=== PATIENT | female | born 1940 | race Caucasian/White ===

== ENCOUNTER → 2018-10-28 10:53 | Outpatient (CLI) | payer MEDICARE, OTHER, SELFPAY ==
--- NOTE | 2018-10-28 11:00 | DI.MG.S_ITS ---
BILATERAL DIGITAL SCREENING MAMMOGRAM 3D/2D WITH CAD: 10/28/2018 CLINICAL: Routine screening. Family history of breast cancer. Comparison is made to exams dated: 01/14/2017 mammogram, 01/05/2016 mammogram, and 10/28/2014 mammogram - [facility]. The tissue of both breasts is heterogeneously dense. This may lower the sensitivity of mammography. Current study was also evaluated with a Computer Aided Detection (CAD) system. There are benign post operative findings in the right breast. There also are benign calcifications in both breasts. No significant masses, calcifications, or other findings are seen in either breast. There has been no significant interval change. IMPRESSION: There is no mammographic evidence of malignancy. A 1 year screening mammogram is recommended. This exam was interpreted at Station ID: [id number]. NOTE: For mammograms, a report in lay terms will be sent to the patient. Approximately 15% of breast malignancies will not be visualized mammographically. In the management of a palpable breast mass, a negative mammogram must not discourage biopsy of a clinically suspicious lesion. Electronically Signed By: Jalen wallace/luda:10/28/2018 11:48:05 copy to: [place] letter sent: Normal Exam ACR BI-RADS Category 2: Benign Finding(s) 3342F
== END ==
PROVIDERS: PCP Internal Medicine; Visit Provider Internal Medicine
DX: Z12.31 Encounter for screening mammogram for malignant neoplasm of breast (principal); Z80.3 Family history of malignant neoplasm of breast
CPT/HCPCS: 77063; 77067

== ENCOUNTER 2018-11-19 09:22 | Emergency (ER) | payer MEDICARE, OTHER, SELFPAY ==
[2018-11-19 09:25] VITALS: BP 181/89; PULSE 101; RESP 20; TEMP 36.4; O2SAT 97
--- NOTE | 2018-11-19 10:22 | DI.RAD.S_ITS ---
PROCEDURE: XR SACRUM COCCYX MIN 2V INDICATIONS: pain TECHNIQUE: 3 views of the sacrum and coccyx acquired. COMPARISON: None. FINDINGS: Bones: No fractures or dislocations. No suspicious bony lesions. Severe degenerative disc height loss at L5-S1. Soft tissues: Visualized bowel gas pattern is normal. No suspicious soft tissue densities. IMPRESSION: Severe degenerative disc height loss at L5-S1. If there is concern for central canal stenosis, MR imaging of the lumbar spine is recommended. No fractures. Dictated by: Rosalba Su M.D. on 11/19/2018 at 10:58 Approved by: Rosalba Su M.D. on 11/19/2018 at 10:59
--- NOTE | 2018-11-19 10:22 | DI.RAD.S_ITS ---
PROCEDURE: XR LUMBAR SPINE 2-3V INDICATIONS: pain TECHNIQUE: 3 views of the lumbar spine were acquired. COMPARISON: None. FINDINGS: Bones: 5 [id number] vertebrae are present. Trace retrolisthesis L2 on 3, L3 on 4, and grade 1 anterolisthesis L4 on 5. Transverse alignment is normal. Moderate to severe multilevel disc height loss, most extensive at the L5-S1 level. Facet hypertrophy L4-5 and L5-S1. No vertebral body compression fractures. No suspicious bony lesions. Soft tissues: Overlying bowel gas pattern is normal. No suspicious soft tissue calcifications. IMPRESSION: 1. No acute vertebral body fractures. 2. Multilevel spondylosis, most extensive in the lower lumbar spine. Dictated by: Rosalba Su M.D. on 11/19/2018 at 10:56 Approved by: Rosalba Su M.D. on 11/19/2018 at 10:58
--- NOTE | 2018-11-19 11:21 | ED.BACK ---
HPI - Back Pain/Injury <ERICK Tidwell-BC - Last Filed: 11/19/18 15:21> General Chief Complaint: Back Pain/Injury Stated Complaint: Lower back pain Time Seen by Provider: 11/19/18 11:10 Source: patient and family Mode of arrival: ambulatory Limitations: no limitations History of Present Illness HPI Narrative: The patient is a 78-year-old female of arthritis and PTSD who presents with a chief complaint of low back pain for 5-7 days. She denies any falls or trauma. She states that she uses CBD, THC as well as alcohol. She states she drinks ?too much but not every day. She denies any falls or trauma. She states the pain radiates from her low back down both legs. She denies any incontinence of bowel, incontinence of bladder or saddle anesthesia. She denies any fevers shortness of breath or chest pain. She denies any cough. She denies any recent trauma. She denies any history of cancer. Related Data Home Medications Medication Instructions Recorded Confirmed atorvastatin 20 mg PO DAILY 11/19/18 11/19/18 celecoxib 200 mg PO DAILY 11/19/18 11/19/18 lisinopril 40 mg PO DAILY 11/19/18 11/19/18 venlafaxine 150 mg PO DAILY 11/19/18 11/19/18 Previous Rx's Medication Instructions Recorded gabapentin 100 mg PO BID PRN #20 cap 11/19/18 lidocaine 1 patch TOP DAILY #15 each 11/19/18 methocarbamol [Robaxin] 500 mg PO TID PRN #30 tab 11/19/18 Allergies Allergy/AdvReac Type Severity Reaction Status Date / Time Sulfa (Sulfonamide Allergy Unknown Unverified 11/19/18 09:52 Antibiotics) Review of Systems <ERICK Tidwell-BC - Last Filed: 11/19/18 15:21> Review of Systems GENERAL: Denies chills, fatigue, malaise, fever, sweats. HEENT: Denies sinus pain, ear pain, sore throat, difficulty swallowing, dizziness. RESPIRATORY: Denies dyspnea, cough, wheezing, hemoptysis, sputum. CARDIOVASCULAR: Denies chest pain, palpitations, orthopnea, edema, GASTROINTESTINAL: Denies nausea, vomiting, abdominal pain, diarrhea, constipation, melena. : Denies dysuria, frequency, incontinence, hematuria, urinary retention. MUSCULOSKELETAL: See HPI SKIN: Denies rash, skin lesions, or other NEUROLOGIC: Denies weakness, headache, numbness, change in speech, confusion, seizures, incoordination. PSYCHIATRIC: See HPI 12 point review of systems is negative except for those stated above PFSH <ISHAN Tidwell - Last Filed: 11/19/18 15:21> Medical History (Updated 11/19/18 @ 15:17 by ISHAN Tidwell) Alcohol use (Acute) History of hysterectomy (Acute) Social History Smoking Status: Never smoker Social History Smoking Status: Never smoker Exam <ISHAN Tidwell - Last Filed: 11/19/18 15:21> Narrative Exam Narrative: GENERAL: This is a well-nourished, well-developed patient, lying on stretcher HEAD: Atraumatic. Normocephalic. No temporal or scalp tenderness. EYES: Pupils equal round and reactive. Extraocular motions intact. No scleral icterus. No injection or drainage. ENT: Nose without bleeding, purulent drainage or septal hematoma. Throat without erythema, tonsillar hypertrophy or exudate. Uvula midline. Airway patent. NECK: Trachea midline. No JVD or lymphadenopathy. Supple, nontender, no meningeal signs. CARDIOVASCULAR: Regular rate and rhythm RESPIRATORY: Clear to auscultation. Breath sounds equal bilaterally. No wheezes, rales, or rhonchi. No cough. No stridor. No increased respiratory effort. No accessory muscle use. GASTROINTESTINAL: Abdomen soft, non-tender, nondistended. No hepato-splenomegaly, or palpable masses. No guarding. Active bowel sounds all 4 quadrants. EXTREMITIES: No clubbing, cyanosis, or edema. No joint tenderness, effusion, or edema noted. Strength is equal upper and lower extremities bilaterally. BACK: no pain to C-spine palpation, T-spine palpation. Patient has pain to L spine and sacrum palpation. Pain to bilateral paraspinal muscles on L-spine palpation. No flank tenderness. NEURO: AOx3. Strength is equal upper and lower extremities bilaterally. Gross cranial nerve deficit. SKIN: No rash erythema ecchymosis laceration or abrasion noted on lower back. Initial Vital Signs Initial Vital Signs: Vital Signs Temperature 97.5 F L 07/24/19 09:25 Pulse Rate 101 H 07/24/19 09:25 Respiratory Rate 20 11/19/18 09:25 Blood Pressure 181/89 H 11/19/18 09:25 Pulse Oximetry 97 11/19/18 09:25 <Krystal Stone DO - Last Filed: 11/19/18 20:01> Initial Vital Signs Initial Vital Signs: Vital Signs Temperature 97.5 F L 11/19/18 09:25 Pulse Rate 101 H 11/19/18 09:25 Respiratory Rate 20 11/19/18 09:25 Blood Pressure 181/89 H 11/19/18 09:25 Pulse Oximetry 97 11/19/18 09:25 Course <ERICK Tidwell-BC - Last Filed: 11/19/18 15:21> Orders Ordered: Discontinued Medications Gabapentin (Neurontin) 100 mg PO NOW ONE Stop: 11/19/18 11:20 Last Admin: 11/19/18 11:33 Dose: 100 mg Lidocaine (Lidoderm) 1 each TOP NOW ONE Stop: 11/19/18 11:20 Last Admin: 11/19/18 11:33 Dose: 1 each Lorazepam (Ativan) 1 mg PO NOW ONE Stop: 11/19/18 11:45 Last Admin: 11/19/18 11:46 Dose: 1 mg Methocarbamol (Robaxin) 500 mg PO NOW ONE Stop: 11/19/18 11:20 Last Admin: 11/19/18 11:33 Dose: 500 mg Reevaluation(s) Reevaluation #1: I checked with the patient. She states her pain is much improved. I asked if she would like resources for alcoholism at this point, which she declines. She states she was able to go to a detox center before knows how to manage it herself. I did give her Ativan in the emergency department as she had a tremor, which resulted in improvement. Her request resources, so I will give him information so that he has it. Given that she does not want resources at this time, I do not want to give her an Ativan prescription. Time: 12:15 Vital Signs - 8 hr 11/19/18 13:15 Pulse Rate 88 Respiratory Rate 20 Blood Pressure 151/69 H Pulse Oximetry 98 <Krystal Stone DO - Last Filed: 11/19/18 20:01> Orders Ordered: Discontinued Medications Gabapentin (Neurontin) 100 mg PO NOW ONE Stop: 11/19/18 11:20 Last Admin: 11/19/18 11:33 Dose: 100 mg Lidocaine (Lidoderm) 1 each TOP NOW ONE Stop: 11/19/18 11:20 Last Admin: 11/19/18 11:33 Dose: 1 each Lorazepam (Ativan) 1 mg PO NOW ONE Stop: 11/19/18 11:45 Last Admin: 11/19/18 11:46 Dose: 1 mg Methocarbamol (Robaxin) 500 mg PO NOW ONE Stop: 11/19/18 11:20 Last Admin: 11/19/18 11:33 Dose: 500 mg Vital Signs - 8 hr 11/19/18 13:15 Pulse Rate 88 Respiratory Rate 20 Blood Pressure 151/69 H Pulse Oximetry 98 MDM - Back Pain/Injury <CHANDRAKANT Tidwell - Last Filed: 11/19/18 15:21> Imaging Data L spine x-ray: Radiologist's impression: [facility] DATE TYPE STATUS AUTHOR Hx 11/19/18 10:22 Rosalba Su 11/19/18 10:22 Rosalba Su 10/28/18 11:00 Jalen Scott Osiris Woodruff 78, F0 1940 [facility], ED.LOC - Main ED Back Pain/Injury Search Chart No Data to Display ONSET Today 13:15 Osiris Woodruff 78 F 1940 [place] [address] XRay Report Signed Patient: RanjanTonyOsiris PMR#: [id number] : [id number]:[id number] Age/Sex: 78 / FDate of Service: 11/19/18 Loc: ED Accession Number: [id number] Procedure: XR lumbar spine 2-3V Ordering Provider: Krystal Stone D.O. PROCEDURE: XR LUMBAR SPINE 2-3V INDICATIONS: pain TECHNIQUE: 3 views of the lumbar spine were acquired. COMPARISON: None. FINDINGS: Bones: 5 [id number] vertebrae are present. Trace retrolisthesis L2 on 3, L3 on 4, and grade 1 anterolisthesis L4 on 5. Transverse alignment is normal. Moderate to severe multilevel disc height loss, most extensive at the L5-S1 level. Facet hypertrophy L4-5 and L5-S1. No vertebral body compression fractures. No suspicious bony lesions. Soft tissues: Overlying bowel gas pattern is normal. No suspicious soft tissue calcifications. IMPRESSION: 1. No acute vertebral body fractures. 2. Multilevel spondylosis, most extensive in the lower lumbar spine. Dictated by: Rosalba Su M.D. on 11/19/2018 at 10:56 Approved by: Rosalba Su M.D. on 11/19/2018 at 10:58 Sacral or coccyx x-ray: Radiologist's impression: Chart [facility] Diagn[facility] DATE TYPE STATUS AUTHOR Loi 11/19/18 10:22 Rosalba Su 11/19/18 10:22 Rosalba Su 10/28/18 11:00 Jalen Scott Osiris Woodruff 78, 1940 [facility], ED.LOC - Main ED Back Pain/Injury Search Chart No Data to Display ONSET Today 13:15 Osiris Woodruff 78 F 1940 [place] [address] XRay Report Signed Patient: Tony Woodruffil PMR#: [id number] : [id number] Age/Sex: 78 / FDate of Service: 11/19/18 Loc: ED Accession Number: [id number] Procedure: XR sacrum coccyx min 2V Ordering Provider: Krystal Stone D.O. PROCEDURE: XR SACRUM COCCYX MIN 2V INDICATIONS: pain TECHNIQUE: 3 views of the sacrum and coccyx acquired. COMPARISON: None. FINDINGS: Bones: No fractures or dislocations. No suspicious bony lesions. Severe degenerative disc height loss at L5-S1. Soft tissues: Visualized bowel gas pattern is normal. No suspicious soft tissue densities. IMPRESSION: Severe degenerative disc height loss at L5-S1. If there is concern for central canal stenosis, MR imaging of the lumbar spine is recommended. No fractures. Dictated by: Rosalba Su M.D. on 11/19/2018 at 10:58 Approved by: Rosalba Su M.D. on 11/19/2018 at 10:59 [facility] Narrative Medical decision making narrative: The patient is a 78-year-old female with history of alcoholism who presents with a chief complaint of back pain, that is nontraumatic. She has negative x-rays of her lumbar spine, sacrum coccyx other than degenerative disease, which I discussed with the patient. She received lidocaine, Robaxin and gabapentin in the emergency department with good effect. The patient does have a tremor noted in the emergency department, states that she has not had any alcohol to drink it today. She is given Ativan with good effect. As previously discussed, I spoke with the patient and regarding alcohol detox. They eventually elected to leave prior to us hearing back from care management. They were given some resources. However they wanted to leave. I discussed at length following up with her PCP. Discussed coming back to the ER for any acute concerns such as incontinence of bowel, incontinence of bladder or saddle anesthesia. Patient and have no questions or concerns. State understanding of return precautions as well as follow-up. Discharge Plan Departure Patient Disposition: Home Clinical Impression: Alcohol abuse Back pain Qualifiers: Back pain location: low back pain Chronicity: acute Back pain laterality: bilateral Sciatica presence: with sciatica Sciatica laterality: bilateral sciatica Qualified Code(s): M54.42 - Lumbago with sciatica, left side Discharge Date/Time: 11/19/18 13:16 Interventions: ED Discharge Assessment Last Done: 11/19/18 13:15 Instructions: DI for Low Back Pain, DI for Alcohol Abuse, DI for Drug or Alcohol Withdrawal, DI for Back Spasm, DI for Back Strain or Sprain Activity Restrictions/Additional Instructions: I have sent [facility] Please follow up with her primary care provider soon as possible. I have also given you some information regarding alcoholism Please do not combine the gabapentin or Robaxin was sedating agents such as alcohol. Please come back to the emergency department for any acute concerns such as incontinence of bowel, incontinence of bladder or saddle anesthesia. Prescriptions: New methocarbamol [Robaxin] 500 mg tablet 500 mg PO TID PRN (Reason: pain) Qty: 30 RF: 0 lidocaine 5 % adhesive patch,medicated 1 patch TOP DAILY Qty: 15 RF: 0 gabapentin 100 mg capsule 100 mg PO BID PRN (Reason: pain) Qty: 20 RF: 0 No Action celecoxib 200 mg capsule 200 mg PO DAILY RF: 0 atorvastatin 20 mg tablet 20 mg PO DAILY RF: 0 venlafaxine 150 mg capsule,extended release 24hr 150 mg PO DAILY RF: 0 lisinopril 40 mg tablet 40 mg PO DAILY RF: 0 Referrals: [facility] MD [Primary Care Provider] - <Krystal Stone DO - Last Filed: 11/19/18 20:01> Cosign ED Attending Cosignature Attestation: I was immediately available in the department for consultation. This documentation has been reviewed and I agree with assessment and plan. Supervised by Krystal Stone DO
[2018-11-19] MEDS: METHOCARBAMOL 500 MG TABLET PO (11:33)
[2018-11-19] MEDS: LIDOCAINE PATCH 1 EACH ADH..PATCH TOP (11:33)
[2018-11-19] MEDS: GABAPENTIN 100 MG CAPSULE PO (11:33)
[2018-11-19] MEDS: LORazepam 0.5 MG TABLET 1 MG PO (11:46)
--- NOTE | 2018-11-19 11:52 | PC.NURSE ---
Pt admits to drinking too much a lot. Here pt appears to have DT tremors. States last drank day before last. Meds after discussion with provider.
[2018-11-19 13:15] VITALS: BP 151/69; PULSE 88; RESP 20; O2SAT 98
--- NOTE | 2018-11-19 14:16 | PC.NURSE ---
spoke with Katlyn at [facility], Rx not received, Rx called in provider Ehsan
== END 2018-11-19 13:16 | disposition home or self-care (01) ==
PROVIDERS: Emergency Provider Nurse Practitioner Family; PCP Internal Medicine
DX: M54.42 Lumbago with sciatica, left side (principal); F10.10 Alcohol abuse, uncomplicated
CPT/HCPCS: 72100; 72220; 99282; 99283

== ENCOUNTER 2019-02-03 10:30 | Outpatient (RCR) | payer MEDICARE, OTHER, SELFPAY ==
--- NOTE | 2018-12-10 15:07 | PT.OIE ---
Current Diagnoses Sciatica, left side (12/10/18) Low back pain (12/10/18) Past Medical History (Last Updated 11/19/18 @ 15:17 [facility] Alcohol use (Acute) History of hysterectomy (Acute) Provider Visit Care Team Role Provider Type [place] MD Attending Provider Physician Primary Care Provider Specialty: Internal Medicine Address: [address] [place] [address], [facility] Email: Physical Therapy Initial Evaluation PT-OP-A Visit Information Start: 12/10/18 14:31 Freq: Status: Active Protocol: Document 12/10/18 13:00 (Rec: 12/10/18 15:06 [email or web address]) Out-Patient Physical Therapy Visit Information Visit Information Visit Type Initial Evaluation Visit Start Time 13:00 Visit Stop Time 13:45 Total Visit Minutes 45 Visit Number 1 Number of COMPUTER PERIPHERAL EQUIPMENT OPERATOR Visits 0 Evaluation Information Evaluation Date 12/10/18 PT-OP-B Current Condition Start: 12/10/18 14:31 Freq: Status: Active Protocol: Document 12/10/18 13:00 HH (Rec: 12/10/18 15:06 [email or web address]) Current Condition History of Current Condition Onset Date a month ago Current Complaints B LBP L>R, radiating pain to LE, difficulty in walking History of Current Condition Pt presents to clinic with c/o acute LBP since a month ago with unknown reason. She explained her pain started at the center of the lower back and progressively getting worse with radiating pain down to buttocks and back of her thighs L>R. She described her symptoms as shooting pain with pinching sensation. 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 She is now having difficulty in walking, especially WB on her L LE. Movements from trunk and extremities seems to aggravate her symptoms. She basically has to everything slower. Ice and heat did help temporarily. Pt was very active prior to sx who workout 3 times a week with cardio and strengthening exercises. 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 To be pain free during functional activities (bending over, walking) 2. return to her workout routine 3x/ week (cardio and general strengthening) Prior Functional Status Baseline Function- ADL's Independent Baseline Function- Mobility Independent Baseline Function- Recreation/Hobbies workout 3 times a week with cardio and strengthening exercises. Current Functional Impairments (Reported) Functional Limitations- ADL's Unable to sit >10 mins unable to bend over to pick pulling machine tender objects from floor Functional Limitations- Mobility/Gait antalgic gait with limitation on WB on LLE Functional Limitations- Recreation/ Unable to workout at the gym Hobbies PT-OP-C Subjective Start: 12/10/18 14:31 Freq: Status: Active Protocol: Document 12/10/18 13:00 HH (Rec: 12/10/18 15:06 [email or web address]) OP-PT Subjective Patient Comments Patient Comments movements tend to cause pain. Patient Questionnaires Oswestry Low Back Index Oswestry Score 32 Oswestry Impairment 20 to 39% Impaired (Score 20- 39) OP-PT Pain Assessment Location Bilateral Back Pain Location Details lumbar, buttocks, posterior thigh L>R Intensity 6 Scale Used Numeric (1 - 10) Description Pinching Pressure Radiating With Movement Frequency Frequent Pain Aggravating Factors Position ADL's Activity Exercise Standing Sitting Walking Bending Lifting Pain Alleviating Factors Inactivity Lying Supine PT-OP-D Balance Start: 12/10/18 14:31 Freq: Status: Active Protocol: Document 12/10/18 13:00 HH (Rec: 12/10/18 15:06 [email or web address]) Balance Tests Single Limb Standing Single Limb- Right 5 Single Limb- Left 0 (unable) PT-OP-G Mobility & Gait Start: 12/10/18 14:31 Freq: Status: Active Protocol: Document 12/10/18 13:00 HH (Rec: 12/10/18 15:06 [email or web address]) OP Mobility Evaluation Transfers Sit to Stand Abberant movement (uses both UE to support on knees ) OP Gait Assessment Gait Deviations General Gait Pattern Antalgic Decreased Stride Length Decreased Feet Clearance Factors Limiting Gait Function Factors Limiting Gait Function Decreased Activity Tolerance Decreased Strength Limited Range of Motion Pain Poor Balance Comments Gait Comments L antaglic gait with lack of heel strike. Early heel rise noticed as well. PT-OP-K Range of Motion Start: 12/10/18 14:31 Freq: Status: Active Protocol: Document 12/10/18 13:00 HH (Rec: 12/10/18 15:06 [email or web address]) Lumbar Spine Range of Motion Lumbar Spine Degrees Testing Position Standing Flexion 35 Extension 10 Lateral Flexion Left 30 Lateral Flexion Right 20 ROM Limitations Pain Comments Pain with ext > flexion > lateral flexion PT-OP-L Special Tests Start: 12/10/18 14:31 Freq: Status: Active Protocol: Document 12/10/18 13:00 (Rec: 12/10/18 15:06 [email or web address]) Special Tests Lumbar Spine Special Tests facet syndrome Test Results +VE B Comments pain with lateral flexion/ ext + lateral flexion A-P Shearing Test Results +VE Manual Traction Test Results +VE Comments hooklying traction reduces symptoms Straight Leg Raise Test Results +ve BLE (radiating pain) Comments RLE= 80 degrees, LLE = 70 degrees PT-OP-Q Treatments Start: 12/10/18 14:31 Freq: Status: Active Protocol: Document 12/10/18 13:00 (Rec: 12/10/18 15:06 [email or web address]) Therapeutic Exercises Supine Exercises supine knee ext Supine Exercise Name nerve glide Side bilateral Reps/Minutes 10 x 2 Comments hips at 60 degrees Sitting Exercises seated pelvic tilt Side bilateral Reps/Minutes 10 x2 Comments cues on lumbar ROM Manual Therapy Treatment Manual Traction hip distraction Body Position Supine Reps/Duration 30 secs hold x 5 lumbar traction Details with belt posterior to knee joints Body Position Hooklying Reps/Duration 30 secs hold x 10 PT-OP-T Assessment and Plan Start: 12/10/18 14:31 Freq: Status: Active Protocol: Document 12/10/18 13:00 (Rec: 12/10/18 15:06 [email or web address]) Physical Therapy Assessment Rehab Potential Rehabilitation Potential Excellent Evaluation Complexity Number of Personal Factors/Comorbidities 1-2 Number of Body Systems Impaired 1-2 Clinical Presentation at Evaluation Stable Impairments Impairments Activity Tolerance Balance Functional Activities Functional Mobility Gait Pain Posture ROM Sensation Soft Tissue Mobility Strength Transfers Goals activity tolerance Impairment unable to return to workout routine, stand/ sit > 10 mins Short Term Goal (STG) Pt will be able to participate her workout routine 2x/ week for 30 mins session with minimal pain in order to optimize her functional strength and mobility. STG Duration 5 weeks Demurrage Clerk Goal (LTG) Pt will be able to participate her workout routine 3-4x/ week for 45 mins session in pain free in order to optimize her functional strength and mobility. LTG Duration 10 weeks balance Impairment RLE = 5s, LLE = 0 s Short Term Goal (STG) Pt will improve her single leg balance to 10 s on each LE to facilitate even step length during gait. STG Duration 5 weeks Demurrage Clerk Goal (LTG) Pt will improve her single leg balance to 15 s on each LE in order to use step over pattern for stair negotiation LTG Duration 10 weeks Oswestry LBP Impairment Pt scores 32 (20-39% impairment) for Oswestry LBP questionnaire Short Term Goal (STG) Pt will score <20 (1-19% impairment) to improve her overall functional mobility and quality of life STG Duration 5 weeks Senior Care Goal (LTG) Pt will score 0 (0% impairment ) to improve her overall functional mobility and quality of life LTG Duration 10 weeks Assessment Summary Assessment Pt is a mod complexity for her subacute LBP with radiating pain to her B posterior thighs (L>R). Upon assessment, pt is currently extremely sensitive to movements and tactile stimulus at her lumbar region which makes assessment difficult. Pt's back pain and radicular symptoms reproduced during SLR and appeared to be worse with extension > lateral flexion > flexion. She also showed compensatory signs during STS (used UEs to support on knees) and L antalgic gait (limited WB on LLE). However, pt reports relief of symptoms and improved in gait after lumbar distraction, supine knee extension and seated pelvic tilt at the end of session. Pt will benefit from skilled with manual therapy, movement reeducation, neuromuscular reeducation and overall strengthening to assist her to return to her PLOF in pain free Physical Therapy Plan Frequency and Duration Frequency of Treatment 2x/Week Duration of Treatment 10 weeks Plan of Care Start Date 12/10/18 Plan of Care End Date 02/25/19 Therapeutic Interventions Therapeutic Interventions Balance Training Gait Training Home Exercise Program Joint Mobilizations Manual Therapy Neuromuscular Re-education Patient/Caregiver Education Self-Care/Home Management Soft Tissue Mobilization Taping Therapeutic Activities Therapeutic Exercises Next Visit Focus/Plan Next Note Type Treatment Note Next Visit Plan provide HEP with images gentle lumbar ROM as luan ( supine/ prone position) traction as luan nerve glide
--- NOTE | 2018-12-11 12:58 | PT.OTN ---
Current Diagnoses Sciatica, left side (12/11/18) Low back pain (12/11/18) Physical Therapy Treatment Note PT-OP-A Visit Information Start: 12/10/18 14:31 Freq: Status: Active Protocol: Document 12/11/18 09:00 HH (Rec: 12/11/18 12:57 HH [email or web address]) Out-Patient Physical Therapy Visit Information Visit Information Visit Type Treatment Note Visit Start Time 09:00 Visit Stop Time 09:43 Total Visit Minutes 43 Visit Number 2 Number of DESIZING PAD OPERATOR Visits 0 PT-OP-B Current Condition Start: 12/10/18 14:31 Freq: Status: Active Protocol: Document 12/10/18 13:00 HH (Rec: 12/10/18 15:06 HH [email or web address]) Current Condition History of Current Condition Onset Date a month ago Current Complaints B LBP L>R, radiating pain to LE, difficulty in walking History of Current Condition Pt presents to clinic with c/o acute LBP since a month ago with unknown reason. She explained her pain started at the center of the lower back and progressively getting worse with radiating pain down to buttocks and back of her thighs L>R. She described her symptoms as shooting pain with pinching sensation. 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 She is now having difficulty in walking, especially WB on her L LE. Movements from trunk and extremities seems to aggravate her symptoms. She basically has to everything slower. Ice and heat did help temporarily. Pt was very active prior to sx who workout 3 times a week with cardio and strengthening exercises. 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 To be pain free during functional activities (bending over, walking) 2. return to her workout routine 3x/ week (cardio and general strengthening) Prior Functional Status Baseline Function- ADL's Independent Baseline Function- Mobility Independent Baseline Function- Recreation/Hobbies workout 3 times a week with cardio and strengthening exercises. Current Functional Impairments (Reported) Functional Limitations- ADL's Unable to sit >10 mins unable to bend over to supervisor extruding department objects from floor Functional Limitations- Mobility/Gait antalgic gait with limitation on WB on LLE Functional Limitations- Recreation/ Unable to workout at the gym Hobbies PT-OP-C Subjective Start: 12/10/18 14:31 Freq: Status: Active Protocol: Document 12/11/18 09:00 HH (Rec: 12/11/18 12:57 [email or web address]) OP-PT Subjective Patient Comments Patient Comments I feel better after yesterday session. Im limbing less while walking. PT-OP-D Balance Start: 12/10/18 14:31 Freq: Status: Active Protocol: Document 12/10/18 13:00 HH (Rec: 12/10/18 15:06 [email or web address]) Balance Tests Single Limb Standing Single Limb- Right 5 Single Limb- Left 0 (unable) PT-OP-G Mobility & Gait Start: 12/10/18 14:31 Freq: Status: Active Protocol: Document 12/10/18 13:00 HH (Rec: 12/10/18 15:06 [email or web address]) OP Mobility Evaluation Transfers Sit to Stand Abberant movement (uses both UE to support on knees ) OP Gait Assessment Gait Deviations General Gait Pattern Antalgic Decreased Stride Length Decreased Feet Clearance Factors Limiting Gait Function Factors Limiting Gait Function Decreased Activity Tolerance Decreased Strength Limited Range of Motion Pain Poor Balance Comments Gait Comments L antaglic gait with lack of heel strike. Early heel rise noticed as well. PT-OP-K Range of Motion Start: 12/10/18 14:31 Freq: Status: Active Protocol: Document 12/10/18 13:00 HH (Rec: 12/10/18 15:06 [email or web address]) Lumbar Spine Range of Motion Lumbar Spine Degrees Testing Position Standing Flexion 35 Extension 10 Lateral Flexion Left 30 Lateral Flexion Right 20 ROM Limitations Pain Comments Pain with ext > flexion > lateral flexion PT-OP-L Special Tests Start: 12/10/18 14:31 Freq: Status: Active Protocol: Document 12/10/18 13:00 HH (Rec: 12/10/18 15:06 [email or web address]) Special Tests Lumbar Spine Special Tests facet syndrome Test Results +VE B Comments pain with lateral flexion/ ext + lateral flexion A-P Shearing Test Results +VE Manual Traction Test Results +VE Comments hooklying traction reduces symptoms Straight Leg Raise Test Results +ve BLE (radiating pain) Comments RLE= 80 degrees, LLE = 70 degrees PT-OP-Q Treatments Start: 12/10/18 14:31 Freq: Status: Active Protocol: Document 12/11/18 09:00 (Rec: 12/11/18 12:57 [email or web address]) Cardio Equipment Recumbent Stepper (Sci-Fit) Duration (Minutes) 5 Resistance 0 Other RPM = 40 Therapeutic Exercises Supine Exercises supine pelvic tilt Supine Exercise Name hooklying Side bilateral Comments cues on abdominal (PPT) and gluteal (APT) engagement supine knee ext Supine Exercise Name nerve glide Side bilateral Reps/Minutes 10 x 2 Comments hips at 60 degrees, HEP education Prone Exercises cat camel Side bilateral Reps/Minutes 10 x 2 Comments with cervical ext and flex Sitting Exercises seated pelvic tilt Side bilateral Reps/Minutes 8 x1 Comments cues on lumbar ROM Manual Therapy Treatment Soft Tissue Mobilization piriformis Mobilization Type Cross-Friction Sustained Pressure Trigger Point Release Intensity/Depth Moderate Body Position Prone B paraspinals Mobilization Type Cross-Friction Sustained Pressure Trigger Point Release Intensity/Depth Moderate Body Position Prone Manual Traction hip distraction Body Position Supine Reps/Duration 30 secs hold x 5 lumbar traction Details with belt posterior to knee joints Body Position Hooklying Reps/Duration 30 secs hold x 10 Comments with slight hip whiper PT-OP-T Assessment and Plan Start: 12/10/18 14:31 Freq: Status: Active Protocol: Document 12/11/18 09:00 (Rec: 12/11/18 12:57 [email or web address]) Physical Therapy Assessment Goals activity tolerance Impairment unable to return to workout routine, stand/ sit > 10 mins Short Term Goal (STG) Pt will be able to participate her workout routine 2x/ week for 30 mins session with minimal pain in order to optimize her functional strength and mobility. STG Duration 5 weeks Assisted Goal (LTG) Pt will be able to participate her workout routine 3-4x/ week for 45 mins session in pain free in order to optimize her functional strength and mobility. LTG Duration 10 weeks balance Impairment RLE = 5s, LLE = 0 s Short Term Goal (STG) Pt will improve her single leg balance to 10 s on each LE to facilitate even step length during gait. STG Duration 5 weeks Instrument And Controls Technician Goal (LTG) Pt will improve her single leg balance to 15 s on each LE in order to use step over pattern for stair negotiation LTG Duration 10 weeks Oswestry LBP Impairment Pt scores 32 (20-39% impairment) for Oswestry LBP questionnaire Short Term Goal (STG) Pt will score <20 (1-19% impairment) to improve her overall functional mobility and quality of life STG Duration 5 weeks Instrument And Controls Technician Goal (LTG) Pt will score 0 (0% impairment ) to improve her overall functional mobility and quality of life LTG Duration 10 weeks Assessment Summary Assessment Pt progress with less back pain and antalgic gait today. She is able to mobilize his lumbar region with less pain. However, pain increased with seated pelvic tilt but she denies discomfort at supine and prone position. HEP given with supine pelvic tilt, cat camel and supine knee extension glide. Physical Therapy Plan Next Visit Focus/Plan Next Note Type Treatment Note Next Visit Plan gentle lumbar ROM as luan ( supine/ prone position) child pose, seated stretch. gentle LE strengthening traction as luan nerve glide
--- NOTE | 2018-12-16 12:17 | PT.OTN ---
Current Diagnoses Sciatica, left side (12/16/18) Low back pain (12/16/18) Physical Therapy Treatment Note PT-OP-A Visit Information Start: 12/10/18 14:31 Freq: Status: Active Protocol: Document 12/16/18 12:10 HH (Rec: 12/16/18 12:17 HH [email or web address]) Out-Patient Physical Therapy Visit Information Visit Information Visit Type Treatment Note Visit Start Time 09:05 Visit Stop Time 09:47 Total Visit Minutes 42 Visit Number 3 Number of PLATING DEPARTMENT HELPER Visits 0 PT-OP-B Current Condition Start: 12/10/18 14:31 Freq: Status: Active Protocol: Document 12/10/18 13:00 HH (Rec: 12/10/18 15:06 HH [email or web address]) Current Condition History of Current Condition Onset Date a month ago Current Complaints B LBP L>R, radiating pain to LE, difficulty in walking History of Current Condition Pt presents to clinic with c/o acute LBP since a month ago with unknown reason. She explained her pain started at the center of the lower back and progressively getting worse with radiating pain down to buttocks and back of her thighs L>R. She described her symptoms as shooting pain with pinching sensation. 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 She is now having difficulty in walking, especially WB on her L LE. Movements from trunk and extremities seems to aggravate her symptoms. She basically has to everything slower. Ice and heat did help temporarily. Pt was very active prior to sx who workout 3 times a week with cardio and strengthening exercises. 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 To be pain free during functional activities (bending over, walking) 2. return to her workout routine 3x/ week (cardio and general strengthening) Prior Functional Status Baseline Function- ADL's Independent Baseline Function- Mobility Independent Baseline Function- Recreation/Hobbies workout 3 times a week with cardio and strengthening exercises. Current Functional Impairments (Reported) Functional Limitations- ADL's Unable to sit >10 mins unable to bend over to peanut picker objects from floor Functional Limitations- Mobility/Gait antalgic gait with limitation on WB on LLE Functional Limitations- Recreation/ Unable to workout at the gym Hobbies PT-OP-C Subjective Start: 12/10/18 14:31 Freq: Status: Active Protocol: Document 12/16/18 12:10 HH (Rec: 12/16/18 12:17 HH [email or web address]) OP-PT Subjective Patient Comments Patient Comments my back feels better and i limb less for the past few days. But aching my back hurts alot and gives me shooting pain down to my thighs. PT-OP-D Balance Start: 12/10/18 14:31 Freq: Status: Active Protocol: Document 12/10/18 13:00 HH (Rec: 12/10/18 15:06 [email or web address]) Balance Tests Single Limb Standing Single Limb- Right 5 Single Limb- Left 0 (unable) PT-OP-G Mobility & Gait Start: 12/10/18 14:31 Freq: Status: Active Protocol: Document 12/10/18 13:00 HH (Rec: 12/10/18 15:06 [email or web address]) OP Mobility Evaluation Transfers Sit to Stand Abberant movement (uses both UE to support on knees ) OP Gait Assessment Gait Deviations General Gait Pattern Antalgic Decreased Stride Length Decreased Feet Clearance Factors Limiting Gait Function Factors Limiting Gait Function Decreased Activity Tolerance Decreased Strength Limited Range of Motion Pain Poor Balance Comments Gait Comments L antaglic gait with lack of heel strike. Early heel rise noticed as well. PT-OP-K Range of Motion Start: 12/10/18 14:31 Freq: Status: Active Protocol: Document 12/10/18 13:00 HH (Rec: 12/10/18 15:06 [email or web address]) Lumbar Spine Range of Motion Lumbar Spine Degrees Testing Position Standing Flexion 35 Extension 10 Lateral Flexion Left 30 Lateral Flexion Right 20 ROM Limitations Pain Comments Pain with ext > flexion > lateral flexion PT-OP-L Special Tests Start: 12/10/18 14:31 Freq: Status: Active Protocol: Document 12/10/18 13:00 HH (Rec: 12/10/18 15:06 [email or web address]) Special Tests Lumbar Spine Special Tests facet syndrome Test Results +VE B Comments pain with lateral flexion/ ext + lateral flexion A-P Shearing Test Results +VE Manual Traction Test Results +VE Comments hooklying traction reduces symptoms Straight Leg Raise Test Results +ve BLE (radiating pain) Comments RLE= 80 degrees, LLE = 70 degrees PT-OP-Q Treatments Start: 12/10/18 14:31 Freq: Status: Active Protocol: Document 12/16/18 12:10 (Rec: 12/16/18 12:17 [email or web address]) Cardio Equipment Recumbent Bicycle Duration (Minutes) 5 Resistance 5 Therapeutic Exercises Supine Exercises knee to chest Side bilateral Reps/Minutes 5 x 3 bridging Side bilateral Equipment Used ball Reps/Minutes 6 x 3 Comments bridging with ball squeeze, up to pain threshold. supine pelvic tilt Supine Exercise Name hooklying Side bilateral Comments cues on abdominal (PPT) and gluteal (APT) engagement Prone Exercises hip IR and ER Prone Exercise Name PROM Side bilateral Reps/Minutes 5 mins child pose Side bilateral Reps/Minutes 10 x2 Comments up to neutral spine cat camel Side bilateral Reps/Minutes 10 x 2 Comments with cervical ext and flex Sitting Exercises seated pelvic tilt Side bilateral Reps/Minutes 8 x1 Comments cues on lumbar ROM Manual Therapy Treatment Soft Tissue Mobilization piriformis Mobilization Type Cross-Friction Sustained Pressure Trigger Point Release Intensity/Depth Moderate Body Position Prone Manual Traction hip distraction Body Position Supine Reps/Duration 30 secs hold x 5 lumbar traction Details with belt posterior to knee joints Body Position Hooklying Reps/Duration 30 secs hold x 10 Comments with slight hip whiper PT-OP-T Assessment and Plan Start: 12/10/18 14:31 Freq: Status: Active Protocol: Document 12/16/18 12:10 (Rec: 12/16/18 12:17 [email or web address]) Physical Therapy Assessment Goals activity tolerance Impairment unable to return to workout routine, stand/ sit > 10 mins Short Term Goal (STG) Pt will be able to participate her workout routine 2x/ week for 30 mins session with minimal pain in order to optimize her functional strength and mobility. STG Duration 5 weeks Skilled Nursing Goal (LTG) Pt will be able to participate her workout routine 3-4x/ week for 45 mins session in pain free in order to optimize her functional strength and mobility. LTG Duration 10 weeks balance Impairment RLE = 5s, LLE = 0 s Short Term Goal (STG) Pt will improve her single leg balance to 10 s on each LE to facilitate even step length during gait. STG Duration 5 weeks Skilled Nursing Goal (LTG) Pt will improve her single leg balance to 15 s on each LE in order to use step over pattern for stair negotiation LTG Duration 10 weeks Oswestry LBP Impairment Pt scores 32 (20-39% impairment) for Oswestry LBP questionnaire Short Term Goal (STG) Pt will score <20 (1-19% impairment) to improve her overall functional mobility and quality of life STG Duration 5 weeks Skilled Nursing Goal (LTG) Pt will score 0 (0% impairment ) to improve her overall functional mobility and quality of life LTG Duration 10 weeks Assessment Summary Assessment Pt cont to report relief in pain with lumbar and hip distraction and trunk flexion. But radiating pain to thighs with trunk extension. cont therex in supine and prone position. Physical Therapy Plan Next Visit Focus/Plan Next Note Type Treatment Note Next Visit Plan gentle lumbar ROM as luan ( supine/ prone position) child pose, seated stretch. gentle LE strengthening traction as luan nerve glide
--- NOTE | 2018-12-18 12:17 | PT.OTN ---
Current Diagnoses Sciatica, left side (12/18/18) Low back pain (12/18/18) Physical Therapy Treatment Note PT-OP-A Visit Information Start: 12/10/18 14:31 Freq: Status: Active Protocol: Document 12/18/18 10:35 HH (Rec: 12/18/18 12:17 HH [email or web address]) Out-Patient Physical Therapy Visit Information Visit Information Visit Type Treatment Note Visit Start Time 10:35 Visit Stop Time 11:18 Total Visit Minutes 43 Visit Number 4 Number of BOILER TUBE BLOWER Visits 0 PT-OP-B Current Condition Start: 12/10/18 14:31 Freq: Status: Active Protocol: Document 12/10/18 13:00 HH (Rec: 12/10/18 15:06 HH [email or web address]) Current Condition History of Current Condition Onset Date a month ago Current Complaints B LBP L>R, radiating pain to LE, difficulty in walking History of Current Condition Pt presents to clinic with c/o acute LBP since a month ago with unknown reason. She explained her pain started at the center of the lower back and progressively getting worse with radiating pain down to buttocks and back of her thighs L>R. She described her symptoms as shooting pain with pinching sensation. 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 She is now having difficulty in walking, especially WB on her L LE. Movements from trunk and extremities seems to aggravate her symptoms. She basically has to everything slower. Ice and heat did help temporarily. Pt was very active prior to sx who workout 3 times a week with cardio and strengthening exercises. 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 To be pain free during functional activities (bending over, walking) 2. return to her workout routine 3x/ week (cardio and general strengthening) Prior Functional Status Baseline Function- ADL's Independent Baseline Function- Mobility Independent Baseline Function- Recreation/Hobbies workout 3 times a week with cardio and strengthening exercises. Current Functional Impairments (Reported) Functional Limitations- ADL's Unable to sit >10 mins unable to bend over to seed cone picker objects from floor Functional Limitations- Mobility/Gait antalgic gait with limitation on WB on LLE Functional Limitations- Recreation/ Unable to workout at the gym Hobbies PT-OP-C Subjective Start: 12/10/18 14:31 Freq: Status: Active Protocol: Document 12/18/18 10:35 HH (Rec: 12/18/18 12:17 HH [email or web address]) OP-PT Subjective Patient Comments Patient Comments My back is feeling better and i still ahve soreness down to my back of both thighs. Patient Reported Progress Improving PT-OP-D Balance Start: 12/10/18 14:31 Freq: Status: Active Protocol: Document 12/10/18 13:00 HH (Rec: 12/10/18 15:06 [email or web address]) Balance Tests Single Limb Standing Single Limb- Right 5 Single Limb- Left 0 (unable) PT-OP-G Mobility & Gait Start: 12/10/18 14:31 Freq: Status: Active Protocol: Document 12/10/18 13:00 HH (Rec: 12/10/18 15:06 [email or web address]) OP Mobility Evaluation Transfers Sit to Stand Abberant movement (uses both UE to support on knees ) OP Gait Assessment Gait Deviations General Gait Pattern Antalgic Decreased Stride Length Decreased Feet Clearance Factors Limiting Gait Function Factors Limiting Gait Function Decreased Activity Tolerance Decreased Strength Limited Range of Motion Pain Poor Balance Comments Gait Comments L antaglic gait with lack of heel strike. Early heel rise noticed as well. PT-OP-K Range of Motion Start: 12/10/18 14:31 Freq: Status: Active Protocol: Document 12/10/18 13:00 HH (Rec: 12/10/18 15:06 [email or web address]) Lumbar Spine Range of Motion Lumbar Spine Degrees Testing Position Standing Flexion 35 Extension 10 Lateral Flexion Left 30 Lateral Flexion Right 20 ROM Limitations Pain Comments Pain with ext > flexion > lateral flexion PT-OP-L Special Tests Start: 12/10/18 14:31 Freq: Status: Active Protocol: Document 12/10/18 13:00 HH (Rec: 12/10/18 15:06 [email or web address]) Special Tests Lumbar Spine Special Tests facet syndrome Test Results +VE B Comments pain with lateral flexion/ ext + lateral flexion A-P Shearing Test Results +VE Manual Traction Test Results +VE Comments hooklying traction reduces symptoms Straight Leg Raise Test Results +ve BLE (radiating pain) Comments RLE= 80 degrees, LLE = 70 degrees PT-OP-Q Treatments Start: 12/10/18 14:31 Freq: Status: Active Protocol: Document 12/18/18 10:35 (Rec: 12/18/18 12:17 [email or web address]) Therapeutic Exercises Prone Exercises kneeling hip hinge Side bilateral Equipment Used level 3 band at hip Reps/Minutes 10 x2 Comments cues on glute engagement child pose Side bilateral Reps/Minutes 10 x2 Comments up to neutral spine cat camel Side bilateral Reps/Minutes 10 x 2 Comments with cervical ext and flex Sidelying Exercises SL rotation stretch Sidelying Exercise Name lumbar and SIJ mob Side bilateral Reps/Minutes 30 secs hold x 5 Sitting Exercises seated pelvic tilt Side bilateral Reps/Minutes 8 x1 Comments cues on lumbar ROM Standing Exercises standing hip hinge Side bilateral Reps/Minutes 6 x 2 Comments against wall, neutral spine Manual Therapy Treatment Soft Tissue Mobilization piriformis Mobilization Type Cross-Friction Sustained Pressure Trigger Point Release Intensity/Depth Moderate Body Position Prone B paraspinals Mobilization Type Cross-Friction Sustained Pressure Trigger Point Release Intensity/Depth Moderate Body Position Prone Manual Traction hip distraction Body Position Supine Reps/Duration 30 secs hold x 5 lumbar traction Details with belt posterior to knee joints Body Position Hooklying Reps/Duration 30 secs hold x 10 Comments with slight hip whiper PT-OP-T Assessment and Plan Start: 12/10/18 14:31 Freq: Status: Active Protocol: Document 12/18/18 10:35 (Rec: 12/18/18 12:17 [email or web address]) Physical Therapy Assessment Goals activity tolerance Impairment unable to return to workout routine, stand/ sit > 10 mins STG Duration 5 weeks LTG Duration 10 weeks balance Impairment RLE = 5s, LLE = 0 s Short Term Goal (STG) Pt will improve her single leg balance to 10 s on each LE to facilitate even step length during gait. STG Duration 5 weeks Kiln Placer Goal (LTG) Pt will improve her single leg balance to 15 s on each LE in order to use step over pattern for stair negotiation LTG Duration 10 weeks Oswestry LBP Impairment Pt scores 32 (20-39% impairment) for Oswestry LBP questionnaire Short Term Goal (STG) Pt will score <20 (1-19% impairment) to improve her overall functional mobility and quality of life STG Duration 5 weeks Kiln Placer Goal (LTG) Pt will score 0 (0% impairment ) to improve her overall functional mobility and quality of life LTG Duration 10 weeks Assessment Summary Assessment Pt progressed well. Less antalgic gait noted and able to reach trunk extension to 5- 10 degrees today. Added hip hinge in kneeling and standing positions. Physical Therapy Plan Next Visit Focus/Plan Next Note Type Treatment Note Next Visit Plan gentle lumbar ROM as luan ( supine/ prone position/ sitting ) child pose, seated stretch. gentle LE strengthening hip hinge, leg press traction as luna nerve glide
--- NOTE | 2018-12-23 17:52 | PT.OTN ---
Current Diagnoses Sciatica, left side (12/18/18) Low back pain (12/18/18) Physical Therapy Treatment Note PT-OP-A Visit Information Start: 12/10/18 14:31 Freq: Status: Active Protocol: Document 12/23/18 13:49 HH (Rec: 12/23/18 17:51 HH [email or web address]) Out-Patient Physical Therapy Visit Information Visit Information Visit Type Treatment Note Visit Start Time 13:49 Visit Stop Time 14:35 Total Visit Minutes 46 PT-OP-B Current Condition Start: 12/10/18 14:31 Freq: Status: Active Protocol: Document 12/10/18 13:00 HH (Rec: 12/10/18 15:06 HH [email or web address]) Current Condition History of Current Condition Onset Date a month ago Current Complaints B LBP L>R, radiating pain to LE, difficulty in walking History of Current Condition Pt presents to clinic with c/o acute LBP since a month ago with unknown reason. She explained her pain started at the center of the lower back and progressively getting worse with radiating pain down to buttocks and back of her thighs L>R. She described her symptoms as shooting pain with pinching sensation. 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 She is now having difficulty in walking, especially WB on her L LE. Movements from trunk and extremities seems to aggravate her symptoms. She basically has to everything slower. Ice and heat did help temporarily. Pt was very active prior to sx who workout 3 times a week with cardio and strengthening exercises. 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 To be pain free during functional activities (bending over, walking) 2. return to her workout routine 3x/ week (cardio and general strengthening) Prior Functional Status Baseline Function- ADL's Independent Baseline Function- Mobility Independent Baseline Function- Recreation/Hobbies workout 3 times a week with cardio and strengthening exercises. Current Functional Impairments (Reported) Functional Limitations- ADL's Unable to sit >10 mins unable to bend over to filler picker objects from floor Functional Limitations- Mobility/Gait antalgic gait with limitation on WB on LLE Functional Limitations- Recreation/ Unable to workout at the gym Hobbies PT-OP-C Subjective Start: 12/10/18 14:31 Freq: Status: Active Protocol: Document 12/23/18 13:49 HH (Rec: 12/23/18 17:51 [email or web address]) OP-PT Subjective Patient Comments Patient Comments I feel a lot better since last time.I could walk normally now. Patient Reported Progress Improving PT-OP-D Balance Start: 12/10/18 14:31 Freq: Status: Active Protocol: Document 12/10/18 13:00 HH (Rec: 12/10/18 15:06 [email or web address]) Balance Tests Single Limb Standing Single Limb- Right 5 Single Limb- Left 0 (unable) PT-OP-G Mobility & Gait Start: 12/10/18 14:31 Freq: Status: Active Protocol: Document 12/10/18 13:00 HH (Rec: 12/10/18 15:06 [email or web address]) OP Mobility Evaluation Transfers Sit to Stand Abberant movement (uses both UE to support on knees ) OP Gait Assessment Gait Deviations General Gait Pattern Antalgic Decreased Stride Length Decreased Feet Clearance Factors Limiting Gait Function Factors Limiting Gait Function Decreased Activity Tolerance Decreased Strength Limited Range of Motion Pain Poor Balance Comments Gait Comments L antaglic gait with lack of heel strike. Early heel rise noticed as well. PT-OP-K Range of Motion Start: 12/10/18 14:31 Freq: Status: Active Protocol: Document 12/10/18 13:00 HH (Rec: 12/10/18 15:06 [email or web address]) Lumbar Spine Range of Motion Lumbar Spine Degrees Testing Position Standing Flexion 35 Extension 10 Lateral Flexion Left 30 Lateral Flexion Right 20 ROM Limitations Pain Comments Pain with ext > flexion > lateral flexion PT-OP-L Special Tests Start: 12/10/18 14:31 Freq: Status: Active Protocol: Document 12/10/18 13:00 HH (Rec: 12/10/18 15:06 [email or web address]) Special Tests Lumbar Spine Special Tests facet syndrome Test Results +VE B Comments pain with lateral flexion/ ext + lateral flexion A-P Shearing Test Results +VE Manual Traction Test Results +VE Comments hooklying traction reduces symptoms Straight Leg Raise Test Results +ve BLE (radiating pain) Comments RLE= 80 degrees, LLE = 70 degrees PT-OP-Q Treatments Start: 12/10/18 14:31 Freq: Status: Active Protocol: Document 12/23/18 13:49 (Rec: 12/23/18 17:51 [email or web address]) Cardio Equipment Bicycle (Upright) Duration (Minutes) 5 Resistance 5 Gym Equipment Shuttle Recovery unilateral squat Details heel push off Resistance #50 Shuttle Recovery Platform Stable Reps/Time 12 x 2 Therapeutic Exercises Prone Exercises kneeling hip hinge Side bilateral Equipment Used level 3 band at hip Reps/Minutes 10 x2 Comments cues on glute engagement child pose Side bilateral Reps/Minutes 10 x2 Comments up to neutral spine cat camel Side bilateral Reps/Minutes 10 x 2 Comments with cervical ext and flex Sidelying Exercises SL rotation stretch Sidelying Exercise Name lumbar and SIJ mob Side bilateral Reps/Minutes 30 secs hold x 5 Standing Exercises standing hip hinge Side bilateral Reps/Minutes 20 x2 Comments against wall, neutral spine Manual Therapy Treatment Manual Traction hip distraction Body Position Supine Reps/Duration 30 secs hold x 5 lumbar traction Details with belt posterior to knee joints Body Position Hooklying Reps/Duration 30 secs hold x 10 Comments with slight hip whiper Neuro Re-Education Treatment Balance Activities single leg stance Reps/Duration 5 mins Comments cues to limit hip drop hurdles Details step over Equipment hurdles in flattened position Reps/Duration 5 mins Comments cues to limit hip drop PT-OP-T Assessment and Plan Start: 12/10/18 14:31 Freq: Status: Active Protocol: Document 12/23/18 13:49 (Rec: 12/23/18 17:51 [email or web address]) Physical Therapy Assessment Goals activity tolerance Impairment unable to return to workout routine, stand/ sit > 10 mins Short Term Goal (STG) Pt will be able to participate her workout routine 2x/ week for 30 mins session with minimal pain in order to optimize her functional strength and mobility. STG Duration 5 weeks Irrigation District Manager Goal (LTG) Pt will be able to participate her workout routine 3-4x/ week for 45 mins session in pain free in order to optimize her functional strength and mobility. LTG Duration 10 weeks balance Impairment RLE = 5s, LLE = 0 s Short Term Goal (STG) Pt will improve her single leg balance to 10 s on each LE to facilitate even step length during gait. STG Duration 5 weeks Fpc Goal (LTG) Pt will improve her single leg balance to 15 s on each LE in order to use step over pattern for stair negotiation LTG Duration 10 weeks Oswestry LBP Impairment Pt scores 32 (20-39% impairment) for Oswestry LBP questionnaire Short Term Goal (STG) Pt will score <20 (1-19% impairment) to improve her overall functional mobility and quality of life STG Duration 5 weeks Fpc Goal (LTG) Pt will score 0 (0% impairment ) to improve her overall functional mobility and quality of life LTG Duration 10 weeks Assessment Summary Assessment Pt reports reduced in pain and improved in gait. She is able to reach full prone press extension, hip hinge x 20 x 2. There;s noticeable L hip stabilizer weakness during single leg stance and SL strengthening. Physical Therapy Plan Next Visit Focus/Plan Next Note Type Treatment Note Next Visit Plan gentle lumbar ROM as luan ( supine/ prone position/ sitting ) child pose, seated stretch. gentle LE strengthening hip hinge, leg press traction as luan nerve glide
--- NOTE | 2018-12-25 16:34 | PT.OTN ---
Current Diagnoses Sciatica, left side (12/25/18) Low back pain (12/25/18) Physical Therapy Treatment Note PT-OP-A Visit Information Start: 12/10/18 14:31 Freq: Status: Active Protocol: Document 12/25/18 14:32 HH (Rec: 12/25/18 16:34 HH [email or web address]) Out-Patient Physical Therapy Visit Information Visit Information Visit Type Treatment Note Visit Start Time 14:32 Visit Stop Time 15:20 Total Visit Minutes 48 Visit Number 5 Number of SENIOR ARCHITECT/DESIGN MANAGER Visits 0 PT-OP-B Current Condition Start: 12/10/18 14:31 Freq: Status: Active Protocol: Document 12/10/18 13:00 HH (Rec: 12/10/18 15:06 HH [email or web address]) Current Condition History of Current Condition Onset Date a month ago Current Complaints B LBP L>R, radiating pain to LE, difficulty in walking History of Current Condition Pt presents to clinic with c/o acute LBP since a month ago with unknown reason. She explained her pain started at the center of the lower back and progressively getting worse with radiating pain down to buttocks and back of her thighs L>R. She described her symptoms as shooting pain with pinching sensation. 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 She is now having difficulty in walking, especially WB on her L LE. Movements from trunk and extremities seems to aggravate her symptoms. She basically has to everything slower. Ice and heat did help temporarily. Pt was very active prior to sx who workout 3 times a week with cardio and strengthening exercises. 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 To be pain free during functional activities (bending over, walking) 2. return to her workout routine 3x/ week (cardio and general strengthening) Prior Functional Status Baseline Function- ADL's Independent Baseline Function- Mobility Independent Baseline Function- Recreation/Hobbies workout 3 times a week with cardio and strengthening exercises. Current Functional Impairments (Reported) Functional Limitations- ADL's Unable to sit >10 mins unable to bend over to corn picker objects from floor Functional Limitations- Mobility/Gait antalgic gait with limitation on WB on LLE Functional Limitations- Recreation/ Unable to workout at the gym Hobbies PT-OP-C Subjective Start: 12/10/18 14:31 Freq: Status: Active Protocol: Document 12/25/18 14:32 HH (Rec: 12/25/18 16:34 HH [email or web address]) OP-PT Subjective Patient Comments Patient Comments I dont ahve any back pain now but mostly soreness at my butt. Patient Reported Progress Improving PT-OP-D Balance Start: 12/10/18 14:31 Freq: Status: Active Protocol: Document 12/10/18 13:00 HH (Rec: 12/10/18 15:06 [email or web address]) Balance Tests Single Limb Standing Single Limb- Right 5 Single Limb- Left 0 (unable) PT-OP-G Mobility & Gait Start: 12/10/18 14:31 Freq: Status: Active Protocol: Document 12/10/18 13:00 HH (Rec: 12/10/18 15:06 [email or web address]) OP Mobility Evaluation Transfers Sit to Stand Abberant movement (uses both UE to support on knees ) OP Gait Assessment Gait Deviations General Gait Pattern Antalgic,Decreased Stride Length,Decreased Feet Clearance Factors Limiting Gait Function Factors Limiting Gait Function Decreased Activity Tolerance, Decreased Strength,Limited Range of Motion,Pain,Poor Balance Comments Gait Comments L antaglic gait with lack of heel strike. Early heel rise noticed as well. PT-OP-K Range of Motion Start: 12/10/18 14:31 Freq: Status: Active Protocol: Document 12/10/18 13:00 HH (Rec: 12/10/18 15:06 [email or web address]) Lumbar Spine Range of Motion Lumbar Spine Degrees Testing Position Standing Flexion 35 Extension 10 Lateral Flexion Left 30 Lateral Flexion Right 20 ROM Limitations Pain Comments Pain with ext > flexion > lateral flexion PT-OP-L Special Tests Start: 12/10/18 14:31 Freq: Status: Active Protocol: Document 12/10/18 13:00 HH (Rec: 12/10/18 15:06 [email or web address]) Special Tests Lumbar Spine Special Tests facet syndrome Test Results +VE B Comments pain with lateral flexion/ ext + lateral flexion A-P Shearing Test Results +VE Manual Traction Test Results +VE Comments hooklying traction reduces symptoms Straight Leg Raise Test Results +ve BLE (radiating pain) Comments RLE= 80 degrees, LLE = 70 degrees PT-OP-Q Treatments Start: 12/10/18 14:31 Freq: Status: Active Protocol: Document 12/25/18 14:32 (Rec: 12/25/18 16:34 [email or web address]) Cardio Equipment Bicycle (Upright) Duration (Minutes) 5 Resistance 5 Gym Equipment Shuttle Recovery unilateral squat Details heel push off Resistance #50 Shuttle Recovery Platform Stable Reps/Time 12 x 2 Therapeutic Exercises Prone Exercises prone trunk extension Side bilateral Reps/Minutes 10 x 2 Comments elbows on bench child pose Side bilateral Reps/Minutes 10 x2 Comments elbows on bench Standing Exercises standing hip hinge Side bilateral Reps/Minutes 20 x2 Comments against wall, neutral spine Manual Therapy Treatment Soft Tissue Mobilization piriformis Mobilization Type Cross-Friction,Sustained Pressure,Trigger Point Release Intensity/Depth Moderate Body Position Prone Manual Traction hip distraction Body Position Supine Reps/Duration 30 secs hold x 5 lumbar traction Details with belt posterior to knee joints Body Position Hooklying Reps/Duration 30 secs hold x 10 Comments with slight hip whiper Neuro Re-Education Treatment Balance Activities high knee walk Details within //bar Surface ground level Reps/Duration 5 rounds Comments hands on hips for stability single leg stance Reps/Duration 5 mins Comments cues to limit hip drop hurdles Details step over Equipment hurdles in flattened position Reps/Duration 5 mins Comments cues to limit hip drop PT-OP-T Assessment and Plan Start: 12/10/18 14:31 Freq: Status: Active Protocol: Document 12/25/18 14:32 (Rec: 12/25/18 16:34 [email or web address]) Physical Therapy Assessment Goals activity tolerance Impairment unable to return to workout routine, stand/ sit > 10 mins Short Term Goal (STG) Pt will be able to participate her workout routine 2x/ week for 30 mins session with minimal pain in order to optimize her functional strength and mobility. STG Duration 5 weeks Insight Leader Goal (LTG) Pt will be able to participate her workout routine 3-4x/ week for 45 mins session in pain free in order to optimize her functional strength and mobility. LTG Duration 10 weeks balance Impairment RLE = 5s, LLE = 0 s Short Term Goal (STG) Pt will improve her single leg balance to 10 s on each LE to facilitate even step length during gait. STG Duration 5 weeks Insight Leader Goal (LTG) Pt will improve her single leg balance to 15 s on each LE in order to use step over pattern for stair negotiation LTG Duration 10 weeks Oswestry LBP Impairment Pt scores 32 (20-39% impairment) for Oswestry LBP questionnaire Short Term Goal (STG) Pt will score <20 (1-19% impairment) to improve her overall functional mobility and quality of life STG Duration 5 weeks Insight Leader Goal (LTG) Pt will score 0 (0% impairment ) to improve her overall functional mobility and quality of life LTG Duration 10 weeks Assessment Summary Assessment Pt cont to improve. Reduced hip drop noticed but single leg balance and strength on LLE is still significant. SLS R= 10s , L= 3 s Physical Therapy Plan Next Visit Focus/Plan Next Note Type Treatment Note Next Visit Plan leg press gentle lumbar ROM as luan ( supine/ prone position/ sitting ) child pose, seated stretch. gentle LE strengthening hip hinge, leg press traction as luan nerve glide
--- NOTE | 2019-01-01 19:07 | PT.OTN ---
Current Diagnoses Sciatica, left side (01/01/19) Low back pain (01/01/19) Physical Therapy Treatment Note PT-OP-A Visit Information Start: 12/10/18 14:31 Freq: Status: Active Protocol: Document 01/01/19 09:47 HH (Rec: 01/01/19 19:07 HH [email or web address]) Out-Patient Physical Therapy Visit Information Visit Information Visit Type Treatment Note Visit Start Time 09:47 Visit Stop Time 10:30 Total Visit Minutes 43 Visit Number 6 Number of REGISTERED DENTAL ASSISTANT Visits 0 PT-OP-B Current Condition Start: 12/10/18 14:31 Freq: Status: Active Protocol: Document 12/10/18 13:00 HH (Rec: 12/10/18 15:06 HH [email or web address]) Current Condition History of Current Condition Onset Date a month ago Current Complaints B LBP L>R, radiating pain to LE, difficulty in walking History of Current Condition Pt presents to clinic with c/o acute LBP since a month ago with unknown reason. She explained her pain started at the center of the lower back and progressively getting worse with radiating pain down to buttocks and back of her thighs L>R. She described her symptoms as shooting pain with pinching sensation. 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 She is now having difficulty in walking, especially WB on her L LE. Movements from trunk and extremities seems to aggravate her symptoms. She basically has to everything slower. Ice and heat did help temporarily. Pt was very active prior to sx who workout 3 times a week with cardio and strengthening exercises. 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 To be pain free during functional activities (bending over, walking) 2. return to her workout routine 3x/ week (cardio and general strengthening) Prior Functional Status Baseline Function- ADL's Independent Baseline Function- Mobility Independent Baseline Function- Recreation/Hobbies workout 3 times a week with cardio and strengthening exercises. Current Functional Impairments (Reported) Functional Limitations- ADL's Unable to sit >10 mins unable to bend over to pickle cutter objects from floor Functional Limitations- Mobility/Gait antalgic gait with limitation on WB on LLE Functional Limitations- Recreation/ Unable to workout at the gym Hobbies PT-OP-C Subjective Start: 12/10/18 14:31 Freq: Status: Active Protocol: Document 01/01/19 09:47 HH (Rec: 01/01/19 19:07 [email or web address]) OP-PT Subjective Patient Comments Patient Comments my leg still feel sore often. Back is doing pretty good. Patient Reported Progress Improving PT-OP-D Balance Start: 12/10/18 14:31 Freq: Status: Active Protocol: Document 12/10/18 13:00 HH (Rec: 12/10/18 15:06 [email or web address]) Balance Tests Single Limb Standing Single Limb- Right 5 Single Limb- Left 0 (unable) PT-OP-G Mobility & Gait Start: 12/10/18 14:31 Freq: Status: Active Protocol: Document 12/10/18 13:00 HH (Rec: 12/10/18 15:06 [email or web address]) OP Mobility Evaluation Transfers Sit to Stand Abberant movement (uses both UE to support on knees ) OP Gait Assessment Gait Deviations General Gait Pattern Antalgic,Decreased Stride Length,Decreased Feet Clearance Factors Limiting Gait Function Factors Limiting Gait Function Decreased Activity Tolerance, Decreased Strength,Limited Range of Motion,Pain,Poor Balance Comments Gait Comments L antaglic gait with lack of heel strike. Early heel rise noticed as well. PT-OP-K Range of Motion Start: 12/10/18 14:31 Freq: Status: Active Protocol: Document 12/10/18 13:00 HH (Rec: 12/10/18 15:06 [email or web address]) Lumbar Spine Range of Motion Lumbar Spine Degrees Testing Position Standing Flexion 35 Extension 10 Lateral Flexion Left 30 Lateral Flexion Right 20 ROM Limitations Pain Comments Pain with ext > flexion > lateral flexion PT-OP-L Special Tests Start: 12/10/18 14:31 Freq: Status: Active Protocol: Document 12/10/18 13:00 HH (Rec: 12/10/18 15:06 [email or web address]) Special Tests Lumbar Spine Special Tests facet syndrome Test Results +VE B Comments pain with lateral flexion/ ext + lateral flexion A-P Shearing Test Results +VE Manual Traction Test Results +VE Comments hooklying traction reduces symptoms Straight Leg Raise Test Results +ve BLE (radiating pain) Comments RLE= 80 degrees, LLE = 70 degrees PT-OP-Q Treatments Start: 12/10/18 14:31 Freq: Status: Active Protocol: Document 01/01/19 09:47 (Rec: 01/01/19 19:07 [email or web address]) Cardio Equipment Bicycle (Upright) Duration (Minutes) 5 Resistance 5 Therapeutic Exercises Prone Exercises prone trunk extension Side bilateral Reps/Minutes 10 x 2 Comments elbows on bench child pose Side bilateral Reps/Minutes 10 x2 Comments elbows on bench Sidelying Exercises SL rotation stretch Sidelying Exercise Name lumbar and SIJ mob Side bilateral Reps/Minutes 30 secs hold x 5 Standing Exercises hurdles Standing Exercise Name step over Side bilateral Comments cues on avoiding lateral weight shift resisted walk Standing Exercise Name facilitate LLE push off Side bilateral Resistance manual resistance Reps/Minutes 10 x3 standing hip hinge Side bilateral Reps/Minutes 20 x2 Comments against wall, neutral spine Manual Therapy Treatment Soft Tissue Mobilization piriformis Mobilization Type Cross-Friction,Sustained Pressure,Trigger Point Release Intensity/Depth Moderate Body Position Prone Manual Traction hip distraction Body Position Supine Reps/Duration 30 secs hold x 5 lumbar traction Details with belt posterior to knee joints Body Position Hooklying Reps/Duration 30 secs hold x 10 Comments with slight hip whiper PT-OP-T Assessment and Plan Start: 12/10/18 14:31 Freq: Status: Active Protocol: Document 01/01/19 09:47 (Rec: 01/01/19 19:07 [email or web address]) Physical Therapy Assessment Goals activity tolerance Impairment unable to return to workout routine, stand/ sit > 10 mins Short Term Goal (STG) Pt will be able to participate her workout routine 2x/ week for 30 mins session with minimal pain in order to optimize her functional strength and mobility. STG Duration 5 weeks Senior Care Goal (LTG) Pt will be able to participate her workout routine 3-4x/ week for 45 mins session in pain free in order to optimize her functional strength and mobility. LTG Duration 10 weeks balance Impairment RLE = 5s, LLE = 0 s Short Term Goal (STG) Pt will improve her single leg balance to 10 s on each LE to facilitate even step length during gait. STG Duration 5 weeks Senior Care Goal (LTG) Pt will improve her single leg balance to 15 s on each LE in order to use step over pattern for stair negotiation LTG Duration 10 weeks Oswestry LBP Impairment Pt scores 32 (20-39% impairment) for Oswestry LBP questionnaire Short Term Goal (STG) Pt will score <20 (1-19% impairment) to improve her overall functional mobility and quality of life STG Duration 5 weeks Railroad Watchman Goal (LTG) Pt will score 0 (0% impairment ) to improve her overall functional mobility and quality of life LTG Duration 10 weeks Assessment Summary Assessment Pt cont to c/o soreness at buttocks. Added resisted walking and hurdles today to facilitate L gluteal engagement during gait and avoid lateral weight shift. Physical Therapy Plan Next Visit Focus/Plan Next Note Type Treatment Note Next Visit Plan leg press gentle lumbar ROM as luan ( supine/ prone position/ sitting ) child pose, seated stretch. gentle LE strengthening hip hinge, leg press traction as luan nerve glide gait training
--- NOTE | 2019-01-06 09:02 | PT.OTN ---
Current Diagnoses Sciatica, left side (01/06/19) Low back pain (01/06/19) Physical Therapy Treatment Note PT-OP-A Visit Information Start: 12/10/18 14:31 Freq: Status: Active Protocol: Document 01/06/19 08:13 SAK (Rec: 01/06/19 09:01 SAK [id number]) Out-Patient Physical Therapy Visit Information Visit Information Visit Type Treatment Note Visit Start Time 09:15 Visit Stop Time 09:00 Total Visit Minutes 60 Visit Number 7 Number of SERVICE ENGINEER Visits 0 PT-OP-B Current Condition Start: 12/10/18 14:31 Freq: Status: Active Protocol: Document 12/10/18 13:00 HH (Rec: 12/10/18 15:06 HH [email or web address]) Current Condition History of Current Condition Onset Date a month ago Current Complaints B LBP L>R, radiating pain to LE, difficulty in walking History of Current Condition Pt presents to clinic with c/o acute LBP since a month ago with unknown reason. She explained her pain started at the center of the lower back and progressively getting worse with radiating pain down to buttocks and back of her thighs L>R. She described her symptoms as shooting pain with pinching sensation. 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 She is now having difficulty in walking, especially WB on her L LE. Movements from trunk and extremities seems to aggravate her symptoms. She basically has to everything slower. Ice and heat did help temporarily. Pt was very active prior to sx who workout 3 times a week with cardio and strengthening exercises. 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 To be pain free during functional activities (bending over, walking) 2. return to her workout routine 3x/ week (cardio and general strengthening) Prior Functional Status Baseline Function- ADL's Independent Baseline Function- Mobility Independent Baseline Function- Recreation/Hobbies workout 3 times a week with cardio and strengthening exercises. Current Functional Impairments (Reported) Functional Limitations- ADL's Unable to sit >10 mins unable to bend over to fruit or nut picker objects from floor Functional Limitations- Mobility/Gait antalgic gait with limitation on WB on LLE Functional Limitations- Recreation/ Unable to workout at the gym Hobbies PT-OP-C Subjective Start: 12/10/18 14:31 Freq: Status: Active Protocol: Document 01/06/19 08:13 SAK (Rec: 01/06/19 09:01 SAK [id number]) OP-PT Subjective Patient Comments Patient Comments Reports muscle soreness and pain after last session in typical areas of pain. Didn't go out shopping yesterday due to pain. PT-OP-D Balance Start: 12/10/18 14:31 Freq: Status: Active Protocol: Document 12/10/18 13:00 HH (Rec: 12/10/18 15:06 [email or web address]) Balance Tests Single Limb Standing Single Limb- Right 5 Single Limb- Left 0 (unable) PT-OP-G Mobility & Gait Start: 12/10/18 14:31 Freq: Status: Active Protocol: Document 12/10/18 13:00 HH (Rec: 12/10/18 15:06 [email or web address]) OP Mobility Evaluation Transfers Sit to Stand Abberant movement (uses both UE to support on knees ) OP Gait Assessment Gait Deviations General Gait Pattern Antalgic,Decreased Stride Length,Decreased Feet Clearance Factors Limiting Gait Function Factors Limiting Gait Function Decreased Activity Tolerance, Decreased Strength,Limited Range of Motion,Pain,Poor Balance Comments Gait Comments L antaglic gait with lack of heel strike. Early heel rise noticed as well. PT-OP-K Range of Motion Start: 12/10/18 14:31 Freq: Status: Active Protocol: Document 12/10/18 13:00 HH (Rec: 12/10/18 15:06 [email or web address]) Lumbar Spine Range of Motion Lumbar Spine Degrees Testing Position Standing Flexion 35 Extension 10 Lateral Flexion Left 30 Lateral Flexion Right 20 ROM Limitations Pain Comments Pain with ext > flexion > lateral flexion PT-OP-L Special Tests Start: 12/10/18 14:31 Freq: Status: Active Protocol: Document 12/10/18 13:00 HH (Rec: 12/10/18 15:06 [email or web address]) Special Tests Lumbar Spine Special Tests facet syndrome Test Results +VE B Comments pain with lateral flexion/ ext + lateral flexion A-P Shearing Test Results +VE Manual Traction Test Results +VE Comments hooklying traction reduces symptoms Straight Leg Raise Test Results +ve BLE (radiating pain) Comments RLE= 80 degrees, LLE = 70 degrees PT-OP-Q Treatments Start: 12/10/18 14:31 Freq: Status: Active Protocol: Document 01/06/19 08:13 SAK (Rec: 01/06/19 09:01 SAK [id number]) Cardio Equipment Bicycle (Upright) Duration (Minutes) 5 Resistance 5 Gym Equipment Shuttle Recovery Bilateral Squats Resistance 75 Shuttle Recovery Platform Stable Reps/Time 10x2 unilateral squat Details heel push off Resistance #50 Shuttle Recovery Platform Stable Reps/Time 12 x 2 Therapeutic Exercises Prone Exercises prone trunk extension Side bilateral Reps/Minutes 10 x 2 Comments elbows on bench child pose Side bilateral Reps/Minutes 10 x2 Comments elbows on bench Sidelying Exercises SL rotation stretch Sidelying Exercise Name lumbar and SIJ mob Side bilateral Reps/Minutes 30 secs hold x 5 Standing Exercises squats Equipment Used mirror for visual feedback Reps/Minutes 10x2 hurdles Standing Exercise Name step over Side bilateral Comments cues on avoiding lateral weight shift resisted walk Standing Exercise Name facilitate LLE push off Side bilateral Resistance manual resistance Reps/Minutes 10 x3 standing hip hinge Side bilateral Reps/Minutes 20 x2 Comments against wall, neutral spine Manual Therapy Treatment Soft Tissue Mobilization piriformis Mobilization Type Cross-Friction,Sustained Pressure,Trigger Point Release Intensity/Depth Moderate Body Position Prone Manual Traction hip distraction Body Position Supine Reps/Duration 30 secs hold x 5 lumbar traction Details with belt posterior to knee joints Body Position Hooklying Reps/Duration 30 secs hold x 10 Comments with slight hip whiper Neuro Re-Education Treatment Balance Activities high knee walk Details within //bar Surface ground level Reps/Duration 5 rounds Comments hands on hips for stability single leg stance Details mirror for visual feedback Reps/Duration 5 mins Comments cues to limit hip drop hurdles Details step over Equipment hurdles in flattened position Reps/Duration 5 mins Comments cues to limit hip drop PT-OP-R Modalities Start: 12/10/18 14:31 Freq: Status: Active Protocol: Document 01/06/19 08:13 SAK (Rec: 01/06/19 09:02 SAK [id number]) Hot Pack/Cold Pack Treatment Hot Pack Location l/s, ronni buttocks Patient Position Hooklying Treatment Duration (minutes) 15 Patient Tolerance Good PT-OP-T Assessment and Plan Start: 12/10/18 14:31 Freq: Status: Active Protocol: Document 01/06/19 08:13 [facility] (Rec: 01/06/19 09:01 [facility] [id number]) Physical Therapy Assessment Goals activity tolerance Impairment unable to return to workout routine, stand/ sit > 10 mins Short Term Goal (STG) Pt will be able to participate her workout routine 2x/ week for 30 mins session with minimal pain in order to optimize her functional strength and mobility. STG Duration 5 weeks Forest Products Teacher Goal (LTG) Pt will be able to participate her workout routine 3-4x/ week for 45 mins session in pain free in order to optimize her functional strength and mobility. LTG Duration 10 weeks balance Impairment RLE = 5s, LLE = 0 s Short Term Goal (STG) Pt will improve her single leg balance to 10 s on each LE to facilitate even step length during gait. STG Duration 5 weeks Care Home Goal (LTG) Pt will improve her single leg balance to 15 s on each LE in order to use step over pattern for stair negotiation LTG Duration 10 weeks Oswestry LBP Impairment Pt scores 32 (20-39% impairment) for Oswestry LBP questionnaire Short Term Goal (STG) Pt will score <20 (1-19% impairment) to improve her overall functional mobility and quality of life STG Duration 5 weeks Care Home Goal (LTG) Pt will score 0 (0% impairment ) to improve her overall functional mobility and quality of life LTG Duration 10 weeks Assessment Summary Assessment Continue to emphasize hip stability, neutral LE alignment with functional activities including sit to stand. Patient needs moderate verbal and manual cues. Physical Therapy Plan Frequency and Duration Frequency of Treatment 2x/Week Duration of Treatment 10 weeks Plan of Care Start Date 12/10/18 Plan of Care End Date 02/25/19 Next Visit Focus/Plan Next Note Type Treatment Note Next Visit Plan Patient will be gone 01/13/19 to 01/21/19.
--- NOTE | 2019-01-08 12:23 | PT.OTN ---
Current Diagnoses Sciatica, left side (01/08/19) Low back pain (01/08/19) Physical Therapy Treatment Note PT-OP-A Visit Information Start: 12/10/18 14:31 Freq: Status: Active Protocol: Document 01/08/19 09:48 HH (Rec: 01/08/19 12:23 HH [email or web address]) Out-Patient Physical Therapy Visit Information Visit Information Visit Type Treatment Note Visit Start Time 09:48 Visit Stop Time 10:30 Total Visit Minutes 42 Visit Number 8 Number of SAFETY AND HEALTH CONSULTANT Visits 0 PT-OP-B Current Condition Start: 12/10/18 14:31 Freq: Status: Active Protocol: Document 12/10/18 13:00 HH (Rec: 12/10/18 15:06 HH [email or web address]) Current Condition History of Current Condition Onset Date a month ago Current Complaints B LBP L>R, radiating pain to LE, difficulty in walking History of Current Condition Pt presents to clinic with c/o acute LBP since a month ago with unknown reason. She explained her pain started at the center of the lower back and progressively getting worse with radiating pain down to buttocks and back of her thighs L>R. She described her symptoms as shooting pain with pinching sensation. 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 She is now having difficulty in walking, especially WB on her L LE. Movements from trunk and extremities seems to aggravate her symptoms. She basically has to everything slower. Ice and heat did help temporarily. Pt was very active prior to sx who workout 3 times a week with cardio and strengthening exercises. 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 To be pain free during functional activities (bending over, walking) 2. return to her workout routine 3x/ week (cardio and general strengthening) Prior Functional Status Baseline Function- ADL's Independent Baseline Function- Mobility Independent Baseline Function- Recreation/Hobbies workout 3 times a week with cardio and strengthening exercises. Current Functional Impairments (Reported) Functional Limitations- ADL's Unable to sit >10 mins unable to bend over to picker packer objects from floor Functional Limitations- Mobility/Gait antalgic gait with limitation on WB on LLE Functional Limitations- Recreation/ Unable to workout at the gym Hobbies PT-OP-C Subjective Start: 12/10/18 14:31 Freq: Status: Active Protocol: Document 01/08/19 09:48 HH (Rec: 01/08/19 12:23 HH [email or web address]) OP-PT Subjective Patient Comments Patient Comments I still have muscle soreness on L butt. But pain is a lot more localized then before. Patient Reported Progress Improving PT-OP-D Balance Start: 12/10/18 14:31 Freq: Status: Active Protocol: Document 12/10/18 13:00 HH (Rec: 12/10/18 15:06 HH [email or web address]) Balance Tests Single Limb Standing Single Limb- Right 5 Single Limb- Left 0 (unable) PT-OP-G Mobility & Gait Start: 12/10/18 14:31 Freq: Status: Active Protocol: Document 12/10/18 13:00 HH (Rec: 12/10/18 15:06 [email or web address]) OP Mobility Evaluation Transfers Sit to Stand Abberant movement (uses both UE to support on knees ) OP Gait Assessment Gait Deviations General Gait Pattern Antalgic,Decreased Stride Length,Decreased Feet Clearance Factors Limiting Gait Function Factors Limiting Gait Function Decreased Activity Tolerance, Decreased Strength,Limited Range of Motion,Pain,Poor Balance Comments Gait Comments L antaglic gait with lack of heel strike. Early heel rise noticed as well. PT-OP-K Range of Motion Start: 12/10/18 14:31 Freq: Status: Active Protocol: Document 01/08/19 09:48 HH (Rec: 01/08/19 12:23 [email or web address]) Lumbar Spine Range of Motion Lumbar Spine Degrees Comments WFL without pain except SB and L rotation. PT-OP-L Special Tests Start: 12/10/18 14:31 Freq: Status: Active Protocol: Document 01/08/19 09:48 HH (Rec: 01/08/19 12:23 HH [email or web address]) Special Tests Lumbar Spine Special Tests facet syndrome Test Results +ve on L Comments SB and L rotation Manual Traction Test Results +ve on L Straight Leg Raise Test Results -ve PT-OP-Q Treatments Start: 12/10/18 14:31 Freq: Status: Active Protocol: Document 01/08/19 09:48 HH (Rec: 01/08/19 12:23 HH [email or web address]) Manual Therapy Treatment Soft Tissue Mobilization gluteal muscles Body Location on L Mobilization Type Cross-Friction,Strumming, Sustained Pressure,Trigger Point Release Intensity/Depth Moderate Body Position Sidelying piriformis Mobilization Type Cross-Friction,Sustained Pressure,Trigger Point Release Intensity/Depth Moderate Body Position Prone Comments with figure 4 stretch after Manual Traction SIJ distraction Body Position Sidelying Reps/Duration 10 secs x5 hip distraction Body Position Supine Reps/Duration 30 secs hold x 5 lumbar traction Details with belt posterior to knee joints Body Position Hooklying Reps/Duration 30 secs hold x 10 Comments with slight hip whiper Nerve Glides sciatic nerve glide Body Position Supine Reps/Duration 10 x 5 Comments with DF PT-OP-R Modalities Start: 12/10/18 14:31 Freq: Status: Active Protocol: Document 01/06/19 08:13 SAK (Rec: 01/06/19 09:02 SAK [id number]) Hot Pack/Cold Pack Treatment Hot Pack Location l/s, ronni buttocks Patient Position Hooklying Treatment Duration (minutes) 15 Patient Tolerance Good PT-OP-T Assessment and Plan Start: 12/10/18 14:31 Freq: Status: Active Protocol: Document 01/08/19 09:48 HH (Rec: 01/08/19 12:23 HH [email or web address]) Physical Therapy Assessment Impairments Impairments Activity Tolerance,Balance, Functional Activities, Functional Mobility,Pain, Posture,ROM,Soft Tissue Mobility,Strength,Tone, Transfers Goals activity tolerance Short Term Goal (STG) cont in progress 01/08 Pt will possibly return to workout routine in 2weeks. Prison Goal (LTG) Pt will be able to participate her workout routine 3-4x/ week for 45 mins session in pain free in order to optimize her functional strength and mobility. LTG Duration 4 weeks balance Short Term Goal (STG) cont in progress 01/08: SLS = >5 s on each Prison Goal (LTG) Pt will improve her single leg balance to 15 s on each LE in order to use step over pattern for stair negotiation LTG Duration 4 weeks Progress Towards Goals Progress Towards Goals Progressing Toward Goals Assessment Summary Assessment Pt's back pain cont to improve with localized soreness/ pain at L buttock only. Pt's lumbar ROM is fully restored except pain at end range during L SB and L rotation. Tx focused on manual therapy on L gluteal muscules and SIJ. Pt feels relieved afterwards. Will cont balance training and LLE strengthening next week. Physical Therapy Plan Next Visit Focus/Plan Next Note Type Treatment Note Next Visit Plan Cont strengthening on LLE as luan single leg balance graded exposure for trunk movements during fucntional acitvities.
--- NOTE | 2019-01-23 16:30 | PT.OTN ---
Current Diagnoses Sciatica, left side (01/23/19) Low back pain (01/23/19) Physical Therapy Treatment Note PT-OP-A Visit Information Start: 12/10/18 14:31 Freq: Status: Active Protocol: Document 01/23/19 13:47 HH (Rec: 01/23/19 16:30 HH [email or web address]) Out-Patient Physical Therapy Visit Information Visit Information Visit Type Treatment Note Visit Note Last visit was 9.12 due to vacation Visit Start Time 13:47 Visit Stop Time 14:35 Total Visit Minutes 48 Visit Number 9 Number of MANAGEMENT AND BUDGET ANALYST Visits 0 PT-OP-B Current Condition Start: 12/10/18 14:31 Freq: Status: Active Protocol: Document 12/10/18 13:00 HH (Rec: 12/10/18 15:06 HH [email or web address]) Current Condition History of Current Condition Onset Date a month ago Current Complaints B LBP L>R, radiating pain to LE, difficulty in walking History of Current Condition Pt presents to clinic with c/o acute LBP since a month ago with unknown reason. She explained her pain started at the center of the lower back and progressively getting worse with radiating pain down to buttocks and back of her thighs L>R. She described her symptoms as shooting pain with pinching sensation. 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 She is now having difficulty in walking, especially WB on her L LE. Movements from trunk and extremities seems to aggravate her symptoms. She basically has to everything slower. Ice and heat did help temporarily. Pt was very active prior to sx who workout 3 times a week with cardio and strengthening exercises. 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 To be pain free during functional activities (bending over, walking) 2. return to her workout routine 3x/ week (cardio and general strengthening) Prior Functional Status Baseline Function- ADL's Independent Baseline Function- Mobility Independent Baseline Function- Recreation/Hobbies workout 3 times a week with cardio and strengthening exercises. Current Functional Impairments (Reported) Functional Limitations- ADL's Unable to sit >10 mins unable to bend over to continuous pickling line pickler objects from floor Functional Limitations- Mobility/Gait antalgic gait with limitation on WB on LLE Functional Limitations- Recreation/ Unable to workout at the gym Hobbies PT-OP-C Subjective Start: 12/10/18 14:31 Freq: Status: Active Protocol: Document 01/23/19 13:47 HH (Rec: 01/23/19 16:30 HH [email or web address]) OP-PT Subjective Patient Comments Patient Comments I went on a trip to [place] for a week and did a lot of walking and stairs climbing. My L hip still feel sore but i was surprised that i did all that. My back doesnt hurt anymore. My balance is still not as good Patient Reported Progress Improving PT-OP-D Balance Start: 12/10/18 14:31 Freq: Status: Active Protocol: Document 12/10/18 13:00 HH (Rec: 12/10/18 15:06 HH [email or web address]) Balance Tests Single Limb Standing Single Limb- Right 5 Single Limb- Left 0 (unable) PT-OP-G Mobility & Gait Start: 12/10/18 14:31 Freq: Status: Active Protocol: Document 12/10/18 13:00 HH (Rec: 12/10/18 15:06 HH [email or web address]) OP Mobility Evaluation Transfers Sit to Stand Abberant movement (uses both UE to support on knees ) OP Gait Assessment Gait Deviations General Gait Pattern Antalgic,Decreased Stride Length,Decreased Feet Clearance Factors Limiting Gait Function Factors Limiting Gait Function Decreased Activity Tolerance, Decreased Strength,Limited Range of Motion,Pain,Poor Balance Comments Gait Comments L antaglic gait with lack of heel strike. Early heel rise noticed as well. PT-OP-K Range of Motion Start: 12/10/18 14:31 Freq: Status: Active Protocol: Document 01/08/19 09:48 HH (Rec: 01/08/19 12:23 HH [email or web address]) Lumbar Spine Range of Motion Lumbar Spine Degrees Comments WFL without pain except SB and L rotation. PT-OP-L Special Tests Start: 12/10/18 14:31 Freq: Status: Active Protocol: Document 01/08/19 09:48 HH (Rec: 01/08/19 12:23 HH [email or web address]) Special Tests Lumbar Spine Special Tests facet syndrome Test Results +ve on L Comments SB and L rotation Manual Traction Test Results +ve on L Straight Leg Raise Test Results -ve PT-OP-Q Treatments Start: 12/10/18 14:31 Freq: Status: Active Protocol: Document 01/23/19 13:47 HH (Rec: 01/23/19 16:30 [email or web address]) Cardio Equipment Bicycle (Upright) Duration (Minutes) 5 Resistance 5 Therapeutic Exercises Prone Exercises child pose Side bilateral Reps/Minutes 15 x2 Comments elbows on bench cat camel Side bilateral Reps/Minutes 10 x2 Standing Exercises bend over row Equipment Used 5 lb DB x2 Comments cues on neutral spine and hip hinge hurdles Standing Exercise Name step over Side bilateral Reps/Minutes 5 rounds standing hip hinge Side bilateral Equipment Used PVC pipe Reps/Minutes 20 x2 Manual Therapy Treatment Soft Tissue Mobilization gluteal muscles Body Location on L Mobilization Type Cross-Friction,Strumming, Sustained Pressure,Trigger Point Release Intensity/Depth Moderate Body Position Sidelying Manual Traction SIJ distraction Body Position Sidelying Reps/Duration 10 secs x5 hip distraction Body Position Supine Reps/Duration 30 secs hold x 5 lumbar traction Details with belt posterior to knee joints Body Position Hooklying Reps/Duration 30 secs hold x 10 Comments with slight hip whiper Neuro Re-Education Treatment Balance Activities star excursion Details with slider Surface ground level Reps/Duration 4 mins Comments cues on hip hinge single leg stance Details reaching across midline Equipment cones on table Reps/Duration 6 mins Comments hand tap on cones PT-OP-R Modalities Start: 12/10/18 14:31 Freq: Status: Active Protocol: Document 01/23/19 13:47 HH (Rec: 01/23/19 16:30 [email or web address]) Hot Pack/Cold Pack Treatment Hot Pack Location l/s, ronni buttocks Patient Position Hooklying Treatment Duration (minutes) 8 Patient Tolerance Good PT-OP-T Assessment and Plan Start: 12/10/18 14:31 Freq: Status: Active Protocol: Document 01/23/19 13:47 (Rec: 01/23/19 16:30 [email or web address]) Physical Therapy Assessment Goals stair climbing Impairment unable to do stairs without UE support Multimedia Developer Goal (LTG) pt will be able climb stairs with step over pattern but without UE support LTG Duration 4 weeks activity tolerance Short Term Goal (STG) cont in progress 01/23 but pt has increased her activity tolerance by increasing amb distance daily Pt will possibly return to workout routine in 2weeks. STG Duration not met 01/23 Multimedia Developer Goal (LTG) Pt will be able to participate her workout routine 3-4x/ week for 45 mins session in pain free in order to optimize her functional strength and mobility. LTG Duration 4 weeks balance Short Term Goal (STG) goal met : SLS for B LE > 10 s Multimedia Developer Goal (LTG) cont in progress 01/21 Pt will improve her single leg balance to 15 s on each LE in order to use step over pattern for stair negotiation LTG Duration 4 weeks Oswestry LBP Short Term Goal (STG) 01/23 did not assess Prison Goal (LTG) Pt will score 0 (0% impairment ) to improve her overall functional mobility and quality of life LTG Duration 4 weeks Assessment Summary Assessment Pt's back pain cont to improve with localized soreness/ pain at L buttock only. Pt's balance and activity tolerance have both improved as well . SLS for both L and R >10 s. But she has difficulty doing SLS and reaching across midline. She will cont benefit from skilled therapy to improve her hip strength, single leg strength and overall balance so she could climb stair easily. Physical Therapy Plan Next Visit Focus/Plan Next Note Type Treatment Note Next Visit Plan Cont strengthening on LLE as luan single leg balance graded exposure for trunk movements during fucntional acitvities.
--- NOTE | 2019-01-27 11:17 | PT.OTN ---
Current Diagnoses Sciatica, left side (01/27/19) Low back pain (01/27/19) Physical Therapy Treatment Note PT-OP-A Visit Information Start: 12/10/18 14:31 Freq: Status: Active Protocol: Document 01/27/19 10:35 HH (Rec: 01/27/19 11:17 HH [email or web address]) Out-Patient Physical Therapy Visit Information Visit Information Visit Type Treatment Note Visit Start Time 10:35 Visit Stop Time 11:24 Total Visit Minutes 49 Visit Number 10 Number of ENERGY EFFICIENT SITE MANAGER Visits 0 PT-OP-B Current Condition Start: 12/10/18 14:31 Freq: Status: Active Protocol: Document 12/10/18 13:00 HH (Rec: 12/10/18 15:06 HH [email or web address]) Current Condition History of Current Condition Onset Date a month ago Current Complaints B LBP L>R, radiating pain to LE, difficulty in walking History of Current Condition Pt presents to clinic with c/o acute LBP since a month ago with unknown reason. She explained her pain started at the center of the lower back and progressively getting worse with radiating pain down to buttocks and back of her thighs L>R. She described her symptoms as shooting pain with pinching sensation. 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 She is now having difficulty in walking, especially WB on her L LE. Movements from trunk and extremities seems to aggravate her symptoms. She basically has to everything slower. Ice and heat did help temporarily. Pt was very active prior to sx who workout 3 times a week with cardio and strengthening exercises. 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 To be pain free during functional activities (bending over, walking) 2. return to her workout routine 3x/ week (cardio and general strengthening) Prior Functional Status Baseline Function- ADL's Independent Baseline Function- Mobility Independent Baseline Function- Recreation/Hobbies workout 3 times a week with cardio and strengthening exercises. 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 My L hip still feel sore but i was surprised that i did all that. My back doesnt hurt anymore. My balance is still not as good Patient Reported Progress Improving PT-OP-D Balance Start: 12/10/18 14:31 Freq: Status: Active Protocol: Document 12/10/18 13:00 HH (Rec: 12/10/18 15:06 HH [email or web address]) Balance Tests Single Limb Standing Single Limb- Right 5 Single Limb- Left 0 (unable) PT-OP-G Mobility & Gait Start: 12/10/18 14:31 Freq: Status: Active Protocol: Document 12/10/18 13:00 HH (Rec: 12/10/18 15:06 HH [email or web address]) OP Mobility Evaluation Transfers Sit to Stand Abberant movement (uses both UE to support on knees ) OP Gait Assessment Gait Deviations General Gait Pattern Antalgic,Decreased Stride Length,Decreased Feet Clearance Factors Limiting Gait Function Factors Limiting Gait Function Decreased Activity Tolerance, Decreased Strength,Limited Range of Motion,Pain,Poor Balance Comments Gait Comments L antaglic gait with lack of heel strike. Early heel rise noticed as well. PT-OP-K Range of Motion Start: 12/10/18 14:31 Freq: Status: Active Protocol: Document 01/08/19 09:48 HH (Rec: 01/08/19 12:23 HH [email or web address]) Lumbar Spine Range of Motion Lumbar Spine Degrees Comments WFL without pain except SB and L rotation. PT-OP-L Special Tests Start: 12/10/18 14:31 Freq: Status: Active Protocol: Document 01/08/19 09:48 HH (Rec: 01/08/19 12:23 HH [email or web address]) Special Tests Lumbar Spine Special Tests facet syndrome Test Results +ve on L Comments SB and L rotation Manual Traction Test Results +ve on L Straight Leg Raise Test Results -ve PT-OP-Q Treatments Start: 12/10/18 14:31 Freq: Status: Active Protocol: Document 10/01/19 10:35 HH (Rec: 01/27/19 11:17 [email or web address]) Cardio Equipment Elliptical Duration (Minutes) 5 Resistance 4 Therapeutic Exercises Standing Exercises step up Standing Exercise Name single leg step up with opposite knee to hip level Side bilateral Equipment Used 6 inch step Reps/Minutes 10 x 4 Comments without UE support deadlift with ball Side bilateral Resistance 10lbs weighted ball Reps/Minutes 8 x4 Comments balled placed from5 inches above ground standing pelvic tilt Side bilateral Reps/Minutes 20 x 2 standing hip hinge Side bilateral Equipment Used PVC pipe Reps/Minutes 12 x 4 Comments cues on neutral spine PT-OP-R Modalities Start: 12/10/18 14:31 Freq: Status: Active Protocol: Document 01/27/19 10:35 HH (Rec: 01/27/19 11:17 HH [email or web address]) Hot Pack/Cold Pack Treatment Hot Pack Location l/s, ronni buttocks Patient Position Hooklying Treatment Duration (minutes) 10 Patient Tolerance Good PT-OP-T Assessment and Plan Start: 12/10/18 14:31 Freq: Status: Active Protocol: Document 01/27/19 10:35 HH (Rec: 01/27/19 11:17 [email or web address]) Physical Therapy Assessment Goals stair climbing Impairment unable to do stairs without UE support Detention Goal (LTG) pt will be able climb stairs with step over pattern but without UE support LTG Duration 4 weeks activity tolerance Short Term Goal (STG) cont in progress 01/23 but pt has increased her activity tolerance by increasing amb distance daily Pt will possibly return to workout routine in 2weeks. STG Duration not met 01/23 Detention Goal (LTG) Pt will be able to participate her workout routine 3-4x/ week for 45 mins session in pain free in order to optimize her functional strength and mobility. LTG Duration 4 weeks balance Short Term Goal (STG) cont in progress 01/08: SLS = >5 s on each Detention Goal (LTG) Pt will improve her single leg balance to 15 s on each LE in order to use step over pattern for stair negotiation LTG Duration 4 weeks Oswestry LBP Short Term Goal (STG) 01/23 did not assess Client Experience Consultant Goal (LTG) Pt will score 0 (0% impairment ) to improve her overall functional mobility and quality of life LTG Duration 4 weeks Assessment Summary Assessment pt cont to improve activity tolerance. Pt started to take long walks and negotiated stairs with step over pattern with UE touch on rails for support. Spent time today educated pt on using B LEs and neutral spine for lifting and sit to stand. Pt will bring her phone for recording next visit. Pt is planning to return to her workout rountine at the gym. Physical Therapy Plan Next Visit Focus/Plan Next Note Type Treatment Note Next Visit Plan video recording for deadlift Cont strengthening on LLE as luan single leg balance graded exposure for trunk movements during fucntional acitvities.
--- NOTE | 2019-01-29 10:34 | PT.OTN ---
Current Diagnoses Sciatica, left side (01/29/19) Low back pain (01/29/19) Physical Therapy Treatment Note PT-OP-A Visit Information Start: 12/10/18 14:31 Freq: Status: Active Protocol: Document 01/29/19 09:46 HH (Rec: 01/29/19 10:33 HH [email or web address]) Out-Patient Physical Therapy Visit Information Visit Information Visit Type Treatment Note Visit Start Time 09:46 Visit Stop Time 10:30 Total Visit Minutes 44 Visit Number 11 Number of CAST IRON DRAIN PIPE LAYER Visits 0 PT-OP-B Current Condition Start: 12/10/18 14:31 Freq: Status: Active Protocol: Document 12/10/18 13:00 HH (Rec: 12/10/18 15:06 HH [email or web address]) Current Condition History of Current Condition Onset Date a month ago Current Complaints B LBP L>R, radiating pain to LE, difficulty in walking History of Current Condition Pt presents to clinic with c/o acute LBP since a month ago with unknown reason. She explained her pain started at the center of the lower back and progressively getting worse with radiating pain down to buttocks and back of her thighs L>R. She described her symptoms as shooting pain with pinching sensation. 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 She is now having difficulty in walking, especially WB on her L LE. Movements from trunk and extremities seems to aggravate her symptoms. She basically has to everything slower. Ice and heat did help temporarily. Pt was very active prior to sx who workout 3 times a week with cardio and strengthening exercises. 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 To be pain free during functional activities (bending over, walking) 2. return to her workout routine 3x/ week (cardio and general strengthening) Prior Functional Status Baseline Function- ADL's Independent Baseline Function- Mobility Independent Baseline Function- Recreation/Hobbies workout 3 times a week with cardio and strengthening exercises. 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 Patient Reported Progress Improving PT-OP-D Balance Start: 12/10/18 14:31 Freq: Status: Active Protocol: Document 12/10/18 13:00 HH (Rec: 12/10/18 15:06 HH [email or web address]) Balance Tests Single Limb Standing Single Limb- Right 5 Single Limb- Left 0 (unable) PT-OP-G Mobility & Gait Start: 12/10/18 14:31 Freq: Status: Active Protocol: Document 12/10/18 13:00 HH (Rec: 12/10/18 15:06 HH [email or web address]) OP Mobility Evaluation Transfers Sit to Stand Abberant movement (uses both UE to support on knees ) OP Gait Assessment Gait Deviations General Gait Pattern Antalgic,Decreased Stride Length,Decreased Feet Clearance Factors Limiting Gait Function Factors Limiting Gait Function Decreased Activity Tolerance, Decreased Strength,Limited Range of Motion,Pain,Poor Balance Comments Gait Comments L antaglic gait with lack of heel strike. Early heel rise noticed as well. PT-OP-K Range of Motion Start: 12/10/18 14:31 Freq: Status: Active Protocol: Document 01/08/19 09:48 HH (Rec: 01/08/19 12:23 HH [email or web address]) Lumbar Spine Range of Motion Lumbar Spine Degrees Comments WFL without pain except SB and L rotation. PT-OP-L Special Tests Start: 12/10/18 14:31 Freq: Status: Active Protocol: Document 01/08/19 09:48 HH (Rec: 01/08/19 12:23 HH [email or web address]) Special Tests Lumbar Spine Special Tests facet syndrome Test Results +ve on L Comments SB and L rotation Manual Traction Test Results +ve on L Straight Leg Raise Test Results -ve PT-OP-Q Treatments Start: 12/10/18 14:31 Freq: Status: Active Protocol: Document 01/29/19 09:46 HH (Rec: 01/29/19 10:33 HH [email or web address]) Cardio Equipment Elliptical Duration (Minutes) 5 Resistance 4 Recumbent Bicycle Duration (Minutes) 4 Resistance 2 Therapeutic Exercises Prone Exercises child pose Side bilateral Reps/Minutes 15 x2 Comments elbows on bench cat camel Side bilateral Reps/Minutes 15 x2 Standing Exercises deadlift with ball Side bilateral Resistance 10lbs weighted ball Reps/Minutes 5 x2 Comments with video record Neuro Re-Education Treatment Balance Activities single leg stance Details reaching across midline Equipment cones on table Reps/Duration 6 mins Comments hand tap on cones PT-OP-R Modalities Start: 12/10/18 14:31 Freq: Status: Active Protocol: Document 01/29/19 09:46 HH (Rec: 01/29/19 10:34 HH [email or web address]) Hot Pack/Cold Pack Treatment Hot Pack Location l/s, ronni buttocks Patient Position Hooklying Treatment Duration (minutes) 8 Patient Tolerance Good PT-OP-T Assessment and Plan Start: 12/10/18 14:31 Freq: Status: Active Protocol: Document 01/29/19 09:46 HH (Rec: 01/29/19 10:33 [email or web address]) Physical Therapy Assessment Goals stair climbing Impairment unable to do stairs without UE support Retirement Goal (LTG) pt will be able climb stairs with step over pattern but without UE support LTG Duration 4 weeks activity tolerance Short Term Goal (STG) cont in progress 01/23 but pt has increased her activity tolerance by increasing amb distance daily Pt will possibly return to workout routine in 2weeks. STG Duration not met 01/23 Retirement Goal (LTG) Pt will be able to participate her workout routine 3-4x/ week for 45 mins session in pain free in order to optimize her functional strength and mobility. LTG Duration 4 weeks balance Short Term Goal (STG) goal met : SLS for B LE > 10 s Vortex Operator Goal (LTG) cont in progress 01/21 Pt will improve her single leg balance to 15 s on each LE in order to use step over pattern for stair negotiation LTG Duration 4 weeks Oswestry LBP Short Term Goal (STG) 01/23 did not assess Retirement Goal (LTG) Pt will score 0 (0% impairment ) to improve her overall functional mobility and quality of life LTG Duration 4 weeks Assessment Summary Assessment Pt is very sore and stiff today after workout from yesterday. Focused more on lumbar active movements and balance today and she felt better after. Pt has decreased activity tolerance and balance as well. Noticed pt's has very poor short term memory recently and needs constant reminders for sequencing. Will cont assess and monitor. Used her cellphone for postural education doing sit to stand and deadlift. Physical Therapy Plan Next Visit Focus/Plan Next Note Type Treatment Note Next Visit Plan stair training low back and core strengthening Cont strengthening on LLE as luan single leg balance graded exposure for trunk movements during fucntional acitvities.
--- NOTE | 2019-02-03 11:21 | PT.OTN ---
Current Diagnoses Sciatica, left side (02/03/19) Low back pain (02/03/19) Physical Therapy Treatment Note PT-OP-A Visit Information Start: 12/10/18 14:31 Freq: Status: Active Protocol: Document 02/03/19 10:35 HH (Rec: 02/03/19 11:20 HH [email or web address]) Out-Patient Physical Therapy Visit Information Visit Information Visit Type Treatment Note Visit Start Time 10:35 Visit Stop Time 11:15 Total Visit Minutes 40 Visit Number 12 Number of SIGN INSTALLER Visits 0 PT-OP-B Current Condition Start: 12/10/18 14:31 Freq: Status: Active Protocol: Document 12/10/18 13:00 HH (Rec: 12/10/18 15:06 HH [email or web address]) Current Condition History of Current Condition Onset Date a month ago Current Complaints B LBP L>R, radiating pain to LE, difficulty in walking History of Current Condition Pt presents to clinic with c/o acute LBP since a month ago with unknown reason. She explained her pain started at the center of the lower back and progressively getting worse with radiating pain down to buttocks and back of her thighs L>R. She described her symptoms as shooting pain with pinching sensation. 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 She is now having difficulty in walking, especially WB on her L LE. Movements from trunk and extremities seems to aggravate her symptoms. She basically has to everything slower. Ice and heat did help temporarily. Pt was very active prior to sx who workout 3 times a week with cardio and strengthening exercises. 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 To be pain free during functional activities (bending over, walking) 2. return to her workout routine 3x/ week (cardio and general strengthening) Prior Functional Status Baseline Function- ADL's Independent Baseline Function- Mobility Independent Baseline Function- Recreation/Hobbies workout 3 times a week with cardio and strengthening exercises. 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 : Patient Reported Progress Improving PT-OP-D Balance Start: 12/10/18 14:31 Freq: Status: Active Protocol: Document 12/10/18 13:00 HH (Rec: 12/10/18 15:06 HH [email or web address]) Balance Tests Single Limb Standing Single Limb- Right 5 Single Limb- Left 0 (unable) PT-OP-G Mobility & Gait Start: 12/10/18 14:31 Freq: Status: Active Protocol: Document 12/10/18 13:00 HH (Rec: 12/10/18 15:06 HH [email or web address]) OP Mobility Evaluation Transfers Sit to Stand Abberant movement (uses both UE to support on knees ) OP Gait Assessment Gait Deviations General Gait Pattern Antalgic,Decreased Stride Length,Decreased Feet Clearance Factors Limiting Gait Function Factors Limiting Gait Function Decreased Activity Tolerance, Decreased Strength,Limited Range of Motion,Pain,Poor Balance Comments Gait Comments L antaglic gait with lack of heel strike. Early heel rise noticed as well. PT-OP-K Range of Motion Start: 12/10/18 14:31 Freq: Status: Active Protocol: Document 01/08/19 09:48 HH (Rec: 01/08/19 12:23 HH [email or web address]) Lumbar Spine Range of Motion Lumbar Spine Degrees Comments WFL without pain except SB and L rotation. PT-OP-L Special Tests Start: 12/10/18 14:31 Freq: Status: Active Protocol: Document 01/08/19 09:48 HH (Rec: 01/08/19 12:23 HH [email or web address]) Special Tests Lumbar Spine Special Tests facet syndrome Test Results +ve on L Comments SB and L rotation Manual Traction Test Results +ve on L Straight Leg Raise Test Results -ve PT-OP-Q Treatments Start: 12/10/18 14:31 Freq: Status: Active Protocol: Document 02/03/19 10:35 HH (Rec: 02/03/19 11:20 HH [email or web address]) Cardio Equipment Elliptical Duration (Minutes) 5 Resistance 4 Gym Equipment Shuttle Recovery Bilateral Squats Resistance #100 Shuttle Recovery Platform Stable Reps/Time 8 x3 Therapeutic Exercises Standing Exercises single leg stand Side bilateral Equipment Used use mirror Reps/Minutes 10 secs each x 8 Comments cues on limiting lateral weight shift deadlift with ball Side bilateral Resistance 10lbs weighted ball Reps/Minutes 10 x3 Comments with video record squats Side bilateral Resistance with grab bar Reps/Minutes 8 x3 Comments cues on hip hinge standing hip hinge Side bilateral Equipment Used PVC pipe Reps/Minutes 15 x3 Comments cues on neutral spine Therapeutic Activity Therapeutic Activity stair climbing Reps/Minutes 5 rounds Comments cues on reducing lateral weight shift without rails PT-OP-R Modalities Start: 12/10/18 14:31 Freq: Status: Active Protocol: Document 01/29/19 09:46 HH (Rec: 01/29/19 10:34 HH [email or web address]) Hot Pack/Cold Pack Treatment Hot Pack Location l/s, ronni buttocks Patient Position Hooklying Treatment Duration (minutes) 8 Patient Tolerance Good PT-OP-T Assessment and Plan Start: 12/10/18 14:31 Freq: Status: Active Protocol: Document 02/03/19 10:35 HH (Rec: 02/03/19 11:20 HH [email or web address]) Physical Therapy Assessment Goals stair climbing Impairment unable to do stairs without UE support Sheeter Machine Operator Goal (LTG) pt will be able climb stairs with step over pattern but without UE support LTG Duration 4 weeks activity tolerance Short Term Goal (STG) cont in progress 01/23 but pt has increased her activity tolerance by increasing amb distance daily Pt will possibly return to workout routine in 2weeks. STG Duration not met 01/23 Alf Goal (LTG) Pt will be able to participate her workout routine 3-4x/ week for 45 mins session in pain free in order to optimize her functional strength and mobility. LTG Duration 4 weeks balance Short Term Goal (STG) cont in progress 01/08: SLS = >5 s on each Alf Goal (LTG) Pt will improve her single leg balance to 15 s on each LE in order to use step over pattern for stair negotiation LTG Duration 4 weeks Oswestry LBP Short Term Goal (STG) 01/23 did not assess Sheeter Machine Operator Goal (LTG) Pt will score 0 (0% impairment ) to improve her overall functional mobility and quality of life LTG Duration 4 weeks Assessment Summary Assessment Pt cont to improve. Able to climb stair with step over pattern without UE support and LOB. Her SLS increased to 10- 20s for either R/L LE. Pt also stated she noticed her short term memory has decreased recently but dont know why, but she feels good today. Educated pt to cooperate with to use notepad/ reminder everyday. Pt will have 3 more visits before her trip to [place] 02/16. Expect to d/c in 2 weeks. Physical Therapy Plan Next Visit Focus/Plan Next Note Type Treatment Note Next Visit Plan stair training low back and core strengthening Cont strengthening on LLE as laun single leg balance graded exposure for trunk movements during fucntional acitvities.
--- NOTE | 2019-04-28 10:25 | PT.OPDS ---
Current Diagnoses Sciatica, left side (02/03/19) Low back pain (02/03/19) Visit Care Team Role Provider Type [place] MD Attending Provider Physician Primary Care Provider Specialty: Internal Medicine Address: [address] [place] [address], [id number] Email: [email or web address] Visit Number Visit Number 12 Discharge Summary PT-OP-B Current Condition Start: 12/10/18 14:31 Freq: Status: Active Protocol: Document 12/10/18 13:00 (Rec: 12/10/18 15:06 [email or web address]) Current Condition History of Current Condition Onset Date a month ago Current Complaints B LBP L>R, radiating pain to LE, difficulty in walking History of Current Condition Pt presents to clinic with c/o acute LBP since a month ago with unknown reason. She explained her pain started at the center of the lower back and progressively getting worse with radiating pain down to buttocks and back of her thighs L>R. She described her symptoms as shooting pain with pinching sensation. 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 She is now having difficulty in walking, especially WB on her L LE. Movements from trunk and extremities seems to aggravate her symptoms. She basically has to everything slower. Ice and heat did help temporarily. Pt was very active prior to sx who workout 3 times a week with cardio and strengthening exercises. 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 To be pain free during functional activities (bending over, walking) 2. return to her workout routine 3x/ week (cardio and general strengthening) Prior Functional Status Baseline Function- ADL's Independent Baseline Function- Mobility Independent Baseline Function- Recreation/Hobbies workout 3 times a week with cardio and strengthening exercises. Current Functional Impairments (Reported) Functional Limitations- ADL's Unable to sit >10 mins unable to bend over to fern picker objects from floor Functional Limitations- Mobility/Gait antalgic gait with limitation on WB on LLE Functional Limitations- Recreation/ Unable to workout at the gym Hobbies PT-OP-C Subjective Start: 12/10/18 14:31 Freq: Status: Active Protocol: Document 02/03/19 10:35 HH (Rec: 02/03/19 11:20 HH [email or web address]) OP-PT Subjective Patient Comments Patient Comments My back is feeling fine and i dont feel my hip as much. : Patient Reported Progress Improving PT-OP-D Balance Start: 12/10/18 14:31 Freq: Status: Active Protocol: Document 12/10/18 13:00 HH (Rec: 12/10/18 15:06 HH [email or web address]) Balance Tests Single Limb Standing Single Limb- Right 5 Single Limb- Left 0 (unable) PT-OP-G Mobility & Gait Start: 12/10/18 14:31 Freq: Status: Active Protocol: Document 12/10/18 13:00 HH (Rec: 12/10/18 15:06 HH [email or web address]) OP Mobility Evaluation Transfers Sit to Stand Abberant movement (uses both UE to support on knees ) OP Gait Assessment Gait Deviations General Gait Pattern Antalgic,Decreased Stride Length,Decreased Feet Clearance Factors Limiting Gait Function Factors Limiting Gait Function Decreased Activity Tolerance, Decreased Strength,Limited Range of Motion,Pain,Poor Balance Comments Gait Comments L antaglic gait with lack of heel strike. Early heel rise noticed as well. PT-OP-K Range of Motion Start: 12/10/18 14:31 Freq: Status: Active Protocol: Document 01/08/19 09:48 HH (Rec: 01/08/19 12:23 HH [email or web address]) Lumbar Spine Range of Motion Lumbar Spine Degrees Comments WFL without pain except SB and L rotation. PT-OP-L Special Tests Start: 12/10/18 14:31 Freq: Status: Active Protocol: Document 01/08/19 09:48 HH (Rec: 01/08/19 12:23 HH [email or web address]) Special Tests Lumbar Spine Special Tests facet syndrome Test Results +ve on L Comments SB and L rotation Manual Traction Test Results +ve on L Straight Leg Raise Test Results -ve PT-OP-T Assessment and Plan Start: 12/10/18 14:31 Freq: Status: Active Protocol: Document 04/28/19 10:24 HH (Rec: 04/28/19 10:25 HH [email or web address]) Physical Therapy Plan Discharge Physical Therapy Discharge Reasons Goals Met Discharge Comments pt requested to be d/c from PT d/t rehab goals have met.
== END 2019-02-04 12:51 ==
LOC: PHYS 10:30
PROVIDERS: PCP Internal Medicine; Visit Provider Internal Medicine
DX: M54.5 Low back pain (principal); M54.32 Sciatica, left side
CPT/HCPCS: 97010; 97110; 97112; 97140; 97162; 97530

== ENCOUNTER → 2020-02-01 15:51 | Outpatient (CLI) | payer MEDICARE, OTHER, SELFPAY ==
--- NOTE | 2020-02-01 15:52 | DI.RAD.S_ITS ---
PROCEDURE: XR CHEST 2V INDICATIONS: cough, fever, SOB, r/o pneumonia TECHNIQUE: 2 views of the chest were acquired. COMPARISON: [facility], , CHEST 1 VIEW, 12/04/2014, 15:38. FINDINGS: Surgical changes and devices: None. Lungs and pleura: Linear atelectasis in left mid to lower lung field is seen. No definite focal infiltrate. Increased bronchovascular markings in bilateral hilar region are seen with mild bronchial wall thickening. No pleural effusions or pneumothorax. Mediastinum: Mediastinal contours are normal. Heart size is normal. Bones and chest wall: No suspicious bony abnormalities. Soft tissues appear unremarkable. IMPRESSION: Suggestion of reactive airway disease such as bronchitis or viral pneumonia. No definite focal infiltrate. Left lower lobe linear atelectasis. No pleural effusion or pneumothorax. Dictated by: Davian Davis M.D. on 02/01/2020 at 16:14 Approved by: Davian Davis M.D. on 02/01/2020 at 16:15
== END ==
PROVIDERS: PCP Internal Medicine; Referring Provider Physician Assistant; Visit Provider Physician Assistant
DX: R05 Cough (principal); R06.02 Shortness of breath; R50.9 Fever, unspecified; J98.11 Atelectasis
CPT/HCPCS: 71046; 87635

== ENCOUNTER → 2020-02-01 16:42 | Outpatient (CLI) | payer MEDICARE, OTHER, SELFPAY ==
[2020-02-02 07:40] LABS: COVID19 Sendout Not Detected (Not Detect)
== END ==
PROVIDERS: PCP Internal Medicine; Visit Provider Physician Assistant
DX: R05 Cough (principal); R06.02 Shortness of breath; R50.9 Fever, unspecified
CPT/HCPCS: 87635

== ENCOUNTER → 2020-07-06 12:31 | Outpatient (CLI) | payer MEDICARE, OTHER, SELFPAY ==
[2020-07-06] MEDS: COVID-19 VACC, Ad26(JANSSEN)/PF 0.5 ML IM (12:56)
== END ==
PROVIDERS: PCP Internal Medicine; Visit Provider Internal Medicine
DX: Z23 Encounter for immunization (principal)
CPT/HCPCS: 0031A; 91303

== ENCOUNTER → 2020-07-30 11:11 | Outpatient (CLI) | payer MEDICARE, OTHER, SELFPAY ==
[2020-07-30 12:24] LABS: Alanine Aminotransferase 24 IU/L (<35); Albumin 4.3 g/dL (3.5-5.0); Albumin Globulin Ratio 1.4 (1.0-2.8); Alkaline Phosphatase 108 U/L (38-126); Aspartate Aminotransferase 51 IU/L (14-36); BUN Creatinine Ratio 20.5 (6-22); Bilirubin Total 0.3 mg/dL (0.2-1.3); Blood Urea Nitrogen 17 mg/dL (7-17); Calcium 9.1 mg/dL (8.4-10.2); Carbon Dioxide 20 mmol/L (22-32); Chloride 101 mmol/L (98-107); Cholesterol 249 mg/dL (140-199); Estimated Glomerular Filt Rate > 60.0 mL/min (>60); Glucose 93 mg/dL (80-110); HEMOLYSIS < 15 (0-50); Sodium 132 mmol/L (137-145); Total Protein 7.3 g/dL (6.3-8.2); Triglycerides 72 mg/dL (35-150)
[2020-07-30 12:50] LABS: HDL Cholesterol 113 mg/dL (40-60); LDL Cholesterol Calculated 122 mg/dL (<100)
== END ==
PROVIDERS: PCP Internal Medicine; Referring Provider Internal Medicine; Visit Provider Internal Medicine
DX: E78.5 Hyperlipidemia, unspecified (principal); I10 Essential (primary) hypertension
CPT/HCPCS: 36415; 80053; 80061

== ENCOUNTER → 2020-08-24 10:46 | Outpatient (CLI) | payer MEDICARE, OTHER, SELFPAY ==
--- NOTE | 2020-08-24 | DI.MG.S_ITS ---
BILATERAL DIGITAL SCREENING MAMMOGRAM 3D/2D WITH CAD: 08/24/2020 CLINICAL: Routine screening. Family history of breast cancer. Comparison is made to exams dated: 10/28/2018 mammogram, 01/14/2017 mammogram, and 01/05/2016 mammogram - [facility]. The tissue of both breasts is heterogeneously dense. This may lower the sensitivity of mammography. Current study was also evaluated with a Computer Aided Detection (CAD) system. There are benign calcifications in both breasts. There also are benign post operative findings in the right breast. No significant masses, calcifications, or other findings are seen in either breast. There has been no significant interval change. IMPRESSION: BENIGN There is no mammographic evidence of malignancy. A 1 year screening mammogram is recommended. This exam was interpreted at Station ID: [id number]. NOTE: For mammograms, a report in lay terms will be sent to the patient. Approximately 15% of breast malignancies will not be visualized mammographically. In the management of a palpable breast mass, a negative mammogram must not discourage biopsy of a clinically suspicious lesion. Electronically Signed By: Jalen wallace/luda:08/24/2020 16:44:35 letter sent: Normal Exam ACR BI-RADS Category 2: Benign Finding(s) 3342F
== END ==
PROVIDERS: PCP Internal Medicine; Referring Provider Internal Medicine; Visit Provider Internal Medicine
DX: Z12.31 Encounter for screening mammogram for malignant neoplasm of breast (principal)
CPT/HCPCS: 77063; 77067

== ENCOUNTER → 2020-09-13 14:51 | Outpatient (ROUT) | payer MEDICARE, OTHER, SELFPAY ==
[2020-09-13 15:43] LABS: Alanine Aminotransferase 23 IU/L (<35); Albumin 4.4 g/dL (3.5-5.0); Albumin Globulin Ratio 1.6 (1.0-2.8); Alkaline Phosphatase 87 U/L (38-126); Aspartate Aminotransferase 33 IU/L (14-36); BUN Creatinine Ratio 16.3 (6-22); Bilirubin Total 0.4 mg/dL (0.2-1.3); Blood Urea Nitrogen 14 mg/dL (7-17); Carbon Dioxide 25 mmol/L (22-32); Chloride 102 mmol/L (98-107); Cholesterol 167 mg/dL (140-199); Estimated Glomerular Filt Rate > 60.0 mL/min (>60); Globulin 2.7 g/dL (1.7-4.1); Glucose 98 mg/dL (80-110); HDL Cholesterol 99 mg/dL (40-60); HEMOLYSIS < 15 (0-50); LDL Cholesterol Calculated 55 mg/dL (<100); Sodium 133 mmol/L (137-145); Total Protein 7.1 g/dL (6.3-8.2); Triglycerides 65 mg/dL (35-150)
== END ==
PROVIDERS: PCP Internal Medicine; Visit Provider Internal Medicine
DX: I10 Essential (primary) hypertension (principal); E78.5 Hyperlipidemia, unspecified
CPT/HCPCS: 80053; 80061

== ENCOUNTER → 2020-11-09 08:48 | Outpatient (CLI) | payer MEDICARE, OTHER, SELFPAY ==
[2020-11-09 09:31] LABS: COVID19 -Nasal RAPID Negative (Negative)
== END ==
PROVIDERS: PCP Internal Medicine; Referring Provider Internal Medicine; Visit Provider Internal Medicine
DX: Z20.822 Contact with and (suspected) exposure to COVID-19 (principal)
CPT/HCPCS: 87635; C9803

== ENCOUNTER → 2020-11-10 08:49 | Outpatient (CLI) | payer MEDICARE, OTHER, SELFPAY ==
--- NOTE | 2020-11-16 11:36 | PM.PFT.1 ---
Pulmonary Function Test Referral & Results Date Patient Seen: 11/10/20 Requesting provider: Kristi Prince Results: The spirometry demonstrates an FVC of 2.61 L which is 98% of predicted. The FEV1 was measured at 1.89 L which is 95% of predicted. The FEV1/FVC ratio was 72 which is 97% of predicted. Following the administration of bronchodilator there was no significant change. Lung volumes show an SVC of 2.94 L which is 109% of predicted. The diffusing capacity was measured at 16.67 which is 68% of predicted. No hemoglobin value was provided, so no correction for potential anemia could be made, if appropriate. The maximum voluntary ventilation was reduced Interpretation: This study demonstrates normal spirometry. There is a moderate reduction diffusing capacity suggesting element of disease at the capillary alveolar level There is also reduction in maximum voluntary ventilation which in the absence of other abnormalities of spirometry suggest neuromuscular disease Clinical correlation suggested
== END ==
PROVIDERS: PCP Internal Medicine; Referring Provider Internal Medicine; Visit Provider Internal Medicine
DX: R06.02 Shortness of breath (principal); J98.8 Other specified respiratory disorders; J45.909 Unspecified asthma, uncomplicated
CPT/HCPCS: 94060; 94726; 94729

== ENCOUNTER → 2020-11-24 12:31 | Outpatient (CLI) | payer MEDICARE, OTHER, SELFPAY ==
--- NOTE | 2020-11-24 | DI.RAD.S_ITS ---
PROCEDURE: XR CHEST 2V INDICATIONS: COUGH TECHNIQUE: 2 views of the chest were acquired. COMPARISON: [facility], CR, XR CHEST 2V, 02/01/2020, 14:54. FINDINGS: Surgical changes and devices: None. Lungs and pleura: Scattered subsegmental scarring and/or atelectasis. No acute consolidation. No pleural effusions or pneumothorax. Mediastinum: Mediastinal contours are normal. Heart size is normal. Bones and chest wall: No suspicious bony abnormalities. Soft tissues appear unremarkable. IMPRESSION: No acute disease. Dictated by: Erasto Norman M.D. on 11/24/2020 at 14:22 Approved by: Erasto Norman M.D. on 11/24/2020 at 14:23
== END ==
PROVIDERS: PCP Internal Medicine; Referring Provider Internal Medicine; Visit Provider Internal Medicine
DX: R05 Cough (principal)
CPT/HCPCS: 71046

== ENCOUNTER 2021-02-03 09:00 | Emergency (ER) | payer MEDICARE, OTHER, SELFPAY ==
[2021-02-03 09:13] VITALS: PULSE 72; O2SAT 98
[2021-02-03 09:14] VITALS: BP 198/90; PULSE 71; O2SAT 98
--- NOTE | 2021-02-03 09:15 | DI.RAD.S_ITS ---
PROCEDURE: XR ANKLE RT MIN 3V INDICATIONS: pain after 'rolling' 2 days ago TECHNIQUE: 3 views of the ankle were acquired. COMPARISON: None. FINDINGS: Bones: There is a small radiodensity at the anterior aspect of the distal tibia, which could indicate a small fracture fragment. Ankle mortise is normally aligned. No suspicious bony lesions. Soft tissues: No tibiotalar joint effusion. Achilles tendon appears normal. IMPRESSION: Small radiodensity adjacent to the distal tibia, which could represent a small fracture fragment of uncertain acuity. Clinical correlation recommended. Dictated by: Gareth Mas M.D. on 02/03/2021 at 9:18 Approved by: Gareth Mas M.D. on 02/03/2021 at 9:23
--- NOTE | 2021-02-03 09:18 | ED_ITS ---
HPI - Extremity Problem General Chief complaint: Extremity Injury, Lower Stated complaint: sprained rt ankle x2 days Time Seen by Provider: 02/03/21 09:16 Source: patient Mode of arrival: Family Vehicle Limitations: no limitations History of Present Illness HPI Narrative: This is a 80-year-old female who comes emergency department with complaint of right ankle pain. She states she was walking in crossing the stre et with her while they were out for a walk when she rolled her ankle. Since then she has had significant pain over the lateral malleoli dorsum of her foot. She has not been able to weightbear. She has had bruising and swelling. Patient denies any numbness, tingling or weakness. She denies any other traumatic injuries. She does have history of hypertension and dyslipidemia but does not take medications. She denies tobacco, she does drink several glasses of wine daily, denies illicit. She is accompanied by her today. Related Data Home Medications Medication Instructions Recorded Confirmed atorvastatin 20 mg tablet 20 mg PO DAILY 11/19/18 02/01/20 celecoxib 200 mg capsule 200 mg PO DAILY 11/19/18 02/01/20 lisinopril 40 mg tablet 40 mg PO DAILY 11/19/18 02/01/20 venlafaxine 150 mg 150 mg PO DAILY 11/19/18 02/01/20 capsule,extended release 24 hr Previous Rx's Medication Instructions Recorded gabapentin 100 mg capsule 100 mg PO BID PRN #20 cap 11/19/18 lidocaine 5 % topical patch 1 patch TOP DAILY #15 each 11/19/18 methocarbamol 500 mg tablet 500 mg PO TID PRN #30 tab 11/19/18 (Robaxin) benzonatate 100 mg capsule 100 mg PO BID PRN #30 cap 02/01/20 (Tessalon Perles) Allergies Allergy/AdvReac Type Severity Reaction Status Date / Time Sulfa (Sulfonamide Allergy Unknown Unverified 02/01/20 15:20 Antibiotics) Review of Systems Review of Systems ROS Unobtainable: All systems reviewed & are unremarkable except as noted in HPI and below Patient History Medical History Alcohol use Pneumonia Surgical History History of hysterectomy Social History Smoking Status: Never smoker Smoking Status: Never smoker alcohol intake frequency: 0-2 drinks per day Substance Use Type: does not use Exam Narrative Exam Narrative: GENERAL: Alert and oriented x three, female in mild distress. HEENT: Head normocephalic, atraumatic, EOMI, pupils reactive, face symmetric, moist mucous membranes NECK: Supple, full range of motion CARDIOVASCULAR: Regular rate and rhythm without murmurs, rubs or gallops. RESPIRATORY: Breath sounds equal bilaterally, no wheezes rales or rhonchi. ABDOMEN: Soft, nontender. Normoactive bowel sounds all 4 quadrants. No guarding or rebound, rigidity, no mass EXTREMITIES: Decreased range of motion at the right ankle, patient has significant tenderness over the lateral malleolus but also over 4th and 5th metatarsals, patient has bruising extending below the lateral malleolus over the lateral foot the dorsum. No obvious deformity. Patient has swelling as well. She is neurovascularly intact. Cap refill less than 2 seconds in all 5 toes. Normal sensation throughout. Neurovascularly intact NEUROLOGICAL: Cranial nerves II through XII grossly intact. Moving all extremities SKIN: Warm, dry, no petechiae, no rashes or lesions other than noted above. Initial Vital Signs Initial Vital Signs: Vital Signs Pulse Rate 72 02/03/21 09:13 Pulse Oximetry 98 02/03/21 09:13 Course Orders Ordered: ED Orders 02/03/21 09:15 XR ankle RT min 3V Stat 02/03/21 09:24 XR foot RT min 3V Stat Vital Signs Vital signs: Vital Signs - 8 hr 02/03/21 09:28 Temperature 97.9 F Pulse Rate 80 Respiratory Rate 18 Blood Pressure 219/99 H Pulse Oximetry 98 MDM - Extremity (Nontraumatic) Imaging Data Extremity x-ray #1: Radiologist's Impression: [address] [address] XRay Report Signed Patient: Osiris Woodruff MR#: [id number] : 1940 Acct:[id number] Age/Sex: 80 / F Date of Service: 02/03/21 Loc: ED Accession Number: [id number] ?? Procedure: XR ankle RT min 3V Ordering Provider: Krystal Stone D.O. PROCEDURE:? XR ANKLE RT MIN 3V ? INDICATIONS:? pain after 'rolling' 2 days ago ? TECHNIQUE:? 3 views of the ankle were acquired.? ? COMPARISON:? None. ? FINDINGS:? ? Bones:? There is a small radiodensity at the anterior aspect of the distal tibia, which could indicate a small fracture fragment.? Ankle mortise is normally aligned.? No suspicious bony lesions.? ? Soft tissues:? No tibiotalar joint effusion.? Achilles tendon appears normal.? ? ? IMPRESSION:? Small radiodensity adjacent to the distal tibia, which could represent a small fracture fragment of uncertain acuity.? Clinical correlation recommended. ? ? ? Dictated by: Gareth Mas M.D. on 02/03/2021 at 9:18 ? ? Approved by: Gareth Mas M.D. on 02/03/2021 at 9:23?? Extremity x-ray #2: Radiologist's Impression: Osiris Woodruff??80??F??1940 ? Allergy/Adv: Sulfa (Sulfonamide Antibiotics) (More??) Close Foot X-Ray (Signed) Gareth Mas - 02/03/21 Ankle X-Ray (Signed) Gareth Mas - 02/03/21 Chest X-Ray (Signed) Erasto Norman - 11/24/20 Mammogram Screening (Signed) Jalen Scott - 08/24/20 Chest X-Ray (Signed) Davian Davis - 02/01/20 Sacrum and Coccyx X-Ray (Signed) Rosalba Su - 11/19/18 Lumbar Spine X-Ray (Signed) Rsoalba Su - 11/19/18 Mammogram Screening (Signed) Jalen Scott - 10/28/18 Launch?[address] [address] XRay Report Signed Patient: Osiris Woodruff MR#: [id number] : 1940 Acct:[id number] Age/Sex: 80 / F Date of Service: 02/03/21 Loc: ED Accession Number: [id number] ?? Procedure: XR foot RT min 3V Ordering Provider: Mank,Krystal C D.O. PROCEDURE:? XR FOOT RT MIN 3V ? INDICATIONS:? right lat malleoli and 4/5th metatarsal pain ? TECHNIQUE:? 3 views of the foot were acquired.? ? COMPARISON:? [facility], , FOOT 3V RIGHT, 01/17/2016, 13:43. ? FINDINGS:? ? Bones:? No fractures or dislocations.? Joint space narrowing and periarticular osteophyte formation at the 1st metatarsophalangeal joint.? No suspicious bony lesions.? ? Soft tissues:? No tibiotalar joint effusion.? Achilles tendon appears normal.? ? ? IMPRESSION:? No acute fracture. No osseous lesion. If symptoms and/or clinical suspicion for pathology persist, further assessment with repeat, or advanced imaging (e.g., CT, MRI, or bone scan) may be helpful for further assessment. ? ? Dictated by: Gareth Mas M.D. on 02/03/2021 at 9:45 ? ? Approved by: Gareth Mas M.D. on 02/03/2021 at 9:46?? MDM Narrative Medical decision making narrative: This is a 80-year-old female who comes to the emergency department for right ankle sprain. Patient has fracture of the lateral malleoli. She is quite tender over the 4th and 5th metatarsals and the foot so x-rays of the foot were included and are negative. Patient was placed in walking boot. She was given walker. Referral to Orthopedic surgery for follow-up. Patient is hypertensive in the department. She does not take her atorvastatin and lisinopril on a regular basis and we discussed that she does need to be on these medications she is high risk for stroke and heart attack. Patient states she will go home medications today. No other questions or concerns. All questions answered. Discharge Plan Departure Patient Disposition: Home Clinical Impression: Ankle fracture Instructions: DI for Ankle Fracture Activity Restrictions/Additional Instructions: Follow-up in the next week with orthopedic surgery for recheck. Call for an appointment. You have a fracture of the fibula on your imaging which appears well aligned. You may take Tylenol up to a 1000 mg every 8 hours as needed for pain and/or ibuprofen up to 600 mg every 6 hours. You may toe-touch weightbear I recommend using crutches and otherwise no full weight on her foot. Splint Care: Keep splint clean and dry. Elevated affected body part to decrease swelling. OK to use ice pack on the affected body part. Use for 15-20 minutes each time, for 5-6x per day. If you develop worsening pain, numbness, tingling, discoloration of the affected body part, loosen the splint by loosening the WILLIE wrap, and either see your doctor for an urgent re-assessment, or return to the Emergency Department. Return to the Emergency Department for any new or worsening symptoms. Prescriptions: No Action benzonatate [Tessalon Perles] 100 mg capsule 100 mg PO BID PRN (Reason: cough) Qty: 30 RF: 0 celecoxib 200 mg capsule 200 mg PO DAILY RF: 0 atorvastatin 20 mg tablet 20 mg PO DAILY RF: 0 venlafaxine 150 mg capsule,extended release 24hr 150 mg PO DAILY RF: 0 lisinopril 40 mg tablet 40 mg PO DAILY RF: 0 methocarbamol [Robaxin] 500 mg tablet 500 mg PO TID PRN (Reason: pain) Qty: 30 RF: 0 lidocaine 5 % adhesive patch,medicated 1 patch TOP DAILY Qty: 15 RF: 0 gabapentin 100 mg capsule 100 mg PO BID PRN (Reason: pain) Qty: 20 RF: 0 Referrals: Silva Panchal MD [Physician] - Kristi Prince MD [Primary Care Provider] -
--- NOTE | 2021-02-03 09:24 | DI.RAD.S_ITS ---
PROCEDURE: XR FOOT RT MIN 3V INDICATIONS: right lat malleoli and 4/5th metatarsal pain TECHNIQUE: 3 views of the foot were acquired. COMPARISON: [facility], , FOOT 3V RIGHT, 01/17/2016, 13:43. FINDINGS: Bones: No fractures or dislocations. Joint space narrowing and periarticular osteophyte formation at the 1st metatarsophalangeal joint. No suspicious bony lesions. Soft tissues: No tibiotalar joint effusion. Achilles tendon appears normal. IMPRESSION: No acute fracture. No osseous lesion. If symptoms and/or clinical suspicion for pathology persist, further assessment with repeat, or advanced imaging (e.g., CT, MRI, or bone scan) may be helpful for further assessment. Dictated by: Gareth Mas M.D. on 02/03/2021 at 9:45 Approved by: Gareth Mas M.D. on 02/03/2021 at 9:46
[2021-02-03 09:28] VITALS: BP 219/99; PULSE 80; RESP 18; TEMP 36.6; O2SAT 98; BMI 22.6
[2021-02-03 09:30] VITALS: BP 212/102; PULSE 67; O2SAT 100
[2021-02-03 10:00] VITALS: BP 203/91; PULSE 68; O2SAT 98
== END 2021-02-03 10:43 | disposition home or self-care (01) ==
PROVIDERS: Emergency Provider Emergency Medicine; PCP Internal Medicine
DX: S82.891A Other fracture of right lower leg, initial encounter for closed fracture (principal); X50.1XXA Overexertion from prolonged static or awkward postures, initial encounter
CPT/HCPCS: 29580; 73610; 73630; 99281; 99283

== ENCOUNTER → 2021-08-30 10:32 | Outpatient (CLI) | payer MEDICARE, OTHER, SELFPAY ==
--- NOTE | 2021-08-30 | DI.MG.S_ITS ---
BILATERAL DIGITAL SCREENING MAMMOGRAM 3D/2D WITH CAD: 08/30/2021 CLINICAL: Routine screening. Family history of breast cancer. Comparison is made to exams dated: 08/24/2020 mammogram, 10/28/2018 mammogram, and 01/14/2017 mammogram - [facility]. The tissue of both breasts is heterogeneously dense. This may lower the sensitivity of mammography. Current study was also evaluated with a Computer Aided Detection (CAD) system. There are benign calcifications in both breasts. There also are benign post operative findings in the right breast. No significant masses, calcifications, or other findings are seen in either breast. There has been no significant interval change. IMPRESSION: BENIGN There is no mammographic evidence of malignancy. A 1 year screening mammogram is recommended. This exam was interpreted at Station ID: [id number]. NOTE: For mammograms, a report in lay terms will be sent to the patient. Approximately 15% of breast malignancies will not be visualized mammographically. In the management of a palpable breast mass, a negative mammogram must not discourage biopsy of a clinically suspicious lesion. Electronically Signed By: Deejay Stover M.D., jr/luda:08/30/2021 11:44:50 letter sent: Normal Exam ACR BI-RADS Category 2: Benign Finding(s) 3342F
== END ==
PROVIDERS: PCP Internal Medicine; Referring Provider Internal Medicine; Visit Provider Internal Medicine
DX: Z12.31 Encounter for screening mammogram for malignant neoplasm of breast (principal); Z80.3 Family history of malignant neoplasm of breast
CPT/HCPCS: 77063; 77067

== ENCOUNTER → 2021-10-23 10:33 | Outpatient (CLI) | payer MEDICARE, OTHER, SELFPAY ==
[2021-10-23 12:58] LABS: Add Manual Diff / Slide Review NO; Basophils Absolute Auto 100 /uL (0-100); Eosinophils Absolute Auto 300 /uL (0-450); Eosinophils Percent Auto 6.6 % (2-4); Hematocrit 34.6 % (36-46); Hemoglobin 11.7 g/dL (12.0-16.0); Lymphocytes Absolute Auto 900 /uL (1100-4500); Lymphocytes Percent Auto 18.3 % (25-40); Mean Corpuscular HGB Conc 33.8 % (30-36); Mean Corpuscular Hemoglobin 29.5 PG (26-34); Mean Corpuscular Volume 87.2 fL (80-100); Monocytes Absolute Auto 800 /uL (0-900); Monocytes Percent Auto 15.4 % (3-14); Neutrophils Absolute Auto 2900 /uL (1500-7000); Neutrophils Percent Auto 57.7 % (50-75); Platelet Count 230 X10^3/uL (150-400); Red Blood Cell Count 3.96 X10^6/uL (4.0-5.2); Red Cell Distribution Width 14.3 % (11.6-14.8)
[2021-10-23 13:32] LABS: Alanine Aminotransferase 22 IU/L (<35); Albumin 4.6 g/dL (3.5-5.0); Albumin Globulin Ratio 1.6 (1.0-2.8); Alkaline Phosphatase 103 U/L (38-126); Aspartate Aminotransferase 35 IU/L (14-36); Bilirubin Total 0.6 mg/dL (0.2-1.3); Blood Urea Nitrogen 15 mg/dL (7-17); Calcium 9.4 mg/dL (8.4-10.2); Carbon Dioxide 25 mmol/L (22-32); Chloride 100 mmol/L (98-107); Estimated Glomerular Filt Rate > 60 mL/min (>60); Globulin 2.9 g/dL (1.7-4.1); Glucose 93 mg/dL (80-110); HEMOLYSIS < 15 (0-50); Potassium 4.2 mmol/L (3.4-5.1); Sodium 134 mmol/L (137-145); Total Protein 7.5 g/dL (6.3-8.2)
[2021-10-23 14:04] LABS: TSH w/ Reflex to FT4 2.56 uIU/mL (0.47-4.68)
[2021-10-23 14:31] LABS: Folate 13.1 ng/mL (2.76-20.0); Vitamin B12 443 pg/mL (239-931)
[2021-10-24 05:36] LABS: RPR Screen Non Reactive (Non Reactive)
== END ==
PROVIDERS: PCP Pediatrics; Referring Provider Pediatrics; Visit Provider Pediatrics
DX: R41.3 Other amnesia (principal); Z86.2 Personal history of diseases of the blood and blood-forming organs and certain disorders involving the immune mechanism
CPT/HCPCS: 36415; 80053; 82607; 82746; 84443; 85025; 86592

== ENCOUNTER → 2021-11-23 11:59 | Outpatient (CLI) | payer MEDICARE, OTHER, SELFPAY ==
--- NOTE | 2021-11-23 12:01 | DI.MRI.S_ITS ---
PROCEDURE: MR HEAD/BRAIN WO CON INDICATIONS: memory impairment TECHNIQUE: Non-contrast axial T1 spin echo, axial T2 fast spin echo, sagittal and axial FLAIR, coronal T2 fast spin echo, axial gradient echo, axial diffusion and ADC through the brain. No IV access could be obtained. Therefore, no IV contrast was given. COMPARISON: None. FINDINGS: Image quality: Excellent. CSF spaces: Ventricles appear symmetric in size and shape. Basal cisterns are patent. No extra-axial fluid collections. Brain: No intracranial bleeds or mass effects. There is cerebral volume loss for age. There are periventricular and deep white matter chronic small vessel ischemic changes. Brainstem appears normal. Diffusion-weighted images show no acute ischemic insults. No chronic ischemic insults. Normal intravascular flow voids are present. Skull and face: Calvarial bone marrow is normal in signal. Orbits are normal. Note is made of bilateral lens replacements. Sinuses: Moderate mucosal thickening is seen within the paranasal sinuses. No abnormal fluid is seen within the mastoid air cells. IMPRESSION: Noncontrast brain MRI within normal limits for age. No findings of acute or subacute infarction can be seen. (No IV contrast was given, as no IV access could be obtained.) Dictated by: Alex Woo M.D. on 11/23/2021 at 14:15 Approved by: Alex Woo M.D. on 11/23/2021 at 14:16
== END ==
PROVIDERS: PCP Pediatrics; Referring Provider Pediatrics; Visit Provider Pediatrics
DX: M85.851 Other specified disorders of bone density and structure, right thigh (principal); R41.3 Other amnesia; Z13.820 Encounter for screening for osteoporosis; Z78.0 Asymptomatic menopausal state; Z92.23 Personal history of estrogen therapy
CPT/HCPCS: 70551; 77080

== ENCOUNTER → 2021-11-30 13:46 | Outpatient (CLI) | payer MEDICARE, OTHER, SELFPAY | PROVIDERS: PCP Pediatrics; Visit Provider Nurse Practitioner Family | DX: N39.0 Urinary tract infection, site not specified (principal) | CPT/HCPCS: 87077; 87086; 87186 ==

== ENCOUNTER → 2021-12-11 07:33 | Outpatient (CLI) | payer MEDICARE, OTHER, SELFPAY | PROVIDERS: Visit Provider Student in an Organized Health Care Education/Training Program | DX: R30.0 Dysuria (principal) | CPT/HCPCS: 87086 ==

== ENCOUNTER 2022-01-19 18:15 | Emergency (ER) | payer MEDICARE, OTHER, SELFPAY ==
[2022-01-19 18:21] VITALS: BP 137/77; PULSE 98; RESP 22; O2SAT 96; BMI 22.3
--- NOTE | 2022-01-19 18:33 | DI.RAD.S_ITS ---
PROCEDURE: XR RIBS LT MIN 3V W CXR1V INDICATIONS: pain TECHNIQUE: 3 views of the left ribs were acquired, along with a single view chest. COMPARISON: None. FINDINGS: Surgical changes and devices: None. Bones and chest wall: The might be a nondisplaced fracture of the left 5th rib. No definite displaced injury identified. No definite pneumothorax. Lungs and pleura: Bibasilar opacities are present. No pneumothorax or pleural effusion. Mediastinum: Mediastinal contours appear normal. Heart size is normal. IMPRESSION: Possible nondisplaced deformity of the left 5th rib, correlate with point tenderness. Bibasilar pulmonary opacities could represent infectious or inflammatory airspace disease or atelectasis. Dictated by: Festus Campa M.D. on 01/19/2022 at 19:16 Approved by: Festus Campa M.D. on 01/19/2022 at 19:20
[2022-01-19 18:54] LABS: Add Manual Diff / Slide Review NO; Basophils Absolute Auto 100 /uL (0-100); Basophils Percent Auto 1.1 % (0-2); Eosinophils Absolute Auto 100 /uL (0-450); Eosinophils Percent Auto 1.2 % (2-4); Hematocrit 32.4 % (36-46); Hemoglobin 10.8 g/dL (12.0-16.0); Lymphocytes Absolute Auto 1700 /uL (1100-4500); Mean Corpuscular HGB Conc 33.5 % (30-36); Mean Corpuscular Hemoglobin 28.1 PG (26-34); Monocytes Absolute Auto 1900 /uL (0-900); Monocytes Percent Auto 16.7 % (3-14); Neutrophils Absolute Auto 7400 /uL (1500-7000); Platelet Count 406 X10^3/uL (150-400); Red Blood Cell Count 3.85 X10^6/uL (4.0-5.2); Red Cell Distribution Width 16.4 % (11.6-14.8); White Blood Cell Count 11.2 X10^3/uL (4.5-11.0)
[2022-01-19 19:11] LABS: Alanine Aminotransferase 27 IU/L (<35); Albumin 3.9 g/dL (3.5-5.0); Albumin Globulin Ratio 1.2 (1.0-2.8); Alkaline Phosphatase 119 U/L (38-126); Aspartate Aminotransferase 40 IU/L (14-36); BUN Creatinine Ratio 14.8 (6-22); Bilirubin Total 0.4 mg/dL (0.2-1.3); Blood Urea Nitrogen 16 mg/dL (7-17); Calcium 8.9 mg/dL (8.4-10.2); Carbon Dioxide 21 mmol/L (22-32); Chloride 98 mmol/L (98-107); Creatine Kinase 29 U/L (30-135); Estimated Glomerular Filt Rate 52 mL/min (>60); Globulin 3.3 g/dL (1.7-4.1); Glucose 111 mg/dL (80-110); HEMOLYSIS 33 (0-50); Lipase 221 U/L (23-300); Magnesium 1.4 mg/dL (1.6-2.3); Potassium 3.8 mmol/L (3.4-5.1); Sodium 130 mmol/L (137-145); Total Protein 7.2 g/dL (6.3-8.2)
[2022-01-19 19:22] LABS: Troponin I < 0.012 ng/mL (0.01-0.034)
--- NOTE | 2022-01-19 19:22 | ED.BACK ---
HPI - Back Pain/Injury General Chief Complaint: Back Pain/Injury Stated Complaint: LT. rib pain and lt. arm pain/headache Time Seen by Provider: 01/19/22 18:31 History of Present Illness HPI Narrative: Patient is a farnaz 81-year-old female history of hypertension hyperlipidemia with a recent hospitalization at [facility] for colitis and sepsis. states she passed out in the restroom on [place] she was flown to [facility] where she was found to be septic. He says her abdomen is feeling sign. She has been out for about 2 days. However the last couple of days she has noticed some left-sided rib pain. Hurts when she moves and breathes. It is tender to palpation. She sometimes has left arm pain. No nausea or vomiting. She does not remember falling there are no reports of recent injury. Related Data Home Medications Medication Instructions Recorded Confirmed atorvastatin 20 mg tablet 20 mg PO DAILY 11/19/18 01/19/22 lisinopril 40 mg tablet 40 mg PO DAILY 11/19/18 01/19/22 venlafaxine 150 mg 150 mg PO DAILY 11/19/18 01/19/22 capsule,extended release 24 hr hydroxyzine pamoate 25 mg capsule 25 mg PO DAILY 10/11/21 01/19/22 triamcinolone acetonide 0.1 % 1 applic topical BID PRN 10/11/21 01/19/22 topical cream amlodipine 5 mg tablet 7.5 mg PO DAILY 10/23/21 01/19/22 thiamine HCl (vitamin B1) 100 mg 100 mg PO DAILY 01/19/22 01/19/22 tablet Previous Rx's Medication Instructions Recorded acyclovir 400 mg tablet 400 mg PO DAILY PRN cold sores #20 10/23/21 tabs trazodone 100 mg tablet 100 mg PO BEDTIME PRN insomnia #90 10/23/21 tabs hydrocodone 5 mg-acetaminophen 325 1 tab PO Q6H PRN pain #10 tabs 01/19/22 mg tablet Allergies Allergy/AdvReac Type Severity Reaction Status Date / Time Sulfa (Sulfonamide Allergy Unknown Verified 01/19/22 09:47 Antibiotics) Review of Systems Review of Systems Narrative: GENERAL: Denies chills, fatigue, malaise, fever, sweats, travel HEENT: Denies sinus pain, ear pain, sore throat, difficulty swallowing, neck pain RESPIRATORY: Denies dyspnea, cough, wheezing, hemoptysis, sputum. CARDIOVASCULAR: See HPI GASTROINTESTINAL: Denies nausea, vomiting, abdominal pain, diarrhea, constipation, melena. : Denies dysuria, frequency, incontinence, hematuria, urinary retention, flank pain. MUSCULOSKELETAL: Denies weakness, joint pain, or bony pain SKIN: No rash, no erythema, no pruritus NEUROLOGIC: Denies weakness, dizziness, headache, numbness, change in speech, confusion PSYCHIATRIC: No concerning psychosocial issues. 12 point review of systems is negative except for those stated above and HPI Patient History Medical History Alcohol use Allergies Anxiety Chicken pox Chronic back pain Colitis Decline in verbal memory Disease of spine Fecal incontinence Fibroids Fractures (~2021) Headache Hearing loss History of anemia History of urinary incontinence Hypertension, essential Hyponatremia Irritable bowel syndrome Memory impairment Mumps Normocytic anemia Oral herpes Painful menstrual periods Physical deconditioning Pneumonia Post-menopausal Pruritic rash Pulmonary edema Recurrent sinusitis Rheumatic fever (~1953) Rheumatoid arthritis Rosacea Rubella Screening for osteoporosis Sleep apnea Substance abuse (~2011) Surgical History History of hysterectomy Social History Smoking Status: Never smoker alcohol intake: current (5-6 drinks per week ) substance use type: does not use Smoking Status: Never smoker alcohol intake frequency: holidays/special occasions only Substance Use Type: does not use Exam Initial Vital Signs Initial Vital Signs: Vital Signs Pulse Rate 98 H 01/19/22 18:21 Respiratory Rate 22 01/19/22 18:21 Blood Pressure 137/77 01/19/22 18:21 Pulse Oximetry 96 01/19/22 18:21 Oxygen Delivery Method 01/19/22 18:21 GENERAL: Alert pleasant 81-year-old female HEENT: Head atraumatic,EOMI, pupils reactive, face symmetric, moist mucous membranes CARDIOVASCULAR: Regular rate and rhythm without murmurs, rubs or gallops. Painful to touch no contusion no sign of trauma no paradoxical movement RESPIRATORY: Breath sounds equal bilaterally, no wheezes rales or rhonchi. ABDOMEN: Soft, nontender. Normoactive bowel sounds all 4 quadrants. No guarding or rebound. EXTREMITIES: Normal range of motion, no clubbing or edema. Neurovascularly intact NEUROLOGICAL: Alert and oriented x4.Normal gait and speech. SKIN: Warm, dry, no laceration, no petechiae, no rashes or lesions. Course Orders Ordered: ED Orders 01/19/22 18:33 XR ribs LT min 3V w CXR1V Stat EKG-12 Lead Stat 01/19/22 18:48 Complete Blood Count AUTO DIFF Stat Comprehensive Metabolic Panel Stat Lipase Stat Magnesium Stat Troponin & CK Cardiac Panel Stat Discontinued Medications Hydrocodone Bitart/Acetaminophen (Hydrocodone/Acet 5/325 Tablet) 1 tab PO NOW ONE Stop: 01/19/22 19:44 Last Admin: 01/19/22 19:57 Dose: 1 tab Documented By: SHAHEEN Hydrocodone Bitart/Acetaminophen (Hydrocodone/Acet 5/325 Prepack) 1 bottle MISC SEEINSTR ONE Stop: 01/19/22 19:44 Last Admin: 01/19/22 19:57 Dose: 1 bottle Documented By: SHAHEEN Vital Signs Vital signs: Vital Signs - 8 hr 01/19/22 18:21 Pulse Rate 98 H Respiratory Rate 22 Blood Pressure 137/77 Pulse Oximetry 96 Oxygen Delivery Method Room Air MDM - Back Pain/Injury Lab Data Result diagrams: 01/19/22 18:48 01/19/22 18:48 Labs: Lab Results 01/19/22 01/19/22 Range/Units 18:48 18:48 WBC 11.2 H (4.5-11.0) X10^3/uL RBC 3.85 L (4.0-5.2) X10^6/uL Hgb 10.8 L (12.0-16.0) g/dL Hct 32.4 L (36-46) % MCV 84.0 (80-100) fL MCH 28.1 (26-34) PG MCHC 33.5 (30-36) % RDW 16.4 H (11.6-14.8) % Plt Count 406 H (150-400) X10^3/uL Neut % (Auto) 66.0 (50-75) % Lymph % (Auto) 15.0 L (25-40) % Harrison % (Auto) 16.7 H (3-14) % Eos % (Auto) 1.2 L (2-4) % Baso % (Auto) 1.1 (0-2) % Neut # (Auto) 7400 H (7422-9809) /uL Lymph # (Auto) 1700 (1839-8493) /uL Harrison # (Auto) 1900 H (0-900) /uL Eos # (Auto) 100 (0-450) /uL Baso # (Auto) 100 (0-100) /uL Sodium 130 L (137-145) mmol/L Potassium 3.8 (3.4-5.1) mmol/L Chloride 98 (98-107) mmol/L Carbon Dioxide 21 L (22-32) mmol/L BUN 16 (7-17) mg/dL Creatinine 1.08 H (0.52-1.04) mg/dL Estimated GFR 52 L (>60) mL/min BUN/Creatinine Ratio 14.8 (6-22) Glucose 111 H (80-110) mg/dL Calcium 8.9 (8.4-10.2) mg/dL Magnesium 1.4 L (1.6-2.3) mg/dL Total Bilirubin 0.4 (0.2-1.3) mg/dL AST 40 H (14-36) IU/L ALT 27 (<35) IU/L Alkaline Phosphatase 119 (38-126) U/L Total Creatine Kinase 29 L (30-135) U/L CK-MB (CK-2) TNP CK-MB (CK-2) Rel Index TNP Troponin I < 0.012 (0.01-0.034) ng/mL Total Protein 7.2 (6.3-8.2) g/dL Albumin 3.9 (3.5-5.0) g/dL Globulin 3.3 (1.7-4.1) g/dL Albumin/Globulin Ratio 1.2 (1.0-2.8) Lipase 221 (23-300) U/L Imaging Data Chest x-ray: Radiologist's Impression: XRay Report Signed Patient: Osiris Woodruff MR#: [id number] : 1940 Acct:[id number] Age/Sex: 81 / F Date of Service: 01/19/22 Loc: ED Accession Number: [id number] ?? Procedure: XR ribs LT min 3V w CXR1V Ordering Provider: Radha Noyola D.O. PROCEDURE:? XR RIBS LT MIN 3V W CXR1V ? INDICATIONS:? pain ? TECHNIQUE:? 3 views of the left ribs were acquired, along with a single view chest.? ? COMPARISON:? None. ? FINDINGS:? ? Surgical changes and devices:? None.? ? Bones and chest wall:? The might be a nondisplaced fracture of the left 5th rib.? No definite displaced injury identified.? No definite pneumothorax. ? Lungs and pleura:? Bibasilar opacities are present.? No pneumothorax or pleural effusion. ? Mediastinum:? Mediastinal contours appear normal.? Heart size is normal.? ? IMPRESSION:? Possible nondisplaced deformity of the left 5th rib, correlate with point tenderness. ? Bibasilar pulmonary opacities could represent infectious or inflammatory airspace disease or atelectasis. ? ? Dictated by: Festus Campa M.D. on 01/19/2022 at 19:16 ? ? ECG Data Interpretation: Normal sinus rhythm rate 80 p.r. interval 138 QRS [address] changes or T-wave inversions MDM Narrative Medical decision making narrative: Patient does not remember any recent injury started having pain on left side a few days ago. X-ray does confirm a probable nondisplaced 5th rib fracture with expect which would explain her pain. It definitely worse with movement and palpation. Blood work is overall reassuring. I suspect maybe she broke it when she passed out in the bathroom a couple weeks ago and now seems to be noticing it. Respiratory talked her out to do incentive spirometer. She is given pain pills and discharged home. Discharge Plan Departure Patient Disposition: Home Clinical Impression: Left rib fracture Instructions: DI for Rib Fracture Activity Restrictions/Additional Instructions: *You have been diagnosed with rib fracture *What to do: At this time increase activity as tolerated. May use pillow to help splint with pain. Use incentive spirometer 5-10 times an hour while awake as directed by respiratory therapy *Continue to take medications as directed --> SENT TO [facility] 1-2 tablets every 6 hours if needed for severe pain *Follow up with your primary care provider in 2-3 days or call [phone] *Return to ER if you should have increasing pain shortness of breath fever confusion or any new, worsening or concerning symptoms CONTROLLED SUBSTANCE DISCHARGE (Narcotoic/benzodiazepine/Flexeril/Phenergan) 1. You have been prescribed narcotic medications, it does have acetaminophen/Tylenol/paracetamol in it, DO NOT TAKE MORE THAN 4,00mg in 24 hours of Tylenol. TRAMADOL DOES NOT CONTAIN TYLENOL 2. Please understand that we cannot provide further refills of narcotics, benzodiazepines or controlled substances through the ED and her pain management will need to be through your provider. 3. While on these medications you cannot drive or operate heavy machinery. 4. You cannot sign legal documents or perform any duties such as this. 5. As long as you're taking opiate pain medications he should also be taking a stool softener such as Colace, Dulcolax, MiraLAX or prune juice, to help avoid constipation. Prescriptions: New hydrocodone-acetaminophen 5-325 mg tablet 1 tab PO Q6H PRN (Reason: pain) Qty: 10 0RF No Action hydroxyzine pamoate 25 mg capsule 25 mg PO DAILY triamcinolone acetonide 0.1 % cream 1 applic topical BID PRN Label Comments: APPLY TOPICALLY TO ECZEMA TWICE DAILY FOR UP TO 2 WEEKS NEEDED amlodipine 5 mg tablet 7.5 mg PO DAILY trazodone 100 mg tablet 100 mg PO BEDTIME PRN (Reason: insomnia) Qty: 90 1RF acyclovir 400 mg tablet 400 mg PO DAILY PRN (Reason: cold sores) Qty: 20 1RF Rx Instructions: USE DURING OUTBREAK; NO LONGER THAN 5 DAYS thiamine HCl (vitamin B1) 100 mg tablet 100 mg PO DAILY atorvastatin 20 mg tablet 20 mg PO DAILY Hold Instructions: Holiday Label Comments: TK 1 T PO QD venlafaxine 150 mg capsule,extended release 24hr 150 mg PO DAILY Label Comments: TK 1 C PO QD lisinopril 40 mg tablet 40 mg PO DAILY Label Comments: TK 1 T PO D Referrals: Mari Varghese DO [Primary Care Provider] - Visit Report Forms: Patient Portal/API
[2022-01-19] MEDS: HYDROCODONE/ACET 5/325 PREPACK 1 BOTTLE MISC (19:57)
[2022-01-19] MEDS: HYDROCODONE/ACET 5/325 TABLET 1 TAB PO (19:57)
== END 2022-01-19 20:25 | disposition home or self-care (01) ==
PROVIDERS: Emergency Provider Emergency Medicine; PCP Family Medicine
DX: S22.32XA Fracture of one rib, left side, initial encounter for closed fracture (principal); R55 Syncope and collapse; R07.9 Chest pain, unspecified; R51.9 Headache, unspecified
CPT/HCPCS: 36415; 71101; 80053; 82550; 83690; 83735; 84484; 85025; 93005; 99284

== ENCOUNTER → 2022-03-20 17:04 | Outpatient (CLI) | payer MEDICARE, OTHER, SELFPAY ==
[2022-03-20 17:57] LABS: Alanine Aminotransferase 30 IU/L (<35); Albumin Globulin Ratio 1.4 (1.0-2.8); Alkaline Phosphatase 101 U/L (38-126); Aspartate Aminotransferase 48 IU/L (14-36); BUN Creatinine Ratio 16.7 (6-22); Bilirubin Total 0.7 mg/dL (0.2-1.3); Blood Urea Nitrogen 19 mg/dL (7-17); Carbon Dioxide 23 mmol/L (22-32); Chloride 93 mmol/L (98-107); Cholesterol 257 mg/dL (140-199); Estimated Glomerular Filt Rate 49 mL/min (>60); Globulin 2.9 g/dL (1.7-4.1); Glucose 110 mg/dL (80-110); HDL Cholesterol 101 mg/dL (40-60); HEMOLYSIS 17 (0-50); LDL Cholesterol Calculated 133 mg/dL (<100); Potassium 3.7 mmol/L (3.4-5.1); Sodium 128 mmol/L (137-145); Total Protein 6.9 g/dL (6.3-8.2); Triglycerides 117 mg/dL (35-150)
== END ==
PROVIDERS: PCP Family Medicine; Referring Provider Family Medicine; Visit Provider Family Medicine
DX: E78.00 Pure hypercholesterolemia, unspecified (principal); D64.9 Anemia, unspecified; E87.1 Hypo-osmolality and hyponatremia; Z79.899 Other long term (current) drug therapy
CPT/HCPCS: 36415; 80053; 80061

== ENCOUNTER → 2022-04-03 10:08 | Outpatient (CLI) | payer MEDICARE, BC, SELFPAY ==
[2022-04-03 11:15] LABS: COVID19 -Nasal RAPID Negative (Negative)
== END ==
PROVIDERS: PCP Family Medicine; Visit Provider Surgery
DX: Z20.822 Contact with and (suspected) exposure to COVID-19 (principal); Z01.812 Encounter for preprocedural laboratory examination
CPT/HCPCS: 87635; C9803

== ENCOUNTER 2022-04-04 10:08 | Day surgery (SDC) | payer MEDICARE, BC, SELFPAY ==
--- NOTE | 2022-04-04 | PATH_ITS ---
[facility] Accession Number: [id number] . 01 Material submitted: . colon - PROXIMAL DESCENDING/SPLENIC FLEXURE STRICTURE BIOPSY . 01 Diagnosis: Colon, Proximal Descending/Splenic Flexure, Biopsy: Colonic mucosa without significant pathologic abnormality. Negative for colitis, dysplasia, neoplasia and malignancy. . MRV 04/09/2022 1441 Local . 01 Comment: Initial and deeper sections are obtained and reviewed. . 01 Electronically signed: . Isabel Bliss MD, Pathologist NPI- [id number] . 01 Gross description: . PROXIMAL DESCENDING/SPLENIC FLEXURE STRICTURE BIOPSY: Received in formalin are 2 fragment(s) of flores, soft tissue measuring 0.2 x 0.1 x 0.1 cm to 0.2 x 0.1 x 0.1 cm submitted entirely in 1 cassette(s) /CPE 04/05/2022 0924 Local . 01 Pathologist provided ICD-10: K92.9 . 01 CPT . 691760 Specimen Comment: A courtesy copy of this report has been sent to [phone] Performed at: 01 [facility] [address] [place] [address], [place], [place] [id number] MD Ryan Pearson MD Phone: [phone]
[2022-04-04 10:26] VITALS: BP 136/76; PULSE 88; RESP 16; TEMP 36.6; O2SAT 100; BMI 20.7
[2022-04-04] MEDS: LACTATED RINGERS 1,000 ML 84 ML IV (10:37)
--- NOTE | 2022-04-04 10:44 | PM.HP.1 ---
History of Present Illness History of Present Illness Date Patient Seen: 04/04/22 Time Patient Seen: 10:44 Chief complaint: DX COLONOSCOPY Narrative: Patient is a very pleasant 81-year-old female who presented colonoscopy. In December she hospitalization for acute colitis of the splenic flexure. This was located in the watershed area. This is likely ischemic colitis. She is here today to evaluate if this area has healed. Overall she is feeling quite. Patient History Medical History (Updated 03/26/22 @ 09:38 by Mari Varghese DO) Alcohol use Allergies Anxiety Chicken pox Chronic back pain Colitis Decline in verbal memory Disease of spine Fecal incontinence Fibroids Fractures (~2021) Headache Hearing loss History of anemia History of urinary incontinence Hypertension, essential Hyponatremia Irritable bowel syndrome Memory impairment Mumps Normocytic anemia Oral herpes Painful menstrual periods Physical deconditioning Post-menopausal Recurrent sinusitis Rheumatic fever (~1953) Rheumatoid arthritis Rosacea Rubella Screening for osteoporosis Sleep apnea Substance abuse (~2011) Surgical History History of hysterectomy Family & Social History Social History: household members spouse Tobacco & Substance use: Smoking Status Never smoker alcohol intake current alcohol intake frequency a few times a month Substance Use Type does not use Meds Home Medications and Allergies Home Medications Medication Instructions Recorded Confirmed Type atorvastatin 20 mg tablet 20 mg PO DAILY 11/19/18 03/26/22 History lisinopril 40 mg tablet 40 mg PO DAILY 11/19/18 03/26/22 History venlafaxine 150 mg 150 mg PO DAILY 11/19/18 03/26/22 History capsule,extended release 24 hr hydroxyzine pamoate 25 mg capsule 25 mg PO DAILY 10/11/21 03/26/22 History triamcinolone acetonide 0.1 % 1 applic topical BID PRN 10/11/21 03/26/22 History topical cream acyclovir 400 mg tablet 400 mg PO DAILY PRN cold sores #20 10/23/21 03/26/22 Rx tabs trazodone 100 mg tablet 100 mg PO BEDTIME PRN insomnia #90 10/23/21 03/26/22 Rx tabs hydrocodone 5 mg-acetaminophen 325 1 tab PO Q6H PRN pain #10 tabs 01/19/22 03/26/22 Rx mg tablet thiamine HCl (vitamin B1) 100 mg 100 mg PO DAILY 01/19/22 03/26/22 History tablet Bellyflush 1 cap PO BID 03/26/22 History Total restore 1 cap PO TID 03/26/22 History amlodipine 10 mg tablet 10 mg PO DAILY #30 tabs 03/28/22 Rx Allergies Allergy/AdvReac Type Severity Reaction Status Date / Time Sulfa (Sulfonamide Allergy Unknown Verified 04/04/22 10:41 Antibiotics) Review of Systems Review of Systems ROS: Yes All systems reviewed with the patient and are negative except as otherwise documented Exam Vital Signs (past 8 hours): - 04/04/22 10:26 Temperature 98 F Pulse Rate 88 Respiratory Rate 16 Blood Pressure 136/76 Pulse Oximetry 100 Oxygen Delivery Method Room Air Oxygen Delivery Method Room Air Const General: cooperative, comfortable and No acute distress HENMT Head: normocephalic and atraumatic Resp Effort & Inspection: normal respiratory effort, able to speak in complete sentences and no audible wheezes Auscultation: clear to auscultation bilaterally Cardio Rate: regular rate Rhythm: regular rhythm GI Palpation: soft Assessment & Plan Assessment & Plan narrative: 1. History of acute colitis Colonoscopy today, further recommendations to follow Time Spent With Patient Critical Care time: I spent a total of [] minutes of critical care time on this patient's care today; this time is exclusive of procedural time.
--- NOTE | 2022-04-04 11:08 | PM.OP.COLON ---
Operative Date/Time/Diagnoses Date of procedure: 04/04/22 Time of procedure: 10:57 Procedure Notes Procedure in detail: Surgeon: Candelaria Henderson DO Procedure: Colonoscopy to splenic flexure with biopsy Preoperative diagnosis: 1. History of colitis Postoperative diagnosis: 1. Significant stricture in the descending colon/splenic flexure, unable to traverse, biopsied 2. Diverticulosis in the sigmoid and descending colon 3. Internal hemorrhoids Medications: Monitored anesthesia care Preanesthesia Assessment An H and P was performed/updated and the Px?s ASA class is 3. The procedure was discussed in detail with the patient. The potential risks and complications including infection, bleeding, missed lesions, perforation, need for surgery in case of perforation, prolonged hospital stay, and were explained. A brief question and answer period was allotted and once all questions were answered, informed consent was obtained. The patient was brought back to the procedure room and placed on standard monitoring. The patient?s vital signs were monitored continuously throughout the entire procedure. Prior to starting, a timeout was performed to confirm the patient?s identity, allergies, medications, and procedure. Procedure in detail The patient was placed in left lateral decubitus position and once adequate sedation was obtained a ANABELLE was performed. The digital rectal examination did not reveal any palpable lesions. The tip of the colonoscope was placed in the anal canal and advanced without difficulty to the proximal descending/splenic flexure at this point we encountered a significant colonic stricture with ulceration. The stricture is near obstructing. We were unable to traverse this area due to the significant stricture. Biopsies were obtained. Moderate diverticulosis were noted in the descending and sigmoid colon. Grade 2 internal hemorrhoids were noted on retroflexion. The patient tolerated the procedure well and will be brought back to the recovery area to be discharged once criteria are met. The prep was judged to be good adequate to identify polyps less than 5 mm in the portion of the colon was able to be visualized. Complications There were no complications and estimated blood loss was minimal. Recommendations: Resume previous diet Continue outPx medications Follow up pathology results Recommend CT abdomen and pelvis with contrast for further evaluation, this will be arranged through our office Office follow up to be scheduled An emergency contact number was given to the patient for any complications related to the procedure
[2022-04-04 11:11] VITALS: BP 105/57; PULSE 82; RESP 14; TEMP 36.7; O2SAT 99
[2022-04-04 11:15] VITALS: BP 107/58; PULSE 79; RESP 17; O2SAT 99
[2022-04-04 11:20] VITALS: BP 110/57; PULSE 83; RESP 20; TEMP 36.8; O2SAT 97
[2022-04-04 11:25] VITALS: BP 115/64; PULSE 81; RESP 20; O2SAT 99
== END 2022-04-04 11:50 | disposition home or self-care (01) ==
PROVIDERS: PCP Family Medicine; Referring Provider Student in an Organized Health Care Education/Training Program; Visit Provider Student in an Organized Health Care Education/Training Program
PROC: 0DJD8ZZ Inspection of Lower Intestinal Tract, Via Natural or Artificial Opening Endoscopic (ICD-10-PCS; CPT 45378; principal; 2022-04-04 11:00)
DX: Z09 Encounter for follow-up examination after completed treatment for conditions other than malignant neoplasm (principal); Z87.19 Personal history of other diseases of the digestive system; K56.699 Other intestinal obstruction unspecified as to partial versus complete obstruction; K57.30 Diverticulosis of large intestine without perforation or abscess without bleeding; K64.1 Second degree hemorrhoids
CPT/HCPCS: 45380; J2704

== ENCOUNTER → 2022-05-01 11:51 | Outpatient (CLI) | payer MEDICARE, BC, SELFPAY ==
[2022-05-01 13:47] LABS: BUN Creatinine Ratio 17.8 (6-22); Blood Urea Nitrogen 13 mg/dL (7-17); Estimated Glomerular Filt Rate > 60 mL/min (>60)
== END ==
PROVIDERS: PCP Family Medicine; Referring Provider Internal Medicine Gastroenterology; Visit Provider Internal Medicine Gastroenterology
DX: K56.609 Unspecified intestinal obstruction, unspecified as to partial versus complete obstruction (principal); K59.00 Constipation, unspecified; K52.9 Noninfective gastroenteritis and colitis, unspecified
CPT/HCPCS: 36415; 82565; 84520

== ENCOUNTER → 2022-05-03 09:00 | Outpatient (CLI) | payer MEDICARE, BC, SELFPAY ==
--- NOTE | 2022-05-03 09:02 | DI.CT.S_ITS ---
PROCEDURE: CT ABDOMEN PELVIS W CON INDICATIONS: STRICTURE OF COLON/CONSTIPATION/COLITIS TECHNIQUE: After the administration of oral and IV contrast, axial sections were acquired from the lung bases to the pubic symphysis. Coronal and sagittal reformats were performed. For radiation dose reduction, the following was used: automated exposure control, adjustment of mA and/or kV according to patient size. COMPARISON: None. FINDINGS: Image quality: Excellent. Lung bases: Bibasilar scarring/atelectasis is seen. Heart: No significant findings. ABDOMEN: Liver: Well-circumscribed 1.3 x 1.6 cm hypodensity in right hepatic dome is seen and measures 14.5 Hounsfield unit in density likely represent Paddock cyst series 2, image 10. Similar hypodensity involving left hepatic lobe lateral segment is also seen measures 1 x 1 cm in size and 23 Hounsfield unit in density series 2, image 16. 1.1 x 0.9 cm oval hypodensity in inferior left hepatic lobe medial segment is seen measures 15 Hounsfield unit in density series 2, image 21. 1.5 x 1 cm hypodensity involving most inferior right hepatic lobe series 2, image 26 and measures 7.8 Hounsfield unit in density. Gallbladder: Gallbladder is within normal limits. Biliary ducts: Unremarkable. Pancreas: Unremarkable. Spleen: Unremarkable. Adrenal Glands: Mild diffuse thickening of bilateral adrenal glands is seen, no discrete adrenal nodule is noted. Kidneys and Ureters: Bilateral kidneys are normal in size. No gross enhancing renal lesion is noted. Small bilateral renal cortical cysts are seen. Thinning of posterior lateral renal cortices are seen bilaterally which may represent remote injury or infection. No hydronephrosis or hydroureter. Stomach and Bowel: There is no bowel obstruction. No gross gastric or small bowel wall thickening. Appendix is visualized and is within normal limits. There is significant fecal stasis in the colon. Oral contrast is seen reaching splenic flexure. Descending colon and sigmoid colon is decompressed. Mild sigmoid diverticulosis is seen, no definite sigmoid colon wall thickening or mesenteric fat stranding is seen. No high-grade stricture is noted in small bowel or colon loops. No abscess collection. Peritoneum: No abnormal intraperitoneal fluid. No free air. Ventral Wall: No hernia. Abdominal Nodes: No retroperitoneal or mesenteric adenopathy by size criteria. Vessels: Aorta and inferior vena cava are normal in size. PELVIS: Pelvic Organs: Unremarkable. Bladder: Unremarkable. Pelvic Nodes: No enlarged lymph nodes. Miscellaneous: No inguinal hernias are seen. Bones: No suspicious bony lesions. No acute vertebral body compression fracture. Grade 1 anterolisthesis of L4 on L5 is seen measures 7 mm in distance. Degenerative endplate changes throughout visualized lower thoracic and lumbar spine is seen. IMPRESSION: 1. Significant fecal stasis in ascending colon and transverse colon. Decompressed descending colon and sigmoid colon. Sigmoid diverticulosis without evidence of acute diverticulitis. No focal high-grade stricture is seen. No bowel obstruction. No gross abnormal bowel wall thickening. No free fluid or free air. 2. Well-circumscribed hypodensities scattered in liver parenchyma as described above likely represent benign process such as hepatic cysts. 3. Small bilateral renal cortical cysts. No hydronephrosis or hydroureter. Thinning of posterior lateral cortices of bilateral kidneys concerning for prior injury/infection. 4. Mildly thickened bilateral adrenal glands without discrete adrenal nodules. 5. Degenerative disc disease throughout lower thoracic and lumbar spine. Grade 1 anterolisthesis of L4 on L5. No suspicious bony lesions. No acute vertebral body compression fracture. Dictated by: Davian Davis M.D. on 05/03/2022 at 12:48 Approved by: Davian Davis M.D. on 05/03/2022 at 13:08
== END ==
PROVIDERS: PCP Family Medicine; Referring Provider Student in an Organized Health Care Education/Training Program; Visit Provider Student in an Organized Health Care Education/Training Program
DX: K56.609 Unspecified intestinal obstruction, unspecified as to partial versus complete obstruction (principal); K59.00 Constipation, unspecified; K52.9 Noninfective gastroenteritis and colitis, unspecified; K57.30 Diverticulosis of large intestine without perforation or abscess without bleeding; E27.9 Disorder of adrenal gland, unspecified; M51.34 Other intervertebral disc degeneration, thoracic region; M51.36 Other intervertebral disc degeneration, lumbar region; M43.16 Spondylolisthesis, lumbar region
CPT/HCPCS: 74177; Q9967

== ENCOUNTER → 2022-05-11 09:57 | Outpatient (CLI) | payer MEDICARE, BC, SELFPAY ==
[2022-05-11 10:36] LABS: Add Manual Diff / Slide Review NO; Basophils Absolute Auto 100 /uL (0-100); Basophils Percent Auto 1.2 % (0-2); Eosinophils Absolute Auto 400 /uL (0-450); Eosinophils Percent Auto 5.4 % (2-4); Hematocrit 38.3 % (36-46); Hemoglobin 12.7 g/dL (12.0-16.0); Lymphocytes Absolute Auto 1900 /uL (1100-4500); Lymphocytes Percent Auto 26.7 % (25-40); Mean Corpuscular HGB Conc 33.1 % (30-36); Mean Corpuscular Hemoglobin 27.5 PG (26-34); Mean Corpuscular Volume 83.1 fL (80-100); Monocytes Absolute Auto 1200 /uL (0-900); Monocytes Percent Auto 16.8 % (3-14); Neutrophils Absolute Auto 3600 /uL (1500-7000); Neutrophils Percent Auto 49.9 % (50-75); Platelet Count 262 X10^3/uL (150-400); Red Blood Cell Count 4.61 X10^6/uL (4.0-5.2); Red Cell Distribution Width 15.4 % (11.6-14.8); White Blood Cell Count 7.3 X10^3/uL (4.5-11.0)
[2022-05-11 11:00] LABS: Alanine Aminotransferase 25 IU/L (<35); Albumin 4.3 g/dL (3.5-5.0); Albumin Globulin Ratio 1.4 (1.0-2.8); Alkaline Phosphatase 94 U/L (38-126); Aspartate Aminotransferase 37 IU/L (14-36); BUN Creatinine Ratio 14.5 (6-22); Bilirubin Total 0.8 mg/dL (0.2-1.3); Blood Urea Nitrogen 16 mg/dL (7-17); Carbon Dioxide 30 mmol/L (22-32); Chloride 88 mmol/L (98-107); Estimated Glomerular Filt Rate 51 mL/min (>60); Glucose 90 mg/dL (80-110); HEMOLYSIS < 15 (0-50); Sodium 130 mmol/L (137-145); Total Protein 7.3 g/dL (6.3-8.2)
[2022-05-11 11:08] LABS: Prealbumin 21.2 mg/dL (17.6-36.0)
== END ==
PROVIDERS: PCP Family Medicine; Referring Provider Surgery; Visit Provider Surgery
DX: K56.699 Other intestinal obstruction unspecified as to partial versus complete obstruction (principal)
CPT/HCPCS: 36415; 80053; 84134; 85025

== ENCOUNTER → 2022-05-11 09:58 | Outpatient (CLI) | payer MEDICARE, BC, SELFPAY ==
[2022-05-11 11:27] LABS: COVID19 -Nasal RAPID Negative (Negative)
== END ==
PROVIDERS: PCP Family Medicine; Visit Provider Surgery
DX: Z01.812 Encounter for preprocedural laboratory examination (principal); Z20.822 Contact with and (suspected) exposure to COVID-19; K56.699 Other intestinal obstruction unspecified as to partial versus complete obstruction
CPT/HCPCS: 36415; 80053; 84134; 85025; 87635

== ENCOUNTER 2022-05-14 10:55 | Inpatient (IN) | payer MEDICARE, BC, SELFPAY ==
[2022-05-10 11:03] VITALS: BMI 20.3
[2022-05-14] VITALS (19 sets, daily range): BP systolic 103–130; BP diastolic 54–81; PULSE 63–76; RESP 9–19; TEMP 35.7–36.7; O2SAT 90–99; BMI 20.3
--- NOTE | 2022-05-14 | PATH_ITS ---
[facility] Accession Number: [id number] No. of containers..01 Tissue . 01 Material submitted: . colon - SPLENIC FLEXURE . 01 Diagnosis: Splenic Flexure, Segmental Resection: Colon with segmental ischemia-type changes including mucosal edema, ulcer and granulation tissue with chronic submucosal inflammation. Adjacent colonic mucosa with areas of chronic injury, including crypt architectural distortion. Please see comment. Serosal adhesions. Negative for granulomas, dysplasia or malignancy. MRV 05/18/2022 0850 Local . 01 Comment: There is no evidence of microscopic colitis. No viral cytopathic effects or parasitic organisms are identified. There is no evidence of a vasculitis or thrombosis. The morphologic features are compatible with the reported clinical history of prior presumed ischemic injury. There is no evidence of dysplasia or malignancy. . 01 Electronically signed: . Mony Bojorquez MD, Pathologist NPI- [id number] . 01 Gross description: . The specimen is received in formalin labeled with the patient's name, , and splenic flexure, and consists of a partially open, unoriented segment of bowel measuring 16.8 cm in length by 2.3 cm in average diameter. The two surgical margins are connected by a staple line extending from one margin to the other, and the adjacent serosa is adherent. Mucosa is identified adjacent to the staple line suggestive of possible fistula or adhesion. The serosa is flores and diffusely covered by yellow adipose extending out to 2.3 cm. One margin is inked blue, the opposite margin is inked black, and the presumed radial margin is inked green. The mucosa is significant for a firm, erythematous, roughened area with attenuated mucosal folds measuring 4.0 x 3.7 cm. The serosa adjacent to this area is inked orange. Sectioning reveals a diffusely thickened wall and erythematous mucosa with no grossly identifiable lesion. The margin nearest this area is the blue margin that measures 2.4 cm, and is widely free from all remaining margins. The remaining mucosa is flores and velvety with normal-appearing folds with the stuart ranging from 0.3-0.6 cm thick. No polyps, lesions, or diverticulae are identified. Palpation reveals 12 flores lymph node candidates ranging from 0.2 to 1.2 cm in greatest dimension. Helpdesk Administrator sections are submitted as follows: A1-A2: Blue margin en face. A3-A4: Black margin en face and senior sales representative green margin en face. A5-A7: Thickened erythematous lesion with normal. A8: Normal. A9: Single bisected lymph node candidate. A10: Three intact lymph node candidates. A11: Two intact lymph node candidates. A12: Four intact lymph node candidates. A13: Two intact lypmh node candidates. ([id number]) Additional sections of the thickened area are submitted in cassettes A14-A17. ([id number]) /FANTASMA 05/18/2022 08 Local . 01 Pathologist provided ICD-10: K55.9 . 01 CPT . 453346 Performed at: 01 [facility] [address] [place] [address] [address] [facility], [place], [place] [id number] MD Ryan Pearson MD Phone: [phone]
[2022-05-14] MEDS: LACTATED RINGERS 1,000 ML 100 ML IV ×3 (11:44→16:41)
--- NOTE | 2022-05-14 14:07 | PM.PREOP ---
Pre-operative Note COVID-19 COVID-19 status: Negative Result date/Date tested (Pos, Neg/Pending): 05/14/22 Interval Note History & Physical reviewed/Exam performed by Physician: Yes Changes to H&P: No ASA Class (for procedural sedation): II
[2022-05-14] MEDS: AMPICILLIN/SULBACTAM 1.5 GM 1.5 GM in SODIUM CHLORIDE 0.9% 100 ML IV (14:45)
[2022-05-14] MEDS: BUPIVACAINE 0.5% W/ EPI (PF) 30 ML VIAL INJ (14:59)
--- NOTE | 2022-05-14 15:06 | SUR.OPER ---
Lithotomy on padded OR bed. [place] Pad Positioner under torso. Head on pillow, arms padded and tucked at sides. Legs secured in padded yellow fins stirrups. Pt positioned per direction and supervision of Dr Moulton.
--- NOTE | 2022-05-14 17:06 | PM.OP.1 ---
Operative Date/Time/Diagnoses Date of procedure: 05/14/22 Time of procedure: 17:06 Pre-op diagnosis: Splenic flexure stricture Post-op diagnosis: same Procedure & Clinicians Procedure: Laparoscopic-assisted left colectomy Same procedure as scheduled: Yes Surgeon: Anil Boo Locksmith Apprentice: Oly Pierce Operative Notes Procedure in detail: The patient was given Unasyn. Patient was brought to the operating room and placed on the table in the supine position with the arms tucked. All pressure points were padded. General endotracheal anesthesia was induced. A Silva catheter was placed. The patient was then placed in lithotomy in stirrups. The abdomen was prepped and draped in the usual fashion and a time-out was performed. We started with a 1 cm supraumbilical incision and a Manuel port was placed via cutdown. The abdomen was insufflated to 15 mm Hg. A camera was inserted and there was no evidence of an injury from the entry. Next we placed 5 mm ports in the subxiphoid position, left mid abdomen, left lower quadrant and right midabdomen under direct vision. The patient was positioned in reverse Trendelenburg and tilted so that her left shoulder was up. We then started taking down the left colon along the white line of Toldt. We detached the omentum from the distal half of the transverse colon. We took down the splenic flexure and allowed to drop into the mid abdomen. We then desufflated the abdomen and increased the supraumbilical incision to about 5 cm. A small Geo wound retractor was placed and the colon was brought out of the abdomen. There were adhesions between the mesentery of the distal transverse colon and descending colon which were taken down sharply under direct vision. We also detached more of the omentum from the proximal side. We could palpate the stricture in the distal transverse colon. We then performed a [id number] functional end-to-end anastomosis using a linear cutting stapler with a blue 75 mm load. We used 2 firings of the same stapler to close the enterotomies. We used the LigaSure to take down the mesentery. We then imbricated the staple line using multiple interrupted 3-0 silk seromuscular stitches. Both ends of the anastomosis appeared to be very well perfused. We then dropped the anastomosis back into the abdomen and closed the supraumbilical incision using a running 0 PDS suture. We re-insufflated the abdomen and inserted the camera through 1 of the 5 mm ports to make sure that the anastomosis was lying appropriately in the left upper quadrant which it was. The omentum was placed over all the bowel. 5 mm ports removed under direct vision. The abdomen was then desufflated. The skin incisions were closed with 4-0 Monocryl and Steri-Strips. EBL: 30 mL Specimen: Splenic flexure Post-operative Condition: stable Disposition: PACU
[2022-05-14] MEDS: HYDROMORPHONE 1 MG INJ 0.25 MG IV (19:06)
[2022-05-14] MEDS: KETOROLAC 30 MG/ML VIAL 15 MG IV (21:09)
[2022-05-15] MEDS: HYDROCODONE/ACET 5/325 TABLET 1 TAB PO ×3 (01:55→21:21)
[2022-05-15] MEDS: LACTATED RINGERS 1,000 ML 90 ML IV ×3 (01:56→23:25)
[2022-05-15 05:00] VITALS: BP 111/57; PULSE 74; RESP 18; TEMP 36.2; O2SAT 96
[2022-05-15 06:25] LABS: Add Manual Diff / Slide Review NO; Basophils Absolute Auto 0 /uL (0-100); Basophils Percent Auto 0.1 % (0-2); Eosinophils Absolute Auto 0 /uL (0-450); Eosinophils Percent Auto 0.2 % (2-4); Hematocrit 30.6 % (36-46); Hemoglobin 10.2 g/dL (12.0-16.0); Lymphocytes Absolute Auto 1000 /uL (1100-4500); Lymphocytes Percent Auto 7.7 % (25-40); Mean Corpuscular HGB Conc 33.4 % (30-36); Mean Corpuscular Hemoglobin 27.6 PG (26-34); Mean Corpuscular Volume 82.9 fL (80-100); Monocytes Absolute Auto 1100 /uL (0-900); Monocytes Percent Auto 8.5 % (3-14); Neutrophils Absolute Auto 10800 /uL (1500-7000); Neutrophils Percent Auto 83.5 % (50-75); Platelet Count 125 X10^3/uL (150-400); Red Blood Cell Count 3.69 X10^6/uL (4.0-5.2); Red Cell Distribution Width 15.3 % (11.6-14.8)
[2022-05-15 06:35] LABS: BUN Creatinine Ratio 21.2 (6-22); Blood Urea Nitrogen 14 mg/dL (7-17); Calcium 7.7 mg/dL (8.4-10.2); Carbon Dioxide 31 mmol/L (22-32); Chloride 92 mmol/L (98-107); Estimated Glomerular Filt Rate > 60 mL/min (>60); Glucose 96 mg/dL (80-110); HEMOLYSIS < 15 (0-50); Sodium 132 mmol/L (137-145)
[2022-05-15 06:56] LABS: Potassium 2.4 mmol/L (3.4-5.1)
[2022-05-15] MEDS: POTASSIUM CHLORIDE 20 MEQ/15 ML UDC 40 MEQ PO ×2 (09:03→21:20)
--- NOTE | 2022-05-15 09:49 | P.PN_ITS ---
Subjective Subjective Date Patient Seen: 05/15/22 Time Patient Seen: 09:49 Interval history: No complaints. Tolerated clear liquid diet this morning. Silva catheter was removed this morning. Exam Vital Signs (past 8 hours): - 05/15/22 05:00 Temperature 97.1 F L Pulse Rate 74 Respiratory Rate 18 Blood Pressure 111/57 L Pulse Oximetry 96 Oxygen Flow Rate 2 Fraction of Inspired Oxygen 28 SaO2/FiO2 Ratio 342 Oxygen Delivery Method Nasal Cannula Oxygen Flow Rate 2 Narrative Exam Narrative: Abdomen is soft, moderately distended Objective Labs Result Diagrams: 05/15/22 05:16 05/15/22 05:16 Labs: Laboratory Results - last 24 hr 05/15/22 05/15/22 05:16 05:16 WBC 13.0 H RBC 3.69 L Hgb 10.2 L Hct 30.6 L MCV 82.9 MCH 27.6 MCHC 33.4 RDW 15.3 H Plt Count 125 L Neut % (Auto) 83.5 H Lymph % (Auto) 7.7 L [place] % (Auto) 8.5 Eos % (Auto) 0.2 L Baso % (Auto) 0.1 Neut # (Auto) 74088 H Lymph # (Auto) 1000 L [place] # (Auto) 1100 H Eos # (Auto) 0 Baso # (Auto) 0 Sodium 132 L Potassium 2.4 L* Chloride 92 L Carbon Dioxide 31 BUN 14 Creatinine 0.66 Estimated GFR > 60 BUN/Creatinine Ratio 21.2 Glucose 96 Calcium 7.7 L PFSH Medical History (Updated 05/10/22 @ 11:29 by Elenita Faith RN) Alcohol use Allergies Anxiety Chicken pox Chronic back pain Colitis COVID-19 virus infection (~04/16/22) Decline in verbal memory Disease of spine Fecal incontinence Fibroids Fractures (~2021) Headache Hearing loss History of anemia History of urinary incontinence Hypertension, essential Hyponatremia Irritable bowel syndrome Memory impairment Mumps Normocytic anemia Oral herpes Painful menstrual periods Physical deconditioning Post-menopausal Recurrent sinusitis Rheumatic fever (~1953) Rheumatoid arthritis Rosacea Rubella Screening for osteoporosis Sepsis (12/2021) Sleep apnea Substance abuse (~2011) Surgical History (Updated 05/10/22 @ 11:12 by Elenita Faith RN) History of hysterectomy Hx of removal of cyst Social History household members: spouse Smoking Status: Never smoker alcohol intake: current substance use type: does not use Assessment & Plan Assessment and plan (1) Stricture of descending colon: Status: Acute Plan Doing well on postop day 1 following laparoscopic left colectomy for a stricture at the splenic flexure Await bowel function Mobilize Advanced to general diet but she is encouraged to only consume small amounts at first Time Spent With Patient Critical Care time: I spent a total of [] minutes of critical care time on this patient's care today; this time is exclusive of procedural time.
[2022-05-15 12:42] VITALS: BP 103/61; PULSE 71; RESP 17; TEMP 36.5; O2SAT 91
--- NOTE | 2022-05-15 13:27 | CM.DANOTE ---
Patient is an 81 yo female who was admitted on 05/14/22 for Colectomy. Pt has MCR and [employer] for insurance and her PCP is Mari Varghese. EMR was reviewed. Per Surgeon, pt tolerated procedure well and advancing from clear liquids to general diet to see how she tolerates and to ambulate towards possible d/c home tomorrow. SW met bedside with pt and spouse and explained role and they confirm they live in [place] at home and both active and independent at baseline and pt ambulates without DME and is steady and denies any hx of SNF but used [facility] in the past after being at [facility] for a few days. They deny much local family but have supportive friends and neighbors. Pt and spouse feel HH RN, and maybe PT, would be needed due to colectomy and reviewed Choice List via Ipad and preference is HH agency that RN can start in a timely manner after discharge. SW called [facility] and left msg. SW called [facility] and left msg. SW called [facility] and they can open with RN in [place] within 24-48 hours. SW made [facility] referral and [facility] kindly faxed clinicals. F2F completed but not faxed yet. Plan: SW to follow closely for advancing diet and ambulation towards possible d/c home tomorrow if medically stable. SW to fax d/c summ, F2F, and HH orders to [facility] at discharge. FELIPE Silverman Discharge Planning/Care Management Advanced directive, confirm from FAMILY Start: 05/14/22 22:20 Freq: Q24H Status: Active Protocol: Document 05/14/22 22:20 MW (Rec: 05/14/22 22:21 MW [id number]) Advance Directive, confirm on record Time 22:21 Person contacted pt Copy received No CM Discharge Assessment Start: 05/15/22 13:14 Freq: Status: Active Protocol: Document 05/15/22 13:16 BF (Rec: 05/15/22 13:27 BF [id number]) Discharge Planning Assessment Assigned Nailing Machine Operator Automatic FELIPE Osorio DPOA/Assigned Designee Name Spouse Mandeep Contact Information [phone] Advance Directives? Yes Advance Directives on File No History Provided By Patient,Significant Other, Medical Record Has Patient been admitted in last 30 No days? Prior Living Arrangements House Household Members spouse Type of transporation used prior to Drives own vehicle admit Independent with ADL's Yes Is patient alert and oriented? Yes Caregiver for Another No Patient/Family Preference Home with Home Health Barriers to Discharge No Discharge Plan Home with Home Health Community Services Physical Therapy,Home Health Nurse Transportation Arrangement spouse bedside and plans to transport Referrals Initiated Home Health If patient plan is home with home health Yes : Has signed face to face form been completed? Medicare Choice List Provided Yes Medicare choice list reviewed on patient electronic tablet with SNF/HH Preference Any that can open soonest for RN Whiteboard Updated in Patient Room with Yes name and ext. # of Nailing Machine Operator Automatic Review Status In Process Please Provide Date Initial DC 05/15/22 Assessment Was Performed Next Review Type Continued Stay Review Pre-Anesthesia Assessment Start: 05/10/22 11:03 Freq: Status: Complete Protocol: Document 05/10/22 11:03 CAB (Rec: 05/10/22 11:47 CAB [id number]) Pre-Anesthesia Assessment Patient Information Reviewed Via Phone Assessment Assessment Completed With Spouse Comment COVID screen @ 05/11/22 Primary Care Provider Mari Varghese Seen Specialist in Last 12 Months Yes Specialist Seen General surgeon,Other Comment Neurology, GI Primary Language Danish Vehicle Upholsterer Required No Height 160.02 cm Weight 52.163 kg Body Mass Index (BMI) 20.3 Hearing Ability Normal Visual Impairment No Limitations Visual Assist None Dentition Type Teeth, Natural Present Barriers to Learning Memory Hx Anesthesia Reactions No Hx Family Anesthesia Reaction No Hx Malignant Hyperthermia No Hx Blood Transfusions No Hx Blood Transfusion Reaction No Anesthesia Review Requested Yes: PAC courtesy re: Pt COVID + 04/16/22 alcohol intake current alcohol intake frequency a few times a month Smoking Status Never smoker Substance Use Type does not use Pain Present Pain Reported Musculoskeletal Symptoms Joint Pain History of Falling (Recent or History of No ) Patient is completely paralyzed or No completely immobile Mental Status Oriented to own ability Is patient on oxygen? No Does patient have FERNANDO/SOB No Hx Sleep Apnea Pt denies sleep apnea CPAP/BIPAP use not prescribed Currently Taking a Beta Irina No Can You Climb a Flight of Stairs Without Yes SOB Hx Chest Pain No Hx SOB No Hx Syncope or Dizziness No Anti-Coagulant Therapy No Has a Data Center Operator No Cardiac Testing No Hx Pacemaker/ICD No Pacemaker Rep Required? No Cardiac Clearance Received Not Applicable Diet Type At Home Regular Dysphagia Soft, liquid diet Gastrointestinal Symptoms Abdominal Pain,Constipation, Loose Stools Chronic UTI No Urinary Catheter Present No Hx Urinary Self Catheterization No Diabetes No Patient No Lactating No Hx Drug Resistant Organism No Presence of External or Internal Medical No Devices Have you had any close contact with Yes: Pt COVID + 04/16/22 someone diagnosed with COVID-19? Are you experiencing any of these No symptoms symptoms? Received a COVID vaccine? Yes Received all doses? Yes Marital Status Lives With spouse Support System Spouse Does the Patient Have Assistance After Yes Surgery Patient Discharge Plan Description Return Home Comment Pt advised 1-2 day length of stay per surgeon Feels Safe in Current Environment Yes Been Physically Hurt or Threatened By a No Person in Current Environment Do you have thoughts of harming yourself None or others? Are you currently considering suicide? No Do you have a plan to hurt yourself or No Plan others? Do You Have Any Spiritual Beliefs That No May Affect Your HC Choices? Do You Have Any Cultural Practices That No May Affect Your HC Choices? Comment [facility] Who Can We Speak to About Patient's Care Family, friends Identifying Code for Release of Patient Declines to issue Information Health Care Proxy/Next of Kin Mandeep () Health Care Proxy or cell: [phone] Emergency Contact Name Mandeep () Emergency Contact or cell: Advance Directives? Yes Advance Directives on File No Requested Patient Bring Advanced Yes Directives DOS Power of Ornamental Iron Worker Apprentice Yes Power of Ornamental Iron Worker Apprentice Name Mandeep () Power of Ornamental Iron Worker Apprentice or cell: PAC Instructions Durable medical equipment, Medications to take/avoid,No ETOH/petroleum product on skin DOS,NPO,Pre-surgical wash, Sensory aids,Sturdy shoes/ comfortable clothes,Do not bring valuables and remove jewelry
[2022-05-15] MEDS: KETOROLAC 30 MG/ML VIAL 15 MG IV (16:30)
[2022-05-15 17:00] VITALS: BP 123/72; PULSE 86; RESP 17; TEMP 36.8; O2SAT 88
[2022-05-15] MEDS: ENOXAPARIN 40 MG/0.4 ML SYRINGE SUBCUT (18:04)
[2022-05-15] MEDS: ONDANSETRON 4 MG/2 ML INJ IV (18:05)
[2022-05-15 21:00] VITALS: BP 116/66; PULSE 84; RESP 18; TEMP 36.6; O2SAT 95
[2022-05-15 23:49] VITALS: O2SAT 95
[2022-05-16] VITALS: BP 129/66; PULSE 77; RESP 18; TEMP 36.6; O2SAT 95
[2022-05-16 04:46] VITALS: BP 130/67; PULSE 85; RESP 18; TEMP 36.6; O2SAT 95
[2022-05-16] MEDS: KETOROLAC 30 MG/ML VIAL 15 MG IV (05:18)
--- NOTE | 2022-05-16 08:54 | PM.PN.1 ---
Subjective Subjective Date Patient Seen: 05/16/22 Time Patient Seen: 08:54 Interval history: Tolerating diet and passing gas. Pain is minimal. She states that she has not been walking much. Exam Vital Signs (past 8 hours): - 05/16/22 04:46 Temperature 97.9 F Pulse Rate 85 Respiratory Rate 18 Blood Pressure 130/67 Pulse Oximetry 95 Oxygen Flow Rate 1 Fraction of Inspired Oxygen 28 SaO2/FiO2 Ratio 342 Oxygen Delivery Method Nasal Cannula Oxygen Flow Rate 1 Const General: No acute distress GI Palpation: soft Objective Labs Result Diagrams: 05/15/22 05:16 05/15/22 05:16 [facility] Medical History (Updated 05/10/22 @ 11:29 by Elenita Faith RN) Alcohol use Allergies Anxiety Chicken pox Chronic back pain Colitis COVID-19 virus infection (~04/16/22) Decline in verbal memory Disease of spine Fecal incontinence Fibroids Fractures (~2021) Headache Hearing loss History of anemia History of urinary incontinence Hypertension, essential Hyponatremia Irritable bowel syndrome Memory impairment Mumps Normocytic anemia Oral herpes Painful menstrual periods Physical deconditioning Post-menopausal Recurrent sinusitis Rheumatic fever (~1953) Rheumatoid arthritis Rosacea Rubella Screening for osteoporosis Sepsis (12/2021) Sleep apnea Substance abuse (~2011) Surgical History (Updated 05/10/22 @ 11:12 by Elenita Faith RN) History of hysterectomy Hx of removal of cyst Social History household members: spouse Smoking Status: Never smoker alcohol intake: current substance use type: does not use Assessment & Plan Assessment and plan (1) Stricture of descending colon: Status: Acute Plan Hep-Lock IV Will recheck potassium this morning Ambulate Possible home this afternoon if feeling well Time Spent With Patient Critical Care time: I spent a total of [] minutes of critical care time on this patient's care today; this time is exclusive of procedural time.
[2022-05-16 09:00] VITALS: BP 137/68; PULSE 78; RESP 17; TEMP 36.1; O2SAT 90
[2022-05-16] MEDS: ENOXAPARIN 40 MG/0.4 ML SYRINGE SUBCUT (09:15)
[2022-05-16] MEDS: POTASSIUM CHLORIDE 20 MEQ/15 ML UDC 40 MEQ PO (09:15)
[2022-05-16 09:32] VITALS: O2SAT 91
--- NOTE | 2022-05-16 10:54 | DI.RAD.S_ITS ---
PROCEDURE: XR CHEST 1V INDICATIONS: Dyspnea TECHNIQUE: One view of the chest was acquired. COMPARISON: [facility], CR, XR CHEST 2V, 11/24/2020, 12:52. FINDINGS: Surgical changes and devices: None. Lungs and pleura: Linear infrahilar opacities bilaterally including fairly dense retrocardiac opacity. Small left pleural effusion. No pneumothorax. Mediastinum: Mediastinal contours appear normal. Heart size is normal. Bones and chest wall: No suspicious bony lesions. Overlying soft tissues appear unremarkable. IMPRESSION: 1. Bilateral lower lobe alveolar opacities and small left effusion suspicious for multifocal infection versus atelectasis. Dictated by: Rosalba Su M.D. on 05/16/2022 at 13:50 Approved by: Rosalba Su M.D. on 05/16/2022 at 13:53
[2022-05-16 12:38] LABS: BUN Creatinine Ratio 19.7 (6-22); Blood Urea Nitrogen 14 mg/dL (7-17); Calcium 7.8 mg/dL (8.4-10.2); Carbon Dioxide 30 mmol/L (22-32); Chloride 97 mmol/L (98-107); Estimated Glomerular Filt Rate > 60 mL/min (>60); Glucose 85 mg/dL (80-110); HEMOLYSIS < 15 (0-50); Magnesium 1.4 mg/dL (1.6-2.3); Potassium 3.8 mmol/L (3.4-5.1); Sodium 133 mmol/L (137-145)
--- NOTE | 2022-05-16 14:24 | RT ---
Home oxygen evaluation done. Patient walked down the cantor with no SOB noted. Her Spo2 stayed around 90-91%. She was at 93% when she sat back down on her bed.
--- NOTE | 2022-05-16 14:45 | P.CONS_ITS ---
History of Present Illness Consult details Date Patient Seen: 05/16/22 Time Patient Seen: 14:45 Chief complaint: Possible hypoxia Requesting provider: Anil Boo Narrative: Patient was admitted for abdominal pain and a splenic flexure stricture. The patient has been in hospital for several days and underwent surgery on May 14. She underwent a scopic assisted left colectomy. In the post procedure. The patient has been on oxygen. Today she is felt to be stable for discharge by General surgery area was noted that she may require oxygen and a consultation is requested. The patient denied any cough, or sensation of dyspnea. No chronic pulmonary disease. She denies a history of having to use. Meds Home Medications and Allergies Home Medications Medication Instructions Recorded Confirmed Type venlafaxine 150 mg 150 mg PO DAILY 11/19/18 05/14/22 History capsule,extended release 24 hr hydroxyzine pamoate 25 mg capsule 25 mg PO DAILY 10/11/21 05/14/22 History triamcinolone acetonide 0.1 % 1 applic topical BID PRN Rash 10/11/21 05/10/22 History topical cream acyclovir 400 mg tablet 400 mg PO DAILY PRN cold sores #20 10/23/21 05/10/22 Rx tabs trazodone 100 mg tablet 100 mg PO BEDTIME PRN insomnia #90 10/23/21 05/10/22 Rx tabs thiamine HCl (vitamin B1) 100 mg 100 mg PO DAILY 01/19/22 05/14/22 History tablet Total restore 1 cap PO TID 03/26/22 05/10/22 History amlodipine 10 mg tablet 10 mg PO DAILY #90 tabs 05/01/22 05/14/22 Rx hydrochlorothiazide 12.5 mg tablet 12.5 mg PO DAILY PRN leg swelling 05/01/22 05/14/22 Rx #30 tabs Allergies Allergy/AdvReac Type Severity Reaction Status Date / Time Sulfa (Sulfonamide Allergy Unknown Rash Verified 05/14/22 10:27 Antibiotics) Review of Systems Review of Systems Narrative: Denies dyspnea, or cough ROS: Yes All systems reviewed with the patient and are negative except as otherwise documented Constitutional Constitutional: Reports system reviewed and no additional complaints, except as documented Cardiovascular Cardiovascular: Reports system reviewed and no additional complaints, except as documented, Denies chest pain, Denies dyspnea, Denies dyspnea on exertion and Denies orthopnea Respiratory Respiratory: Reports system reviewed and no additional complaints, except as documented, Denies chest congestion, Denies dyspnea and Denies dyspnea on exertion Gastrointestinal Gastrointestinal: Reports change in bowel habits Musculoskeletal Musculoskeletal: Reports system reviewed and no additional complaints, except as documented and Denies abnormal gait Neurologic Neurologic: Reports system reviewed and no additional complaints, except as documented, Denies abnormal speech and Denies abnormal gait Exam Vital Signs (past 8 hours): - 05/16/22 09:32 05/16/22 09:00 05/16/22 07:00 Temperature 97.0 F L Pulse Rate 78 Respiratory Rate 17 Blood Pressure 137/68 Pulse Oximetry 91 90 L Oxygen Delivery Method Nasal Cannula Nasal Cannula Oxygen Flow Rate 5 4.5 Fraction of Inspired Oxygen 28 SaO2/FiO2 Ratio 342 Oxygen Delivery Method Nasal Cannula Oxygen Flow Rate 5 Const General: cooperative, comfortable and No acute distress Nutritional Appearance: malnourished Orientation: alert, awake and oriented x3 HENMT Head: normal to inspection and normocephalic Ears: hearing grossly normal bilaterally Nose: external nose normal Face and sinus: normal facial exam Eyes General: appearance normal, both eyes and all related structures Conjunctivae: conjunctivae normal Sclera: sclerae normal Pupils: pupils equal Neck Neck: normal visual inspection, full ROM, trachea midline, No anterior neck swelling, No midline deformity and No JVD Thyroid: thyroid normal Chest Chest: normal inspection of the chest Resp Effort & Inspection: normal respiratory effort, able to speak in complete se ntences, no audible wheezes, no cough and no respiratory distress Auscultation: clear to auscultation bilaterally, no rales, no rhonchi and no wheezes Cardio Rate: regular rate Rhythm: regular rhythm Heart Sounds: S1 normal and S2 normal GI Inspection: normal to inspection and no visible herniation Palpation: soft and no hepatosplenomegaly Auscultation: normal bowel sounds Back/Spine/Pelvis Back: normal to inspection Skin General: no rashes or lesions noted Neuro General: patient alert and moves all extremities Cranial Nerves: CN's II-XI intact bilaterally Cognition: normal cognition Speech: speech normal Gait: normal gait Extrem General: normal to inspection, no pedal edema and No muscle atrophy Psych Speech and Movement: pressured speech Mood: anxious mood Thought Process: normal Objective Labs Result Diagrams: 05/15/22 05:16 05/16/22 11:17 Labs: Laboratory Results - last 24 hr 05/16/22 11:17 Sodium 133 L Potassium 3.8 D Chloride 97 L Carbon Dioxide 30 BUN 14 Creatinine 0.71 Estimated GFR > 60 BUN/Creatinine Ratio 19.7 Glucose 85 Calcium 7.8 L Magnesium 1.4 L PFSH Medical History Alcohol use Allergies Anxiety Chicken pox Chronic back pain Colitis COVID-19 virus infection (~04/16/22) Decline in verbal memory Disease of spine Fecal incontinence Fibroids Fractures (~2021) Headache Hearing loss History of anemia History of urinary incontinence Hypertension, essential Hyponatremia Irritable bowel syndrome Memory impairment Mumps Normocytic anemia Oral herpes Painful menstrual periods Physical deconditioning Post-menopausal Recurrent sinusitis Rheumatic fever (~1953) Rheumatoid arthritis Rosacea Rubella Screening for osteoporosis Sepsis (12/2021) Sleep apnea Substance abuse (~2011) Surgical History History of hysterectomy Hx of removal of cyst Comment: Negative for bowel obstruction. Social History household members: spouse Tobacco & Substance Use Smoking Status: Never smoker alcohol intake: current substance use type: does not use Additional Social History additional social history: The patient lives locally with her . Assessment & Plan Assessment & Plan narrative: 1. Possible hypoxia, not present on admission are active. We did a re-evaluation respiratory therapy. Has ambulated using an ear probe pl aced on the ear other than a probe placed on the finger which was having signal difficulties. This appeared to indicate that saturations remained above 90% at rest and with ambulation. The patient was comfortable, denied any sensation of dyspnea. A two-view chest x-ray was also obtained which was unremarkable with clear lung arcos. At this point stable for discharge without oxygen or further close follow-up. Time Spent With Patient Time with patient: 30 to 49 minutes with 50% spent counseling/coordinating care
--- NOTE | 2022-05-16 14:58 | CM.DPC ---
DCP Cont: Patient is discharging home today, [facility] referral has been sent. Jalen from [facility] had called this morning wanting update. At the time, there were not yet discharge orders, let him know that they would be called upon discharge. Patient now has discharge orders. Called Charo at [facility] and gave her update. Faxed over orders for RN, P.T, face to face, today's progress note, no DC summary available. P: Patient is to be going home today with [facility], who have been notified. Blanca Barker, MYA/Java Security Architect
[2022-05-16] MEDS: MAGNESIUM CHLORIDE 64 MG TABLET 128 MG PO (15:12)
[2022-05-16] MEDS: HYDROCODONE/ACET 5/325 TABLET 1 TAB PO (15:13)
--- NOTE | 2022-05-16 15:55 | PC.NURSE ---
Pt is A&OX3, slightly forgetful. Really wanting to get up today for her appointments. She is on 4 L NC this a .m. VSS, afebrile. She has a good appetite, denies n/v. MD at bedside this a.m. clearing her for discharge home if she is able to ambulate without difficulty. Notified MD Boo that on RA her 02 saturation is in the 80's. Hospitalist consultation ordered, and MD Newell notified. Pt is encouraged to Use IS, and RT eval and treat at bedside is completed this afternoon along with Chest xray. Pt is cleared for discharge home this afternoon with home health. at bedside is knowledgeable of patient's medications, and both verbalize understanding of surgical site care, activity, and s/sx of infection. Pt is escorted out of the hospital to private vehicle via w/ch with all of her belongings at 1545 this afternoon.
--- NOTE | 2022-05-25 08:57 | P.DS_ITS ---
History of Present Illness History of Present Illness Chief complaint: Possible hypoxia Discharge Providers Provider Date of admission: 05/14/22 10:55 Discharge Date: 05/16/22 Primary care physician: Mari Varghese DO Consults: 05/14/22 18:46 Consult to Discharge Planning Routine Comment: 05/16/22 10:41 Consult to Hospitalist Service Routine Comment: Consulting Provider: Sami Newell Reason for consultation: requiring oxygen Has provider been notified: Yes 05/16/22 14:51 Consult to Home Health Routine Comment: Reason For Exam: Home Health RN, and P.T. Discharge provider: Anil Boo MD Summary Hospital Course Discharge Diagnosis: Colon stricture Hospital Course: The patient underwent a laparoscopic-assisted left colectomy for a stricture near the splenic flexure on May 14, 2022. She did well after surgery and was tolerating a diet by postoperative day 2. Her pain was minimal and she was discharged home on May 16, 2022. She had hyponatremia which was clinically insignificant. Status at Discharge Cognitive/behavioral status at discharge: at baseline, oriented Exam Vital Signs (past 8 hours): Fraction of Inspired Oxygen 28 SaO2/FiO2 Ratio 342 Oxygen Delivery Method Nasal Cannula Oxygen Flow Rate 5 Const General: No acute distress Resp Effort & Inspection: normal respiratory effort GI Palpation: soft Objective Labs 05/15/22 05:16 05/16/22 11:17 [facility] Medical History Alcohol use Allergies Anxiety Chicken pox Chronic back pain Colitis COVID-19 virus infection (~04/16/22) Decline in verbal memory Disease of spine Fecal incontinence Fibroids Fractures (~2021) Headache Hearing loss History of anemia History of urinary incontinence Hypertension, essential Hyponatremia Irritable bowel syndrome Memory impairment Mumps Normocytic anemia Oral herpes Painful menstrual periods Physical deconditioning Post-menopausal Recurrent sinusitis Rheumatic fever (~1953) Rheumatoid arthritis Rosacea Rubella Screening for osteoporosis Sepsis (12/2021) Sleep apnea Substance abuse (~2011) Surgical History History of hysterectomy Hx of removal of cyst Social History household members: spouse Smoking Status: Never smoker alcohol intake: current substance use type: does not use additional social history: The patient lives locally with her . Discharge Plan Discharge Plan Patient Disposition: Home Health Service Provider Discharge Comment: No lifting greater than 20 lb for 2 weeks. Okay to remove the outer dressing and shower after 24 hours. Leave the Steri-Strips on until they start to peel off in 1-2 weeks. Discharge orders & Medications Prescriptions: New hydrocodone-acetaminophen 5-325 mg tablet 1 tab PO Q8H PRN (Reason: pain) Qty: 14 0RF Continued hydroxyzine pamoate 25 mg capsule 25 mg PO DAILY triamcinolone acetonide 0.1 % cream 1 applic topical BID PRN (Reason: Rash) Label Comments: APPLY TOPICALLY TO ECZEMA TWICE DAILY FOR UP TO 2 WEEKS NEEDED trazodone 100 mg tablet 100 mg PO BEDTIME PRN (Reason: insomnia) Qty: 90 1RF Hold Instructions: Home Medication placed on hold at Doctor's office acyclovir 400 mg tablet 400 mg PO DAILY PRN (Reason: cold sores) Qty: 20 1RF Hold Instructions: Home Medication placed on hold at Doctor's office Rx Instructions: USE DURING OUTBREAK; NO LONGER THAN 5 DAYS thiamine HCl (vitamin B1) 100 mg tablet 100 mg PO DAILY Total restore 1 cap PO TID Label Comments: Magnesium and zinc gut health supplement amlodipine 10 mg tablet 10 mg PO DAILY Qty: 90 1RF venlafaxine 150 mg capsule,extended release 24hr 150 mg PO DAILY Label Comments: TK 1 C PO QD No Action furosemide 20 mg tablet 20 mg PO BID 30 Days Qty: 60 0RF magnesium chloride 64 mg tablet,delayed release (DR/EC) 64 mg PO BID 30 Days Qty: 60 0RF potassium chloride 20 mEq tablet extended release 20 meq PO DAILY 30 Days Qty: 30 0RF Follow up/Referrals: Mari Varghese DO [Primary Care Provider] - Visit Report/Discharge Packet Stand Alone Forms: Patient Portal/API, Stroke Signs & Symptoms Discharge Data Primary Care Provider: Mari Varghese
== END 2022-05-16 15:45 | disposition home or self-care (01) | DRG 330 ==
PROVIDERS: Admitting Provider Surgery; PCP Family Medicine; Referring Provider Surgery; Visit Provider Surgery
PROC: 0DTE0ZZ Resection of Large Intestine, Open Approach (ICD-10-PCS; principal; 2022-05-14 12:15)
DX: K59.89 Other specified functional intestinal disorders (principal); E87.1 Hypo-osmolality and hyponatremia; K56.699 Other intestinal obstruction unspecified as to partial versus complete obstruction; I10 Essential (primary) hypertension; F41.9 Anxiety disorder, unspecified; Z20.822 Contact with and (suspected) exposure to COVID-19
CPT/HCPCS: 36415; 44204; 71045; 80048; 80053; 83735; 84134; 85025; 87635; 94760; C9803; J0295; J1170; J1650; J1885; J2250; J2405; J2704; J3010

== ENCOUNTER 2022-05-17 11:55 | Inpatient (IN) | payer MEDICARE, BC, SELFPAY ==
[2022-05-14 21:46] VITALS: BMI 20.3
[2022-05-17 12:01] VITALS: BP 150/69; PULSE 87; RESP 18; TEMP 36.6; O2SAT 90; BMI 20.3
[2022-05-17 13:57] VITALS: PULSE 80; O2SAT 93
--- NOTE | 2022-05-17 14:34 | ED.SOB ---
HPI - SOB/Dyspnea General Chief Complaint: Shortness of Breath/Dyspnea Stated Complaint: Blood oxygen @ 70% Time Seen by Provider: 05/17/22 14:25 Source: patient Mode of arrival: Ambulatory Limitations: no limitations History of Present Illness HPI Narrative: Patient is 81-year-old female who presents with hypoxia. She had colectomy 05/14/2022 for splenic flexure stricture she was admitted to the hospital and released yesterday. It was noted that upon discharge she was slightly hypoxic and requiring oxygen. Hospitalist was consulted. The patient denied any dyspnea. She continues to deny any chest pain or shortness of breath. She maybe has a little bit more swelling in her legs. No prior history of congestive heart failure. Denies fever or chills. Still having quite a bit of pain in her abdomen. No bowel movement yet. No nausea or vomiting. Related Data Home Medications Medication Instructions Recorded Confirmed venlafaxine 150 mg 150 mg PO DAILY 11/19/18 05/14/22 capsule,extended release 24 hr hydroxyzine pamoate 25 mg capsule 25 mg PO DAILY 10/11/21 05/14/22 triamcinolone acetonide 0.1 % 1 applic topical BID PRN Rash 10/11/21 05/10/22 topical cream thiamine HCl (vitamin B1) 100 mg 100 mg PO DAILY 01/19/22 05/14/22 tablet Total restore 1 cap PO TID 03/26/22 05/10/22 Previous Rx's Medication Instructions Recorded acyclovir 400 mg tablet 400 mg PO DAILY PRN cold sores #20 10/23/21 tabs trazodone 100 mg tablet 100 mg PO BEDTIME PRN insomnia #90 10/23/21 tabs amlodipine 10 mg tablet 10 mg PO DAILY #90 tabs 05/01/22 hydrochlorothiazide 12.5 mg tablet 12.5 mg PO DAILY PRN leg swelling 05/01/22 #30 tabs hydrocodone 5 mg-acetaminophen 325 1 tab PO Q8H PRN pain #14 tabs 05/16/22 mg tablet Allergies Allergy/AdvReac Type Severity Reaction Status Date / Time Sulfa (Sulfonamide Allergy Unknown Rash Verified 05/17/22 12:01 Antibiotics) Review of Systems Review of Systems ROS Unobtainable: All systems reviewed & are unremarkable except as noted in HPI and below Patient History Medical History Alcohol use Allergies Anxiety Chicken pox Chronic back pain Colitis COVID-19 virus infection (~04/16/22) Decline in verbal memory Disease of spine Fecal incontinence Fibroids Fractures (~2021) Headache Hearing loss History of anemia History of urinary incontinence Hypertension, essential Hyponatremia Irritable bowel syndrome Memory impairment Mumps Normocytic anemia Oral herpes Painful menstrual periods Physical deconditioning Post-menopausal Recurrent sinusitis Rheumatic fever (~1953) Rheumatoid arthritis Rosacea Rubella Screening for osteoporosis Sepsis (12/2021) Sleep apnea Substance abuse (~2011) Surgical History History of hysterectomy Hx of removal of cyst Social History household members: spouse Smoking Status: Never smoker alcohol intake: current substance use type: does not use additional social history: The patient lives locally with her . Smoking Status: Never smoker alcohol intake frequency: a few times a month Substance Use Type: marijuana Exam Initial Vital Signs Initial Vital Signs: Vital Signs Temperature 97.8 F 05/17/22 12:01 Pulse Rate 87 05/17/22 12:01 Respiratory Rate 18 05/17/22 12:01 Blood Pressure 150/69 H 05/17/22 12:01 Pulse Oximetry 90 L 05/17/22 12:01 Oxygen Delivery Method 05/17/22 12:01 GENERAL: Alert well-appearing 81-year-old female HEENT: Head atraumatic,EOMI, pupils reactive, face symmetric, moist mucous membranes CARDIOVASCULAR: Regular rate and rhythm without murmurs, rubs or gallops. RESPIRATORY: Breath sounds equal bilaterally, no wheezes rales or rhonchi. ABDOMEN: Soft nontender bandages in place EXTREMITIES: Normal range of motion, no clubbing or edema. Neurovascularly intact NEUROLOGICAL: Alert and oriented x4. SKIN: Warm, dry, no laceration, no petechiae, no rashes or lesions. Course Orders Ordered: ED Orders 05/17/22 13:30 Consult to CEMENT FINISHING SUPERVISOR - It Application Development Manager Stat 05/17/22 15:04 CT angio chest PE protocol Stat 05/17/22 16:15 BNP [NT-proBNP (BNP-Adult 18+)] Stat CBC Auto Diff [Complete Blood Count AUTO DIFF] Stat CMP [Comprehensive Metabolic Panel] Stat Troponin & CK Cardiac Panel Stat 05/17/22 16:34 EKG-12 Lead Stat 05/17/22 18:27 ABG [Arterial Blood Gas] Stat 05/17/22 20:17 COVID19 -Nasal RAPID/Pre-Proc Stat Discontinued Medications Furosemide (Furosemide 40 Mg/4 Ml Vial) 20 mg IV NOW ONE Stop: 05/17/22 17:27 Last Admin: 05/17/22 18:37 Dose: 20 mg Documented By: AT Vital Signs Vital signs: Vital Signs - 8 hr 05/17/22 13:57 05/17/22 16:17 05/17/22 16:30 Pulse Rate 80 83 78 Respiratory Rate 22 18 Blood Pressure 147/92 H 181/86 H Pulse Oximetry 93 88 L 96 Oxygen Delivery Method Room Air Room Air Nasal Cannula Oxygen Flow Rate 2 2 MDM - SOB/Dyspnea Lab Data Result diagrams: 05/17/22 16:15 05/17/22 16:15 Labs: Lab Results 05/17/22 05/17/22 Range/Units 16:15 16:15 WBC 10.4 (4.5-11.0) X10^3/uL RBC 4.20 (4.0-5.2) X10^6/uL Hgb 11.5 L (12.0-16.0) g/dL Hct 35.5 L (36-46) % MCV 84.5 (80-100) fL MCH 27.4 (26-34) PG MCHC 32.4 (30-36) % RDW 15.5 H (11.6-14.8) % Plt Count 151 (150-400) X10^3/uL Neut % (Auto) 65.3 (50-75) % Lymph % (Auto) 15.7 L (25-40) % [place] % (Auto) 12.4 (3-14) % Eos % (Auto) 5.6 H (2-4) % Baso % (Auto) 1.0 (0-2) % Neut # (Auto) 6800 (5242-4580) /uL Lymph # (Auto) 1600 (1106-6290) /uL [place] # (Auto) 1300 H (0-900) /uL Eos # (Auto) 600 H (0-450) /uL Baso # (Auto) 100 (0-100) /uL Sodium 133 L (137-145) mmol/L Potassium 3.4 (3.4-5.1) mmol/L Chloride 99 (98-107) mmol/L Carbon Dioxide 24 (22-32) mmol/L BUN 12 (7-17) mg/dL Creatinine 0.71 (0.52-1.04) mg/dL Estimated GFR > 60 (>60) mL/min BUN/Creatinine Ratio 16.9 (6-22) Glucose 82 (80-110) mg/dL Calcium 8.4 (8.4-10.2) mg/dL Total Bilirubin 0.7 (0.2-1.3) mg/dL AST 27 (14-36) IU/L ALT 22 (<35) IU/L Alkaline Phosphatase 95 (38-126) U/L Total Creatine Kinase 33 (30-135) U/L CK-MB (CK-2) TNP CK-MB (CK-2) Rel Index TNP Troponin I < 0.012 (0.01-0.034) ng/mL NT-Pro-B Natriuret Pep 2100 H (<450) pg/mL Total Protein 6.1 L (6.3-8.2) g/dL Imaging Data CT scan - chest: Radiologist's Impression: CT Scan Report Signed Patient: Osiris Woodruff MR#: [id number] : 1940 Acct:[id number] Age/Sex: 81 / F Date of Service: 05/17/22 Loc: ED Accession Number: [id number] ?? Procedure: CT angio chest PE protocol Ordering Provider: Radha Noyola D.O. PROCEDURE:? CT ANGIO CHEST PE PROTOCOL ? INDICATIONS:? hypoxia recent hospitalization ? TECHNIQUE:? After the administration of intravenous contrast, 2 mm thick sections acquired from the pulmonary apices to the posterior costophrenic angles.? 3-dimensional maximum intensity projection (MIP) coronal and sagittal reformats were then acquired through the thorax.? For radiation dose reduction, the following was used:? automated exposure control, adjustment of mA and/or kV according to patient size.? ? COMPARISON:? [facility], CT, CT ABDOMEN PELVIS W CON, 05/03/2022, 10:32. ? FINDINGS:? Image quality:? Excellent.? ? Pulmonary arteries:? Pulmonary arteries are normal in size, and demonstrate no intraluminal filling defects to suggest central pulmonary embolism.? ? Lungs and pleura:? Small to moderate bilateral pleural effusion are seen with adjacent compressive atelectasis in posterior aspect of bilateral lung arcos.? Moderate size airspace opacities are noted in bilateral lower lobes extending to bilateral infrahilar region.? Smaller airspace opacities also seen in anterior medial aspect of right middle lobe and left lingular segment extending to left infrahilar region.? No pneumothorax.? Central and peripheral airways are patent.? ? Mediastinum:? Heart size is enlarged, without pericardial effusion.? Mildly enlarged mediastinal lymph nodes are seen measures up to 1.1 cm in size in subcarinal space.? Thoracic aorta is normal in caliber and enhancement.? Esophagus is normal in caliber, without hiatal hernia.? ? Bones and chest wall:? No suspicious bony lesions.? Ribs and thoracic spine appear intact throughout.? Thyroid gland is within normal limits.? No axillary or supraclavicular adenopathy.? ? Abdomen:? Visualized upper abdominal solid organs appear normal in the early arterial phase of enhancement.? Well-circumscribed hypodense areas are again noted scattered in liver parenchyma consistent with hepatic cysts. ? IMPRESSION:? 1. No evidence of pulmonary emboli.? No thoracic aortic aneurysm or gross dissection. ? 2.? Small to moderate bilateral pleural effusion with adjacent compressive atelectasis in posterior aspect of bilateral lung arcos.? Moderate size airspace opacities in bilateral lower lobes and small airspace opacities in right middle lobe and left lingular segment as above concerning for bilateral pulmonary infiltrates.? No pneumothorax.? Airway is patent. ? 3. Mildly enlarged mediastinal and hilar lymph nodes concerning for reactive inflammatory nodes.? Cardiomegaly, no pericardial effusion. ? 4. Suggestion of multiple hepatic cysts unchanged from previous CT of abdomen and pelvis study. ? Dictated by: Davian Davis M.D. on 05/17/2022 at 16:21 ? ? ECG Data Interpretation: Normal sinus rhythm rate 78 VT interval 142 QRS [address] changes no T-wave inversions MDM Narrative Medical decision making narrative: Patient is an 81-year-old female who presents today with possible hypoxia. She was discharged home yesterday after a colectomy upon discharge she was noted to be hypoxic. Hospitalist evaluated patient and was released. CT angio was done for pulmonary embolism she does not have a pulmonary embolism but does have [id number] pleural effusions. BNP is also noted to be elevated at 2100. She is no prior history of congestive heart failure. EKG and troponin are negative. Likely she is fluid overloaded for her most recent surgery and hospitalization. Her pulse oximeter is not a good reading. Poor waveform fluctuates often. However there are occasional good readings some in the high 80s and low 90s. She is given 1 dose of Lasix 20 mg IV. I discussed case briefly with Dr. Newell who evaluated her yesterday. He reports fluctuating waveform and pulse ox at discharge. Recommends a room air ABG. Respiratory therapy attempted 1 time for room air ABG and then refused to allow her to try again. Multiple conversations with patient and . Needing a reliable oxygen level. This helps determine if she needs oxygen and admission. She is not in any acute respiratory distress she has mild crackles at her bases. However they adamantly refused to have repeat ABG. Patient has been up to the restroom multiple times after Lasix and actually has a good plus with 3 stars at 91% at rest. I did talk with Namrata Norman who agrees to observation. MDM * differential diagnosis includes but not limited to: Pulmonary embolism, congestive heart failure, acute coronary syndrome, pneumonia * Prior records reviewed: As above * My lab interpretation: As above * My imaging interpretation: As above * Clinical Decision Rules/Scores evaluated: No * Independent discussions with: , hospitalist Dr. Newell, Namrata Norman hospitalist * Social Considerations: * Shared Decision Making: and patient *Disposition: see below, along with detailed discharge instructions that have been reviewed with patient as well as indications for ED re-evaluation and additional outpatient follow up Discharge Plan Departure Patient Disposition: Admitted as Observation Clinical Impression: Congestive heart failure Prescriptions: No Action hydroxyzine pamoate 25 mg capsule 25 mg PO DAILY triamcinolone acetonide 0.1 % cream 1 applic topical BID PRN (Reason: Rash) Label Comments: APPLY TOPICALLY TO ECZEMA TWICE DAILY FOR UP TO 2 WEEKS NEEDED trazodone 100 mg tablet 100 mg PO BEDTIME PRN (Reason: insomnia) Qty: 90 1RF Hold Instructions: Home Medication placed on hold at Doctor's office acyclovir 400 mg tablet 400 mg PO DAILY PRN (Reason: cold sores) Qty: 20 1RF Hold Instructions: Home Medication placed on hold at Doctor's office Rx Instructions: USE DURING OUTBREAK; NO LONGER THAN 5 DAYS thiamine HCl (vitamin B1) 100 mg tablet 100 mg PO DAILY Total restore 1 cap PO TID Label Comments: Magnesium and zinc gut health supplement amlodipine 10 mg tablet 10 mg PO DAILY Qty: 90 1RF hydrochlorothiazide 12.5 mg tablet 12.5 mg PO DAILY PRN (Reason: leg swelling) Qty: 30 0RF Rx Instructions: take one in the morning as needed for leg swelling venlafaxine 150 mg capsule,extended release 24hr 150 mg PO DAILY Label Comments: TK 1 C PO QD hydrocodone-acetaminophen 5-325 mg tablet 1 tab PO Q8H PRN (Reason: pain) Qty: 14 0RF Referrals: Mari Varghese DO [Primary Care Provider] -
--- NOTE | 2022-05-17 15:04 | DI.CT.S_ITS ---
PROCEDURE: CT ANGIO CHEST PE PROTOCOL INDICATIONS: hypoxia recent hospitalization TECHNIQUE: After the administration of intravenous contrast, 2 mm thick sections acquired from the pulmonary apices to the posterior costophrenic angles. 3-dimensional maximum intensity projection (MIP) coronal and sagittal reformats were then acquired through the thorax. For radiation dose reduction, the following was used: automated exposure control, adjustment of mA and/or kV according to patient size. COMPARISON: [facility], CT, CT ABDOMEN PELVIS W CON, 05/03/2022, 10:32. FINDINGS: Image quality: Excellent. Pulmonary arteries: Pulmonary arteries are normal in size, and demonstrate no intraluminal filling defects to suggest central pulmonary embolism. Lungs and pleura: Small to moderate bilateral pleural effusion are seen with adjacent compressive atelectasis in posterior aspect of bilateral lung arcos. Moderate size airspace opacities are noted in bilateral lower lobes extending to bilateral infrahilar region. Smaller airspace opacities also seen in anterior medial aspect of right middle lobe and left lingular segment extending to left infrahilar region. No pneumothorax. Central and peripheral airways are patent. Mediastinum: Heart size is enlarged, without pericardial effusion. Mildly enlarged mediastinal lymph nodes are seen measures up to 1.1 cm in size in subcarinal space. Thoracic aorta is normal in caliber and enhancement. Esophagus is normal in caliber, without hiatal hernia. Bones and chest wall: No suspicious bony lesions. Ribs and thoracic spine appear intact throughout. Thyroid gland is within normal limits. No axillary or supraclavicular adenopathy. Abdomen: Visualized upper abdominal solid organs appear normal in the early arterial phase of enhancement. Well-circumscribed hypodense areas are again noted scattered in liver parenchyma consistent with hepatic cysts. IMPRESSION: 1. No evidence of pulmonary emboli. No thoracic aortic aneurysm or gross dissection. 2. Small to moderate bilateral pleural effusion with adjacent compressive atelectasis in posterior aspect of bilateral lung arcos. Moderate size airspace opacities in bilateral lower lobes and small airspace opacities in right middle lobe and left lingular segment as above concerning for bilateral pulmonary infiltrates. No pneumothorax. Airway is patent. 3. Mildly enlarged mediastinal and hilar lymph nodes concerning for reactive inflammatory nodes. Cardiomegaly, no pericardial effusion. 4. Suggestion of multiple hepatic cysts unchanged from previous CT of abdomen and pelvis study. Dictated by: Davian Davis M.D. on 05/17/2022 at 16:21 Approved by: Davian Davis M.D. on 05/17/2022 at 16:32
[2022-05-17 16:17] VITALS: BP 147/92; PULSE 83; RESP 22; O2SAT 88
[2022-05-17 16:30] VITALS: BP 181/86; PULSE 78; RESP 18; O2SAT 96
[2022-05-17 16:31] LABS: Add Manual Diff / Slide Review NO; Basophils Absolute Auto 100 /uL (0-100); Eosinophils Absolute Auto 600 /uL (0-450); Eosinophils Percent Auto 5.6 % (2-4); Hematocrit 35.5 % (36-46); Hemoglobin 11.5 g/dL (12.0-16.0); Lymphocytes Absolute Auto 1600 /uL (1100-4500); Lymphocytes Percent Auto 15.7 % (25-40); Mean Corpuscular HGB Conc 32.4 % (30-36); Mean Corpuscular Hemoglobin 27.4 PG (26-34); Mean Corpuscular Volume 84.5 fL (80-100); Monocytes Absolute Auto 1300 /uL (0-900); Monocytes Percent Auto 12.4 % (3-14); Neutrophils Absolute Auto 6800 /uL (1500-7000); Neutrophils Percent Auto 65.3 % (50-75); Platelet Count 151 X10^3/uL (150-400); Red Cell Distribution Width 15.5 % (11.6-14.8); White Blood Cell Count 10.4 X10^3/uL (4.5-11.0)
[2022-05-17 17:04] LABS: Alanine Aminotransferase 22 IU/L (<35); Alkaline Phosphatase 95 U/L (38-126); Aspartate Aminotransferase 27 IU/L (14-36); BUN Creatinine Ratio 16.9 (6-22); Bilirubin Total 0.7 mg/dL (0.2-1.3); Blood Urea Nitrogen 12 mg/dL (7-17); Calcium 8.4 mg/dL (8.4-10.2); Carbon Dioxide 24 mmol/L (22-32); Chloride 99 mmol/L (98-107); Creatine Kinase 33 U/L (30-135); Estimated Glomerular Filt Rate > 60 mL/min (>60); Glucose 82 mg/dL (80-110); Potassium 3.4 mmol/L (3.4-5.1); Sodium 133 mmol/L (137-145); Total Protein 6.1 g/dL (6.3-8.2)
[2022-05-17 17:16] LABS: NT-proBNP (BNP-Adult 18+) 2100 pg/mL (<450); Troponin I < 0.012 ng/mL (0.01-0.034)
[2022-05-17] MEDS: FUROSEMIDE 40 MG/4 ML VIAL 20 MG IV (18:37)
--- NOTE | 2022-05-17 19:31 | RT ---
At 1920, attempted ABG, missed radial artery. Pt refused additional attempts. Dr. Noyola notified.
--- NOTE | 2022-05-17 19:46 | PC.NURSE ---
Patient turned to room air for ABG, per RT attempted x1 unsuccessfully then pt refused re-try, providers notified. Pt 88% on RA, placed back on 2L NC.
--- NOTE | 2022-05-17 19:47 | PC.NURSE ---
Some vital signs per paper charting.
--- NOTE | 2022-05-17 20:40 | PC.NURSE ---
Extensively re-educated pt and spouse on use of call button. 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 Pt asking about how to unplug monitors, educated pt monitors are to remain in place and staff will assist. Offered pt carlene, education provided, pt declines at this time.
[2022-05-17 21:01] VITALS: BMI 20.3
[2022-05-17 21:06] LABS: COVID19 -Nasal RAPID POSITIVE (Negative)
--- NOTE | 2022-05-17 22:00 | P.HP_ITS ---
History of Present Illness History of Present Illness Date Patient Seen: 05/17/22 Time Patient Seen: 22:01 Chief complaint: Blood oxygen @ 70% Narrative: Osiris Woodruff is an 81-year-old female was admitted for abdominal pain and a operative correction of a splenic flexure stricture admitted on May 14 and discharged on May 16.? The patient has been in hospital for several days and underwent surgery on May 14.? She underwent a laparoscopic assisted left colectomy. On May 16, she was felt to be stable for discharge by General surgery area was noted that she may require oxygen and a consultation was done on the day of discharge and deemed to be safe for discharge. She presents today May 17 with continued hypoxia. took her oxygen saturation and it read 70% after noting that she was swollen in her face and hands. She denies cough, shortness of breath, chest pain, nausea vomiting, she does endorse postoperative abdominal pain, denies diarrhea or constipation. She had an incontinence episode in the room while I was seeing her and had just been administered IV Lasix. in the room apparently is on the board and is concerned with her care. He states that they have COVID-19 in March of 2020, March of 2022 and apparently now. It is unknown whether he is positive for COVID. The patient underwent CT scanning for pulmonary embolism which was negative however noted trace bilateral pleural effusions. She is afebrile, blood pressure 187 over 87 heart rate 81 respiratory rate 18 oxygen saturation of 96% on 2 L she weighs 52.1 kg with a BMI of 20.3 Her BNP was elevated at 2100 and she denies a personal history of CHF but states her parents both had it. She has tested positive for COVID-19. Labs are otherwise unremarkable. FH: Patient stated a family history of congestive heart failure on both sides. Patient History Medical History Alcohol use Allergies Anxiety Chicken pox Chronic back pain Colitis COVID-19 virus infection (~04/16/22) Decline in verbal memory Disease of spine Fecal incontinence Fibroids Fractures (~2021) Headache Hearing loss History of anemia History of urinary incontinence Hypertension, essential Hyponatremia Irritable bowel syndrome Memory impairment Mumps Normocytic anemia Oral herpes Painful menstrual periods Physical deconditioning Post-menopausal Recurrent sinusitis Rheumatic fever (~1953) Rheumatoid arthritis Rosacea Rubella Screening for osteoporosis Sepsis (12/2021) Sleep apnea Substance abuse (~2011) Surgical History History of hysterectomy Hx of removal of cyst Family & Social History Social History: household members spouse Safety & Behavioral: Feels Safe in Current Yes Environment Been Physically Hurt or No Threatened By a Person Tobacco & Substance use: Smoking Status Never smoker alcohol intake current alcohol intake frequency a few times a month Substance Use Type marijuana Meds Home Medications and Allergies Home Medications Medication Instructions Recorded Confirmed Type venlafaxine 150 mg 150 mg PO DAILY 11/19/18 05/14/22 History capsule,extended release 24 hr hydroxyzine pamoate 25 mg capsule 25 mg PO DAILY 10/11/21 05/14/22 History triamcinolone acetonide 0.1 % 1 applic topical BID PRN Rash 10/11/21 05/10/22 History topical cream acyclovir 400 mg tablet 400 mg PO DAILY PRN cold sores #20 10/23/21 05/10/22 Rx tabs trazodone 100 mg tablet 100 mg PO BEDTIME PRN insomnia #90 10/23/21 05/10/22 Rx tabs thiamine HCl (vitamin B1) 100 mg 100 mg PO DAILY 01/19/22 05/14/22 History tablet Total restore 1 cap PO TID 03/26/22 05/10/22 History amlodipine 10 mg tablet 10 mg PO DAILY #90 tabs 05/01/22 05/14/22 Rx hydrochlorothiazide 12.5 mg tablet 12.5 mg PO DAILY PRN leg swelling 05/01/22 05/14/22 Rx #30 tabs hydrocodone 5 mg-acetaminophen 325 1 tab PO Q8H PRN pain #14 tabs 05/16/22 Rx mg tablet Allergies Allergy/AdvReac Type Severity Reaction Status Date / Time Sulfa (Sulfonamide Allergy Unknown Rash Verified 05/17/22 12:01 Antibiotics) Review of Systems Review of Systems ROS: Yes All systems reviewed with the patient and are negative except as otherwise documented Exam Vital Signs (past 8 hours): - 05/17/22 16:17 05/17/22 16:30 Pulse Rate 83 78 Respiratory Rate 22 18 Blood Pressure 147/92 H 181/86 H Pulse Oximetry 88 L 96 Oxygen Delivery Method Room Air Nasal Cannula Oxygen Flow Rate 2 2 Oxygen Delivery Method Nasal Cannula Oxygen Flow Rate 2 Narrative Exam Narrative: Gen: Alert, oriented, frail appearing 81 y.o. female, anxious HEENT: normocephalic, atraumatic, conjunctiva clear, sclera non-icteric, oral mucosa pink and moist Neck: supple, full ROM, no JVD, trachea is midline Resp: Bilateral faint wheezes and rales, non-labored breathing CV: RRR, no murmur or rubs Abd: soft, non-tender, normoactive BTs Skin: Trace edema bilateral lower extremities, no lesions or rashes, dry and intact Neuro: Alert and oriented X 4 w/no focal deficits. Speech clear and coherent. Extremities: moves all 4 extremities, is ambulatory, negative Florian?s sign Psyche: normal mood and affect. Objective Labs Result Diagrams: 05/17/22 16:15 05/17/22 16:15 Labs: Laboratory Results - last 24 hr 05/17/22 05/17/22 05/17/22 16:15 16:15 20:39 WBC 10.4 RBC 4.20 Hgb 11.5 L Hct 35.5 L MCV 84.5 MCH 27.4 MCHC 32.4 RDW 15.5 H Plt Count 151 Neut % (Auto) 65.3 Lymph % (Auto) 15.7 L [place] % (Auto) 12.4 Eos % (Auto) 5.6 H Baso % (Auto) 1.0 Neut # (Auto) 6800 Lymph # (Auto) 1600 [place] # (Auto) 1300 H Eos # (Auto) 600 H Baso # (Auto) 100 Sodium 133 L Potassium 3.4 Chloride 99 Carbon Dioxide 24 BUN 12 Creatinine 0.71 Estimated GFR > 60 BUN/Creatinine Ratio 16.9 Glucose 82 Calcium 8.4 Total Bilirubin 0.7 AST 27 ALT 22 Alkaline Phosphatase 95 Total Creatine Kinase 33 CK-MB (CK-2) TNP CK-MB (CK-2) Rel Index TNP Troponin I < 0.012 NT-Pro-B Natriuret Pep 2100 H Total Protein 6.1 L SARS-CoV-2 (PCR) Positive H Assessment & Plan Assessment & Plan narrative: Osiris Woodruff is admitted as an inpatient found to be COVID-19 positive, hypoxic with an elevated proBNP suspicious for congestive heart failure unknown if related to COVID-19. COVID-19 Pneumonia, acute, present on admission * Patient was administered loading dose of IV Remdesevir 200 mg and dexamethasone 6 mg tonight * Continue IV Remdesevir 100 mg and dexamethasone 6 mg the following day * Patient is initiated on Baricitinib 4 mg po daily due to high risk of accelerating oxygen support requirements. * Supplemental O2 by nasal cannula 2 liters * Patient has has vaccinated and boosted Elevated proBNP suspicious for new onset congestive heart failure CHADS VASC 2 score of 6 * She was diuresed with IV Lasix in the emergency department * Echocardiogram scheduled for the morning * Blood pressure is currently 187/87 and she will be initiated on oral losartan 12.5 mg p.o. tonight and will continue 25 mg daily Essential hypertension, chronic * She normally takes amlodipine 5 mg daily and this will be continued Status post laparoscopic colectomy on 05/16/2022 * She was discharged on oral hydrocodone and this will be continued for moderate to severe pain * Tylenol 650 mg q.6 hours as needed as needed for fever or mild pain Chronic insomnia * She is written for her normal dose of trazodone 100 mg at bedtime as needed Other independent historians: , Mandeep Woodruff Discussion of results, plan of care with independent HCP/other ED provider Reviewed outside records: Operative notes VTE Prophylaxis: Wells risk score Enoxaparin 40 mg subQ once daily Bilateral SCDs Patient is admitted to the inpatient service due to the severity of disease, risks of further disease progression and this stay is expected to exceed 2 midnights. FEN: IV fluids: saline lock, diet: no-added salt cardiac diet, labs: CBC, C/BMP, liver enzymes, Mag, PT/INR Consultants None, Dispo: Eventual d/c to home. Consider home d/c on paxlovid and supplemental O2 Code status: Full code as discussed with the patient who identifies her yuni and Mandeep as her surrogate and POA. [X] I have utilized all available immediate resources to obtain, update, or review of the patient's current medications VTE Deep Vein Thrombosis/Pulmonary Embolism Present on Admission: No MIPS - Admit I confirm the patient?s Advance Care Plan is present, Code status is documented, Surrogate decision maker is in patient?s record: Yes MIPS - DC The patient has current or prior documentation of left ventricular ejection fraction (LVEF) less than 40%, or moderate or severely depressed left ventricular systolic function.: No COVID-19 COVID-19 status: Positive Result date/Date tested (Pos, Neg/Pending): 05/17/22 Time Spent With Patient Critical Care time: I spent a total of [] minutes of critical care time on this patient's care today; this time is exclusive of procedural time. Scores CHADS-VASc Congestive heart failure: yes Hypertension: yes Age 75 years or older: yes Diabetes mellitus: no Stroke, TIA, or TE: no Vascular disease: yes Age 65 to 74 years: no Sex category (female): Female CHADS-VASc Score: 6
[2022-05-17 22:10] VITALS: BP 187/87; PULSE 81
[2022-05-17] MEDS: LOSARTAN 25 MG TABLET PO (22:10)
[2022-05-17] MEDS: REMDESIVIR 200 MG in SODIUM CHLORIDE 0.9% 210 ML 250 MG IV (22:12)
[2022-05-17] MEDS: BARICITINIB 2 MG TABLET 4 MG PO (22:47)
[2022-05-18] VITALS (7 sets, daily range): BP systolic 137–159; BP diastolic 73–99; PULSE 73–84; RESP 14–22; TEMP 36.5–36.9; O2SAT 93–98
--- NOTE | 2022-05-18 | DI.ECHO.S_ITS ---
[place] +---------+ [facility] +---------+ : : [address] : : : : [id number] : : : : Phone: [phone] Echocardiogram Report + + :Name: MICH MONTEJO Study Date: 05/18/2022 Height: 25 in : :[facility] ReadingLocation: Weight: 115 lb : : Gender: Female BSA: 0.78 m2 : :: 1940 Age: 81 yrs BP: 142/85 mmHg: :Reason For Study: Hypoxia, elevated BNP : :Ordering Physician: GEORGE, : :NATY Performed By: Mylene Guy : :Referring: NATY VAZQUEZ : + + Interpretation Summary The ejection fraction is estimated to be 65-70%. Grade I diastolic dysfunction. The right ventricle is normal in size and function. The left atrium is moderately dilated. There is mild aortic stenosis. Pulmonary artery pressures cannot be estimated because of the lack of a measurable TR jet velocity. There is a small left-sided pleural effusion. Procedure: A two-dimensional transthoracic echocardiogram with color flow and Doppler was performed. The patient was in sinus rhythm with heart rates between 69-74 bpm during the exam. The patient had frequent PVCs during the exam. Left Ventricle: The left ventricle is normal in size and wall thickness. The ejection fraction is estimated to be 65-70%. Diastolic parameters suggest a relaxation abnormality of the left ventricle, consistent with probable normal filling pressures. Right Ventricle: The right ventricle is normal in size and function. Atria: The left atrium is moderately dilated. The right atrium is normal in size. There is no Doppler evidence for an interatrial shunt. Mitral Valve: The mitral valve is normal in structure and function. There is trace mitral regurgitation. Aortic Valve: The aortic valve is trileaflet. The aortic valve is mildly calcified. There is mild aortic stenosis. The aortic valve mean gradient is 12 mmHg. The peak aortic velocity is 2.3 m/sec. No aortic regurgitation is present. Tricuspid Valve: The tricuspid valve is normal in structure and function. There is a trace or physiologic amount of tricuspid regurgitation. Pulmonary artery pressures cannot be estimated because of the lack of a measurable TR jet velocity. Pulmonic Valve: The pulmonic valve leaflets are thin and pliable; valve motion is normal. There is no pulmonic valvular regurgitation. Great Vessels: The aortic root is normal size. The ascending aorta is normal in size. The IVC is of normal diameter and collapses greater than 50% with a sniff. This suggests a low right atrial pressure of 3 mm Hg. Pericardium/ Pleura There is no pericardial effusion. There is a small left- sided pleural effusion. MMode/2D Measurements & Calculations LVIDd: 4.3 cm LVOT diam: 1.8 cm LVIDs: 2.4 cm Ao root diam: 2.5 cm FS: 43.9 % asc Aorta Diam: 3.1 cm EPSS: 0.30 cm IVSd: 0.58 cm LVPWd: 0.61 cm LV brown. diameter/BSA (cm/m^2): 5.5 LV sys. diameter/BSA (cm/m^2): 3.1 LA A2 area: 14.9 cm2 RA long axis: 4.1 cm LA A4 area: 14.6 cm2 RA area: 11.7 cm2 LA length (vol): 4.6 cm RA vol: 28.7 ml LA vol: 40.5 ml RA : 36.9 ml/m2 LA vol index: 52.0 ml/m2 RVD1 (basal): 3.0 cm TAPSE: 2.5 cm Doppler Measurements & Calculations Ao V2 max: 231.5 cm/sec LVOT Max [place]: 120.8 cm/sec Ao V2 mean: 164.3 cm/sec LV V1 max P.8 mmHg Ao max P.4 mmHg LV V1 VTI: 26.2 cm Ao mean P.0 mmHg GIUSEPPE(I,D): 1.3 cm2 Ao V2 VTI: 50.2 cm GIUSEPPE(V,D): 1.3 cm2 sev ratio: 0.52 GIUSEPPE indexed to BSA (cm^2/m^2): 1.7 MV E max amador: 96.2 cm/sec TR max amador: 204.1 cm/sec MV A max amador: 144.4 cm/sec TR max P.8 mmHg MV E/A: 0.67 PA V2 max: 99.8 cm/sec Med Peak E' Amador: 4.8 cm/sec PA V2 mean: 75.3 cm/sec E/E' med: 20.0 PA mean P.4 mmHg Lat Peak E' [place]ador: 7.2 cm/sec E/E' lat: 13.3 E/e' average: 16.6 MV dec time: 0.36 sec MVA(VTI): 1.6 cm2 MV V2 mean: 80.2 cm/sec SV(LVOT): 64.4 ml MV mean P.1 mmHg MV V2 VTI: 41.5 cm Reading Physician:11:26 AM
[2022-05-18 06:10] LABS: Add Manual Diff / Slide Review NO; Basophils Absolute Auto 100 /uL (0-100); Basophils Percent Auto 0.8 % (0-2); Eosinophils Absolute Auto 400 /uL (0-450); Eosinophils Percent Auto 4.4 % (2-4); Hematocrit 32.4 % (36-46); Hemoglobin 10.5 g/dL (12.0-16.0); Lymphocytes Absolute Auto 2800 /uL (1100-4500); Lymphocytes Percent Auto 32.3 % (25-40); Mean Corpuscular HGB Conc 32.4 % (30-36); Mean Corpuscular Hemoglobin 27.1 PG (26-34); Mean Corpuscular Volume 83.6 fL (80-100); Monocytes Absolute Auto 1300 /uL (0-900); Monocytes Percent Auto 14.4 % (3-14); Neutrophils Absolute Auto 4200 /uL (1500-7000); Neutrophils Percent Auto 48.1 % (50-75); Platelet Count 189 X10^3/uL (150-400); Red Blood Cell Count 3.88 X10^6/uL (4.0-5.2); Red Cell Distribution Width 15.1 % (11.6-14.8); White Blood Cell Count 8.8 X10^3/uL (4.5-11.0)
[2022-05-18 06:29] LABS: Alanine Aminotransferase 18 IU/L (<35); Alkaline Phosphatase 82 U/L (38-126); Aspartate Aminotransferase 21 IU/L (14-36); Bilirubin Total 0.5 mg/dL (0.2-1.3); Blood Urea Nitrogen 9 mg/dL (7-17); Calcium 8.1 mg/dL (8.4-10.2); Carbon Dioxide 29 mmol/L (22-32); Chloride 96 mmol/L (98-107); Estimated Glomerular Filt Rate > 60 mL/min (>60); Glucose 74 mg/dL (80-110); HEMOLYSIS < 15 (0-50); Magnesium 1.4 mg/dL (1.6-2.3); Potassium 3.5 mmol/L (3.4-5.1); Sodium 135 mmol/L (137-145); Total Protein 5.7 g/dL (6.3-8.2)
[2022-05-18] MEDS: ASPIRIN EC 81 MG TABLET PO (09:16)
[2022-05-18] MEDS: AMLODIPINE 5 MG TABLET PO (09:16)
[2022-05-18] MEDS: METOPROLOL ER 25 MG TABLET 12.5 MG PO (09:16)
[2022-05-18] MEDS: VENLAFAXINE ER 75 MG CAP 150 MG PO (09:16)
[2022-05-18] MEDS: ENOXAPARIN 40 MG/0.4 ML SYRINGE SUBCUT (09:16)
[2022-05-18] MEDS: LOSARTAN 25 MG TABLET PO (09:19)
[2022-05-18] MEDS: DEXAMETHASONE 10 MG/ML VIAL 6 MG IV (09:19)
[2022-05-18] MEDS: POTASSIUM CHLORIDE 20 MEQ TAB PO (09:24)
[2022-05-18] MEDS: MAGNESIUM CHLORIDE 64 MG TABLET 128 MG PO (09:32)
[2022-05-18] MEDS: REMDESIVIR 100 MG in SODIUM CHLORIDE 0.9% 230 ML 250 MG IV (09:33)
--- NOTE | 2022-05-18 13:07 | CM.DANOTE ---
DCP: Case received, EMR reviewed. Pt is currently in Isolation with Covid +. Was able to complete assessment with recent dcp notes since pt had just been recently discharged. Attempted to reach out to spouse for further information. This CM left a VM and is awaiting call back. Pt is an 81yo female who arrived via POV with hypoxia requiring oxygen. She was discharged on 05/16 s/p colectomy on 05/14. She holds diagnosis of Covid 19, Elevated proBNP consistent with CHF, and essential hypertension. PCP: Mari Varghese Payor: Medicare; Out of State [employer] This CM is unable to reach spouse at this time. Per prior notes, pt lives with her spouse in [place] and she is independent at baseline. She ambulates independently without DME and is steady on her feet. This CM notified Nora, salina at [facility], letting her know that pt has been readmitted as they were to open care yesterday. P: Follow closely for needs attempt to contact with any concerns. Heena Skinner RN Case Manager Discharge Planning/Care Management Advanced directive, confirm from FAMILY Start: 05/18/22 01:31 Freq: Q24H Status: Active Protocol: Document 05/18/22 01:36 MS (Rec: 05/18/22 01:49 MS [id number]) Advance Directive, confirm on record Time 01:37 Person contacted Pt Copy received No CM Discharge Assessment Start: 05/18/22 13:02 Freq: Status: Active Protocol: Document 05/18/22 13:02 FER (Rec: 05/18/22 13:07 [id number]) Discharge Planning Assessment Assigned Freight Loading Supervisor Heena Skinner RN Case Manager Advance Directives? Yes Advance Directives on File No History Provided By Patient,Significant Other, Medical Record Has Patient been admitted in last 30 Yes days? Prior Living Arrangements House Household Members spouse Type of transporation used prior to Relies on Others admit Independent with ADL's Yes Is patient alert and oriented? Yes Needs Assistance With Home Chores / Shopping Caregiver for Another No Patient/Family Preference Home with Home Health Comment Signature is currently ordered from recent visit Barriers to Discharge No Discharge Plan Home with Home Health Transportation Arrangement Spouse Referrals Initiated Home Health If patient plan is home with home health Yes : Has signed face to face form been completed? Whiteboard Updated in Patient Room with No name and ext. # of Freight Loading Supervisor Comment Pt is in isolation Review Status In Process Next Review Type Continued Stay Review
--- NOTE | 2022-05-18 15:10 | P.PN_ITS ---
Subjective Subjective Date Patient Seen: 05/18/22 Interval history: Feels mildly short of breath, was able to be weaned off O2 today, discontinued steroids and remdesevir. TTE with normal EF, grade I diastolic dysfunction, and mild aortic stenosis. No chest pain, nausea, vomiting. Exam Vital Signs (past 8 hours): - 05/18/22 07:20 05/18/22 09:51 05/18/22 10:38 Temperature Pulse Rate 73 Respiratory Rate Blood Pressure 146/76 H Pulse Oximetry 96 Oxygen Delivery Method Nasal Cannula Room Air Oxygen Flow Rate 2 05/18/22 10:33 Temperature 98.1 F Pulse Rate 73 Respiratory Rate 18 Blood Pressure 146/73 H Pulse Oximetry 94 Oxygen Delivery Method Oxygen Flow Rate 0 Fraction of Inspired Oxygen 28 SaO2/FiO2 Ratio 339 Oxygen Delivery Method Room Air Oxygen Flow Rate 0 Narrative Exam Narrative: Gen: Alert, oriented, frail appearing 81 y.o. female, no acute distress. HEENT: normocephalic, atraumatic, conjunctiva clear, sclera non-icteric, oral mucosa pink and moist Neck: supple, full ROM, no JVD, trachea is midline Resp: Bilateral faint wheezes and rales, non-labored breathing CV: RRR, no murmur or rubs Abd: soft, non-tender, normoactive BTs Skin: Trace edema bilateral lower extremities, no lesions or rashes, dry and intact Neuro: Alert and oriented X 4 w/no focal deficits. Speech clear and coherent. Extremities: trace edema, no joint effusions Psyche: normal mood and affect. Objective Labs Result Diagrams: 05/18/22 05:50 05/18/22 05:50 Labs: Laboratory Results - last 24 hr 05/17/22 05/17/22 05/17/22 16:15 16:15 20:39 WBC 10.4 RBC 4.20 Hgb 11.5 L Hct 35.5 L MCV 84.5 MCH 27.4 MCHC 32.4 RDW 15.5 H Plt Count 151 Neut % (Auto) 65.3 Lymph % (Auto) 15.7 L [place] % (Auto) 12.4 Eos % (Auto) 5.6 H Baso % (Auto) 1.0 Neut # (Auto) 6800 Lymph # (Auto) 1600 [place] # (Auto) 1300 H Eos # (Auto) 600 H Baso # (Auto) 100 Sodium 133 L Potassium 3.4 Chloride 99 Carbon Dioxide 24 BUN 12 Creatinine 0.71 Estimated GFR > 60 BUN/Creatinine Ratio 16.9 Glucose 82 Calcium 8.4 Magnesium Total Bilirubin 0.7 AST 27 ALT 22 Alkaline Phosphatase 95 Total Creatine Kinase 33 CK-MB (CK-2) TNP CK-MB (CK-2) Rel Index TNP Troponin I < 0.012 NT-Pro-B Natriuret Pep 2100 H Total Protein 6.1 L SARS-CoV-2 (PCR) Positive H 05/18/22 05/18/22 05:50 05:50 WBC 8.8 RBC 3.88 L Hgb 10.5 L Hct 32.4 L MCV 83.6 MCH 27.1 MCHC 32.4 RDW 15.1 H Plt Count 189 Neut % (Auto) 48.1 L Lymph % (Auto) 32.3 [place] % (Auto) 14.4 H Eos % (Auto) 4.4 H Baso % (Auto) 0.8 Neut # (Auto) 4200 Lymph # (Auto) 2800 [place] # (Auto) 1300 H Eos # (Auto) 400 Baso # (Auto) 100 Sodium 135 L Potassium 3.5 Chloride 96 L Carbon Dioxide 29 BUN 9 Creatinine 0.69 Estimated GFR > 60 BUN/Creatinine Ratio 13.0 Glucose 74 L Calcium 8.1 L Magnesium 1.4 L Total Bilirubin 0.5 AST 21 ALT 18 Alkaline Phosphatase 82 Total Creatine Kinase CK-MB (CK-2) CK-MB (CK-2) Rel Index Troponin I NT-Pro-B Natriuret Pep Total Protein 5.7 L SARS-CoV-2 (PCR) [facility] Medical History Alcohol use Allergies Anxiety Chicken pox Chronic back pain Colitis COVID-19 virus infection (~04/16/22) Decline in verbal memory Disease of spine Fecal incontinence Fibroids Fractures (~2021) Headache Hearing loss History of anemia History of urinary incontinence Hypertension, essential Hyponatremia Irritable bowel syndrome Memory impairment Mumps Normocytic anemia Oral herpes Painful menstrual periods Physical deconditioning Post-menopausal Recurrent sinusitis Rheumatic fever (~1953) Rheumatoid arthritis Rosacea Rubella Screening for osteoporosis Sepsis (12/2021) Sleep apnea Substance abuse (~2011) Surgical History History of hysterectomy Hx of removal of cyst Social History household members: spouse Smoking Status: Never smoker alcohol intake: current substance use type: does not use additional social history: The patient lives locally with her . Assessment & Plan Assessment & Plan narrative: Osiris Woodruff is admitted as an inpatient for acute respiratory failure with hypoxia in the setting of COVID-19 infection and diastolic heart failure, improved today with diuresis. #COVID-19 Pneumonia, acute, present on admission with acute respiratory failure with hypoxia. * Patient was administered loading dose of IV Remdesevir 200 mg and dex amethasone 6 mg. Can stop doses as she is no longer hypoxic. * Supplemental O2 by nasal cannula to maintain O2 >90%. * If hypoxia returns, repeat CXR, on my evaluation there was minimal fluid, possible R pleural effusion but much more fluid noted on CT. She diuresed well with IV lasix, continue oral furosemide for now. #Acute diastolic heart failure * She was diuresed with IV Lasix in the emergency department, continue furosemide oral 20 mg BID, assess response to see if return of hypoxia overnig ht with oral diuretic. * Echocardiogram shows normal EF, grade I diastolic dysfunction, mild aortic stenosis * switch from home HCTZ to oral lasix, continue to assess response to fluids. * troponins negative, EKG without acute ischemia #Essential hypertension, chronic * She normally takes amlodipine 5 mg daily and this will be continued, hold hctz as noted above. #Status post laparoscopic essie-colectomy on 05/16/2022 * She was discharged on oral hydrocodone and this will be continued for moderate to severe pain * Tylenol 650 mg q.6 hours as needed as needed for fever or mild pain #Chronic insomnia * She is written for her normal dose of trazodone 100 mg at bedtime as needed Hypomagnesemia - Mg 1.4, replete today, likely in setting of diuresis and recent surgery. Other independent historians: , Mandeep Woodruff Reviewed outside records: Operative notes VTE Prophylaxis: Lovenox Dispo: remains inpatient, possible discharge home tomorrow. FEN: IV fluids: saline lock, diet: no-added salt cardiac diet, labs: CBC, C/BMP, liver enzymes, Mag, PT/INR Consultants None, Code status: Full code as discussed with the patient who identifies her , Mandeep as her surrogate and POA. [X] I have utilized all available immediate resources to obtain, update, or review of the patient's current medications VTE Deep Vein Thrombosis/Pulmonary Embolism Present on Admission: No MIPS - Admit I confirm the patient?s Advance Care Plan is present, Code status is documented, Surrogate decision maker is in patient?s record: Yes MIPS - DC The patient has current or prior documentation of left ventricular ejection fraction (LVEF) less than 40%, or moderate or severely depressed left v entricular systolic function.: No COVID-19 COVID-19 status: Positive Result date/Date tested (Pos, Neg/Pending): 05/17/22 Time Spent With Patient Critical Care time: I spent a total of [] minutes of critical care time on this patient's care today; this time is exclusive of procedural time.
[2022-05-18 16:36] LABS: Albumin 2.9 g/dL (3.5-5.0); Globulin 2.8 g/dL (1.7-4.1)
[2022-05-18 16:54] LABS: Globulin 3.1 g/dL (1.7-4.1); HEMOLYSIS 15 (0-50)
[2022-05-18] MEDS: FUROSEMIDE 20 MG TABLET PO (18:13)
[2022-05-18] MEDS: SODIUM CHLORIDE 0.9% FLUSH 10 ML IV (20:34)
--- NOTE | 2022-05-18 21:30 | PC.NURSE ---
Addendum entered by Madeleine Aguirre R.N. 05/19/22 02:36: Patient continues to be awake. Is busy packing her belongings to go home. When RN entered room she had all of bedding off bed, white board wiped clean, garbage bagged up and by the door. Rambling in conversation. Is oriented to self, BD, age, and year. Thought this was a B&B and does not remember why she is in the hospital. Attempted to reorient. Patient assisted RN to remake the bed. Discussed with her the importance of trying to get some sleep; medicated with Trazadone after which she insisted on putting on her makeup and then agreeable to sitting in recliner with feet elevated (refused to lie down on the bed) with the lights turned off. Original Note: Patient is alert and oriented. Slightly ALGAACIQ bilaterally. Breath sounds CTA with RA sat of 93% and denies SOB either at rest or with activity. HRR. Denied nausea. BT hypoactive but abdomen is soft and states she is passing flatus. Denied dysuria, frequency or urgency with urination. Is independent with mobility and is steady on her feet. Aquacel dressing to midline of abdomen + 4 bandaid dressings are all CDI. Denied pain. Refused SCD's as is walking around in room. On covid isolation precautions. Fall risk score is moderate; bed alarm is not in use at this time.
[2022-05-19] MEDS: TRAZODONE 100 MG TABLET PO (02:29)
[2022-05-19 05:22] VITALS: BP 149/79; PULSE 79; RESP 20; TEMP 36.4; O2SAT 96
[2022-05-19 07:37] LABS: Add Manual Diff / Slide Review NO; Basophils Absolute Auto 0 /uL (0-100); Basophils Percent Auto 0.2 % (0-2); Eosinophils Absolute Auto 0 /uL (0-450); Eosinophils Percent Auto 0.1 % (2-4); Hematocrit 31.8 % (36-46); Hemoglobin 10.3 g/dL (12.0-16.0); Lymphocytes Absolute Auto 1300 /uL (1100-4500); Lymphocytes Percent Auto 15.5 % (25-40); Mean Corpuscular HGB Conc 32.5 % (30-36); Mean Corpuscular Volume 83.2 fL (80-100); Monocytes Absolute Auto 1200 /uL (0-900); Monocytes Percent Auto 14.3 % (3-14); Neutrophils Absolute Auto 6000 /uL (1500-7000); Neutrophils Percent Auto 69.9 % (50-75); Platelet Count 236 X10^3/uL (150-400); Red Blood Cell Count 3.82 X10^6/uL (4.0-5.2); White Blood Cell Count 8.6 X10^3/uL (4.5-11.0)
[2022-05-19 07:46] LABS: Alanine Aminotransferase 19 IU/L (<35); Alkaline Phosphatase 78 U/L (38-126); Aspartate Aminotransferase 21 IU/L (14-36); BUN Creatinine Ratio 23.4 (6-22); Bilirubin Total 0.4 mg/dL (0.2-1.3); Blood Urea Nitrogen 18 mg/dL (7-17); Calcium 8.4 mg/dL (8.4-10.2); Carbon Dioxide 25 mmol/L (22-32); Chloride 99 mmol/L (98-107); Estimated Glomerular Filt Rate > 60 mL/min (>60); Glucose 132 mg/dL (80-110); HEMOLYSIS < 15 (0-50); Magnesium 1.5 mg/dL (1.6-2.3); Potassium 3.3 mmol/L (3.4-5.1); Sodium 135 mmol/L (137-145)
--- NOTE | 2022-05-19 09:00 | PM.DS.1 ---
History of Present Illness History of Present Illness Date Patient Seen: 05/19/22 Time Patient Seen: 09:00 Chief complaint: Blood oxygen @ 70% Narrative: Per admitting provider, Osiris Woodruff is an 81-year-old female was admitted for abdominal pain and a operative correction of a splenic flexure stricture admitted on May 14 and discharged on May 16.? The patient has been in hospital for several days and underwent surgery on May 14.? She underwent a laparoscopic assisted left colectomy. On May 16, she was felt to be stable for discharge by General surgery area was noted that she may require oxygen and a consultation was done on the day of discharge and deemed to be safe for discharge. She presents today May 17 with continued hypoxia. took her oxygen saturation and it read 70% after noting that she was swollen in her face and hands. She denies cough, shortness of breath, chest pain, nausea vomiting, she does endorse postoperative abdominal pain, denies diarrhea or constipation. She had an incontinence episode in the room while I was seeing her and had just been administered IV Lasix. in the room apparently is on the board and is concerned with her care. He states that they have COVID-19 in March of 2020, March of 2022 and apparently now. It is unknown whether he is positive for COVID. The patient underwent CT scanning for pulmonary embolism which was negative however noted trace bilateral pleural effusions. She is afebrile, blood pressure 187 over 87 heart rate 81 respiratory rate 18 oxygen saturation of 96% on 2 L she weighs 52.1 kg with a BMI of 20.3 Her BNP was elevated at 2100 and she denies a personal history of CHF but states her parents both had it. She has tested positive for COVID-19. Labs are otherwise unremarkable. FH: Patient stated a family history of congestive heart failure on both sides. Discharge Providers Provider Date of admission: 05/17/22 20:36 Discharge Date: 05/19/22 Primary care physician: Mari Varghese DO Consults: 05/17/22 13:[address] [facility] [place] - Ab Init[employer] Etl Developer Stat Comment: Discharge provider: Lefty Christian DO Summary Hospital Course Discharge Diagnosis: #COVID-19 Pneumonia, acute, present on admission with acute respiratory failure with hypoxia. #Acute diastolic heart failure #Essential hypertension, chronic #Status post laparoscopic essie-colectomy on 05/16/2022 #Chronic insomnia #Hypomagnesemia, hypokalemia, acute. Hospital Course: Osiris Woodruff is an 81 year old female with PMH of HTN and recent laparoscopic essie-colectomy on 05/16 who was admitted as an inpatient for acute respiratory failure with hypoxia in the setting of COVID-19 infection and diastolic heart failure. Echocardiogram was performed that showed grade 1 diastolic dysfunction and mild aortic stenosis with a normal ejection fraction. She improved quickly with Lasix therapy and was no longer requiring supplemental oxygen at the time of discharge. She was saturating 99% after taking a shower. His initially continued on remdesivir, and dexamethasone for possible COVID-19 infection but these were stopped after resolution of her hypoxia. It is felt more likely that her respiratory failure was due to acute diastolic heart failure at the time of discharge. With diuresis, her potassium and magnesium were quite low, and she was repleted multiple times over the course of her admission. She will continue on oral Lasix, 20 mg daily, orally as an outpatient to maintain euvolemic her home HCTZ was stopped. While on furosemide, I recommend that she continue potassium and magnesium supplementation which was prescribed as well. I recommend that she follow up primary care provider as an outpatient for further medication management. Time Spent with Patient Time spent: Greater than 30 minutes Exam Vital Signs (past 8 hours): - 05/19/22 05:22 Temperature 97.6 F Pulse Rate 79 Respiratory Rate 20 Blood Pressure 149/79 H Pulse Oximetry 96 Oxygen Flow Rate 0 Fraction of Inspired Oxygen 28 SaO2/FiO2 Ratio 339 Oxygen Delivery Method Room Air Oxygen Flow Rate 0 Narrative Exam Narrative: Gen: Alert, oriented, frail appearing 81 y.o. female, no acute distress. HEENT: normocephalic, atraumatic, conjunctiva clear, sclera non-icteric, oral mucosa pink and moist Neck: supple, full ROM, no JVD, trachea is midline Resp: Bilateral faint wheezes and rales, non-labored breathing CV: RRR, no murmur or rubs Abd: soft, non-tender, normoactive BTs Skin: Trace edema bilateral lower extremities, no lesions or rashes, dry and intact Neuro: Alert and oriented X 4 w/no focal deficits. Speech clear and coherent. Extremities: trace edema, no joint effusions Psyche: normal mood and affect. Objective Labs Result Diagrams: 05/19/22 07:19 05/19/22 07:19 Labs: Laboratory Results - last 24 hr 05/17/22 05/18/22 05/19/22 16:15 05:50 07:19 WBC 8.6 RBC 3.82 L Hgb 10.3 L Hct 31.8 L MCV 83.2 MCH 27.0 MCHC 32.5 RDW 15.0 H Plt Count 236 Neut % (Auto) 69.9 D Lymph % (Auto) 15.5 L [place] % (Auto) 14.3 H Eos % (Auto) 0.1 L Baso % (Auto) 0.2 Neut # (Auto) 6000 Lymph # (Auto) 1300 [place] # (Auto) 1200 H Eos # (Auto) 0 Baso # (Auto) 0 Sodium Potassium Chloride Carbon Dioxide BUN Creatinine Estimated GFR BUN/Creatinine Ratio Glucose Calcium Magnesium Total Bilirubin AST ALT Alkaline Phosphatase Total Protein Albumin 3.0 L 2.9 L Globulin 3.1 2.8 Albumin/Globulin Ratio 1.0 1.0 05/19/22 07:19 WBC RBC Hgb Hct MCV MCH MCHC RDW Plt Count Neut % (Auto) Lymph % (Auto) [place] % (Auto) Eos % (Auto) Baso % (Auto) Neut # (Auto) Lymph # (Auto) [place] # (Auto) Eos # (Auto) Baso # (Auto) Sodium 135 L Potassium 3.3 L Chloride 99 Carbon Dioxide 25 BUN 18 H Creatinine 0.77 Estimated GFR > 60 BUN/Creatinine Ratio 23.4 H Glucose 132 H Calcium 8.4 Magnesium 1.5 L Total Bilirubin 0.4 AST 21 ALT 19 Alkaline Phosphatase 78 Total Protein 6.0 L Albumin 3.0 L Globulin 3.0 Albumin/Globulin Ratio 1.0 [facility] Medical History Alcohol use Allergies Anxiety Chicken pox Chronic back pain Colitis COVID-19 virus infection (~04/16/22) Decline in verbal memory Disease of spine Fecal incontinence Fibroids Fractures (~2021) Headache Hearing loss History of anemia History of urinary incontinence Hypertension, essential Hyponatremia Irritable bowel syndrome Memory impairment Mumps Normocytic anemia Oral herpes Painful menstrual periods Physical deconditioning Post-menopausal Recurrent sinusitis Rheumatic fever (~1953) Rheumatoid arthritis Rosacea Rubella Screening for osteoporosis Sepsis (12/2021) Sleep apnea Substance abuse (~2011) Surgical History History of hysterectomy Hx of removal of cyst Social History household members: spouse Smoking Status: Never smoker alcohol intake: current substance use type: does not use additional social history: The patient lives locally with her . Discharge Plan Discharge Plan Patient Disposition: Home Provider Discharge Comment: You were admitted to the hospital with low oxygen. You improved quickly, may have been due to mild fluid overload, COVID infection. Home HCTZ changed to furosemide, discontinue HCTZ. Continue supplementation of potassium and magnesium as prescribed below. Discharge orders & Medications Prescriptions: New furosemide 20 mg tablet 20 mg PO DAILY 30 Days Qty: 30 0RF magnesium chloride 64 mg tablet,delayed release (DR/EC) 64 mg PO BID 30 Days Qty: 60 0RF potassium chloride 20 mEq tablet extended release 20 meq PO DAILY 30 Days Qty: 30 0RF Continued hydroxyzine pamoate 25 mg capsule 25 mg PO DAILY triamcinolone acetonide 0.1 % cream 1 applic topical BID PRN (Reason: Rash) Label Comments: APPLY TOPICALLY TO ECZEMA TWICE DAILY FOR UP TO 2 WEEKS NEEDED trazodone 100 mg tablet 100 mg PO BEDTIME PRN (Reason: insomnia) Qty: 90 1RF Hold Instructions: Home Medication placed on hold at Doctor's office acyclovir 400 mg tablet 400 mg PO DAILY PRN (Reason: cold sores) Qty: 20 1RF Hold Instructions: Home Medication placed on hold at Doctor's office Rx Instructions: USE DURING OUTBREAK; NO LONGER THAN 5 DAYS thiamine HCl (vitamin B1) 100 mg tablet 100 mg PO DAILY Total restore 1 cap PO TID Label Comments: Magnesium and zinc gut health supplement amlodipine 10 mg tablet 10 mg PO DAILY Qty: 90 1RF venlafaxine 150 mg capsule,extended release 24hr 150 mg PO DAILY Label Comments: TK 1 C PO QD hydrocodone-acetaminophen 5-325 mg tablet 1 tab PO Q8H PRN (Reason: pain) Qty: 14 0RF Discontinued hydrochlorothiazide 12.5 mg tablet 12.5 mg PO DAILY PRN (Reason: leg swelling) Qty: 30 0RF Rx Instructions: take one in the morning as needed for leg swelling Follow up/Referrals: Mari Varghese DO [Primary Care Provider] - Diet/Activity/Treatments Diet: Diet as Tolerated Activity: As tolerated Visit Report/Discharge Packet Instructions: [address]: What You Need to Eat, DI for Heart Failure, DI for COVID-19 (Suspected or Confirmed ), COVID-19: Can I Get It Again? Stand Alone Forms: Patient Portal/API, Stroke Signs & Symptoms Discharge Data Primary Care Provider: Mari Varghese
[2022-05-19 09:30] VITALS: BP 125/71; PULSE 77; RESP 16; TEMP 36.7; O2SAT 99
[2022-05-19] MEDS: MAGNESIUM CHLORIDE 64 MG TABLET 128 MG PO (10:04)
[2022-05-19] MEDS: POTASSIUM CHLORIDE 20 MEQ TAB 40 MEQ PO (10:04)
[2022-05-19] MEDS: FUROSEMIDE 20 MG TABLET PO (10:05)
[2022-05-19] MEDS: METOPROLOL ER 25 MG TABLET 12.5 MG PO (10:05)
[2022-05-19] MEDS: VENLAFAXINE ER 75 MG CAP 150 MG PO (10:05)
[2022-05-19] MEDS: AMLODIPINE 5 MG TABLET PO (10:05)
[2022-05-19] MEDS: LOSARTAN 25 MG TABLET PO (10:05)
[2022-05-19] MEDS: ASPIRIN EC 81 MG TABLET PO (10:08)
--- NOTE | 2022-05-19 15:24 | CM.DPC ---
Addendum entered by Heena Skinner R.N. 05/19/22 15:30: Heena Skinner, bridge opener Original Note: DCP: This CM Sent Discharge Summary, Medication list, Resumption of care order to [facility] Via Fax and called and confirmed sent fax. This CM spoke with answering service, Karin at [phone] who was to confirm fax was sent with environmental inspector nurse.
--- NOTE | 2022-05-19 16:21 | PC.NURSE ---
Discharge: Pt feels ready to d/c to home. Spouse here at time of teaching. Pt denies any sob and RA sats are mid 90's. Pt is up in the room, often thinks she is home. Spouse reports she is more disoriented than usual. This could be the stay at the hospital. Spouse feels comfortable bringing her home as well. Reviewed d/c packet. Spouse is wondering how they keep getting covid, given instruction information Covid- can I get it again? He verb understanding. Rest of questions answered. Pt d/c to home with spouse via their auto.
== END 2022-05-19 11:30 | disposition home or self-care (01) | DRG 177 ==
LOC: ED 20:29 → AC 05-18 07:59
PROVIDERS: Admitting Provider Nurse Practitioner Family; Emergency Provider Emergency Medicine; PCP Family Medicine; Visit Provider Nurse Practitioner Family
DX: U07.1 COVID-19 (principal); I50.31 Acute diastolic (congestive) heart failure; J12.82 Pneumonia due to coronavirus disease 2019; J96.01 Acute respiratory failure with hypoxia; I11.0 Hypertensive heart disease with heart failure; G47.00 Insomnia, unspecified; E83.42 Hypomagnesemia; E87.6 Hypokalemia; F41.9 Anxiety disorder, unspecified; Z98.0 Intestinal bypass and anastomosis status
CPT/HCPCS: 36415; 71275; 80053; 82550; 83735; 83880; 84484; 85025; 87635; 93005; 93306; 94760; 94762; 96365; 96375; 99285; C9803; J1100; J1650; J1940; Q9967

== ENCOUNTER → 2022-06-19 09:18 | Outpatient (CLI) | payer MEDICARE, BC, SELFPAY ==
[2022-06-19 11:18] LABS: BUN Creatinine Ratio 13.8 (6-22); Blood Urea Nitrogen 13 mg/dL (7-17); Calcium 9.5 mg/dL (8.4-10.2); Carbon Dioxide 27 mmol/L (22-32); Chloride 94 mmol/L (98-107); Estimated Glomerular Filt Rate > 60 mL/min (>60); Glucose 94 mg/dL (80-110); HEMOLYSIS < 15 (0-50); Potassium 3.1 mmol/L (3.4-5.1); Sodium 134 mmol/L (137-145)
[2022-06-19 11:26] LABS: NT-proBNP (BNP-Adult 18+) 351 pg/mL (<450)
== END ==
PROVIDERS: PCP Family Medicine; Referring Provider Family Medicine; Visit Provider Family Medicine
DX: I50.9 Heart failure, unspecified (principal)
CPT/HCPCS: 80048; 83880

== ENCOUNTER → 2022-08-23 11:11 | Outpatient (CLI) | payer MEDICARE, BC, SELFPAY ==
[2022-08-23 13:11] LABS: Blood Urea Nitrogen 16 mg/dL (7-17); Calcium 9.4 mg/dL (8.4-10.2); Carbon Dioxide 24 mmol/L (22-32); Chloride 99 mmol/L (98-107); Estimated Glomerular Filt Rate > 60 mL/min (>60); Glucose 78 mg/dL (80-110); HEMOLYSIS < 15 (0-50); Potassium 3.7 mmol/L (3.4-5.1); Sodium 137 mmol/L (137-145)
== END ==
PROVIDERS: PCP Family Medicine; Referring Provider Family Medicine; Visit Provider Family Medicine
DX: E87.6 Hypokalemia (principal)
CPT/HCPCS: 36415; 80048

== ENCOUNTER → 2022-09-07 09:10 | Outpatient (CLI) | payer MEDICARE, BC, SELFPAY ==
--- NOTE | 2022-09-07 | DI.MG.S_ITS ---
BILATERAL DIGITAL SCREENING MAMMOGRAM 3D/2D WITH CAD: 09/07/2022 CLINICAL: Routine screening. Family history of breast cancer. Comparison is made to exams dated: 08/30/2021 mammogram, 08/24/2020 mammogram, and 10/28/2018 mammogram - [facility]. Both breasts are extremely dense, which lowers the sensitivity of mammography (category d />75% glandular tissue). Current study was also evaluated with a Computer Aided Detection (CAD) system. There are benign calcifications in both breasts. There also are benign post operative findings in the right breast. No significant masses, calcifications, or other findings are seen in either breast. There has been no significant interval change. IMPRESSION: BENIGN There is no mammographic evidence of malignancy. A 1 year screening mammogram is recommended. Based on the Tyrer Cuzick model (a risk assessment model) the patient's lifetime risk is 4.8% and her 10 year risk is 0.0%. According to the ACR, ACS, and NCCN guidelines, an annual breast MRI exam along with mammogram is recommended if the patient's lifetime risk is 20% or greater. This exam was interpreted at Station ID: [id number]. NOTE: For mammograms, a report in lay terms will be sent to the patient. Approximately 15% of breast malignancies will not be visualized mammographically. In the management of a palpable breast mass, a negative mammogram must not discourage biopsy of a clinically suspicious lesion. Electronically Signed By: Rosalba donald/luda:09/07/2022 13:04:35 letter sent: Normal Exam ACR BI-RADS Category 2: Benign Finding(s) 3342F
== END ==
PROVIDERS: PCP Family Medicine; Referring Provider Family Medicine; Visit Provider Family Medicine
DX: Z12.31 Encounter for screening mammogram for malignant neoplasm of breast (principal); Z80.3 Family history of malignant neoplasm of breast
CPT/HCPCS: 77063; 77067

== ENCOUNTER → 2023-01-15 11:52 | Outpatient (CLI) | payer MEDICARE, BC, SELFPAY ==
--- NOTE | 2023-01-15 11:57 | DI.CT.S_ITS ---
PROCEDURE: CT UE LT WO CON INDICATIONS: Other fractures of lower end of left radius TECHNIQUE: Noncontrast 1 mm axial sections acquired through the carpal bones, with coronal and sagittal reformats. COMPARISON: [facility], CR, XR WRIST 3+ VIEWS [facility]+ [facility], 01/02/2023, 15:45. FINDINGS: Image quality: Excellent. Bones: Displaced intra-articular fracture at the distal radius is seen. The fracture appears to be chronic with corticated margins. There is up to 6 mm volar displacement and 8 mm proximal displacement of the dominant volar fracture fragment with overriding of fracture fragments. Additional smaller comminuted fracture fragments are seen along the dorsal and radial aspect of the fracture. There is mild proximal and volar subluxation of the proximal carpal row. Severe degenerative changes are seen at the 1st carpometacarpal joint with joint space narrowing and marginal osteophyte formation. Degenerative changes also seen at the triscaphe joint and throughout the included metacarpophalangeal joints. There is generalized osteopenia. Soft tissues: Joint effusions are seen throughout the wrist. There is surrounding nonspecific soft tissue edema. The articular cartilages, ligaments, and tendons are not well evaluated with standard CT. The musculature surrounding the wrist is normal in bulk. IMPRESSION: 1. Displaced comminuted intra-articular fracture of the distal radius as described above with developing corticated margins along the fracture line and no osseous bridging identified. There is proximal volar subluxation of the proximal carpal row along with the dominant volar fracture fragment. 2. 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 Approved by: Liam Ponce M.D. on 01/15/2023 at 15:27
== END ==
PROVIDERS: PCP Family Medicine; Referring Provider Orthopaedic Surgery; Visit Provider Orthopaedic Surgery
DX: S52.572A Other intraarticular fracture of lower end of left radius, initial encounter for closed fracture (principal); M18.12 Unilateral primary osteoarthritis of first carpometacarpal joint, left hand; X58.XXXA Exposure to other specified factors, initial encounter
CPT/HCPCS: 73200

== ENCOUNTER → 2023-03-05 12:45 | Outpatient (CLI) | payer MEDICARE, BC, SELFPAY ==
[2023-03-05 14:37] LABS: BUN Creatinine Ratio 22.9 (6-22); Blood Urea Nitrogen 22 mg/dL (7-17); Calcium 9.4 mg/dL (8.4-10.2); Carbon Dioxide 27 mmol/L (22-32); Chloride 97 mmol/L (98-107); Estimated Glomerular Filt Rate 59 mL/min (>60); Glucose 104 mg/dL (80-110); HEMOLYSIS < 15 (0-50); Potassium 3.4 mmol/L (3.4-5.1); Sodium 136 mmol/L (137-145)
[2023-03-05 16:11] LABS: Creatinine Urine Random 79.2 mg/dL
[2023-03-05 16:13] LABS: Microalbumi Creatinin Ratio Ur 21.4 ug/mg CR (<30); Microalbumin Urine Random 1.7 mg/dL (0-1.6)
== END ==
PROVIDERS: PCP Family Medicine; Referring Provider Family Medicine; Visit Provider Family Medicine
DX: E87.6 Hypokalemia (principal); I50.9 Heart failure, unspecified; I10 Essential (primary) hypertension
CPT/HCPCS: 36415; 80048; 82043; 82570

== ENCOUNTER → 2023-05-14 09:54 | Outpatient (CLI) | payer MEDICARE, BC, SELFPAY | PROVIDERS: PCP Family Medicine; Referring Provider Psychiatry & Neurology Neurology; Visit Provider Psychiatry & Neurology Neurology | DX: R41.89 Other symptoms and signs involving cognitive functions and awareness (principal) | CPT/HCPCS: 36415 ==

== ENCOUNTER → 2023-11-29 09:51 | Outpatient (CLI) | payer MEDICARE, BC, SELFPAY ==
--- NOTE | 2023-11-29 09:53 | DI.MG.S_ITS ---
BILATERAL DIGITAL SCREENING MAMMOGRAM 3D/2D WITH CAD: 11/29/2023 CLINICAL: Routine screening. Family history of breast cancer. Comparison is made to exams dated: 09/07/2022 mammogram, 08/30/2021 mammogram, 08/24/2020 mammogram, 10/28/2018 mammogram, and 01/14/2017 mammogram - [facility]. Both breasts are extremely dense, which lowers the sensitivity of mammography (category d />75% glandular tissue). Current study was also evaluated with a Computer Aided Detection (CAD) system. There are benign calcifications in both breasts. There also are benign post operative findings in the right breast. No significant masses, calcifications, or other findings are seen in either breast. There has been no significant interval change. IMPRESSION: BENIGN There is no mammographic evidence of malignancy. A 1 year screening mammogram is recommended. Based on the Tyrer Cuzick model (a risk assessment model) the patient's lifetime risk is 1.8% and her 10 year risk is 0.0%. According to the ACR, ACS, and NCCN guidelines, an annual breast MRI exam along with mammogram is recommended if the patient's lifetime risk is 20% or greater. This exam was interpreted at Station ID: [id number]. NOTE: For mammograms, a report in lay terms will be sent to the patient. Approximately 15% of breast malignancies will not be visualized mammographically. In the management of a palpable breast mass, a negative mammogram must not discourage biopsy of a clinically suspicious lesion. Electronically Signed By: Jason hollis/luda:11/29/2023 14:09:39 letter sent: Normal Exam ACR BI-RADS Category 2: Benign Finding(s) 3342F
== END ==
PROVIDERS: PCP Family Medicine; Referring Provider Family Medicine; Visit Provider Family Medicine
DX: Z12.31 Encounter for screening mammogram for malignant neoplasm of breast (principal); Z80.3 Family history of malignant neoplasm of breast; R92.343 Mammographic extreme density, bilateral breasts
CPT/HCPCS: 77063; 77067

== ENCOUNTER 2024-03-03 20:12 | Inpatient (IN) | payer MEDICARE, BC, SELFPAY ==
[2024-02-24 14:19] VITALS: BMI 20.3
[2024-03-03] VITALS (17 sets, daily range): BP systolic 110–143; BP diastolic 58–71; PULSE 67–86; RESP 15–31; TEMP 36.3; O2SAT 94–99; BMI 20.9
--- NOTE | 2024-03-03 20:50 | PC.NURSE ---
Labs drawn from existing IV line
--- NOTE | 2024-03-03 20:51 | EKG_ITS ---
[place] [id number] [place] [id number] Test Date: 2024-03-03 Pat Name: Osiris Woodruff Department: [facility] Room: Gender: Female Casing Soaker: LATASHA : 1940 Requested By: Order Number: [id number] Reading MD: Balwinder Garner MD Measurements Intervals [place] Rate: 70 P: 70 ND: 170 QRS: 27 QRSD: 84 T: 50 QT: 466 QTc: 503 Interpretive Statements Sinus rhythm with premature supraventricular complexes Septal infarct , age undetermined Electronically Signed On 03-04-2024 8:03:35 PST by Balwinder Garner MD
[2024-03-03 21:13] LABS: Add Manual Diff / Slide Review NO; Basophils Absolute Auto 100 /uL (0-100); Basophils Percent Auto 1.1 % (0-2); Eosinophils Absolute Auto 0 /uL (0-450); Eosinophils Percent Auto 0.4 % (2-4); Lymphocytes Absolute Auto 3200 /uL (1100-4500); Lymphocytes Percent Auto 43.5 % (25-40); Mean Corpuscular HGB Conc 30.2 % (30-36); Mean Corpuscular Hemoglobin 16.6 PG (26-34); Monocytes Absolute Auto 800 /uL (0-900); Neutrophils Absolute Auto 3200 /uL (1500-7000); Platelet Count 196 X10^3/uL (150-400); Red Blood Cell Count 3.33 X10^6/uL (4.0-5.2); Red Cell Distribution Width 20.9 % (11.6-14.8); White Blood Cell Count 7.3 X10^3/uL (4.5-11.0)
[2024-03-03 21:16] LABS: Hematocrit 18.3 % (36-46); Hemoglobin 5.5 g/dL (12.0-16.0)
--- NOTE | 2024-03-03 21:17 | ED.NEUROSD ---
HPI - Neuro Symptoms/Deficit General Chief Complaint: Neuro Symptoms/Deficit Stated Complaint: Low BP Time Seen by Provider: 03/03/24 20:55 Source: patient, family and EMS Mode of arrival: EMS Limitations: no limitations History of Present Illness HPI Narrative: Patient is an 83-year-old female. Not on anticoagulation. Does have a history of alcohol use/abuse that her describes as ?binge drinking? is here for evaluation of low blood pressure and a presyncopal/syncopal episode that occurred this evening. Patient and state that for the past several months she has had decline in health and weakness. Has been sleeping quite a bit at home. Over the past couple weeks she has had dark-colored stools. No nausea vomiting. She denies anticoagulation. Does not take anti-inflammatories on a regular basis. No blood in her urine. This evening she went to go use the restroom and had a very difficult time getting up off the toilet. Potentially had a syncopal episode. Did not hit her head. Reports no extremity injuries. No neck pain. EMS was called. She was found to be hypotensive with standing. Here in the emergency department she denies chest pain, shortness of breath, abdominal pain, nausea vomiting or diarrhea. On Anticoagulants: No Related Data Home Medications Medication Instructions Recorded Confirmed triamcinolone acetonide 0.1 % 1 applic topical BID PRN Rash 10/11/21 02/24/24 topical cream thiamine HCl (vitamin B1) 100 mg 100 mg PO DAILY 01/19/22 02/24/24 tablet Total restore 1 cap PO TID 03/26/22 02/24/24 donepezil 5 mg tablet 5 mg PO BEDTIME 10/02/23 02/24/24 Previous Rx's Medication Instructions Recorded furosemide 20 mg tablet See Rx Instructions .Route 10/29/23 .COMPLEX #180 tabs magnesium chloride 64 mg 64 mg PO DAILY #90 tabs 10/29/23 (magnesium chloride) tablet,delayed release (Mag 64) potassium chloride 20 mEq 20 meq PO DAILY #90 tabs 12/06/23 tablet,extended release venlafaxine 150 mg 150 mg PO DAILY #90 caps 02/20/24 capsule,extended release 24 hr amlodipine 10 mg tablet 10 mg PO DAILY #90 tabs 02/24/24 azelastine 137 mcg (0.1 %) nasal 1 spray intranasal BID #30 mL 10/28/24 spray quetiapine 100 mg tablet 100 mg PO BEDTIME #90 tabs 02/24/24 Allergies Allergy/AdvReac Type Severity Reaction Status Date / Time Sulfa (Sulfonamide Allergy Unknown Rash Verified 02/24/24 16:39 Antibiotics) Review of Systems Review of Systems ROS Unobtainable: All systems reviewed & are unremarkable except as noted in HPI and below Hematologic/Lymphatic On Anticoagulants: No Patient History Medical History History of sepsis (~12/2021) History of anemia Postoperative wound abscess COVID-19 virus infection (~04/16/22) Physical deconditioning Hypertension, essential Post-menopausal Screening for osteoporosis Hyponatremia Normocytic anemia Decline in verbal memory Rosacea Sleep apnea Allergies Anxiety Headache Disease of spine Fractures (~2021) Chronic back pain Rubella Rheumatic fever (~1953) Mumps Oral herpes Chicken pox Recurrent sinusitis Hearing loss Painful menstrual periods Fibroids History of urinary incontinence Fecal incontinence Irritable bowel syndrome Colitis Alcohol use Surgical History Hx of removal of cyst History of hysterectomy Social History household members: spouse Smoking Status: Never smoker alcohol intake: current substance use type: does not use additional social history: The patient lives locally with her . Smoking Status: Never smoker alcohol intake frequency: a few times a month Substance Use Type: marijuana Exam Initial Vital Signs Initial Vital Signs: Vital Signs Pulse Rate 68 03/03/24 20:22 Respiratory Rate 15 03/03/24 20:22 Pulse Oximetry 98 03/03/24 20:22 Const General: cooperative and No ill appearing HENMI Head: normal to inspection and normocephalic Resp Effort & Inspection: normal respiratory effort Auscultation: clear to auscultation bilaterally Cardio Rate: regular rate Rhythm: regular rhythm GI Inspection: normal to inspection and non-distended Skin General: no rashes or lesions noted Neuro General: patient alert, patient awake and moves all extremities Extrem General: normal to inspection and capillary refill normal Course Orders Ordered: ED Orders 03/03/24 20:31 Complete Blood Count AUTO DIFF Stat Comprehensive Metabolic Panel Stat Lipase Stat Troponin & CK Cardiac Panel Stat 03/03/24 20:51 EKG-12 Lead Stat 03/03/24 21:28 Consult to General Surgery Stat 03/03/24 21:45 Packed Cells Stat Type and Screen Stat Bisacodyl (Bisacodyl 10 Mg Supp) 10 mg [place] DAILY PRN PRN Reason: Constipation Hydromorphone HCl (Hydromorphone 0.5 Mg Inj) 0.5 mg IV Q2H PRN PRN Reason: Pain, Severe (7-10) Lactated Ringer's (Lactated Ringers) 1,000 mls @ 70 mls/hr IV CONT DIONE Naloxone HCl (Naloxone 0.4 Mg/Ml Vial) 0.2 mg IV Q2MIN PRN PRN Reason: Opiate Reversal Pantoprazole Sodium (Pantoprazole 40 Mg Vial) 40 mg IV BID DIONE Discontinued Medications Sodium Chloride (Normal Saline 0.9%) 500 mls @ 500 mls/hr IV BOLUS ONE Stop: 03/03/24 21:54 Last Admin: 03/04/24 01:39 Dose: Not Given Documented By: BR Pantoprazole Sodium (Pantoprazole 40 Mg Vial) 80 mg IV NOW ONE Stop: 03/03/24 21:31 Last Admin: 03/03/24 21:39 Dose: 80 mg Documented By: LS Vital Signs Vital signs: Vital Signs - 8 hr 03/03/24 20:30 03/03/24 20:30 03/03/24 21:00 Pulse Rate 67 Respiratory Rate 18 Blood Pressure 131/60 125/58 L Pulse Oximetry 98 Oxygen Delivery Method 03/03/24 21:00 03/03/24 21:15 03/03/24 21:15 Pulse Rate 72 72 Respiratory Rate 16 15 Blood Pressure 128/60 Pulse Oximetry 98 96 Oxygen Delivery Method 03/03/24 21:18 03/03/24 21:18 03/03/24 21:19 Pulse Rate 76 70 Respiratory Rate 31 H Blood Pressure 126/59 L 128/60 Pulse Oximetry 97 Oxygen Delivery Method 03/03/24 21:19 03/03/24 21:19 03/03/24 21:20 Pulse Rate 83 76 Respiratory Rate 18 Blood Pressure 110/59 L 126/59 L Pulse Oximetry 96 Oxygen Delivery Method 03/03/24 21:22 03/03/24 21:30 03/03/24 21:30 Pulse Rate 86 70 Respiratory Rate 22 Blood Pressure 110/59 L 143/66 H Pulse Oximetry 98 Oxygen Delivery Method 03/03/24 21:52 03/03/24 21:52 03/03/24 22:04 Pulse Rate 71 80 Respiratory Rate 18 Blood Pressure 136/63 Pulse Oximetry 98 94 Oxygen Delivery Method Room Air 03/03/24 22:05 03/03/24 22:05 03/03/24 22:30 Pulse Rate 82 68 Respiratory Rate 24 15 Blood Pressure 134/60 Pulse Oximetry 95 96 Oxygen Delivery Method Room Air 03/03/24 22:30 03/03/24 23:00 03/03/24 23:00 Pulse Rate 71 Respiratory Rate Blood Pressure 139/63 140/67 Pulse Oximetry 96 Oxygen Delivery Method MDM - Neuro Symptoms/Deficit Lab Data Attestation: I reviewed the patient's lab results. 03/03/24 20:31 03/03/24 20:31 Labs: Lab Results 03/03/24 03/03/24 Range/Units 20:31 21:45 WBC 7.3 (4.5-11.0) X10^3/uL RBC 3.33 L (4.0-5.2) X10^6/uL Hgb 5.5 L* (12.0-16.0) g/dL Hct 18.3 L* (36-46) % MCV 55.0 L (80-100) fL MCH 16.6 L (26-34) PG MCHC 30.2 (30-36) % RDW 20.9 H (11.6-14.8) % Plt Count 196 (150-400) X10^3/uL Neut % (Auto) 44.0 L (50-75) % Lymph % (Auto) 43.5 H (25-40) % [place] % (Auto) 11.0 (3-14) % Eos % (Auto) 0.4 L (2-4) % Baso % (Auto) 1.1 (0-2) % Neut # (Auto) 3200 (3670-9679) /uL Lymph # (Auto) 3200 (3315-4344) /uL [place] # (Auto) 800 (0-900) /uL Eos # (Auto) 0 (0-450) /uL Baso # (Auto) 100 (0-100) /uL Platelet Estimate Adequate on smear RBC Morphology See below Poikilocytosis 1+ H Anisocytosis 2+ H Microcytosis 2+ H Target Cells 2+ H Schistocytes 1+ H Sodium 130 L (137-145) mmol/L Potassium 2.7 L* (3.4-5.1) mmol/L Chloride 98 (98-107) mmol/L Carbon Dioxide 20 L (22-32) mmol/L BUN 17 (7-17) mg/dL Creatinine 1.20 H (0.52-1.04) mg/dL Estimated GFR 45 L (>60) mL/min BUN/Creatinine Ratio 14.2 (6-22) Glucose 115 H (80-110) mg/dL Calcium 8.5 (8.4-10.2) mg/dL Total Bilirubin 0.4 (0.2-1.3) mg/dL AST 54 H (14-36) IU/L ALT 23 (<35) IU/L Alkaline Phosphatase 99 (38-126) U/L Total Creatine Kinase 193 H (30-135) U/L Troponin I 0.014 (0.01-0.034) ng/mL Total Protein 6.4 (6.3-8.2) g/dL Albumin 3.6 (3.5-5.0) g/dL Globulin 2.8 (1.7-4.1) g/dL Albumin/Globulin Ratio 1.3 (1.0-2.8) Lipase 100 (23-300) U/L Blood Type O Positive Antibody Screen Negative Crossmatch See Detail ECG Data Attestation: I personally reviewed and interpreted this ECG as follows: Interpretation: Sinus rhythm Ventricular rate is 70 Normal QRS Normal QTC No ST T wave changes MDM Narrative Medical decision making narrative: Here in the emergency department the patient is found to be significantly anemic. She was never had a blood transfusion in the past. 2 units of packed red blood cells ordered after discussion of risks and benefits. I do think that she would benefit from a blood transfusion. She denies chest pain or shortness of breath. I did discuss the case with Dr. Boo on-call for General surgery who stated that he would see the patient after admission. I discussed the case with Dr. Isaac hospitalist on-call who will admit for further evaluation and treatment. Critical Care Time Critical Care Time Critical Care Time: Yes Total Critical Care Time: 35 Attestation: The high probability of a clinically significant, sudden or life threatening deterioration of the [hematology system(s) required my full and direct attention, intervention and personal management. The aggregate critical care time was [35] minutes. This time is in addition to time spent performing reported procedures but includes the following: [x] Data Review and interpretation [x] Patient assessment and monitoring of vital signs [x] Documentation []x Medication orders and management Discharge Plan Departure Patient Disposition: Admitted As Inpatient Clinical Impression: GI bleed, Anemia Admit Date/Time: 03/03/24 23:21 Admit Provider: Alex Garcia
[2024-03-03 21:19] LABS: Alanine Aminotransferase 23 IU/L (<35); Albumin 3.6 g/dL (3.5-5.0); Albumin Globulin Ratio 1.3 (1.0-2.8); Alkaline Phosphatase 99 U/L (38-126); Aspartate Aminotransferase 54 IU/L (14-36); BUN Creatinine Ratio 14.2 (6-22); Bilirubin Total 0.4 mg/dL (0.2-1.3); Blood Urea Nitrogen 17 mg/dL (7-17); Calcium 8.5 mg/dL (8.4-10.2); Carbon Dioxide 20 mmol/L (22-32); Chloride 98 mmol/L (98-107); Creatine Kinase 193 U/L (30-135); Estimated Glomerular Filt Rate 45 mL/min (>60); Globulin 2.8 g/dL (1.7-4.1); Glucose 115 mg/dL (80-110); HEMOLYSIS 38 (0-50); Lipase 100 U/L (23-300); Sodium 130 mmol/L (137-145); Total Protein 6.4 g/dL (6.3-8.2)
--- NOTE | 2024-03-03 21:20 | PC.NURSE ---
Dr. Gavin at bedside. Orthostatic blood pressures completed.
[2024-03-03 21:22] LABS: Potassium 2.7 mmol/L (3.4-5.1)
[2024-03-03 21:30] LABS: Troponin I 0.014 ng/mL (0.01-0.034)
[2024-03-03] MEDS: PANTOPRAZOLE 40 MG VIAL 80 MG IV (21:39)
--- NOTE | 2024-03-03 21:46 | PC.NURSE ---
Labs drawn from existing IV line. Verbal order per Dr. Gavin to hold NS bolus at this time.
[2024-03-03 21:50] LABS: Anisocytosis 2+; Microcytosis 2+; Platelet Estimate Adequate on smear; Poikilocytosis 1+; Schistocytes 1+; Target Cells 2+
--- NOTE | 2024-03-03 22:05 | PC.NURSE ---
Pt assisted to restroom via wheel chair and 1 person assist.
--- NOTE | 2024-03-03 22:57 | PC.NURSE ---
Pt able to ambulate and maintain pulse ox 93-94%. Leslye Murphy informed.
--- NOTE | 2024-03-03 23:47 | PC.NURSE ---
Pt assisted to restroom via wheel chair and 1 person assist.
[2024-03-04] VITALS (20 sets, daily range): BP systolic 133–162; BP diastolic 60–86; PULSE 63–80; RESP 14–23; TEMP 36.4–37; O2SAT 95–98; BMI 21.7
--- NOTE | 2024-03-04 05:14 | PM.HP.1 ---
History of Present Illness History of Present Illness Date Patient Seen: 03/04/24 Time Patient Seen: 03:00 Chief complaint: Low BP Narrative: 83 y/o with PMH of alcoholism, dementia, depression, HTN, who developed progressive generalized weakness several weeks ago. She has been sleeping longer hours then before. Over the past couple weeks she has had dark-colored stools. Mild nausea , w/o vomiting, w/o abdominal pain. Hypokalemic. She has a history of colon resection in the past, not clear if she have had EGD. On admission receiving 2 units of PRBCs,admitted NPO for upper scope. [facility] Medical History History of sepsis (~12/2021) History of anemia Postoperative wound abscess COVID-19 virus infection (~04/16/22) Physical deconditioning Hypertension, essential Post-menopausal Screening for osteoporosis Hyponatremia Normocytic anemia Decline in verbal memory Rosacea Sleep apnea Allergies Anxiety Headache Disease of spine Fractures (~2021) Chronic back pain Rubella Rheumatic fever (~1953) Mumps Oral herpes Chicken pox Recurrent sinusitis Hearing loss Painful menstrual periods Fibroids History of urinary incontinence Fecal incontinence Irritable bowel syndrome Colitis Alcohol use Surgical History Hx of removal of cyst History of hysterectomy Social History household members: spouse Smoking Status: Never smoker alcohol intake: current substance use type: does not use additional social history: The patient lives locally with her . Meds Home Medications and Allergies Home Medications Medication Instructions Recorded Confirmed Type triamcinolone acetonide 0.1 % 1 applic topical BID PRN Rash 10/11/21 02/24/24 History topical cream thiamine HCl (vitamin B1) 100 mg 100 mg PO DAILY 01/19/22 02/24/24 History tablet Total restore 1 cap PO TID 03/26/22 02/24/24 History donepezil 5 mg tablet 5 mg PO BEDTIME 10/02/23 02/24/24 History furosemide 20 mg tablet See Rx Instructions .Route 10/29/23 02/24/24 Rx .COMPLEX #180 tabs magnesium chloride 64 mg 64 mg PO DAILY #90 tabs 10/29/23 02/24/24 Rx (magnesium chloride) tablet,delayed release (Mag 64) potassium chloride 20 mEq 20 meq PO DAILY #90 tabs 12/06/23 02/24/24 Rx tablet,extended release venlafaxine 150 mg 150 mg PO DAILY #90 caps 02/20/24 02/24/24 Rx capsule,extended release 24 hr amlodipine 10 mg tablet 10 mg PO DAILY #90 tabs 02/24/24 02/24/24 Rx azelastine 137 mcg (0.1 %) nasal 1 spray intranasal BID #30 mL 02/24/24 02/24/24 Rx spray quetiapine 100 mg tablet 100 mg PO BEDTIME #90 tabs 02/24/24 02/24/24 Rx Allergies Allergy/AdvReac Type Severity Reaction Status Date / Time Sulfa (Sulfonamide Allergy Unknown Rash Verified 02/24/24 16:39 Antibiotics) Review of Systems Review of Systems Narrative: poor historian Cardiovascular Comments: w/o chest pain Respiratory Comments: w/o cough or shortness of breath Gastrointestinal Comments: mild nausea, chronic heartburn, takes TUMS Genitourinary Comments: w/o dysuria Neurologic Comments: w/o seizures Exam Vital Signs (past 8 hours): - 03/03/24 21:15 03/03/24 21:15 03/03/24 21:18 Temperature Pulse Rate 72 Respiratory Rate 15 Blood Pressure 128/60 126/59 L Pulse Oximetry 96 Oxygen Delivery Method Oxygen Flow Rate 03/03/24 21:18 03/03/24 21:19 03/03/24 21:19 Temperature Pulse Rate 76 70 Respiratory Rate 31 H Blood Pressure 128/60 110/59 L Pulse Oximetry 97 Oxygen Delivery Method Oxygen Flow Rate 03/03/24 21:19 03/03/24 21:20 03/03/24 21:22 Temperature Pulse Rate 83 76 86 Respiratory Rate 18 Blood Pressure 126/59 L 110/59 L Pulse Oximetry 96 Oxygen Delivery Method Oxygen Flow Rate 03/03/24 21:30 03/03/24 21:30 03/03/24 21:52 Temperature Pulse Rate 70 Respiratory Rate 22 Blood Pressure 143/66 H 136/63 Pulse Oximetry 98 Oxygen Delivery Method Oxygen Flow Rate 03/03/24 21:52 03/03/24 22:04 03/03/24 22:05 Temperature Pulse Rate 71 80 Respiratory Rate 18 Blood Pressure 134/60 Pulse Oximetry 98 94 Oxygen Delivery Method Room Air Oxygen Flow Rate 03/03/24 22:05 03/03/24 22:30 03/03/24 22:30 Temperature Pulse Rate 82 68 Respiratory Rate 24 15 Blood Pressure 139/63 Pulse Oximetry 95 96 Oxygen Delivery Method Room Air Oxygen Flow Rate 03/03/24 23:00 03/03/24 23:00 03/03/24 23:30 Temperature Pulse Rate 71 76 Respiratory Rate 22 Blood Pressure 140/67 Pulse Oximetry 96 96 Oxygen Delivery Method Oxygen Flow Rate 03/03/24 23:30 03/03/24 23:47 03/03/24 23:47 Temperature Pulse Rate 81 Respiratory Rate 21 Blood Pressure 142/71 H 130/60 Pulse Oximetry 99 Oxygen Delivery Method Oxygen Flow Rate 03/04/24 00:00 03/04/24 00:00 03/04/24 00:03 Temperature 98.5 F Pulse Rate 70 70 Respiratory Rate 16 18 Blood Pressure 135/72 134/67 Pulse Oximetry 96 Oxygen Delivery Method Oxygen Flow Rate 03/04/24 00:04 03/04/24 00:04 03/04/24 00:05 Temperature Pulse Rate 69 Respiratory Rate 22 Blood Pressure 136/65 135/67 Pulse Oximetry 97 Oxygen Delivery Method Oxygen Flow Rate 03/04/24 00:05 03/04/24 00:15 03/04/24 00:15 Temperature 98.5 F Pulse Rate 70 68 Respiratory Rate 23 14 Blood Pressure 136/67 Pulse Oximetry 97 97 Oxygen Delivery Method Oxygen Flow Rate 03/04/24 00:22 03/04/24 00:22 03/04/24 00:23 Temperature 98.5 F 98.5 F Pulse Rate 75 72 Respiratory Rate 19 18 Blood Pressure 133/64 133/64 Pulse Oximetry 96 Oxygen Delivery Method Oxygen Flow Rate 03/04/24 00:30 03/04/24 00:30 03/04/24 00:45 Temperature Pulse Rate 72 Respiratory Rate 14 Blood Pressure 137/68 136/70 Pulse Oximetry 96 Oxygen Delivery Method Oxygen Flow Rate 03/04/24 00:45 03/04/24 01:00 03/04/24 01:00 Temperature Pulse Rate 76 70 Respiratory Rate 18 17 Blood Pressure 139/68 Pulse Oximetry 96 95 Oxygen Delivery Method Room Air Oxygen Flow Rate 03/04/24 01:58 03/04/24 03:31 03/04/24 03:50 Temperature 97.7 F 98.0 F 98.0 F Pulse Rate 80 72 67 Respiratory Rate 18 18 16 Blood Pressure 143/61 H 147/72 H 148/66 H Pulse Oximetry 97 Oxygen Delivery Method Oxygen Flow Rate 0 03/04/24 04:00 Temperature 98.2 F Pulse Rate 71 Respiratory Rate 16 Blood Pressure 155/60 H Pulse Oximetry Oxygen Delivery Method Oxygen Flow Rate Oxygen Delivery Method Room Air Oxygen Flow Rate 0 Narrative Exam Narrative: in no distress Neck Other: supple Resp Other: CTA Cardio Other: RRR GI Other: soft, not distended Skin Other: w/o jaundice / rashes Extrem Other: w/o swelling Psych Other: appropriate mood and affect, memory loss Objective ECG Impression: NSR, w/o ischemic changes Labs 03/03/24 20:31 03/03/24 20:31 Labs: Laboratory Results - last 24 hr 03/03/24 03/03/24 20:31 21:45 WBC 7.3 RBC 3.33 L Hgb 5.5 L* Hct 18.3 L* MCV 55.0 L MCH 16.6 L MCHC 30.2 RDW 20.9 H Plt Count 196 Neut % (Auto) 44.0 L Lymph % (Auto) 43.5 H [place] % (Auto) 11.0 Eos % (Auto) 0.4 L Baso % (Auto) 1.1 Neut # (Auto) 3200 Lymph # (Auto) 3200 [place] # (Auto) 800 Eos # (Auto) 0 Baso # (Auto) 100 Platelet Estimate Adequate on smear RBC Morphology See below Poikilocytosis 1+ H Anisocytosis 2+ H Microcytosis 2+ H Target Cells 2+ H Schistocytes 1+ H Sodium 130 L Potassium 2.7 L* Chloride 98 Carbon Dioxide 20 L BUN 17 Creatinine 1.20 H Estimated GFR 45 L BUN/Creatinine Ratio 14.2 Glucose 115 H Calcium 8.5 Total Bilirubin 0.4 AST 54 H ALT 23 Alkaline Phosphatase 99 Total Creatine Kinase 193 H Troponin I 0.014 Total Protein 6.4 Albumin 3.6 Globulin 2.8 Albumin/Globulin Ratio 1.3 Lipase 100 Blood Type O Positive Antibody Screen Negative Crossmatch See Detail Assessment & Plan Assessment and plan (1) Acute posthemorrhagic anemia: Status: Acute (2) Upper GI bleed: Status: Acute (3) Hypokalemia: Status: Acute (4) Alcohol use: Status: Chronic (5) Major depression in partial remission: Qualifiers: Major depression recurrence: recurrent Qualified Code(s): F33.41 - Major depressive disorder, recurrent, in partial remission Status: Acute (6) Hypertension, essential: Status: Acute (7) Hyponatremia: Status: Acute (8) Chronic back pain: Qualifiers: Back pain location: low back pain Back pain laterality: bilateral Sciatica presence: unspecified whether sciatica present Qualified Code(s): M54.50 - Low back pain, unspecified; G89.29 - Other chronic pain Status: Acute Assessment & Plan narrative: Acute Posthemorrhagic Anemia / suspected Upper GI Bleed - NPO, IVFs. EGD - PRBC x 2 - PPI - telemetry, CBC monitoring Hypokalemia - replaced - BMP Mg monitored Alcoholism - binging usually - w/o Hx of withdrawal delirium - MVIs / thiamine at home Depression / Dementia - Effexor, Seroquel at home HTN - Norvasc, Lasix at home - monitored DVT prophylaxis - SCDs Time-Based Coding :: [TOTAL MINUTES] spent with patient and on the chart (including review of chart, obtaining history, exam, reviewing outside data, placing orders, documenting exam and treatment plan, and counseling patient) on [DATE]. Quality VTE Deep Vein Thrombosis/Pulmonary Embolism Present on Admission: No
[2024-03-04] MEDS: LACTATED RINGERS 1,000 ML 70 ML IV (06:27)
[2024-03-04 07:02] LABS: BUN Creatinine Ratio 11.3 (6-22); Blood Urea Nitrogen 11 mg/dL (7-17); Calcium 8.6 mg/dL (8.4-10.2); Carbon Dioxide 25 mmol/L (22-32); Chloride 103 mmol/L (98-107); Estimated Glomerular Filt Rate 58 mL/min (>60); Glucose 91 mg/dL (80-110); HEMOLYSIS < 15 (0-50); Magnesium 1.4 mg/dL (1.6-2.3); Sodium 137 mmol/L (137-145)
[2024-03-04 07:16] LABS: Potassium 2.6 mmol/L (3.4-5.1)
[2024-03-04 07:43] LABS: Add Manual Diff / Slide Review NO; Basophils Absolute Auto 100 /uL (0-100); Basophils Percent Auto 1.8 % (0-2); Eosinophils Absolute Auto 200 /uL (0-450); Eosinophils Percent Auto 2.1 % (2-4); Hematocrit 29.5 % (36-46); Hemoglobin 9.5 g/dL (12.0-16.0); Lymphocytes Absolute Auto 2300 /uL (1100-4500); Lymphocytes Percent Auto 29.4 % (25-40); Mean Corpuscular HGB Conc 32.2 % (30-36); Mean Corpuscular Hemoglobin 20.9 PG (26-34); Mean Corpuscular Volume 64.8 fL (80-100); Monocytes Absolute Auto 1000 /uL (0-900); Monocytes Percent Auto 13.2 % (3-14); Neutrophils Absolute Auto 4100 /uL (1500-7000); Neutrophils Percent Auto 53.5 % (50-75); Platelet Count 184 X10^3/uL (150-400); Red Blood Cell Count 4.55 X10^6/uL (4.0-5.2); Red Cell Distribution Width 31.9 % (11.6-14.8); White Blood Cell Count 7.7 X10^3/uL (4.5-11.0)
[2024-03-04 07:57] LABS: Anisocytosis 3+
[2024-03-04 07:58] LABS: Microcytosis 2+
[2024-03-04 07:59] LABS: Target Cells 2+
--- NOTE | 2024-03-04 09:09 | P.CONS_ITS ---
History of Present Illness Consult details Date Patient Seen: 03/04/24 Time Patient Seen: 09:09 Chief complaint: Low BP Narrative: Osiris is an 83 year old woman with dementia who presented to the emergency department last night for several days of generalized weakness, fatigue and melena. She was noted to be profoundly anemic and was transfused 2 units of packed cells. She denies abdominal pain. She is a poor historian. Meds Home Medications and Allergies Home Medications Medication Instructions Recorded Confirmed Type triamcinolone acetonide 0.1 % 1 applic topical BID PRN Rash 10/11/21 02/24/24 History topical cream thiamine HCl (vitamin B1) 100 mg 100 mg PO DAILY 01/19/22 02/24/24 History tablet Total restore 1 cap PO TID 03/26/22 02/24/24 History donepezil 5 mg tablet 5 mg PO BEDTIME 10/02/23 02/24/24 History furosemide 20 mg tablet See Rx Instructions .Route 10/29/23 02/24/24 Rx .COMPLEX #180 tabs magnesium chloride 64 mg 64 mg PO DAILY #90 tabs 10/29/23 02/24/24 Rx (magnesium chloride) tablet,delayed release (Mag 64) potassium chloride 20 mEq 20 meq PO DAILY #90 tabs 12/06/23 02/24/24 Rx tablet,extended release venlafaxine 150 mg 150 mg PO DAILY #90 caps 02/20/24 02/24/24 Rx capsule,extended release 24 hr amlodipine 10 mg tablet 10 mg PO DAILY #90 tabs 02/24/24 02/24/24 Rx azelastine 137 mcg (0.1 %) nasal 1 spray intranasal BID #30 mL 02/24/24 02/24/24 Rx spray quetiapine 100 mg tablet 100 mg PO BEDTIME #90 tabs 02/24/24 02/24/24 Rx Allergies Allergy/AdvReac Type Severity Reaction Status Date / Time Sulfa (Sulfonamide Allergy Unknown Rash Verified 02/24/24 16:39 Antibiotics) Exam Vital Signs (past 8 hours): - 03/04/24 01:58 03/04/24 03:31 03/04/24 03:50 Temperature 97.7 F 98.0 F 98.0 F Pulse Rate 80 72 67 Respiratory Rate 18 18 16 Blood Pressure 143/61 H 147/72 H 148/66 H Pulse Oximetry 97 Oxygen Flow Rate 0 03/04/24 04:00 03/04/24 04:00 03/04/24 06:21 Temperature 98.2 F 98.6 F 97.8 F Pulse Rate 71 80 63 Respiratory Rate 16 19 16 Blood Pressure 155/60 H 136/74 150/70 H Pulse Oximetry 97 Oxygen Flow Rate 0 03/04/24 08:00 Temperature 97.6 F Pulse Rate 64 Respiratory Rate 16 Blood Pressure 142/65 H Pulse Oximetry 96 Oxygen Flow Rate 0 Oxygen Delivery Method Room Air Oxygen Flow Rate 0 Const General: No acute distress Objective Labs 03/04/24 07:25 03/04/24 06:41 Labs: Laboratory Results - last 24 hr 03/03/24 03/03/24 03/04/24 20:31 21:45 06:41 WBC 7.3 RBC 3.33 L Hgb 5.5 L* Hct 18.3 L* MCV 55.0 L MCH 16.6 L MCHC 30.2 RDW 20.9 H Plt Count 196 Neut % (Auto) 44.0 L Lymph % (Auto) 43.5 H [place] % (Auto) 11.0 Eos % (Auto) 0.4 L Baso % (Auto) 1.1 Neut # (Auto) 3200 Lymph # (Auto) 3200 [place] # (Auto) 800 Eos # (Auto) 0 Baso # (Auto) 100 Platelet Estimate Adequate on smear RBC Morphology See below Poikilocytosis 1+ H Anisocytosis 2+ H Microcytosis 2+ H Target Cells 2+ H Schistocytes 1+ H Sodium 130 L 137 Potassium 2.7 L* 2.6 L* Chloride 98 103 Carbon Dioxide 20 L 25 BUN 17 11 Creatinine 1.20 H 0.97 Estimated GFR 45 L 58 L BUN/Creatinine Ratio 14.2 11.3 Glucose 115 H 91 Calcium 8.5 8.6 Magnesium 1.4 L Total Bilirubin 0.4 AST 54 H ALT 23 Alkaline Phosphatase 99 Total Creatine Kinase 193 H Troponin I 0.014 Total Protein 6.4 Albumin 3.6 Globulin 2.8 Albumin/Globulin Ratio 1.3 Lipase 100 Blood Type O Positive Antibody Screen Negative Crossmatch See Detail 03/04/24 07:25 WBC 7.7 RBC 4.55 Hgb 9.5 L Hct 29.5 L MCV 64.8 L D MCH 20.9 L MCHC 32.2 RDW 31.9 H Plt Count 184 Neut % (Auto) 53.5 Lymph % (Auto) 29.4 [place] % (Auto) 13.2 Eos % (Auto) 2.1 Baso % (Auto) 1.8 Neut # (Auto) 4100 Lymph # (Auto) 2300 [place] # (Auto) 1000 H Eos # (Auto) 200 Baso # (Auto) 100 Platelet Estimate RBC Morphology See below Poikilocytosis Anisocytosis 3+ H Microcytosis 2+ H Target Cells 2+ H Schistocytes Sodium Potassium Chloride Carbon Dioxide BUN Creatinine Estimated GFR BUN/Creatinine Ratio Glucose Calcium Magnesium Total Bilirubin AST ALT Alkaline Phosphatase Total Creatine Kinase Troponin I Total Protein Albumin Globulin Albumin/Globulin Ratio Lipase Blood Type Antibody Screen Crossmatch PFSH Medical History History of sepsis (~12/2021) History of anemia Postoperative wound abscess COVID-19 virus infection (~04/16/22) Physical deconditioning Hypertension, essential Post-menopausal Screening for osteoporosis Hyponatremia Normocytic anemia Decline in verbal memory Rosacea Sleep apnea Allergies Anxiety Headache Disease of spine Fractures (~2021) Chronic back pain Rubella Rheumatic fever (~1953) Mumps Oral herpes Chicken pox Recurrent sinusitis Hearing loss Painful menstrual periods Fibroids History of urinary incontinence Fecal incontinence Irritable bowel syndrome Colitis Alcohol use Surgical History Hx of removal of cyst History of hysterectomy Social History household members: spouse Tobacco & Substance Use Smoking Status: Never smoker alcohol intake: current substance use type: does not use Additional Social History additional social history: The patient lives locally with her . Assessment & Plan Assessment and plan (1) Anemia: Qualifiers: Anemia type: unspecified type Qualified Code(s): D64.9 - Anemia, unspecified Status: Acute (2) GI bleed: Qualifiers: GI bleed type/associated pathology: melena Qualified Code(s): K92.1 - Melena Status: Acute Plan EGD today with Dr. Braxton Time-Based Coding :: [TOTAL MINUTES] spent with patient and on the chart (including review of chart, obtaining history, exam, reviewing outside data, placing orders, documenting exam and treatment plan, and counseling patient) on [DATE].
[2024-03-04] MEDS: POTASSIUM CHLORIDE IN WATER 10 MEQ/100 ML PIGGYBACK 100 MEQ IV ×6 (09:37→18:06)
[2024-03-04] MEDS: MAGNESIUM SULFATE 2 GM/50 ML PIGGYBACK IV (09:37)
--- NOTE | 2024-03-04 09:37 | PM.HP.1 ---
History of Present Illness History of Present Illness Date Patient Seen: 03/04/24 Time Patient Seen: 09:37 Chief complaint: Low BP Narrative: Per overnight provider: 83 y/o with PMH of alcoholism, dementia, depression, HTN, who developed progressive generalized weakness several weeks ago. She has been sleeping longer hours then before. Over the past couple weeks she has had dark-colored stools. Mild nausea , w/o vomiting, w/o abdominal pain. Hypokalemic. She has a history of colon resection in the past, not clear if she have had EGD. On admission receiving 2 units of PRBCs,admitted NPO for upper scope. Interval updates: Hg improved to 9.5 after transfusion this morning. Planned EGD today with general surgery but her K was 2.6 ordered for 60 meq of potassium IV, Mg replacement also ordered for Mg 1.4. Potassium only had gotten 20 meq by endoscopy time so this was held until tomorrow. Started clears for now, also ordered 80 mEq PO today. Also given Mg rider 2g. Patient denies complaints of pain. Thinks the dark stools have been going on for a couple of months to weeks. She denies abdominal pain, nausea, vomiting hematemesis. [facility], [facility] Medical History History of sepsis (~12/2021) History of anemia Postoperative wound abscess COVID-19 virus infection (~04/16/22) Physical deconditioning Hypertension, essential Post-menopausal Screening for osteoporosis Hyponatremia Normocytic anemia Decline in verbal memory Rosacea Sleep apnea Allergies Anxiety Headache Disease of spine Fractures (~2021) Chronic back pain Rubella Rheumatic fever (~1953) Mumps Oral herpes Chicken pox Recurrent sinusitis Hearing loss Painful menstrual periods Fibroids History of urinary incontinence Fecal incontinence Irritable bowel syndrome Colitis Alcohol use Surgical History Hx of removal of cyst History of hysterectomy Social History household members: spouse Smoking Status: Never smoker alcohol intake: current substance use type: does not use additional social history: The patient lives locally with her . Meds Home Medications and Allergies Home Medications Medication Instructions Recorded Confirmed Type triamcinolone acetonide 0.1 % 1 applic topical BID PRN Rash 10/11/21 02/24/24 History topical cream thiamine HCl (vitamin B1) 100 mg 100 mg PO DAILY 01/19/22 02/24/24 History tablet Total restore 1 cap PO TID 03/26/22 02/24/24 History furosemide 20 mg tablet See Rx Instructions .Route 10/29/23 02/24/24 Rx .COMPLEX #180 tabs magnesium chloride 64 mg 64 mg PO DAILY #90 tabs 10/29/23 02/24/24 Rx (magnesium chloride) tablet,delayed release (Mag 64) potassium chloride 20 mEq 20 meq PO DAILY #90 tabs 12/06/23 02/24/24 Rx tablet,extended release venlafaxine 150 mg 150 mg PO DAILY #90 caps 02/20/24 02/24/24 Rx capsule,extended release 24 hr amlodipine 10 mg tablet 10 mg PO DAILY #90 tabs 02/24/24 03/04/24 Rx azelastine 137 mcg (0.1 %) nasal 1 spray intranasal BID #30 mL 02/24/24 02/24/24 Rx spray quetiapine 100 mg tablet 100 mg PO BEDTIME #90 tabs 02/24/24 03/04/24 Rx donepezil 10 mg tablet 10 mg PO DAILY 03/04/24 03/04/24 History venlafaxine 150 mg 150 mg PO DAILY 03/04/24 03/04/24 History capsule,extended release 24 hr Allergies Allergy/AdvReac Type Severity Reaction Status Date / Time Sulfa (Sulfonamide Allergy Unknown Rash Verified 02/24/24 16:39 Antibiotics) Review of Systems Review of Systems Narrative: All other systems reviewed with the patient and are negative unless otherwise stated. Exam Vital Signs (past 8 hours): - 03/04/24 01:58 03/04/24 03:31 03/04/24 03:50 Temperature 97.7 F 98.0 F 98.0 F Pulse Rate 80 72 67 Respiratory Rate 18 18 16 Blood Pressure 143/61 H 147/72 H 148/66 H Pulse Oximetry 97 Oxygen Flow Rate 0 03/04/24 04:00 03/04/24 04:00 03/04/24 06:21 Temperature 98.2 F 98.6 F 97.8 F Pulse Rate 71 80 63 Respiratory Rate 16 19 16 Blood Pressure 155/60 H 136/74 150/70 H Pulse Oximetry 97 Oxygen Flow Rate 0 03/04/24 08:00 Temperature 97.6 F Pulse Rate 64 Respiratory Rate 16 Blood Pressure 142/65 H Pulse Oximetry 96 Oxygen Flow Rate 0 Oxygen Delivery Method Room Air Oxygen Flow Rate 0 Narrative Exam Narrative: General:? Patient is well developed and well nourished, in no distress at this time. Chest:? Normal AP diameter and contour without kyphoscoliosis, no tachypnea, equal chest rise bilaterally. Lungs:? CTA b/l no wheezing rhonchi or rales. Cardio:?RRR no m/r/g. Abdomen: S NT ND. Musculoskeletal:? Muscle strength and tone are equal within normal limits, no deformity. Extremities: No edema or joint effusions. No cyanosis or clubbing. Objective Labs 03/04/24 07:25 03/04/24 06:41 Labs: Laboratory Results - last 24 hr 03/03/24 03/03/24 03/04/24 20:31 21:45 06:41 WBC 7.3 RBC 3.33 L Hgb 5.5 L* Hct 18.3 L* MCV 55.0 L MCH 16.6 L MCHC 30.2 RDW 20.9 H Plt Count 196 Neut % (Auto) 44.0 L Lymph % (Auto) 43.5 H [place] % (Auto) 11.0 Eos % (Auto) 0.4 L Baso % (Auto) 1.1 Neut # (Auto) 3200 Lymph # (Auto) 3200 [place] # (Auto) 800 Eos # (Auto) 0 Baso # (Auto) 100 Platelet Estimate Adequate on smear RBC Morphology See below Poikilocytosis 1+ H Anisocytosis 2+ H Microcytosis 2+ H Target Cells 2+ H Schistocytes 1+ H Sodium 130 L 137 Potassium 2.7 L* 2.6 L* Chloride 98 103 Carbon Dioxide 20 L 25 BUN 17 11 Creatinine 1.20 H 0.97 Estimated GFR 45 L 58 L BUN/Creatinine Ratio 14.2 11.3 Glucose 115 H 91 Calcium 8.5 8.6 Magnesium 1.4 L Total Bilirubin 0.4 AST 54 H ALT 23 Alkaline Phosphatase 99 Total Creatine Kinase 193 H Troponin I 0.014 Total Protein 6.4 Albumin 3.6 Globulin 2.8 Albumin/Globulin Ratio 1.3 Lipase 100 Blood Type O Positive Antibody Screen Negative Crossmatch See Detail 03/04/24 07:25 WBC 7.7 RBC 4.55 Hgb 9.5 L Hct 29.5 L MCV 64.8 L D MCH 20.9 L MCHC 32.2 RDW 31.9 H Plt Count 184 Neut % (Auto) 53.5 Lymph % (Auto) 29.4 [place] % (Auto) 13.2 Eos % (Auto) 2.1 Baso % (Auto) 1.8 Neut # (Auto) 4100 Lymph # (Auto) 2300 [place] # (Auto) 1000 H Eos # (Auto) 200 Baso # (Auto) 100 Platelet Estimate RBC Morphology See below Poikilocytosis Anisocytosis 3+ H Microcytosis 2+ H Target Cells 2+ H Schistocytes Sodium Potassium Chloride Carbon Dioxide BUN Creatinine Estimated GFR BUN/Creatinine Ratio Glucose Calcium Magnesium Total Bilirubin AST ALT Alkaline Phosphatase Total Creatine Kinase Troponin I Total Protein Albumin Globulin Albumin/Globulin Ratio Lipase Blood Type Antibody Screen Crossmatch Assessment & Plan Assessment & Plan narrative: Acute Blood loss Anemia / suspected Upper GI Bleed - CLD, EGD held today for hypokalemia. Will try tomorrow after repletion. - PRBC x 2 with Hg from 5.5 to 9.5. - PPI IV BID - telemetry, CBC monitoring Hypokalemia/hypomagnesemia - replaced was 2.6 this AM - BMP Mg was 1.4 ordered 2g IV today. Alcoholism - binging usually - w/o Hx of withdrawal delirium - MVIs / thiamine at home Depression / Dementia - Effexor, Seroquel and donepezil at home, will continue at home dosing. HTN - hypertensive today. resart amlodipine, unclear based on outside records if still on furosemide so will hold for now as she does not appear volume overloaded currently. History of diastolic heart failure - as above. DVT prophylaxis - SCDs Code: Full, surrogate is patient's spouse. I have utilized all available immediate resources to obtain, update, or review the patient's current medications. Dispo: patient admitted under inpatient status. Likely discharge home after evaluation for source of bleeding, consider PT/OT evaluations may need SNF depending on hospital course and mobility. Additional history obtained via discussions with the overnight provider and surgeon. These discussions contributed to the creation of the above assessment and plan. I have reviewed patient's presenting documentation, labs, and imaging personally. Time-Based Coding :: [TOTAL MINUTES] spent with patient and on the chart (including review of chart, obtaining history, exam, reviewing outside data, placing orders, documenting exam and treatment plan, and counseling patient) on [DATE]. Quality VTE Deep Vein Thrombosis/Pulmonary Embolism Present on Admission: No
[2024-03-04] MEDS: PANTOPRAZOLE 40 MG VIAL IV ×2 (09:38→20:59)
--- NOTE | 2024-03-04 11:25 | CM.DANOTE ---
B DCP Assessment Note pt is an 83yo F PMH of dementia/alcoholism here with anemia/upper GI bleed PCP Mari Varghese Payer Medicare and out of state [employer] DIE TESTER reviewed EMR. Per chart review, pt lives at home in [place] with spouse Mandeep. last admission was Apr, dc'd home with spouse and Sig HH. no PT/OT ordered at this time, per RN note 1PA with nursing to bathroom. Per hospitalist in morning rounds, EGD planned for later today with Rajeev. P: anticipate return home with spouse when medically stable. no identified barriers to safe dc home identified at this time. CM team will continue to follow closely for any additional DCP needs that arise. FELIPE Felix Discharge Planning/Care Management CM Discharge Assessment Start: 03/04/24 11:16 Freq: Status: Active Protocol: Document 03/04/24 11:16 (Rec: 03/04/24 11:25 [id number]) Discharge Planning Assessment Assigned Pharmaceutical Salesperson FELIPE Ontiveros DPOA/Assigned Designee Name Mandeep spouse Contact Information [phone] Advance Directives? Yes Advance Directives on File No History Provided By Patient,Significant Other, Medical Record Prior Living Arrangements House Household Members spouse Type of transporation used prior to Relies on Others admit Independent with ADL's No Is patient alert and oriented? No Comment pt has diagnosis of dementia Transportation Arrangement Spouse Additional Comment hx of Sig HH Review Status In Process Please Provide Date Initial DC 03/04/24 Assessment Was Performed Next Review Type Continued Stay Review
[2024-03-04] MEDS: POTASSIUM CHLORIDE 20 MEQ TAB 40 MEQ PO ×2 (15:40→20:59)
[2024-03-04 18:50] LABS: Hematocrit 31.6 % (36-46); Hemoglobin 9.9 g/dL (12.0-16.0)
--- NOTE | 2024-03-04 18:56 | PC.NURSE ---
Guiac test performed on stool sample: negative
[2024-03-04] MEDS: QUETIAPINE 100 MG TABLET PO (20:59)
[2024-03-05] VITALS (9 sets, daily range): BP systolic 120–183; BP diastolic 66–92; PULSE 66–83; RESP 16–20; TEMP 35.7–36.9; O2SAT 94–97
--- NOTE | 2024-03-05 | PATH_ITS ---
[facility] Accession Number: [id number] No. of containers..01 Tissue . 01 Material submitted: . stomach - ANTRUM . 01 Diagnosis: ANTRUM: Gastric antral mucosa with no diagnostic alterations. No Helicobacter organisms identified on H/E stain. No intestinal metaplasia, dysplasia, or malignancy identified. [facility] 03/09/2024 1354 Local . 01 Electronically signed: . Ryan Pearson MD, Pathologist NPI- [id number] . 01 Gross description: . Received in formalin with two patient identifiers and antrum, are two flores soft tissue fragments, 0.3 to 0.4 cm in greatest dimension, submitted in A1. ([id number]) /MRV 03/09/2024 [facility] Local . 01 Pathologist provided ICD-10: R19.8 . 01 CPT . 675177 Specimen Comment: A courtesy copy of this report has been sent to [facility] Pathology Performed at: [address] [address], [place], [place] [id number] MD Ryan Pearson MD Phone: [phone]
[2024-03-05 05:31] LABS: Add Manual Diff / Slide Review NO; Basophils Absolute Auto 100 /uL (0-100); Basophils Percent Auto 1.5 % (0-2); Eosinophils Absolute Auto 300 /uL (0-450); Eosinophils Percent Auto 4.1 % (2-4); Hematocrit 29.9 % (36-46); Hemoglobin 9.7 g/dL (12.0-16.0); Lymphocytes Absolute Auto 2500 /uL (1100-4500); Lymphocytes Percent Auto 33.4 % (25-40); Mean Corpuscular HGB Conc 32.4 % (30-36); Mean Corpuscular Hemoglobin 20.9 PG (26-34); Mean Corpuscular Volume 64.6 fL (80-100); Monocytes Absolute Auto 900 /uL (0-900); Monocytes Percent Auto 12.5 % (3-14); Neutrophils Absolute Auto 3700 /uL (1500-7000); Neutrophils Percent Auto 48.5 % (50-75); Platelet Count 180 X10^3/uL (150-400); Red Blood Cell Count 4.63 X10^6/uL (4.0-5.2); Red Cell Distribution Width 31.6 % (11.6-14.8); White Blood Cell Count 7.6 X10^3/uL (4.5-11.0)
[2024-03-05 05:42] LABS: BUN Creatinine Ratio 4.3 (6-22); Blood Urea Nitrogen 4 mg/dL (7-17); Carbon Dioxide 24 mmol/L (22-32); Chloride 110 mmol/L (98-107); Estimated Glomerular Filt Rate > 60 mL/min (>60); Glucose 86 mg/dL (80-110); HEMOLYSIS < 15 (0-50); Magnesium 1.8 mg/dL (1.6-2.3); Sodium 138 mmol/L (137-145)
[2024-03-05 06:39] LABS: Anisocytosis 2+; Hypochromasia 1+; Microcytosis 2+; Platelet Estimate Adequate on smear; Schistocytes 1+; Target Cells 2+
[2024-03-05] MEDS: AMLODIPINE 5 MG TABLET 10 MG PO (09:25)
[2024-03-05] MEDS: PANTOPRAZOLE 40 MG VIAL IV (09:26)
[2024-03-05] MEDS: DONEPEZIL 5 MG TABLET 10 MG PO (09:26)
[2024-03-05] MEDS: VENLAFAXINE ER 75 MG CAP 150 MG PO (09:26)
[2024-03-05] MEDS: LACTATED RINGERS 1,000 ML 70 ML IV (11:30)
--- NOTE | 2024-03-05 13:30 | P.PN_ITS ---
Subjective Subjective Date Patient Seen: 03/05/24 Time Patient Seen: 13:31 Interval history: The procedure yesterday was postponed because of her low potassium. It has been corrected in his normal today. Exam Vital Signs (past 8 hours): - 03/05/24 08:00 03/05/24 13:01 Temperature 98.0 F 98.4 F Pulse Rate 76 82 Respiratory Rate 16 16 Blood Pressure 183/92 H 163/83 H Pulse Oximetry 96 97 Oxygen Delivery Method Room Air Oxygen Flow Rate 0 Oxygen Delivery Method Room Air Oxygen Flow Rate 0 Const General: No acute distress Resp Effort & Inspection: normal respiratory effort Objective Labs 03/05/24 04:55 03/05/24 04:55 Labs: Laboratory Results - last 24 hr 03/04/24 03/05/24 18:30 04:55 WBC 7.6 RBC 4.63 Hgb 9.9 L 9.7 L Hct 31.6 L 29.9 L MCV 64.6 L MCH 20.9 L MCHC 32.4 RDW 31.6 H Plt Count 180 Neut % (Auto) 48.5 L Lymph % (Auto) 33.4 [place] % (Auto) 12.5 Eos % (Auto) 4.1 H Baso % (Auto) 1.5 Neut # (Auto) 3700 Lymph # (Auto) 2500 [place] # (Auto) 900 Eos # (Auto) 300 Baso # (Auto) 100 Platelet Estimate Adequate on smear RBC Morphology See below Hypochromasia 1+ H Anisocytosis 2+ H Microcytosis 2+ H Target Cells 2+ H Schistocytes 1+ H Sodium 138 Potassium 4.0 D Chloride 110 H Carbon Dioxide 24 BUN 4 L Creatinine 0.93 Estimated GFR > 60 BUN/Creatinine Ratio 4.3 L Glucose 86 Calcium 9.0 Magnesium 1.8 PFSH Medical History History of sepsis (~12/2021) History of anemia Postoperative wound abscess COVID-19 virus infection (~04/16/22) Physical deconditioning Hypertension, essential Post-menopausal Screening for osteoporosis Hyponatremia Normocytic anemia Decline in verbal memory Rosacea Sleep apnea Allergies Anxiety Headache Disease of spine Fractures (~2021) Chronic back pain Rubella Rheumatic fever (~1953) Mumps Oral herpes Chicken pox Recurrent sinusitis Hearing loss Painful menstrual periods Fibroids History of urinary incontinence Fecal incontinence Irritable bowel syndrome Colitis Alcohol use Surgical History Hx of removal of cyst History of hysterectomy Social History household members: spouse Smoking Status: Never smoker alcohol intake: current substance use type: does not use additional social history: The patient lives locally with her . Assessment & Plan Assessment and plan (1) Upper GI bleed: Status: Acute (2) Anemia: Qualifiers: Anemia type: unspecified type Qualified Code(s): D64.9 - Anemia, unspecified Status: Acute Plan Esophagogastroduodenoscopy today Time-Based Coding :: [TOTAL MINUTES] spent with patient and on the chart (including review of chart, obtaining history, exam, reviewing outside data, placing orders, documenting exam and treatment plan, and counseling patient) on [DATE]. Quality VTE Deep Vein Thrombosis/Pulmonary Embolism Present on Admission: No
--- NOTE | 2024-03-05 13:50 | PM.OP.EGD ---
Operative Date/Time/Diagnoses Date of procedure: 03/05/24 Time of procedure: 13:50 Pre-op diagnosis: Melena Post-op diagnosis: same Procedure & Clinicians Study performed: Esophagogastroduodenoscopy Same procedure as scheduled: Yes Surgeon: Anil Boo Procedure Notes Procedure in detail: Surgeon: Anil Boo MD Anesthesia: Yesenia Huerta CRNA A timeout was performed. A bite blocked was placed. The patient was positioned in the left lateral decubitus position. Anesthesia was administered. The endoscope was inserted through the bite block and passed through the esophagus and stomach and into the duodenum. There was moderate duodenitis. The scope was withdrawn into the stomach and there was antritis and multiple antral ulcers. There was no actively bleeding ulcer. Biopsies were taken with cold forceps from the antrum.. The scope was retroflexed and no significant hiatal hernia was noted. The scope was withdrawn into the esophagus and no other abnormalities were seen. The remainder of the esophagus was normal. The scope was withdrawn. The patient was awakened and brought to recovery. Sedation time: 3 minutes Findings: Duodenitis, antritis and multiple nonbleeding antral ulcers Impression: Multiple nonbleeding antral ulcers are the likely cause for the recent bout of melena Post-procedure Disposition: PACU
--- NOTE | 2024-03-05 16:51 | PM.PN.1 ---
Subjective Subjective Interval history: No compalints today, EGD showed Duodenitis, antritis and multiple nonbleeding antral ulcers. Exam Vital Signs (past 8 hours): - 03/05/24 13:01 03/05/24 13:50 03/05/24 13:55 Temperature 98.4 F 97.6 F Pulse Rate 82 77 75 Respiratory Rate 16 17 18 Blood Pressure 163/83 H 120/72 125/74 Pulse Oximetry 97 94 96 Oxygen Delivery Method Room Air Room Air Room Air Oxygen Flow Rate 03/05/24 14:00 03/05/24 14:15 Temperature 98.0 F 97.8 F Pulse Rate 73 76 Respiratory Rate 16 16 Blood Pressure 120/72 149/92 H Pulse Oximetry 96 95 Oxygen Delivery Method Room Air Oxygen Flow Rate 0 Oxygen Delivery Method Room Air Oxygen Flow Rate 0 Narrative Exam Narrative: General:? Patient is well developed and well nourished, in no distress at this time. Chest:? Normal AP diameter and contour without kyphoscoliosis, no tachypnea, equal chest rise bilaterally. Lungs:? CTA b/l no wheezing rhonchi or rales. Cardio:?RRR no m/r/g. Abdomen: S NT ND. Musculoskeletal:? Muscle strength and tone are equal within normal limits, no deformity. Extremities: No edema or joint effusions. No cyanosis or clubbing. Objective Labs 03/05/24 04:55 03/05/24 04:55 Labs: Laboratory Results - last 24 hr 03/04/24 03/05/24 18:30 04:55 WBC 7.6 RBC 4.63 Hgb 9.9 L 9.7 L Hct 31.6 L 29.9 L MCV 64.6 L MCH 20.9 L MCHC 32.4 RDW 31.6 H Plt Count 180 Neut % (Auto) 48.5 L Lymph % (Auto) 33.4 [place] % (Auto) 12.5 Eos % (Auto) 4.1 H Baso % (Auto) 1.5 Neut # (Auto) 3700 Lymph # (Auto) 2500 [place] # (Auto) 900 Eos # (Auto) 300 Baso # (Auto) 100 Platelet Estimate Adequate on smear RBC Morphology See below Hypochromasia 1+ H Anisocytosis 2+ H Microcytosis 2+ H Target Cells 2+ H Schistocytes 1+ H Sodium 138 Potassium 4.0 D Chloride 110 H Carbon Dioxide 24 BUN 4 L Creatinine 0.93 Estimated GFR > 60 BUN/Creatinine Ratio 4.3 L Glucose 86 Calcium 9.0 Magnesium 1.8 PFSH Medical History History of sepsis (~12/2021) History of anemia Postoperative wound abscess COVID-19 virus infection (~04/16/22) Physical deconditioning Hypertension, essential Post-menopausal Screening for osteoporosis Hyponatremia Normocytic anemia Decline in verbal memory Rosacea Sleep apnea Allergies Anxiety Headache Disease of spine Fractures (~2021) Chronic back pain Rubella Rheumatic fever (~1953) Mumps Oral herpes Chicken pox Recurrent sinusitis Hearing loss Painful menstrual periods Fibroids History of urinary incontinence Fecal incontinence Irritable bowel syndrome Colitis Alcohol use Surgical History Hx of removal of cyst History of hysterectomy Social History household members: spouse Smoking Status: Never smoker alcohol intake: current substance use type: does not use additional social history: The patient lives locally with her . Assessment & Plan Assessment & Plan narrative: Acute Blood loss Anemia / suspected Upper GI Bleed - EGD with Duodenitis, antritis and multiple nonbleeding antral ulcers. - PRBC x 2 with Hg from 5.5 to 9.5. Stable around 9.5 x3 now. Repeat 1 more test tomorrow AM - PPI IV BID for now, transition to PO tonight, regular diet okay - telemetry, CBC monitoring Hypokalemia/hypomagnesemia - replaced previously was 1.8 today (mg) - K improved to 4.0 after 140 meq total yesterday - repeat BMP tomorrow. Alcoholism - binging usually - w/o Hx of withdrawal delirium - MVIs / thiamine at home Depression / Dementia - Effexor, Seroquel and donepezil at home, will continue at home dosing. HTN - hypertensive today. resart amlodipine, unclear based on outside records if still on furosemide so will hold for now as she does not appear volume overloaded currently. History of diastolic heart failure - as above. DVT prophylaxis - SCDs Code: Full, surrogate is patient's spouse. I have utilized all available immediate resources to obtain, update, or review the patient's current medications. Dispo: patient admitted under inpatient status. Likely discharge home tomorrow if h/h and electrolytes are stable. Additional history obtained via discussions with the overnight provider and surgeon. These discussions contributed to the creation of the above assessment and plan. I have reviewed patient's presenting documentation, labs, and imaging personally. Time-Based Coding :: [TOTAL MINUTES] spent with patient and on the chart (including review of chart, obtaining history, exam, reviewing outside data, placing orders, documenting exam and treatment plan, and counseling patient) on [DATE]. Quality VTE Deep Vein Thrombosis/Pulmonary Embolism Present on Admission: No
[2024-03-05] MEDS: PANTOPRAZOLE DR 40 MG TABLET PO (21:37)
[2024-03-05] MEDS: QUETIAPINE 100 MG TABLET PO (21:37)
[2024-03-06] VITALS: BP 150/79; PULSE 72; RESP 16; TEMP 36.6; O2SAT 95
[2024-03-06 04:00] VITALS: BP 157/76; PULSE 67; RESP 18; TEMP 36.2; O2SAT 96
[2024-03-06] MEDS: PANTOPRAZOLE DR 40 MG TABLET PO (06:24)
[2024-03-06 07:52] LABS: BUN Creatinine Ratio 11.6 (6-22); Blood Urea Nitrogen 11 mg/dL (7-17); Calcium 9.1 mg/dL (8.4-10.2); Carbon Dioxide 23 mmol/L (22-32); Chloride 108 mmol/L (98-107); Estimated Glomerular Filt Rate 60 mL/min (>60); Glucose 83 mg/dL (80-110); HEMOLYSIS < 15 (0-50); Magnesium 1.6 mg/dL (1.6-2.3); Potassium 3.3 mmol/L (3.4-5.1); Sodium 137 mmol/L (137-145)
[2024-03-06 07:53] LABS: Hematocrit 30.4 % (36-46); Hemoglobin 9.6 g/dL (12.0-16.0); Mean Corpuscular HGB Conc 31.7 % (30-36); Mean Corpuscular Hemoglobin 20.5 PG (26-34); Mean Corpuscular Volume 64.7 fL (80-100); Platelet Count 188 X10^3/uL (150-400); Red Cell Distribution Width 32.1 % (11.6-14.8); White Blood Cell Count 7.5 X10^3/uL (4.5-11.0)
[2024-03-06 08:00] VITALS: BP 136/67; PULSE 79; RESP 12; TEMP 36.4; O2SAT 94
[2024-03-06 08:22] LABS: Add Manual Diff / Slide Review YES
[2024-03-06 08:30] LABS: Neutrophils Absolute Manual 4425 /uL (3000-5900); Total Cells Counted 100
[2024-03-06 08:31] LABS: Anisocytosis 2+; Microcytosis 2+
[2024-03-06 08:32] LABS: Hypochromasia 1+
[2024-03-06] MEDS: DONEPEZIL 5 MG TABLET 10 MG PO (08:32)
[2024-03-06] MEDS: AMLODIPINE 5 MG TABLET 10 MG PO (08:32)
[2024-03-06] MEDS: VENLAFAXINE ER 75 MG CAP 150 MG PO (08:32)
[2024-03-06 08:33] LABS: Schistocytes 1+
--- NOTE | 2024-03-06 09:31 | P.PN_ITS ---
Subjective Subjective Interval history: She is confused. She denies any pain or dyspnea. No nausea. Advancing diet. Exam Vital Signs (past 8 hours): - 03/06/24 04:00 Temperature 97.2 F L Pulse Rate 67 Respiratory Rate 18 Blood Pressure 157/76 H Pulse Oximetry 96 Oxygen Flow Rate 0 Oxygen Delivery Method Room Air Oxygen Flow Rate 0 Narrative Exam Narrative: NAD, alert and oriented. Fluent speech. Somewhat tangential and apepars confused. Lungs are clear, normal rate and effort. Heart is regular, no murmur gallop or rub. Abdomen is soft, non distended. Extremities are free of edema. Objective Labs 03/06/24 06:10 03/06/24 06:10 Labs: Laboratory Results - last 24 hr 03/06/24 06:10 WBC 7.5 RBC 4.70 Hgb 9.6 L Hct 30.4 L MCV 64.7 L MCH 20.5 L MCHC 31.7 RDW 32.1 H Plt Count 188 Neut % (Auto) Not Reportable Lymph % (Auto) Not Reportable [place] % (Auto) Not Reportable Eos % (Auto) Not Reportable Baso % (Auto) Not Reportable Lymph # (Auto) Not Reportable [place] # (Auto) Not Reportable Baso # (Auto) Not Reportable Total Counted 100 Seg Neutrophils % 59.0 Lymphocytes % (Manual) 20.0 L Monocytes % (Manual) 12.0 H Eosinophils % (Manual) 9.0 H Neutrophils # (Manual) 4425 RBC Morphology See below Hypochromasia 1+ H Anisocytosis 2+ H Microcytosis 2+ H Schistocytes 1+ H Sodium 137 Potassium 3.3 L Chloride 108 H Carbon Dioxide 23 BUN 11 Creatinine 0.95 Estimated GFR 60 BUN/Creatinine Ratio 11.6 Glucose 83 Calcium 9.1 Magnesium 1.6 PFSH Medical History History of sepsis (~12/2021) History of anemia Postoperative wound abscess COVID-19 virus infection (~04/16/22) Physical deconditioning Hypertension, essential Post-menopausal Screening for osteoporosis Hyponatremia Normocytic anemia Decline in verbal memory Rosacea Sleep apnea Allergies Anxiety Headache Disease of spine Fractures (~2021) Chronic back pain Rubella Rheumatic fever (~1953) Mumps Oral herpes Chicken pox Recurrent sinusitis Hearing loss Painful menstrual periods Fibroids History of urinary incontinence Fecal incontinence Irritable bowel syndrome Colitis Alcohol use Surgical History Hx of removal of cyst History of hysterectomy Social History household members: spouse Smoking Status: Never smoker alcohol intake: current substance use type: does not use additional social history: The patient lives locally with her . Assessment & Plan Assessment & Plan narrative: Acute Blood loss Anemia / suspected Upper GI Bleed, present on admission and resolved. - EGD with Duodenitis, antritis and multiple nonbleeding antral ulcers. - PRBC x 2 with Hg from 5.5 to 9.5. Stable around 9.5 x3 now. Repeat 1 more test tomorrow AM - PPI IV BID for now, transition to PO tonight, regular diet okay - telemetry, CBC monitoring Hypokalemia/hypomagnesemia, present on admission and improved. - replaced previously was 1.8 today (mg) - K improved to 4.0 after 140 meq total yesterday - repleat potassium. Alcohol use disorder, present on admission and stable. - binging usually - w/o Hx of withdrawal delirium - MVIs / thiamine at home - No WD at this time. Depression / Dementia, present on admission and stable. - Effexor, Seroquel and donepezil at home, will continue. HTN, present on admission and active. - hypertensive today. resarted amlodipine, unclear based on outside records if still on furosemide so will hold for now as she does not appear volume overloaded currently. History of diastolic heart failure, present on admission and stable. - as above. DISPO: It was unclear what her social situation is. We will investigate this and monitor her confusion today. Time-Based Coding :: [TOTAL MINUTES] spent with patient and on the chart (including review of chart, obtaining history, exam, reviewing outside data, placing orders, documenting exam and treatment plan, and counseling patient) on [DATE]. Quality VTE Deep Vein Thrombosis/Pulmonary Embolism Present on Admission: No
--- NOTE | 2024-03-06 10:37 | PM.DS.1 ---
History of Present Illness History of Present Illness Chief complaint: Low BP Narrative: From H&P: 83 y/o with PMH of alcoholism, dementia, depression, HTN, who developed progressive generalized weakness several weeks ago. She has been sleeping longer hours then before. Over the past couple weeks she has had dark-colored stools. Mild nausea , w/o vomiting, w/o abdominal pain. Hypokalemic. She has a history of colon resection in the past, not clear if she have had EGD. On admission receiving 2 units of PRBCs,admitted NPO for upper scope. Interval updates: Hg improved to 9.5 after transfusion this morning. Planned EGD today with general surgery but her K was 2.6 ordered for 60 meq of potassium IV, Mg replacement also ordered for Mg 1.4. Potassium only had gotten 20 meq by endoscopy time so this was held until tomorrow. Started clears for now, also ordered 80 mEq PO today. Also given Mg rider 2g. Patient denies complaints of pain. Thinks the dark stools have been going on for a couple of months to weeks. She denies abdominal pain, nausea, vomiting hematemesis. Discharge Providers Provider Date of admission: 03/03/24 23:21 Discharge Date: 03/06/24 Primary care physician: Mari Varghese DO Consults: 03/03/24 21:28 Consult to General Surgery Stat Comment: Consulting Provider: Anil Boo Reason for consultation: GI bleed Has provider been notified: Yes Discharge provider: Sami Newell MD Summary Hospital Course Discharge Diagnosis: Acute Blood loss Anemia / suspected Upper GI Bleed, present on admission and resolved. - EGD with Duodenitis, antritis and multiple nonbleeding antral ulcers. - PRBC x 2 with Hg from 5.5 to 9.5. Stable around 9.5 x3 now. Repeat 1 more test tomorrow AM - PPI IV BID for now, transition to PO tonight, regular diet okay - telemetry, CBC monitoring Hypokalemia/hypomagnesemia, present on admission and improved. - replaced previously was 1.8 today (mg) - K improved to 4.0 after 140 meq total yesterday - repleat potassium. Alcohol use disorder, present on admission and stable. - binging usually - w/o Hx of withdrawal delirium - MVIs / thiamine at home - No WD at this time. Depression / Dementia, present on admission and stable. - Effexor, Seroquel and donepezil at home, will continue. HTN, present on admission and active. - hypertensive today. resarted amlodipine, unclear based on outside records if still on furosemide so will hold for now as she does not appear volume overloaded currently. History of diastolic heart failure, present on admission and stable. - as above. Hospital Course: She was admitted with an acute blood loss anemia and found to have duodenitis and antritis on her EGD. She received 2 units of packed blood cells and was treated with Protonix IV b.i.d.. Her hemoglobin stabilized and she had no clinical evidence of ongoing bleeding. Her electrolytes were repleted including potassium and magnesium. She had no withdrawal symptoms but does use alcohol on a regular basis. Her amlodipine was restarted. Her came on the morning of discharge and felt that she was near baseline and was comfortable taking her home. She will continue a PPI b.i.d. until follow up. She will likely be treated for duodenitis for 2-3 months with b.i.d. dosing. Status at Discharge Cognitive/behavioral status at discharge: at baseline, confused Functional status at discharge: independent ambulation Overall status at discharge: patient is back to baseline Time Spent with Patient Time spent: Greater than 30 minutes Exam Vital Signs (past 8 hours): - 03/06/24 04:00 Temperature 97.2 F L Pulse Rate 67 Respiratory Rate 18 Blood Pressure 157/76 H Pulse Oximetry 96 Oxygen Flow Rate 0 Oxygen Delivery Method Room Air Oxygen Flow Rate 0 Narrative Exam Narrative: NAD, alert and oriented. Fluent speech. Lungs are clear, normal rate and effort. Heart is regular, no murmur gallop or rub. Abdomen is soft, non distended. Extremities are free of edema. She was appeared to have some degree of chronic cognitive impairment. Objective ECG Impression: Sinus rhythm with premature supraventricular complexes Septal infarct , age undetermined Electronically Signed On 03-04-2024 8:03:35 PST by Balwinder Garner MD Labs 03/06/24 06:10 03/06/24 06:10 Labs: Laboratory Results - last 24 hr 03/06/24 06:10 WBC 7.5 RBC 4.70 Hgb 9.6 L Hct 30.4 L MCV 64.7 L MCH 20.5 L MCHC 31.7 RDW 32.1 H Plt Count 188 Neut % (Auto) Not Reportable Lymph % (Auto) Not Reportable [place] % (Auto) Not Reportable Eos % (Auto) Not Reportable Baso % (Auto) Not Reportable Lymph # (Auto) Not Reportable [place] # (Auto) Not Reportable Baso # (Auto) Not Reportable Total Counted 100 Seg Neutrophils % 59.0 Lymphocytes % (Manual) 20.0 L Monocytes % (Manual) 12.0 H Eosinophils % (Manual) 9.0 H Neutrophils # (Manual) 4425 RBC Morphology See below Hypochromasia 1+ H Anisocytosis 2+ H Microcytosis 2+ H Schistocytes 1+ H Sodium 137 Potassium 3.3 L Chloride 108 H Carbon Dioxide 23 BUN 11 Creatinine 0.95 Estimated GFR 60 BUN/Creatinine Ratio 11.6 Glucose 83 Calcium 9.1 Magnesium 1.6 PFSH Medical History History of sepsis (~12/2021) History of anemia Postoperative wound abscess COVID-19 virus infection (~04/16/22) Physical deconditioning Hypertension, essential Post-menopausal Screening for osteoporosis Hyponatremia Normocytic anemia Decline in verbal memory Rosacea Sleep apnea Allergies Anxiety Headache Disease of spine Fractures (~2021) Chronic back pain Rubella Rheumatic fever (~1953) Mumps Oral herpes Chicken pox Recurrent sinusitis Hearing loss Painful menstrual periods Fibroids History of urinary incontinence Fecal incontinence Irritable bowel syndrome Colitis Alcohol use Surgical History Hx of removal of cyst History of hysterectomy Social History household members: spouse Smoking Status: Never smoker alcohol intake: current substance use type: does not use additional social history: The patient lives locally with her . Discharge Assessment & Plan Assessment and Plan Assessment: Acute Blood loss Anemia / suspected Upper GI Bleed, present on admission and resolved. Hypokalemia/hypomagnesemia, present on admission and improved. Alcohol use disorder, present on admission and stable. Plan of Treatment: Discharge home on Protonix 40 b.i.d. for 2-3 months. Close PCP follow up. Return to hospital for evidence of recurrent bleeding including rectal bleeding, melena, or weakness. Discharge Plan Discharge Plan Patient Disposition: Home Provider Discharge Comment: Stable for discharge home, with her . Discharge orders & Medications Prescriptions: New pantoprazole 40 mg Tablet,Delayed Release (Dr/Ec) 40 mg PO 0700,2100 Qty: 60 2RF Continued furosemide 20 mg tablet See Rx Instructions .ROUTE .COMPLEX Qty: 180 1RF Hold Instructions: Home Medication placed on hold at Doctor's office Dose Instruction: TAKE 1 TABLET BY MOUTH TWICE DAILY Rx Instructions: TAKE 1 TABLET BY MOUTH TWICE DAILY Mag 64 64 mg tablet,delayed release (DR/EC) 64 mg PO DAILY Qty: 90 1RF potassium chloride 20 mEq tablet extended release 20 meq PO DAILY Qty: 90 0RF amlodipine 10 mg tablet 10 mg PO DAILY Qty: 90 1RF triamcinolone acetonide 0.1 % cream 1 applic topical BID PRN (Reason: Rash) Patient Comments: APPLY TOPICALLY TO ECZEMA TWICE DAILY FOR UP TO 2 WEEKS NEEDED thiamine HCl (vitamin B1) 100 mg tablet 100 mg PO DAILY Total restore 1 cap PO TID Patient Comments: Magnesium and zinc gut health supplement azelastine 137 mcg (0.1 %) spray,non-aerosol 1 spray intranasal BID Qty: 30 1RF Rx Instructions: administer into each nostril quetiapine 100 mg tablet 100 mg PO BEDTIME Qty: 90 3RF donepezil 10 mg tablet 10 mg PO DAILY venlafaxine 150 mg capsule,extended release 24hr 150 mg PO DAILY Follow up/Referrals: Mari Varghese DO [Primary Care Provider] - Discharge Health Status Multidrug resistant organism: No MDRO Diet/Activity/Treatments Diet: Diet as Tolerated Activity: As tolerated Visit Report/Discharge Packet Instructions: DI for Gastritis, DI for Gastric Ulcer Stand Alone Forms: Patient Portal/API, Stroke Signs & Symptoms Discharge Data Primary Care Provider: Mari Varghese Quality VTE Deep Vein Thrombosis/Pulmonary Embolism Present on Admission: No
--- NOTE | 2024-03-06 14:40 | CM.DPC ---
DCP Discharge Home Per MD, pt had some increased confusion but improved and no PT/OT needs at this time and MD discharging pt home with outpt f/u as concern that pt will have potential to get worse if she remains in the hospital. Discharge instructions provided and spouse available for transport home today. Pt denies any needs at this time. FELIPE Silverman
== END 2024-03-06 11:29 | disposition home or self-care (01) | DRG 811 ==
LOC: ED 23:16 → AC 23:21
PROVIDERS: Internal Medicine; Surgery; Admitting Provider Internal Medicine; Emergency Provider Emergency Medicine; PCP Family Medicine; Referring Provider Emergency Medicine; Visit Provider Internal Medicine
PROC: 0DJ08ZZ Inspection of Upper Intestinal Tract, Via Natural or Artificial Opening Endoscopic (ICD-10-PCS; principal; 2024-03-05 15:00)
DX: D62 Acute posthemorrhagic anemia (principal); K25.4 Chronic or unspecified gastric ulcer with hemorrhage; K29.81 Duodenitis with bleeding; K29.51 Unspecified chronic gastritis with bleeding; E87.1 Hypo-osmolality and hyponatremia; F03.93 Unspecified dementia, unspecified severity, with mood disturbance; E87.6 Hypokalemia; F33.41 Major depressive disorder, recurrent, in partial remission; I10 Essential (primary) hypertension; M54.50 Low back pain, unspecified; G89.29 Other chronic pain; E83.42 Hypomagnesemia; F10.90 Alcohol use, unspecified, uncomplicated; Y90.9 Presence of alcohol in blood, level not specified; Z86.79 Personal history of other diseases of the circulatory system
CPT/HCPCS: 36415; 36430; 43239; 80048; 80053; 82550; 83690; 83735; 84484; 85007; 85014; 85018; 85025; 86850; 86900; 86901; 93005; 93010; 96374; 99231; 99232; 99284; 99291; P9016; J2470; J3475

== ENCOUNTER → 2024-08-24 14:47 | Outpatient (CLI) | payer MEDICARE, BC, SELFPAY ==
[2024-03-04 02:01] VITALS: BMI 21.7
[2024-08-24 15:12] LABS: Hematocrit 28.9 % (36-46); Hemoglobin 8.8 g/dL (12.0-16.0); Mean Corpuscular HGB Conc 30.6 % (30-36); Mean Corpuscular Hemoglobin 19.4 PG (26-34); Mean Corpuscular Volume 63.3 fL (80-100); Platelet Count 379 X10^3/uL (150-400); Red Blood Cell Count 4.56 X10^6/uL (4.0-5.2); Red Cell Distribution Width 21.3 % (11.6-14.8); White Blood Cell Count 11.1 X10^3/uL (4.5-11.0)
[2024-08-24 15:14] LABS: Add Manual Diff / Slide Review YES
[2024-08-24 15:32] LABS: Alanine Aminotransferase 22 IU/L (<35); Albumin 4.8 g/dL (3.5-5.0); Albumin Globulin Ratio 1.7 (1.0-2.8); Alkaline Phosphatase 113 U/L (38-126); Anisocytosis 2+; Aspartate Aminotransferase 33 IU/L (14-36); BUN Creatinine Ratio 10.6 (6-22); Bilirubin Total 0.5 mg/dL (0.2-1.3); Blood Urea Nitrogen 14 mg/dL (7-17); Calcium 9.9 mg/dL (8.4-10.2); Carbon Dioxide 25 mmol/L (22-32); Chloride 100 mmol/L (98-107); Estimated Glomerular Filt Rate 40 mL/min (>60); Globulin 2.8 g/dL (1.7-4.1); Glucose 108 mg/dL (70-99); HEMOLYSIS < 15 (0-50); Microcytosis 1+; Neutrophils Absolute Manual 7548 /uL (3000-5900); Potassium 3.9 mmol/L (3.4-5.1); Sodium 138 mmol/L (137-145); Total Cells Counted 100; Total Protein 7.6 g/dL (6.3-8.2)
[2024-08-24 15:33] LABS: Hypochromasia 2+; Target Cells 1+
== END ==
PROVIDERS: PCP Family Medicine; Referring Provider Family Medicine; Visit Provider Family Medicine
DX: K92.2 Gastrointestinal hemorrhage, unspecified (principal); D64.9 Anemia, unspecified
CPT/HCPCS: 36415; 80053; 85007; 85025

== ENCOUNTER → 2024-09-22 15:09 | Outpatient (CLI) | payer MEDICARE, BC, SELFPAY ==
[2024-03-04 02:01] VITALS: BMI 21.7
[2024-09-22 15:34] LABS: Add Manual Diff / Slide Review NO; Basophils Absolute Auto 200 /uL (0-100); Basophils Percent Auto 2.4 % (0-2); Eosinophils Absolute Auto 300 /uL (0-450); Eosinophils Percent Auto 3.3 % (2-4); Hematocrit 25.8 % (36-46); Hemoglobin 8.1 g/dL (12.0-16.0); Lymphocytes Absolute Auto 1800 /uL (1100-4500); Lymphocytes Percent Auto 20.4 % (25-40); Mean Corpuscular HGB Conc 31.5 % (30-36); Mean Corpuscular Hemoglobin 19.7 PG (26-34); Mean Corpuscular Volume 62.5 fL (80-100); Monocytes Absolute Auto 1200 /uL (0-900); Monocytes Percent Auto 13.1 % (3-14); Neutrophils Absolute Auto 5500 /uL (1500-7000); Neutrophils Percent Auto 60.8 % (50-75); Platelet Count 335 X10^3/uL (150-400); Red Blood Cell Count 4.12 X10^6/uL (4.0-5.2); Red Cell Distribution Width 21.9 % (11.6-14.8)
[2024-09-22 15:48] LABS: Anisocytosis 3+
[2024-09-22 15:49] LABS: Hypochromasia 1+; Microcytosis 1+; Target Cells 1+
[2024-09-22 16:02] LABS: BUN Creatinine Ratio 15.3 (6-22); Blood Urea Nitrogen 21 mg/dL (7-17); Calcium 9.1 mg/dL (8.4-10.2); Carbon Dioxide 22 mmol/L (22-32); Chloride 100 mmol/L (98-107); Estimated Glomerular Filt Rate 38 mL/min (>60); Glucose 108 mg/dL (70-99); HEMOLYSIS < 15 (0-50); Potassium 3.4 mmol/L (3.4-5.1); Sodium 135 mmol/L (137-145)
== END ==
PROVIDERS: PCP Family Medicine; Referring Provider Family Medicine; Visit Provider Family Medicine
DX: D64.9 Anemia, unspecified (principal); N17.9 Acute kidney failure, unspecified
CPT/HCPCS: 36415; 80048; 85025

== ENCOUNTER 2025-01-31 19:55 | Emergency (ER) | payer MEDICARE, OTHER, SELFPAY ==
[2024-03-04 02:01] VITALS: BMI 21.7
[2025-01-31] VITALS (16 sets, daily range): BP systolic 113–182; BP diastolic 56–84; PULSE 70–85; RESP 15–23; TEMP 36.7; O2SAT 94–99; BMI 24.3
--- NOTE | 2025-01-31 19:56 | PC.NURSE ---
EMS Report: Patient called for transport due to pt having unstable gait earlier. Been sick for the last few days. Hx of blood transfusion in the past. Hypotensive.
--- NOTE | 2025-01-31 20:01 | DI.RAD.S_ITS ---
PROCEDURE: XR CHEST 1V INDICATIONS: Chest Pain TECHNIQUE: One view of the chest was acquired. COMPARISON: [facility], CR, XR CHEST 1V, 05/16/2022, 11:20. [facility], CR, XR CHEST 2V, 11/24/2020, 12:52. FINDINGS: Surgical changes and devices: None. Lungs and pleura: Lungs are clear. No pleural effusions or pneumothorax. Mediastinum: Mediastinal contours appear normal. Heart size is normal. Bones and chest wall: No suspicious bony lesions. Overlying soft tissues appear unremarkable. IMPRESSION: No acute cardiopulmonary abnormality is seen. Dictated by: Robin Santos M.D. on 01/31/2025 at 20:52 Approved by: Robin Santos M.D. on 01/31/2025 at 20:53
--- NOTE | 2025-01-31 20:06 | EKG_ITS ---
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
[2025-01-31] MEDS: ASPIRIN 81 MG CHEW TAB 324 MG PO (20:09)
[2025-01-31 20:10] LABS: Add Manual Diff / Slide Review NO; Hematocrit 23.1 % (36-46); Hemoglobin 7.1 g/dL (12.0-16.0); Lymphocytes Absolute Auto 2500 /uL (1100-4500); Mean Corpuscular HGB Conc 30.6 % (30-36); Mean Corpuscular Hemoglobin 17.1 PG (26-34); Mean Corpuscular Volume 55.8 fL (80-100); Platelet Count 288 X10^3/uL (150-400)
[2025-01-31 20:15] LABS: INR 0.9 (0.9-1.3); Prothrombin Time 10.7 SECONDS (9.4-12.5)
[2025-01-31 20:18] LABS: PTT Partial Thromboplastin Tim 27 SECONDS (25.1-36.5)
[2025-01-31 20:19] LABS: Alanine Aminotransferase 18 IU/L (<35); Albumin 4.3 g/dL (3.5-5.0); Albumin Globulin Ratio 1.5 (1.0-2.8); Alkaline Phosphatase 106 U/L (38-126); Blood Urea Nitrogen 23 mg/dL (7-17); Calcium 8.6 mg/dL (8.4-10.2); Carbon Dioxide 21 mmol/L (22-32); Chloride 99 mmol/L (98-107); Creatine Kinase 60 U/L (30-135); Estimated Glomerular Filt Rate 39 mL/min (>60); Globulin 2.9 g/dL (1.7-4.1); Glucose 105 mg/dL (70-99); HEMOLYSIS < 15 (0-50); Lipase 234 U/L (23-300); Magnesium 1.4 mg/dL (1.6-2.3); Potassium 2.9 mmol/L (3.4-5.1); Sodium 135 mmol/L (137-145); Total Protein 7.2 g/dL (6.3-8.2)
[2025-01-31 20:31] LABS: NT-proBNP (BNP-Adult 18+) 240 pg/mL (<450); Troponin I < 0.012 ng/mL (0.01-0.034)
[2025-01-31 20:43] LABS: Influenza A - CEPHEID Flu A NEGATIVE (NEGATIVE); Influenza B - CEPHEID Flu B NEGATIVE (NEGATIVE)
[2025-01-31 20:45] LABS: Microcytosis 2+; Target Cells 1+
[2025-01-31 20:50] LABS: COVID-19 CEPHEID 4-PLEX PCR Negative (Negative)
--- NOTE | 2025-01-31 21:05 | ED.SYNCOPE ---
HPI - Syncope General Chief Complaint: Syncope Stated Complaint: Syncope Time Seen by Provider: 01/31/25 20:43 Source: patient and EMS Mode of arrival: EMS Limitations: no limitations History of Present Illness HPI narrative: 84-year-old female noted by to be leaning over the counter and felt like she might pass out, did not in fact lose consciousness, did not fall to the ground or collapse. Assisted to lying down position. took blood pressure and it was felt to be low at home. called into the emergency department, was advised to call 911, arrival by ambulance. IV fluids started by EMS. Recent cough cold symptoms and generalized weakness over the last few days. In the past she has had blood transfusion for anemia. No black or red stools, nosebleeds, vaginal bleeding, external sources of bleeding recent. Denies pain to her her head, neck, upper extremities, lower extremities, chest, abdomen, pelvis, back. Denies focal weakness to face arm or leg. Denies focal numbness to face arm or leg. No recent medication changes. No history of stroke recalled. Denies nausea or vomiting or diaphoresis. Denies fevers or chills. Related Data Home Medications ?Medication ?Instructions ?Recorded ?Confirmed triamcinolone acetonide 0.1 % 1 applic topical BID PRN Rash 10/11/21 12/21/24 topical cream thiamine HCl (vitamin B1) 100 mg 100 mg PO DAILY 01/19/22 12/21/24 tablet donepezil 10 mg tablet 10 mg PO DAILY 03/04/24 12/21/24 memantine 10 mg tablet 5 mg PO 10/26/24 12/21/24 Previous Rx's ?Medication ?Instructions ?Recorded azelastine 137 mcg (0.1 %) nasal 1 spray intranasal BID #30 mL 02/24/24 spray quetiapine 100 mg tablet 100 mg PO BEDTIME #90 tabs 02/24/24 magnesium chloride 64 mg 64 mg PO DAILY #90 tabs 06/03/24 (magnesium chloride) tablet,delayed release (Mag 64) amlodipine 10 mg tablet 10 mg PO DAILY #90 tabs 08/24/24 furosemide 20 mg tablet 20 mg PO BID #180 tabs 10/12/24 potassium chloride 20 mEq 20 meq PO DAILY #90 tabs 11/13/24 tablet,extended release pantoprazole 40 mg tablet,delayed 40 mg PO 0700,2100 #180 tabs 12/14/24 release venlafaxine 150 mg 150 mg PO DAILY #90 caps 12/18/24 capsule,extended release 24 hr Allergies Allergy/AdvReac Type Severity Reaction Status Date / Time Sulfa (Sulfonamide Allergy Unknown Rash Verified 01/31/25 19:58 Antibiotics) Patient History Medical History Alcohol use Allergies Anxiety Chicken pox Chronic back pain Colitis COVID-19 virus infection (~04/16/22) Decline in verbal memory Disease of spine Fecal incontinence Fibroids Fractures (~2021) Headache Hearing loss History of anemia History of sepsis (~12/2021) History of urinary incontinence Hypertension, essential Hyponatremia Irritable bowel syndrome Mumps Normocytic anemia Oral herpes Painful menstrual periods Physical deconditioning Post-menopausal Postoperative wound abscess Recurrent sinusitis Rheumatic fever (~1953) Right wrist fracture (~10/2022) Rosacea Rubella Screening for osteoporosis Sleep apnea Surgical History History of hysterectomy Hx of removal of cyst Social History household members: spouse Smoking Status: Never smoker alcohol intake: current substance use type: does not use additional social history: The patient lives locally with her . Smoking Status: Never smoker alcohol intake frequency: a few times a month Exam Narrative Exam Narrative: GENERAL: Well-developed patient, in mild distress. HEAD: Atraumatic. Normocephalic. EYES: Pupils equal round and reactive. Extraocular motions intact. No scleral icterus. No injection or drainage. ENT: Nose without bleeding, purulent drainage. Throat without erythema, tonsillar hypertrophy or exudate. Airway patent. NECK: Trachea midline. Non tender CARDIOVASCULAR: Regular rate and rhythm without murmurs, gallops, or rubs. RESPIRATORY: Clear to auscultation. Breath sounds equal bilaterally. No wheezes, rales, or rhonchi. GASTROINTESTINAL: Abdomen soft, non-tender, nondistended. EXTREMITIES: No edema or joint tenderness. BACK: Nontender without deformity or crepitance. No flank tenderness. NEURO: AOx3. Motor functions grossly nonfocal. SKIN: No rash or erythema of visible areas Initial Vital Signs Initial Vital Signs: Vital Signs Pulse Rate 75 01/31/25 19:57 Pulse Oximetry 97 01/31/25 19:57 Course Orders Ordered: Discontinued Medications Aspirin (Aspirin 81 Mg Chew Tab) 324 mg PO NOW ONE Stop: 01/31/25 20:02 Last Admin: 01/31/25 20:09 Dose: 324 mg Documented By: POTASSIUM CHLORIDE IN WATER (Potassium Cl 10 Meq/100 Ml Esther) 10 meq in 100 mls @ 100 mls/hr IV Q1H DIONE Stop: 01/31/25 23:59 Last Infusion: 02/01/25 00:26 Dose: Infused Documented By: Admin: 01/31/25 23:28 Dose: 100 mls/hr Documented By: Infusion: 01/31/25 23:28 Dose: Infused Documented By: Admin: 01/31/25 22:34 Dose: 100 mls/hr Documented By: Magnesium Sulfate (Magnesium Sulfate) 2 gm in 50 mls @ 150 mls/hr IV NOW ONE Stop: 01/31/25 22:09 Last Infusion: 01/31/25 22:32 Dose: Infused Documented By: Co-signed By: TITI Admin: 01/31/25 22:08 Dose: 150 mls/hr Documented By: Co-signed By: MARS Potassium Chloride (Potassium Chloride 20 Meq/15 Ml Udc) 40 meq PO NOW ONE Stop: 01/31/25 21:50 Last Admin: 01/31/25 22:13 Dose: 40 meq Documented By: Vital Signs Vital signs: Vital Signs - 8 hr 01/31/25 19:57 01/31/25 19:58 01/31/25 19:58 Temperature Pulse Rate 75 74 Pulse Rate [Orthostatic Lying] Pulse Rate [Orthostatic Sitting] Pulse Rate [Orthostatic Standing] Respiratory Rate Blood Pressure 148/84 H Blood Pressure [Orthostatic Lying] Blood Pressure [Orthostatic Sitting] Blood Pressure [Orthostatic Standing] Pulse Oximetry 97 96 Oxygen Delivery Method 01/31/25 19:59 01/31/25 20:00 01/31/25 20:00 Temperature 98.1 F Pulse Rate 71 71 Pulse Rate [Orthostatic Lying] Pulse Rate [Orthostatic Sitting] Pulse Rate [Orthostatic Standing] Respiratory Rate 23 18 Blood Pressure 148/84 H 129/67 Blood Pressure [Orthostatic Lying] Blood Pressure [Orthostatic Sitting] Blood Pressure [Orthostatic Standing] Pulse Oximetry 95 97 Oxygen Delivery Method Room Air 01/31/25 20:30 01/31/25 20:30 01/31/25 21:00 Temperature Pulse Rate 70 73 Pulse Rate [Orthostatic Lying] Pulse Rate [Orthostatic Sitting] Pulse Rate [Orthostatic Standing] Respiratory Rate 15 21 Blood Pressure 129/63 Blood Pressure [Orthostatic Lying] Blood Pressure [Orthostatic Sitting] Blood Pressure [Orthostatic Standing] Pulse Oximetry 97 96 Oxygen Delivery Method Room Air 01/31/25 21:00 01/31/25 21:04 01/31/25 21:04 Temperature Pulse Rate 71 Pulse Rate [Orthostatic Lying] Pulse Rate [Orthostatic Sitting] Pulse Rate [Orthostatic Standing] Respiratory Rate 21 Blood Pressure 113/56 L 114/60 Blood Pressure [Orthostatic Lying] Blood Pressure [Orthostatic Sitting] Blood Pressure [Orthostatic Standing] Pulse Oximetry 97 Oxygen Delivery Method 01/31/25 21:06 01/31/25 21:06 01/31/25 21:09 Temperature Pulse Rate 76 Pulse Rate [Orthostatic Lying] Pulse Rate [Orthostatic Sitting] Pulse Rate [Orthostatic Standing] Respiratory Rate Blood Pressure 127/62 121/60 Blood Pressure [Orthostatic Lying] Blood Pressure [Orthostatic Sitting] Blood Pressure [Orthostatic Standing] Pulse Oximetry 95 Oxygen Delivery Method 01/31/25 21:09 01/31/25 21:10 01/31/25 21:37 Temperature Pulse Rate 75 85 Pulse Rate [Orthostatic Lying] 71 Pulse Rate [Orthostatic Sitting] 76 Pulse Rate [Orthostatic Standing] 78 Respiratory Rate Blood Pressure Blood Pressure [Orthostatic Lying] 114/60 Blood Pressure [Orthostatic Sitting] 127/62 Blood Pressure [Orthostatic Standing] 121/60 Pulse Oximetry 98 Oxygen Delivery Method 01/31/25 22:00 Temperature Pulse Rate 72 Pulse Rate [Orthostatic Lying] Pulse Rate [Orthostatic Sitting] Pulse Rate [Orthostatic Standing] Respiratory Rate Blood Pressure Blood Pressure [Orthostatic Lying] Blood Pressure [Orthostatic Sitting] Blood Pressure [Orthostatic Standing] Pulse Oximetry 94 Oxygen Delivery Method MDM - Syncope Lab Data Attestation: I reviewed the patient's lab results. Lab results narrative: White blood cell count 42348, hemoglobin 7.1, platelets 644168, glucose 105. BUN 21 with creatinine 1.36, serum CO2 21. Sodium 135 slight low. Potassium 2.9 quite low. Magnesium 1.4 also low. Liver functions normal. Lipase normal. Troponin negative/unmeasurable. BNP not elevated. COVID influenza RSV negative. 02/01/25 03:10 02/01/25 03:44 Labs: Lab Results 01/31/25 01/31/25 01/31/25 Range/Units 19:58 19:59 22:28 WBC 10.0 (4.5-11.0) X10^3/uL RBC 4.13 (4.0-5.2) X10^6/uL Hgb 7.1 L (12.0-16.0) g/dL Hct 23.1 L (36-46) % MCV 55.8 L (80-100) fL MCH 17.1 L (26-34) PG MCHC 30.6 (30-36) % RDW 22.6 H (11.6-14.8) % Plt Count 288 (150-400) X10^3/uL Neut % (Auto) 59.6 (50-75) % Lymph % (Auto) 24.7 L (25-40) % [place] % (Auto) 11.9 (3-14) % Eos % (Auto) 2.6 (2-4) % Baso % (Auto) 1.2 (0-2) % Neut # (Auto) 6000 (4278-7300) /uL Lymph # (Auto) 2500 (1841-6652) /uL [place] # (Auto) 1200 H (0-900) /uL Eos # (Auto) 300 (0-450) /uL Baso # (Auto) 100 (0-100) /uL RBC Morphology See below Microcytosis 2+ H Target Cells 1+ H Percent Retic 2.6 (1.1-2.6) % PT 10.7 (9.4-12.5) SECONDS INR 0.9 (0.9-1.3) APTT 27 (25.1-36.5) SECONDS Sodium 135 L (137-145) mmol/L Potassium 2.9 L (3.4-5.1) mmol/L Chloride 99 (98-107) mmol/L Carbon Dioxide 21 L (22-32) mmol/L BUN 23 H (7-17) mg/dL Creatinine 1.36 H (0.52-1.04) mg/dL Estimated GFR 39 L (>60) mL/min BUN/Creatinine Ratio 16.9 (6-22) Glucose 105 H (70-99) mg/dL Calcium 8.6 (8.4-10.2) mg/dL Magnesium 1.4 L (1.6-2.3) mg/dL Iron 19 L (37-170) ug/dL Ferritin 5 L (11-264) ng/mL Total Bilirubin 0.3 (0.2-1.3) mg/dL AST 31 (14-36) IU/L ALT 18 (<35) IU/L Alkaline Phosphatase 106 (38-126) U/L Total Creatine Kinase 60 (30-135) U/L Troponin I < 0.012 (0.01-0.034) ng/mL NT-Pro-B Natriuret Pep 240 (<450) pg/mL Total Protein 7.2 (6.3-8.2) g/dL Albumin 4.3 (3.5-5.0) g/dL Globulin 2.9 (1.7-4.1) g/dL Albumin/Globulin Ratio 1.5 (1.0-2.8) Lipase 234 (23-300) U/L Stl C. cayetanensis PCR (Not Detect) Stool Rotavirus (PCR) (Not Detect) Stool Adenovirus (PCR) (Not Detect) Stool Astrovirus (PCR) (Not Detect) Stool Cryptosporidium PCR (Not Detect) Stl E.coli Shiga Tox PCR (Not Detect) St Sh/Enteroin Ecoli PCR (Not Detect) Stl Enterotoxigenic E PCR (Not Detect) Stool EPEC (PCR) (Not Detect) Stl E. histolytica PCR (Not Detect) Stool Giardia Lamblia PCR (Not Detect) Stool Sapovirus (PCR) (Not Detect) Stl P. shigelloides PCR (Not Detect) St Y.enterocolitica PCR (Not Detect) Stool Vibrio (PCR) (Not Detect) Stl Vibrio cholerae PCR (Not Detect) Stl Enteroaggr Ecoli PCR (Not Detect) Stl Norovirus GI/GII PCR (Not Detect) Campylobacter (PCR) (Not Detect) C. difficile Tox (PCR) (Not Detect) SARS-CoV-2 (PCR) Negative (Negative) Influenza A (RT-PCR) Flu a negative (NEGATIVE) Influenza B (RT-PCR) Flu b negative (NEGATIVE) RSV (PCR) Negative (Negative) Salmonella (PCR) (Not Detect) Blood Type O Positive Antibody Screen Negative Crossmatch See Detail 02/01/25 02/01/25 02/01/25 Range/Units 00:45 03:10 03:44 WBC (4.5-11.0) X10^3/uL RBC (4.0-5.2) X10^6/uL Hgb 7.6 L (12.0-16.0) g/dL Hct 24.0 L (36-46) % MCV (80-100) fL MCH (26-34) PG MCHC (30-36) % RDW (11.6-14.8) % Plt Count (150-400) X10^3/uL Neut % (Auto) (50-75) % Lymph % (Auto) (25-40) % [place] % (Auto) (3-14) % Eos % (Auto) (2-4) % Baso % (Auto) (0-2) % Neut # (Auto) (0420-6963) /uL Lymph # (Auto) (7619-7018) /uL [place] # (Auto) (0-900) /uL Eos # (Auto) (0-450) /uL Baso # (Auto) (0-100) /uL RBC Morphology Microcytosis Target Cells Percent Retic (1.1-2.6) % PT (9.4-12.5) SECONDS INR (0.9-1.3) APTT (25.1-36.5) SECONDS Sodium (137-145) mmol/L Potassium 3.6 (3.4-5.1) mmol/L Chloride (98-107) mmol/L Carbon Dioxide (22-32) mmol/L BUN (7-17) mg/dL Creatinine (0.52-1.04) mg/dL Estimated GFR (>60) mL/min BUN/Creatinine Ratio (6-22) Glucose (70-99) mg/dL Calcium (8.4-10.2) mg/dL Magnesium (1.6-2.3) mg/dL Iron (37-170) ug/dL Ferritin (11-264) ng/mL Total Bilirubin (0.2-1.3) mg/dL AST (14-36) IU/L ALT (<35) IU/L Alkaline Phosphatase (38-126) U/L Total Creatine Kinase (30-135) U/L Troponin I (0.01-0.034) ng/mL NT-Pro-B Natriuret Pep (<450) pg/mL Total Protein (6.3-8.2) g/dL Albumin (3.5-5.0) g/dL Globulin (1.7-4.1) g/dL Albumin/Globulin Ratio (1.0-2.8) Lipase (23-300) U/L Stl C. cayetanensis PCR Not detected (Not Detect) Stool Rotavirus (PCR) Not detected (Not Detect) Stool Adenovirus (PCR) Not detected (Not Detect) Stool Astrovirus (PCR) Not detected (Not Detect) Stool Cryptosporidium PCR Not detected (Not Detect) Stl E.coli Shiga Tox PCR Not detected (Not Detect) St Sh/Enteroin Ecoli PCR Not detected (Not Detect) Stl Enterotoxigenic E PCR Not detected (Not Detect) Stool EPEC (PCR) Not detected (Not Detect) Stl E. histolytica PCR Not detected (Not Detect) Stool Giardia Lamblia PCR Not detected (Not Detect) Stool Sapovirus (PCR) Not detected (Not Detect) Stl P. shigelloides PCR Not detected (Not Detect) St Y.enterocolitica PCR Not detected (Not Detect) Stool Vibrio (PCR) Not detected (Not Detect) Stl Vibrio cholerae PCR Not detected (Not Detect) Stl Enteroaggr Ecoli PCR Not detected (Not Detect) Stl Norovirus GI/GII PCR Not detected (Not Detect) Campylobacter (PCR) Not detected (Not Detect) C. difficile Tox (PCR) Not detected (Not Detect) SARS-CoV-2 (PCR) (Negative) Influenza A (RT-PCR) (NEGATIVE) Influenza B (RT-PCR) (NEGATIVE) RSV (PCR) (Negative) Salmonella (PCR) Not detected (Not Detect) Blood Type Antibody Screen Crossmatch Urine Dip Bedside Urine Glucose Negative Bedside Urine Bilirubin - Negative Bedside Urine Ketone - Negative Urine Specific [place] 1.010 Bedside Urine Occult Blood - Negative Bedside Urine pH 6.0 Bedside Urine Protein - Negative Bedside Urine Urobilinogen - Negative Bedside Urine Nitrite - Negative Bedside Urine Leukocytes - Negative Esterase Imaging Data Chest x-ray: Radiologist's Impression: [address] [address] XRay Report Signed Patient: Oisris Woodruff MR#: [id number] : 1940 Acct:[id number] Age/Sex: 84 / F Date of Service: 01/31/25 Loc: ED Accession Number: [id number] Procedure: XR chest 1V Ordering Provider: Dashawn De La Rosa MD PROCEDURE: XR CHEST 1V INDICATIONS: Chest Pain TECHNIQUE: One view of the chest was acquired. COMPARISON: [facility], CR, XR CHEST 1V, 05/16/2022, 11:20. [facility], CR, XR CHEST 2V, 11/24/2020, 12:52. FINDINGS: Surgical changes and devices: None. Lungs and pleura: Lungs are clear. No pleural effusions or pneumothorax. Mediastinum: Mediastinal contours appear normal. Heart size is normal. Bones and chest wall: No suspicious bony lesions. Overlying soft tissues appear unremarkable. IMPRESSION: No acute cardiopulmonary abnormality is seen. Dictated by: Robin Santos M.D. on 01/31/2025 at 20:52 Approved by: Robin Santos M.D. on 01/31/2025 at 20:53 ECG Data Attestation: I personally reviewed and interpreted this ECG as follows: Interpretation: 2005, normal sinus rhythm with PACs, rate 72. No obvious ST segment elevation or depression changes. OH 164, QRS 80, QTC 462. MDM Narrative Medical decision making narrative: 84-year-old female with history of anemia in prior blood transfusions, had near syncopal episode standing at home, transport by EMS. Feels improved. Denied any preceding chest pain or shortness of breath. No focal neuro findings. CT head, CTA head and neck vessels, EKG, chest x-ray, labs pending. EKG normal sinus rhythm, no obvious ischemic changes. Chest x-ray no acute changes. See radiology report. Initial lab data: White blood cell count 00243, hemoglobin 7.1, platelets 826460, glucose 105. BUN 21 with creatinine 1.36, serum CO2 21. Sodium 135 slight low. Potassium 2.9 quite low. Magnesium 1.4 also low. Liver functions normal. Lipase normal. Troponin negative/unmeasurable. BNP not elevated. COVID influenza RSV negative. IV fluids given, hemoglobin 7.1 before IV fluids, symptomatic generalized weakness, will transfuse 1 unit packed red cells. Stool guaiac ordered if speceimen produced, no melena or hematochezia history.. Potassium low, IV and oral repletion. Serum magnesium also low, IV magnesium repletion ordered. Tolerated transfusion and lytes repletions. Repeat Hb 7.6 improved, potassium level normallized. Patient feels better, wants to go home, further workup as an outpatient for now. DC home with . Critical Care Time Critical Care Time Critical Care Time: Yes Total Critical Care Time: 35 Attestation: The high probability of a clinically significant, sudden or life threatening deterioration of the [cardiopulmonary, hematolologic, metabolic] system(s) required my full and direct attention, intervention and personal management. The aggregate critical care time was [35] minutes. This time is in addition to time spent performing reported procedures but includes the following: [x] Data Review and interpretation [x] Patient assessment and monitoring of vital signs [x] Documentation [x] Medication orders and management Discharge Plan Departure Patient Disposition: Home Clinical Impression: Near syncope, Anemia, Acute hypokalemia, Hypomagnesemia Activity Restrictions/Additional Instructions: Generalized weakness with sensation that you might pass out. Previous anemia requiring blood transfusions in the past. No obvious external source of active recent bleeding. Hemoglobin 7.1 initially with low blood pressure, IV fluids given, which would dilute your hemoglobin less than 7.0 threshold to consider transfusion, 1 unit of packed red blood cells was transfused. Subsequent hemoglobin 7.6 increased, improved. Low potassium level noted, given potassium replacement, repeat potassium level better. Hypomagnesemia low serum magnesium level, IV magnesium given. Symptoms improved. Consider repeat blood testing as an outpatient. Further evaluation for possible sources of anemia evaluation as an outpatient for now. Symptomatically improved with repletion of electrolytes and hydration and transfusion. Tolerated well. Discharged home with family. Recheck later this week with your regular provider. Return to this/nearest emergency department for any change worsening symptoms or any concerns prior. Prescriptions: No Action Mag 64 64 mg tablet,delayed release (DR/EC) 64 mg PO DAILY Qty: 90 3RF amlodipine 10 mg tablet 10 mg PO DAILY Qty: 90 3RF furosemide 20 mg tablet 20 mg PO BID Qty: 180 0RF potassium chloride 20 mEq tablet extended release 20 meq PO DAILY Qty: 90 0RF pantoprazole 40 mg tablet,delayed release (DR/EC) 40 mg PO 0700,2100 Qty: 180 1RF venlafaxine 150 mg capsule,extended release 24hr 150 mg PO DAILY Qty: 90 0RF triamcinolone acetonide 0.1 % cream 1 applic topical BID PRN (Reason: Rash) Patient Comments: APPLY TOPICALLY TO ECZEMA TWICE DAILY FOR UP TO 2 WEEKS NEEDED memantine 10 mg tablet 5 mg PO thiamine HCl (vitamin B1) 100 mg tablet 100 mg PO DAILY azelastine 137 mcg (0.1 %) spray,non-aerosol 1 spray intranasal BID Qty: 30 1RF Rx Instructions: administer into each nostril quetiapine 100 mg tablet 100 mg PO BEDTIME Qty: 90 3RF donepezil 10 mg tablet 10 mg PO DAILY Referrals: Mari Varghese DO [Primary Care Provider, Medical] Stand Alone Forms: Patient Portal/API
--- NOTE | 2025-01-31 21:10 | DI.CT.S_ITS ---
PROCEDURE: CT ANGIO HEAD AND NECK INDICATIONS: near syncope TECHNIQUE: After the administration of intravenous contrast, 1 mm thick sections acquired from the aortic arch through the [place] of [place]. 3-dimensional pxwucgh-kifewblmh-pecwtshgaa (MIP) and/or volume rendering reformats were acquired of the central intracranial vasculature and neck separately. For radiation dose reduction, the following was used: automated exposure control, adjustment of mA and/or kV according to patient size. COMPARISON: None. FINDINGS: Image quality: Diagnostic. Cerebral CT Angiogram: Internal carotid arteries: No acute findings. Intracranial ICA are patent with no significant stenosis. No occlusion. No aneurysm. Anterior cerebral arteries: Trifurcation of the anterior cerebral artery, otherwise unremarkable. No significant stenosis. No occlusion. No aneurysm. Middle cerebral arteries: Unremarkable. No significant stenosis. No occlusion. No aneurysm. Posterior cerebral arteries: Unremarkable. No significant stenosis. No occlusion. No aneurysm. Basilar artery: Unremarkable. No significant stenosis. No occlusion. No aneurysm. Vertebral arteries: Unremarkable as visualized. Dural venous sinuses: Unremarkable given phase of enhancement. Other: Arterial phase appearance of the brain parenchyma is unremarkable. Neck CT Angiogram: Internal carotid arteries: Unremarkable. No significant stenosis. No dissection or occlusion. Common carotid arteries: Unremarkable. No significant stenosis. No dissection or occlusion. External carotid arteries: Unremarkable. No occlusion. Vertebral arteries: Unremarkable. No significant stenosis. No dissection or occlusion. Aortic Arch and Mediastinum: Partially visualized aortic arch unremarkable without evidence of aneurysm. Recurrent right subclavian artery. No diverticulum of [place]. Other: Degenerated disc osteophyte complex at C6-7. Mild mucosal thickening of the right maxillary sinus. Arterial phase soft tissues of the neck and chest are unremarkable. IMPRESSION: No significant intracranial arterial abnormality is seen. No significant abnormality is seen within the arteries of the neck. Any quantitative measurements of stenosis were performed using NASCET criteria. Dictated by: Robin Santos M.D. on 01/31/2025 at 22:21 Approved by: Robin Santos M.D. on 01/31/2025 at 22:25
--- NOTE | 2025-01-31 21:10 | DI.CT.S_ITS ---
PROCEDURE: CT HEAD/BRAIN WO CON INDICATIONS: near syncope TECHNIQUE: Noncontrast 4.5 mm thick angled axial sections acquired from the foramen magnum to the vertex, with coronal and sagittal reformats. For radiation dose reduction, the following was used: automated exposure control, adjustment of mA and/or kV according to patient size. COMPARISON: [facility], CT, HEAD WITHOUT CONTRAST, 12/04/2014, 15:41. FINDINGS: Image quality: Diagnostic. CSF spaces: Basal cisterns are patent. No extra-axial fluid collections. Ventricles are symmetric in size and shape. Brain: No new acute intracranial hemorrhage or mass effect. Cerebral volume loss with resultant ventricular and sulcal prominence. Periventricular and deep white matter chronic small vessel ischemic changes. Intracranial internal carotid siphon calcifications. Skull and face: Calvarium and visualized facial bones are intact, without suspicious lesions. Sinuses: Visualized sinuses and mastoids are clear. IMPRESSION: No acute intracranial pathology. Dictated by: Robin Santos M.D. on 01/31/2025 at 22:19 Approved by: Robin Santos M.D. on 01/31/2025 at 22:21
[2025-01-31] MEDS: MAGNESIUM SULFATE 2 GM/50 ML PIGGYBACK IV (22:08)
[2025-01-31] MEDS: POTASSIUM CHLORIDE 20 MEQ/15 ML UDC 40 MEQ PO (22:13)
[2025-01-31] MEDS: POTASSIUM CHLORIDE IN WATER 10 MEQ/100 ML PIGGYBACK 100 MEQ IV ×2 (22:34→23:28)
[2025-01-31 22:42] LABS: Reticulocyte Count, Percent 2.6 % (1.1-2.6)
[2025-01-31 22:48] LABS: Iron 19 ug/dL (37-170)
[2025-01-31 23:25] LABS: Ferritin 5 ng/mL (11-264)
[2025-02-01] VITALS (22 sets, daily range): BP systolic 109–160; BP diastolic 58–98; PULSE 63–80; RESP 13–38; TEMP 36.4–37; O2SAT 91–96
--- NOTE | 2025-02-01 02:13 | PC.NURSE ---
Patient has been able to ambulate since arrival, but has now had issues with frequent diarrhea. Provider aware and testing in progress.
[2025-02-01 02:20] LABS: Clostridium difficile toxin AB Not Detected (Not Detect); Enteroaggregative E.coli Not Detected (Not Detect); Enteropathogenic E.coli Not Detected (Not Detect); Enterotoxigenic E.coli It/st Not Detected (Not Detect); Plesiomonsa shigelloides Not Detected (Not Detect); Shiga-like toxin-prod E.coli Not Detected (Not Detect)
[2025-02-01 03:34] LABS: Hematocrit 24.0 % (36-46); Hemoglobin 7.6 g/dL (12.0-16.0)
[2025-02-01 04:08] LABS: HEMOLYSIS < 15 (0-50); Potassium 3.6 mmol/L (3.4-5.1)
--- NOTE | 2025-02-01 04:20 | PC.NURSE ---
After fluids, medications, blood transfusion patient is feeling better. H&H increase, potassium back to normal range. Provider aware and will speak with patient and family.
== END 2025-02-01 04:45 | disposition home or self-care (01) ==
PROVIDERS: Emergency Provider Emergency Medicine; PCP Family Medicine
DX: R55 Syncope and collapse (principal); D64.9 Anemia, unspecified; E87.6 Hypokalemia; E83.42 Hypomagnesemia; R07.9 Chest pain, unspecified
CPT/HCPCS: 36415; 36430; 70450; 70496; 70498; 71045; 80053; 81003; 82550; 82728; 83540; 83690; 83735; 83880; 84132; 84484; 85014; 85018; 85025; 85045; 85610; 85730; 86850; 86900; 86901; 87507; 87637; 93005; 96365; 96366; 96367; 99285; 99291; P9016; J3475; Q9967

== ENCOUNTER → 2025-02-11 11:14 | Outpatient (CLI) | payer MEDICARE, OTHER, SELFPAY ==
[2024-03-04 02:01] VITALS: BMI 21.7
[2025-02-11 12:40] LABS: Hematocrit 26.2 % (36-46); Hemoglobin 8.2 g/dL (12.0-16.0)
[2025-02-11 13:01] LABS: Blood Urea Nitrogen 17 mg/dL (7-17); Calcium 9.5 mg/dL (8.4-10.2); Carbon Dioxide 20 mmol/L (22-32); Chloride 107 mmol/L (98-107); Estimated Glomerular Filt Rate 50 mL/min (>60); Glucose 104 mg/dL (70-99); HEMOLYSIS < 15 (0-50); Potassium 4.5 mmol/L (3.4-5.1); Sodium 140 mmol/L (137-145)
[2025-02-11 15:34] LABS: Appearance Urine UA CLEAR; Bilirubin Urine UA NEGATIVE (NEGATIVE); Color Urine UA YELLOW; Glucose Urine UA NEGATIVE (Negative); Ketones Urine UA NEGATIVE (NEGATIVE); Leukocyte Esterase Urine UA NEGATIVE (NEGATIVE); Nitrite Urine UA NEGATIVE (Negative); Occult Blood Urine UA NEGATIVE (Negative); Protein Urine UA TRACE (Negative); Specific Gravity Urine UA 1.015 (1.000-1.035); Urobilinogen Urine UA 0.2 E.U./dL (0.2)
[2025-02-11 15:55] LABS: pH Urine UA 6.0 (4.5-8.0)
[2025-02-11 16:08] LABS: Culture Indicated Urine Cult Not Indicated
[2025-02-11 16:43] LABS: Protein (Total) Urine Random 15 mg/dL (0-12); Protein Creatinine Ratio Urine 0.12 GRAM/24H
[2025-02-11 16:47] LABS: Microalbumi Creatinin Ratio Ur 45.0 ug/mg CR (<30)
== END ==
PROVIDERS: Internal Medicine Nephrology; PCP Family Medicine; Referring Provider Family Medicine; Visit Provider Family Medicine
DX: N17.9 Acute kidney failure, unspecified (principal); R94.4 Abnormal results of kidney function studies; I10 Essential (primary) hypertension
CPT/HCPCS: 36415; 80048; 81001; 82043; 82570; 84156; 85014; 85018

== ENCOUNTER → 2025-03-12 10:53 | Outpatient (CLI) | payer MEDICARE, OTHER, SELFPAY ==
[2024-03-04 02:01] VITALS: BMI 21.7
[2025-03-12 11:36] LABS: Hematocrit 25.4 % (36-46); Hemoglobin 8.0 g/dL (12.0-16.0)
== END ==
PROVIDERS: PCP Family Medicine; Referring Provider Family Medicine; Visit Provider Family Medicine
DX: D64.9 Anemia, unspecified (principal)
CPT/HCPCS: 85014; 85018